=== PATIENT | male | born 1965 | race African-American/Black ===

== ENCOUNTER 2017-02-25 14:44 | Inpatient (IN) ==
[2017-02-25] MEDS ORDERED: SODIUM CHLORIDE 0.9% 500 ML IV STA (15:30)
[2017-02-25] MEDS ORDERED: VANCOMYCIN INJ 1,750 MG in SODIUM CHLORIDE 0.9% 250 ML IV STA (15:30)
[2017-02-25] MEDS ORDERED: PIPERACILLIN/TAZOBACTAM 3,375 MG in SODIUM CHLORIDE 0.9% 100 ML IV STA (15:30)
--- NOTE | 2017-02-25 15:34 | Emergency Department Note ---
Arrival - Arrival ED Nursing Triage Note: C/o redness, warmth, and edema to left BKA-onset yesterday. Reports fever and chills that started today. Temp up to 102. Mode of Arrival: Wheelchair Limitations: No Limitations Source: Patient, RN Notes Reviewed - History of Present Illness Onset (ago): hour(s) (10) Consistency: constant Severity: moderate Quality: aching <Daniel Connell - Last Filed: 02/25/17 15:31> <Ellis Jesus - Last Filed: 02/25/17 17:24> - Arrival Chief Complaint: Fever Stated Complaint: sent from Time Seen by Provider: 02/25/17 15:21 - History of Present Illness HPI Narrative: Patient is a 51-year-old black male followed by Dr. Martinez with a history of diabetes mellitus who presents to the emergency department today having awakened this morning with pain in his left BKA stump. This area is warm to touch and tender to touch. Patient's had a temp as high as 102 today. He denies cough but has had some dysuria. He denies any shortness of breath. There is no history of nausea or vomiting. (Daniel Connell) Allergies/Adverse Reactions: Allergies Allergy/AdvReac Type Severity Reaction Status Date / Time No Known Allergies Allergy Verified 09/10/15 10:59 Home Medications: Home Medications Medication Instructions Recorded Confirmed Type Potassium Chloride Cap/Tab [K Dur] 40 meq PO TID 04/03/15 02/25/17 History Cilostazol [Pletal] 100 mg PO BID tablet 07/02/15 02/25/17 Rx Clopidogrel Bisulfate [Clopidogrel] 75 mg PO QAM 09/10/15 02/25/17 History Metoprolol Tartrate Tab [Lopressor 200 mg PO BID 09/10/15 02/25/17 History Tab] Zolpidem Tartrate [Ambien] 10 mg PO BEDTIME 09/10/15 02/25/17 History amLODIPine [Norvasc] 10 mg PO QPM 09/10/15 02/25/17 History buPROPion XL [Wellbutrin Xl] 150 mg PO BID 09/10/15 02/25/17 History busPIRone [Buspar] 10 mg PO TID 09/10/15 02/25/17 History predniSONE TAB [PredniSONE] 5 mg PO BID 09/10/15 02/25/17 History tiZANidine [Zanaflex] 4 mg PO TID 09/10/15 02/25/17 History Atorvastatin [Lipitor] 40 mg PO BEDTIME tablet 10/22/15 02/25/17 Rx Gabapentin Cap/Tab [Neurontin 300 mg PO TID 11/22/15 02/25/17 History Cap/Tab] Insulin Detemir [Levemir] 50 unit SUBCUT BEDTIME 11/22/15 02/25/17 History Duloxetine HCl [Cymbalta] 60 mg PO BID 01/01/16 02/25/17 History Furosemide Tab [Lasix Tab] 40 mg PO BID DIURETIC #60 tablet 01/01/16 02/25/17 Rx Allopurinol 200 mg PO BID 06/24/16 02/25/17 History Cyanocobalamin/Folic AC/Vit B6 1 each PO BID 06/24/16 02/25/17 History [Folbic Tablet] Desvenlafaxine Succinate [Pristiq] 100 mg PO QAM 06/24/16 02/25/17 History Liraglutide [Victoza 2-Guillermo] 1.8 mg SUBCUT QAM 06/24/16 02/25/17 History Oxycodone HCl/Acetaminophen 1 each PO QID 06/24/16 02/25/17 History [Percocet 10-325 mg Tablet] fentaNYL [Fentanyl 75 mcg/hr Patch] 1 patch TRANSDERM Q3DAY 06/24/16 02/25/17 History Loperamide HCl [Loperamide] 2 mg PO Q6HR PRN 08/24/16 02/25/17 History metOLazone [Metolazone] 5 mg PO QAM 08/24/16 02/25/17 History Aspirin EC Tab 81 mg PO QAM 02/25/17 02/25/17 History Diclofenac 1% Gel [Voltaren 1% Gel] 1 applic TOP TID PRN 02/25/17 02/25/17 History Folic Acid Tab 1 mg PO QAM 02/25/17 02/25/17 History Review of System - Review of System 12 point system: reviewed and no additional remarkable complaints except as stated - Review of System Constitutional: Present: chills, fever Respiratory: Absent: cough, respiratory distress, wheezing Cardiovascular: Absent: chest pain Gastrointestinal: Present: nausea. Absent: abdominal pain, vomiting <Daniel Connell - Last Filed: 02/25/17 15:31> Medical,Surgical,& Family Hx - Medical History Cardio: History of: CHF, CAD, Hypertension Psychological: History of: Anxiety Disorders, Depression Neurology: History of: Migraine, Peripheral Neuropathy, Vertigo No history of: Seizures HEENT: History of: Eye Problem, Dental Problems Endocrine: History of: Diabetes Mellitus (NIDDM), Dyslipidemia Rheumatology: History of;: Gout Respiratory: History of: Obstructive Sleep Apnea (BIPAP) Renal: History of: Renal Failure Gastrointestinal: History of: GERD Musculoskeletal: History of: Amputation (fifth toe and metatarsal bone), Back/ Neck Problems, Degenerative Disk Disease, Osteoporosis, Musculoskeletal Problems (left below-knee amputation) Hematology: History of: Anemia, Blood Transfusion Reaction Other: History of: MRSA, Vancomycin-Resistant Enterococci - Surgical History Cardiac Surgeries: Patient Denies: Cardiac Catheterization HEENT Surgeries: Surgical HX of: Tonsilectomy & Adenoidectomy Abdominal Surgeries: Surgical HX of: Abdominal Surgery, Appendectomy, Cholecystectomy, Gastric Bypass Surgery, Hernia Repair Orthopedic Surgeries: Surgical HX of;: Orthopedic Surgery (partial amputation of the right foot for diabetic foot ulcers) - Family History Family History: Reports;: Family Cancer, Family Diabetes, Family Heart Disease, Family Hypertension, Family Stroke (DAD) - Social History Smoking Status: Never smoker Frequency of Alcohol Use: None Type of Drug Use: None <Daniel Connell - Last Filed: 02/25/17 15:31> Exam <Daniel Connell D - Last Filed: 02/25/17 15:31> <Ellis Jesus R - Last Filed: 02/25/17 17:24> Vital Signs: Vital Signs Temperature 100.7 F H 02/25/17 16:18 Pulse Rate 114 H 02/25/17 16:18 Respiratory Rate 18 02/25/17 16:18 Blood Pressure 97/64 02/25/17 16:18 O2 Sat by Pulse Oximetry 95 02/25/17 15:05 GENERAL: This is a well-nourished well-developed black male in no apparent distress. VITAL SIGNS: Reviewed HEENT: Head is atraumatic and normocephalic. Pupils are equal round react to light. Extraocular movements are intact. Oropharynx is benign with moist mucous membranes. NECK: Neck is soft and supple without tenderness. There are no masses. There is no lymphadenopathy. LUNGS: Lungs are clear to auscultation. Chest rises symmetrically. There is no chest wall tenderness. CV: Heart is regular rate and rhythm without murmurs rubs or gallops. ABDOMEN: Abdomen is soft, nontender to palpation. There are no abdominal abnormal masses palpated. There is no organomegaly. Bowel sounds are present and active. SKIN: Skin overlying the left BKA incision site is warm, erythematous, and tender to touch. There is no fluctuance. EXTREMITIES: Patient has full range of motion without tenderness. There is no pedal edema. NEUROLOGIC: Awake alert and oriented 4. Cranial nerves II through XII are grossly intact. Motor is 5 over 5 in all extremities bilaterally. (Daniel Connell) Course <Daniel Connell - Last Filed: 02/25/17 15:31> - Consultations Time: 17:22 Time: 17:22 <Ellis Jesus - Last Filed: 02/25/17 17:24> - Consultations Consultation #1: Dr. Lai will admit patient for Dr. Martinez (Ellis Jesus) Consultation #2: Dr. Rick Wellington consult he will see patient emergency room for stump infection ( Ellis Jesus) Results - Labs CBC & BMP: 02/25/17 16:10 02/25/17 16:10 Lab Results: I have reviewed the patients labs - Diagnostic Findings Procedure: X-ray: report reviewed by me, image reviewed by me (Left stump soft tissue cellulitis) <Ellis Jesus - Last Filed: 02/25/17 17:24> Critical Care Time Critical Care Time: Yes Total Critical Care Time: 60 <Ellis Jesus - Last Filed: 02/25/17 17:24> Disposition Case discussed with: patient <Daniel Connell - Last Filed: 02/25/17 15:31> Case discussed with: patient Time of Disposition: 17:23 Contact your physician if you experience:: fever over 101, Difficulty voiding, Redness or swelling, Nausea/Vomiting, Shortness of breath, Bleeding, pain uncontrolled by pain medications, Other Return to the Emergency Department if:: fever over 101, Difficulty voiding, Redness or swelling, Nausea/Vomiting, Shortness of breath, Bleeding, pain uncontrolled by pain medications, Other <Ellis Jesus - Last Filed: 02/25/17 17:24> Clinical Impression: Left BKA stump cellulitis, Diabetes mellitus, Sepsis, Cellulitis, Leukocytosis , History of left below knee amputation Disposition: Still a Patient Condition: Critical
--- NOTE | 2017-02-25 15:54 | XRay Report ---
Referring Physician: Daniel Connell Exam: XR chest 1V portable Date: February 25, 2017 at 3:37 PM Reason: Shortness of breath, fever Comparison: Chest one view portable August 24, 2016 Findings: There is borderline cardiomegaly. No focal consolidation, pneumothorax or pleural effusion is identified. No acute osseous process is seen. Impression: 1. Borderline cardiomegaly. 2. No acute pulmonary process is identified. PROCEDURE INTERPRETED AT [facility] DEPARTMENT OF RADIOLOGY Final Report Signed by: Dr. Aleah Hendricks
[2017-02-25 16:25] LABS: Basophils % 0.1 % (0.0-0.8); Eosinophils # 0.1 10*3/uL (0.0-0.87); Eosinophils % 0.3 % (0.00-10.9); Hematocrit 35.1 VOL% (42.0-52.0); Hemoglobin 11.3 GM/DL (14.0-18.0); Immature Granulocytes % 0.5 %; Lymphocytes # 2.3 10*3/uL (1.4-4.0); Lymphocytes % 11.9 % (21.2-54.2); Mean Corpuscular HGB Conc 32.2 GM/DL (32-36); Mean Corpuscular Hemoglobin 28 PG (27-34); Mean Corpuscular Volume 85.8 FL (87-102); Mean Platelet Volume 11.8 FL (9.6-12.0); Monocytes % 10.5 % (1.7-12.7); Neutrophils # 14.5 10*3/uL (1.4-7.4); Neutrophils % 76.7 % (38.7-73.9); Platelet Count 212 T/CUMM (130-400); Red Blood Count 4.09 MC/CUMM (3.8-5.5); White Blood Count 18.9 T/CUMM (4-12)
[2017-02-25] MEDS ORDERED: PIPERACILLIN/TAZOBACTAM 3,375 MG VIAL IV ONE (16:35)
[2017-02-25 16:36] LABS: PT Patient Result 10.5 SECS
[2017-02-25 17:04] LABS: Albumin 3.3 G/DL (3.4-5.0); Bilirubin,Total 0.4 MG/DL (0.2-1.0); Calcium 8.3 MG/DL (8.5-10.1); Osmolality,Calculated 286.4 MOS/KG (273-304); Total Protein 6.9 G/DL (6.4-8.3)
[2017-02-25] MEDS ORDERED: POTASSIUM CHLORIDE 20 MEQ TABLET PO STA (17:13)
--- NOTE | 2017-02-25 17:17 | XRay Report ---
Referring Physician: Ellis Jesus Exam: XR knee 2V LT Date: February 25, 2017 at 4:55 PM Reason: Left BKA stump cellulitis Comparison: Bilateral knee x-rays October 01, 2015 Findings: The patient is status post [id number] amputation. There is heterotopic calcification at the residual proximal tibia and fibula. Soft tissue swelling is seen at the site of amputation, and could reflect cellulitis. There is no clear radiographic evidence of osteomyelitis. Small soft tissue densities are also seen at the amputation site. They likely representing calcifications, but soft tissue foreign bodies would be difficult to exclude. Mild degenerative change is noted at the left knee. Impression: The patient is status post left [id number] amputation. There is soft tissue swelling at the amputation site which could represent cellulitis. However, there is no evidence of osteomyelitis. PROCEDURE INTERPRETED AT [facility] DEPARTMENT OF RADIOLOGY Final Report Signed by: Dr. Aleah Hendricks
--- NOTE | 2017-02-25 18:12 | General Surgery Consult Note ---
Assessment and Plan - Time spent with patient Time spent with patient: Greater than 30 minutes (1) Cellulitis Status: Acute Assessment and plan: I favor this being cellulitis and not been asked to assess. I administered local anesthesia and with sterile technique open his old scar and entered the amputation stump for about a 1.5 cm incision. I did not encounter an abscess. There was no purulence and all the tissue appeared viable. I saw no evidence of a necrotizing infection. This was packed open with moist saline gauze. I would treat this with IV antibiotics as you are doing for now. Current Visit: Yes Qualifiers: Site of cellulitis: extremity Site of cellulitis of extremity: lower extremity Laterality: left Qualified Code(s): L03.116 - Cellulitis of left lower limb History of Present Illness Chief complaint: Pain and BKA stump History of present illness: Mr. Caballero is a 51 year old male Who for several days has had increased pain in his left below-knee amputation stump. He states that he had an open wound in this location for several months closed about a week ago. In the last few days he had pain. This increased and was constant and worse with pressure was applied. He describes the pain is moderate. He is a chronic pain patient and actually saw Dr. De Los Santos today for another procedure but this was canceled because he had fever. Home Medications Medication Instructions Recorded Confirmed Type Potassium Chloride Cap/Tab [K Dur] 40 meq PO TID 04/03/15 02/25/17 History Cilostazol [Pletal] 100 mg PO BID tablet 07/02/15 02/25/17 Rx Clopidogrel Bisulfate [Clopidogrel] 75 mg PO QAM 09/10/15 02/25/17 History Metoprolol Tartrate Tab [Lopressor 200 mg PO BID 09/10/15 02/25/17 History Tab] Zolpidem Tartrate [Ambien] 10 mg PO BEDTIME 09/10/15 02/25/17 History amLODIPine [Norvasc] 10 mg PO QPM 09/10/15 02/25/17 History buPROPion XL [Wellbutrin Xl] 150 mg PO BID 09/10/15 02/25/17 History busPIRone [Buspar] 10 mg PO TID 09/10/15 02/25/17 History predniSONE TAB [PredniSONE] 5 mg PO BID 09/10/15 02/25/17 History tiZANidine [Zanaflex] 4 mg PO TID 09/10/15 02/25/17 History Atorvastatin [Lipitor] 40 mg PO BEDTIME tablet 10/22/15 02/25/17 Rx Gabapentin Cap/Tab [Neurontin 300 mg PO TID 11/22/15 02/25/17 History Cap/Tab] Insulin Detemir [Levemir] 50 unit SUBCUT BEDTIME 11/22/15 02/25/17 History Duloxetine HCl [Cymbalta] 60 mg PO BID 01/01/16 02/25/17 History Furosemide Tab [Lasix Tab] 40 mg PO BID DIURETIC #60 tablet 01/01/16 02/25/17 Rx Allopurinol 200 mg PO BID 06/24/16 02/25/17 History Cyanocobalamin/Folic AC/Vit B6 1 each PO BID 06/24/16 02/25/17 History [Folbic Tablet] Desvenlafaxine Succinate [Pristiq] 100 mg PO QAM 06/24/16 02/25/17 History Liraglutide [Victoza 2-Guillermo] 1.8 mg SUBCUT QAM 06/24/16 02/25/17 History Oxycodone HCl/Acetaminophen 1 each PO QID 06/24/16 02/25/17 History [Percocet 10-325 mg Tablet] fentaNYL [Fentanyl 75 mcg/hr Patch] 1 patch TRANSDERM Q3DAY 06/24/16 02/25/17 History Loperamide HCl [Loperamide] 2 mg PO Q6HR PRN 08/24/16 02/25/17 History metOLazone [Metolazone] 5 mg PO QAM 08/24/16 02/25/17 History Aspirin EC Tab 81 mg PO QAM 02/25/17 02/25/17 History Diclofenac 1% Gel [Voltaren 1% Gel] 1 applic TOP TID PRN 02/25/17 02/25/17 History Folic Acid Tab 1 mg PO QAM 02/25/17 02/25/17 History Allergies Allergy/AdvReac Type Severity Reaction Status Date / Time No Known Allergies Allergy Verified 09/10/15 10:59 Medical,Surgical,& Family Hx - Medical History Cardio: History of: CHF, CAD, Hypertension Psychological: History of: Anxiety Disorders, Depression Neurology: History of: Migraine, Peripheral Neuropathy, Vertigo No history of: Seizures HEENT: History of: Eye Problem, Dental Problems Endocrine: History of: Diabetes Mellitus (NIDDM), Dyslipidemia Rheumatology: History of;: Gout Respiratory: History of: Obstructive Sleep Apnea (BIPAP) Renal: History of: Renal Failure Gastrointestinal: History of: GERD Musculoskeletal: History of: Amputation (fifth toe and metatarsal bone), Back/ Neck Problems, Degenerative Disk Disease, Osteoporosis, Musculoskeletal Problems (left below-knee amputation) Hematology: History of: Anemia, Blood Transfusion Reaction Other: History of: MRSA, Vancomycin-Resistant Enterococci - Surgical History Cardiac Surgeries: Patient Denies: Cardiac Catheterization HEENT Surgeries: Surgical HX of: Tonsilectomy & Adenoidectomy Abdominal Surgeries: Surgical HX of: Abdominal Surgery, Appendectomy, Cholecystectomy, Gastric Bypass Surgery, Hernia Repair Orthopedic Surgeries: Surgical HX of;: Orthopedic Surgery (partial amputation of the right foot for diabetic foot ulcers) - Family History Family History: Reports;: Family Cancer, Family Diabetes, Family Heart Disease, Family Hypertension, Family Stroke (DAD) - Social History Smoking Status: Never smoker Frequency of Alcohol Use: None Type of Drug Use: None - Constitutional Constitutional: Present: chills, fever(s) - Cardiovascular Cardiovascular: Absent: chest pain at rest, chest pain with activity, dyspnea, dyspnea on exertion - Respiratory Respiratory: Absent: dyspnea, dyspnea on exertion - Gastrointestinal Gastrointestinal: Absent: abdominal pain - Neurological Neurological: Absent: focal weakness, syncope - Endocrine Endocrine: Absent: polyuria Hematologic/Lymphatic: Absent: easy bruising Exam - Constitutional General appearance: no acute distress - Head Head exam: Present: normocephalic - Eye Eye exam: Absent: scleral icterus - ENT Mouth exam: Present: normal voice - Neck Neck exam: Present: trachea midline - Respiratory Respiratory exam: Present: clear to auscultation bilaterally. Absent: accessory muscle use - Cardiovascular Cardiovascular exam: Present: RRR - GI/Abdominal GI/Abdominal exam: Present: soft. Absent: distended, tenderness - Extremities Exam Extremities exam: Present: edema, other (There is some tenderness just above his old scar but no fluctuance that I can appreciate. This is may be a bit edematous but there is no erythema. This is indurated but this appears that this could be chronic.) - Neurological Exam Neurological exam: Present: alert, oriented X3 Speech: Present: normal - Skin Skin exam: Present: normal color Results - Labs CBC & BMP: 02/25/17 16:10 02/25/17 16:10 Lab Results: I have reviewed the past 24 hour labs - Diagnostic Findings Procedure: X-ray: report reviewed by me
[2017-02-25] MEDS ORDERED: VANCOMYCIN INJ 1,000 MG in SODIUM CHLORIDE 0.9% 250 ML IV SCH (18:41)
[2017-02-25] MEDS ORDERED: ONDANSETRON 4 MG/2 ML VIAL IV PRN (18:41)
[2017-02-25] MEDS ORDERED: DEXTROSE 50% 25 GM/50 ML VIAL IV PRN (18:41)
[2017-02-25] MEDS ORDERED: ACETAMINOPHEN 325 MG TABLET PO PRN (18:41)
[2017-02-25] MEDS ORDERED: DICLOFENAC 1% GEL 100 GM TUBE TOP PRN (18:41)
[2017-02-25] MEDS ORDERED: SODIUM CHLORIDE 0.9% 1,000 ML IV SCH (18:41)
[2017-02-25] MEDS ORDERED: GLUCAGON 1 MG VIAL IM PRN (18:41)
[2017-02-25] MEDS ORDERED: POTASSIUM CHLORIDE 20 MEQ TABLET PO ONE (19:37)
[2017-02-25] MEDS: oxyCODONE/ACETAMINOPHEN 5-325 MG TABLET PO SCH (20:30)
[2017-02-25] MEDS: MULTIVITAMIN (BEROCCA) TABLET PO SCH (20:30)
[2017-02-25] MEDS: ALLOPURINOL 100 MG TABLET PO SCH (20:31)
[2017-02-25] MEDS: POTASSIUM CHLORIDE 20 MEQ TABLET PO SCH (20:31)
[2017-02-25] MEDS: ATORVASTATIN 40 MG TABLET PO SCH (20:31)
[2017-02-25] MEDS: tiZANidine 4 MG TABLET PO SCH (20:31)
[2017-02-25] MEDS: GABAPENTIN 600 MG TABLET PO SCH (20:31)
[2017-02-25] MEDS: CILOSTAZOL 100 MG TABLET PO SCH (20:31)
[2017-02-25] MEDS: MEROPENEM 1,000 MG in SODIUM CHLORIDE 0.9% 100 ML IV SCH (20:32)
[2017-02-25] MEDS: predniSONE 5 MG TABLET PO SCH (20:32)
[2017-02-25] MEDS: busPIRone 10 MG TABLET PO SCH (20:32)
[2017-02-25] MEDS: ZOLPIDEM 5 MG TABLET PO SCH (20:32)
[2017-02-25] MEDS: buPROPion XL 150 MG TABLET PO SCH (20:32)
[2017-02-25] MEDS: DOCUSATE SODIUM 100 MG CAPSULE PO SCH (20:32)
[2017-02-25] MEDS: VANCOMYCIN INJ 1,750 MG in SODIUM CHLORIDE 0.9% 500 ML IV SCH (20:33)
[2017-02-25] MEDS: SODIUM CHLOR 0.9% KCL 20 MEQ 20 MEQ/1,000 ML BAG IV SCH (20:33)
[2017-02-25] MEDS: INSULIN REGULAR 100 UNIT/ML SUBCUT SCH (20:38)
[2017-02-25] MEDS: INSULIN GLARGINE 100 UNIT/ML SUBCUT SCH (20:39)
[2017-02-25] MEDS: METOPROLOL TARTRATE 100 MG TABLET PO SCH (20:40)
[2017-02-25] MEDS ORDERED: amLODIPine 10 MG TABLET PO SCH (21:00)
--- NOTE | 2017-02-25 22:14 | Family Practice History&Phys ---
Assessment and Plan (1) Cellulitis Status: Acute Assessment and plan: Patient has cellulitis with possible small abscess formation of the distal stump of the left leg. She had a previous below the knee amputation on the left side. Said chronic skin breakdown from his prosthesis. He was admitted with chills fever hypotension and mental status change. In view of history cultures have been obtained and started on appropriate antibiotics. He is being followed by Dr. Cabrera. Current Visit: Yes Qualifiers: Site of cellulitis: extremity Site of cellulitis of extremity: lower extremity Laterality: left Qualified Code(s): L03.116 - Cellulitis of left lower limb (2) Sepsis Status: Acute Assessment and plan: Sepsis probably from areas of skin breakdown on the left stump. Have obtained blood and urine cultures and started on appropriate antibiotics Current Visit: Yes (3) Altered mental status Status: Acute Assessment and plan: Initially had altered mental status earlier today when he had fever. This has resolved at the time of my evaluation Current Visit: No (4) History of left below knee amputation Status: Chronic Assessment and plan: Patient has a [id number]-ahl-[id number] amputation on left side. He apparently has had problems with skin breakdown secondary to the prosthetic device. He has recently been treated by Dr. Augustine in wound care clinic. Stump is the most likely etiology of his infection Current Visit: Yes (5) Diabetes mellitus Status: Chronic Assessment and plan: We will start on sliding scale and monitor closely Current Visit: Yes (6) Chronic renal insufficiency, stage III (moderate) Status: Chronic Assessment and plan: Stable at present Current Visit: No (7) Hypertension Status: Chronic Assessment and plan: Stable on present medications Current Visit: No History of Present Illness Chief complaint: Fever, chills, and swelling left stump History of present illness: Mr. Caballero is a 51 year old male Patient is a 51-year-old black male followed by Dr. Martinez with a history of diabetes mellitus who presents to the emergency department today having awakened this morning with pain in his left BKA stump. This area is warm to touch and tender to touch. Patient's had a temp as high as 102 today. He denies cough but has had some dysuria. He denies any shortness of breath. Patient states that he was recently treated by Dr. Augustine for an area of breakdown on the distal stump. He has had a small persistent area of skin breakdown since that time. When patient was seen in the emergency room physician felt that he was somewhat confused . Patient admits that he is felt that he was not at his normal self all day. He had significant amount of localized pain at the distal stump. He was seen in emergency room by Dr. Cabrera. Incision was made but no obvious abscess was found. The area was left open and packed. In view of the history with patient with hypotension patient is being admitted to intensive care close observation therapy. Will obtain blood and urine cultures and start appropriate antibiotics Home Medications Medication Instructions Recorded Confirmed Type Potassium Chloride Cap/Tab [K Dur] 40 meq PO TID 04/03/15 02/25/17 History Cilostazol [Pletal] 100 mg PO BID tablet 07/02/15 02/25/17 Rx Clopidogrel Bisulfate [Clopidogrel] 75 mg PO QAM 09/10/15 02/25/17 History Metoprolol Tartrate Tab [Lopressor 200 mg PO BID 09/10/15 02/25/17 History Tab] Zolpidem Tartrate [Ambien] 10 mg PO BEDTIME 09/10/15 02/25/17 History amLODIPine [Norvasc] 10 mg PO QPM 09/10/15 02/25/17 History buPROPion XL [Wellbutrin Xl] 150 mg PO BID 09/10/15 02/25/17 History busPIRone [Buspar] 10 mg PO TID 09/10/15 02/25/17 History predniSONE TAB [PredniSONE] 5 mg PO BID 09/10/15 02/25/17 History tiZANidine [Zanaflex] 4 mg PO TID 09/10/15 02/25/17 History Atorvastatin [Lipitor] 40 mg PO BEDTIME tablet 10/22/15 02/25/17 Rx Gabapentin Cap/Tab [Neurontin 300 mg PO TID 11/22/15 02/25/17 History Cap/Tab] Insulin Detemir [Levemir] 50 unit SUBCUT BEDTIME 11/22/15 02/25/17 History Duloxetine HCl [Cymbalta] 60 mg PO BID 01/01/16 02/25/17 History Furosemide Tab [Lasix Tab] 40 mg PO BID DIURETIC #60 tablet 01/01/16 02/25/17 Rx Allopurinol 200 mg PO BID 06/24/16 02/25/17 History Cyanocobalamin/Folic AC/Vit B6 1 each PO BID 06/24/16 02/25/17 History [Folbic Tablet] Desvenlafaxine Succinate [Pristiq] 100 mg PO QAM 06/24/16 02/25/17 History Liraglutide [Victoza 2-Guillermo] 1.8 mg SUBCUT QAM 06/24/16 02/25/17 History Oxycodone HCl/Acetaminophen 1 each PO QID 06/24/16 02/25/17 History [Percocet 10-325 mg Tablet] fentaNYL [Fentanyl 75 mcg/hr Patch] 1 patch TRANSDERM Q3DAY 06/24/16 02/25/17 History Loperamide HCl [Loperamide] 2 mg PO Q6HR PRN 08/24/16 02/25/17 History metOLazone [Metolazone] 5 mg PO QAM 08/24/16 02/25/17 History Aspirin EC Tab 81 mg PO QAM 02/25/17 02/25/17 History Diclofenac 1% Gel [Voltaren 1% Gel] 1 applic TOP TID PRN 02/25/17 02/25/17 History Escitalopram [Lexapro] 20 mg PO DAILY 02/25/17 02/25/17 History Folic Acid Tab 1 mg PO QAM 02/25/17 02/25/17 History Allergies Allergy/AdvReac Type Severity Reaction Status Date / Time No Known Allergies Allergy Verified 09/10/15 10:59 Medical,Surgical,& Family Hx - Medical History Cardio: History of: CHF, CAD, Hypertension Psychological: History of: Anxiety Disorders, Depression Neurology: History of: Migraine, Peripheral Neuropathy, Vertigo No history of: Seizures HEENT: History of: Eye Problem, Dental Problems Endocrine: History of: Diabetes Mellitus (NIDDM), Dyslipidemia Rheumatology: History of;: Gout Respiratory: History of: Obstructive Sleep Apnea (BIPAP) Renal: History of: Renal Failure Gastrointestinal: History of: GERD Musculoskeletal: History of: Amputation (fifth toe and metatarsal bone), Back/ Neck Problems, Degenerative Disk Disease, Osteoporosis, Musculoskeletal Problems (left below-knee amputation) Hematology: History of: Anemia, Blood Transfusion Reaction Other: History of: MRSA, Vancomycin-Resistant Enterococci - Surgical History Cardiac Surgeries: Patient Denies: Cardiac Catheterization HEENT Surgeries: Surgical HX of: Tonsilectomy & Adenoidectomy Abdominal Surgeries: Surgical HX of: Abdominal Surgery, Appendectomy, Cholecystectomy, Gastric Bypass Surgery, Hernia Repair Orthopedic Surgeries: Surgical HX of;: Orthopedic Surgery (partial amputation of the right foot for diabetic foot ulcers) - Family History Family History: Reports;: Family Cancer, Family Diabetes, Family Heart Disease, Family Hypertension, Family Stroke (DAD) - Social History Smoking Status: Never smoker Frequency of Alcohol Use: None Type of Drug Use: None Lives With:: Alone Exam - Constitutional General appearance: mild distress - Head Head exam: Present: normal inspection - ENT ENT exam: Present: normal exam - Neck Neck exam: Present: normal inspection - Respiratory Respiratory exam: Present: clear to auscultation bilaterally - Cardiovascular Cardiovascular exam: Present: regular rate and rhythm, tachycardia - GI/Abdominal GI/Abdominal exam: Present: normal bowel sounds, soft - Extremities Exam Extremities exam: Present: edema, other (Patient has significant edema of the right lower leg and foot. He has swelling with slight redness over the distal stump on the left side. There is packing present with some blood.) - Back Exam Back exam: Present: normal inspection - Neurological Exam Neurological exam: Present: alert, other (Patient has decreased sensory of the right ankle and foot.) - Psychiatric Psychiatric exam: Present: normal affect - Skin Skin exam: Present: warm Results - Labs CBC & BMP: 02/25/17 16:10 02/25/17 16:10
[2017-02-26] MEDS: MEROPENEM 1,000 MG in SODIUM CHLORIDE 0.9% 100 ML IV SCH ×3 (04:25→21:08)
[2017-02-26 04:56] LABS: Basophils % 0.1 % (0.0-0.8); Eosinophils # 0.1 10*3/uL (0.0-0.87); Eosinophils % 0.3 % (0.00-10.9); Hematocrit 32.5 VOL% (42.0-52.0); Hemoglobin 10.3 GM/DL (14.0-18.0); Immature Granulocytes % 0.8 %; Immature Granulocytes Absolute 0.16 #; Lymphocytes # 2.1 10*3/uL (1.4-4.0); Lymphocytes % 10.1 % (21.2-54.2); Mean Corpuscular HGB Conc 31.7 GM/DL (32-36); Mean Corpuscular Hemoglobin 28 PG (27-34); Mean Corpuscular Volume 86.7 FL (87-102); Mean Platelet Volume 12.1 FL (9.6-12.0); Monocytes % 9.7 % (1.7-12.7); Platelet Count 186 T/CUMM (130-400); Red Blood Count 3.75 MC/CUMM (3.8-5.5); Red Cell Distribution Width 17.3 % (9.3-17.3); White Blood Count 20.3 T/CUMM (4-12)
[2017-02-26 05:31] LABS: Band Neutrophils 4 % (0-10); Burr Cells Slight; Hypochromasia 1+; Lymphocytes 9 % (20-55); Ovalocytes Slight; Platelet Estimate Normal; Segmented Neutrophils 81 % (50-85); Total Cells Counted 100
[2017-02-26 05:46] LABS: Albumin 2.7 G/DL (3.4-5.0); Bilirubin,Total 0.8 MG/DL (0.2-1.0); Calcium 7.4 MG/DL (8.5-10.1); Magnesium 2.2 MG/DL (1.8-2.4); Total Protein 5.4 G/DL (6.4-8.3)
[2017-02-26] MEDS: SODIUM CHLOR 0.9% KCL 20 MEQ 20 MEQ/1,000 ML BAG IV SCH ×4 (05:49→20:35)
[2017-02-26] MEDS: MORPHINE 2 MG/1 ML SYRINGE IV PRN ×2 (05:52→19:35)
--- NOTE | 2017-02-26 07:32 | XRay Report ---
XR chest 1V portable Indication: SOB Comparison: Chest x-ray dated February 25, 2017 at 7:03 PM Technique: Single frontal view of the chest Findings: Cardiomediastinal silhouette is stable in configuration. Minimal linear opacities demonstrated within the lower lungs, predominantly on the left, suggestive of atelectasis. Osseous and surrounding soft tissue structures appear grossly unchanged. IMPRESSION: No adverse interval change. PROCEDURE INTERPRETED AT [facility] DEPARTMENT OF RADIOLOGY Final Report Signed by: Dr William Bernstein
--- NOTE | 2017-02-26 08:46 | Internal Med Progress Note ---
Assessment and Plan (1) Cellulitis Status: Acute Assessment and plan: 51-year-old male admitted to acute care * Cellulitis. Patient has cellulitis on the left BKA stump. He had I&D done yesterday. He is on appropriate antibiotics. Cultures are pending. * Diabetes. Continue his diabetic diet and sliding scale * Chronic renal insufficiency. * Hypertension. Continue current treatment * Peripheral vascular disease. Patient will be continued on current management * Hyperlipidemia. Continue Lipitor Current Visit: Yes Qualifiers: Site of cellulitis: extremity Site of cellulitis of extremity: lower extremity Laterality: left Qualified Code(s): L03.116 - Cellulitis of left lower limb (2) Diabetes mellitus Status: Chronic Current Visit: Yes (3) History of left below knee amputation Status: Chronic Current Visit: Yes (4) Cervical spondylosis Status: Acute Current Visit: No (5) Chronic pain syndrome Status: Acute Current Visit: No (6) Depression Status: Acute Current Visit: No (7) Diabetes mellitus Status: Acute Current Visit: No (8) Gastroesophageal reflux disease Status: Acute Current Visit: No Internal Medicine - PN: Subj Interval history: He is feeling better this morning. No chest pain or shortness of breath. No nausea or vomiting. He is shivering quite a lot. Exam (Progress Note) - Constitutional Vitals: Period Temp Pulse Resp BP Sys/Gallegos Pulse Ox Last 24 Hr 98.2 F-101.0 F 85-112 10-20 90-164/68-111 90-100 Exam: Examination: GENERAL: Obese black male who is in no acute distress HEENT: PERRLA. EOMI. Mucous membranes are moist. NECK: Neck is supple. No JVD. No carotid bruit. No thyromegaly. CVS: Regular rate and rhythm. S1 and S2 are normal. RESPIRATORY: Lungs are clear. No rales or rhonchi. ABDOMEN: Soft and nontender. Bowel sounds are present. No hepatosplenomegaly. EXT: 1+ edema in the right lower extremity. Patient has a dressing on his stump which was opened up yesterday by Dr. Cabrera . Peripheral pulses are present. BRIM FLEXER: Patient is awake, alert and oriented to time place and person. Cranial nerves II through XII are grossly intact. Motor strength is 4/5 SKIN: Warm and dry. MSK: No obvious deformity. Results - Labs CBC & BMP: 02/26/17 03:53 02/26/17 03:53 Lab Results: I have reviewed the past 24 hour labs
[2017-02-26] MEDS: INSULIN REGULAR 100 UNIT/ML SUBCUT SCH ×4 (09:40→22:26)
[2017-02-26] MEDS: CILOSTAZOL 100 MG TABLET PO SCH ×2 (09:42→22:02)
[2017-02-26] MEDS: CLOPIDOGREL 75 MG TABLET PO SCH (09:42)
[2017-02-26] MEDS: MULTIVITAMIN (BEROCCA) TABLET PO SCH ×2 (09:42→21:59)
[2017-02-26] MEDS: buPROPion XL 150 MG TABLET PO SCH ×2 (09:42→22:02)
[2017-02-26] MEDS: PANTOPRAZOLE 40 MG VIAL IV SCH (09:42)
[2017-02-26] MEDS: predniSONE 5 MG TABLET PO SCH ×2 (09:43→22:01)
[2017-02-26] MEDS: METOPROLOL TARTRATE 100 MG TABLET PO SCH ×2 (09:43→22:00)
[2017-02-26] MEDS: ALLOPURINOL 100 MG TABLET PO SCH ×2 (09:43→22:01)
[2017-02-26] MEDS: tiZANidine 4 MG TABLET PO SCH ×3 (09:43→22:02)
[2017-02-26] MEDS: ASPIRIN EC 81 MG TABLET PO SCH (09:44)
[2017-02-26] MEDS: FUROSEMIDE 40 MG TABLET PO SCH ×2 (09:44→16:08)
[2017-02-26] MEDS: GABAPENTIN 600 MG TABLET PO SCH ×3 (09:44→22:02)
[2017-02-26] MEDS: DOCUSATE SODIUM 100 MG CAPSULE PO SCH ×2 (09:44→22:09)
[2017-02-26] MEDS: metOLazone 5 MG TABLET PO SCH (09:44)
[2017-02-26] MEDS: busPIRone 10 MG TABLET PO SCH ×3 (09:45→22:00)
[2017-02-26] MEDS: FOLIC ACID 1 MG TABLET PO SCH (09:45)
[2017-02-26] MEDS: POTASSIUM CHLORIDE 20 MEQ TABLET PO SCH ×3 (09:45→21:59)
[2017-02-26] MEDS: oxyCODONE/ACETAMINOPHEN 5-325 MG TABLET PO SCH ×4 (09:45→22:03)
--- NOTE | 2017-02-26 11:03 | CT Report ---
CT lower leg LT w con Indication: Stump pain Comparison: None Technique: Multiple axial tomographic images of the left lower extremity were obtained after the administration of 50 cc Omnipaque 350 intravenous contrast. Images obtained from superior acetabular level to the level of the distal BKA stump. Findings: Patient is status post BKA. There is significant soft tissue swelling within the distal stomach suspicious for cellulitis. There is a peripherally enhancing fluid collection about the distal tibia which measures up to 5.8 x 4.0 x 2.8 cm in width, AP, and craniocaudad dimensions respectively. This is suspicious for abscess. No definitive osseous erosion to suggest acute osteomyelitis. IMPRESSION: As above. The CT exam was performed using one or more of the following dose reduction techniques: Automated exposure control, adjustment of the mA and/or kV according to patient size, or use of iterative reconstruction technique. PROCEDURE INTERPRETED AT [facility] DEPARTMENT OF RADIOLOGY Final Report Signed by: Dr William Bernstein
--- NOTE | 2017-02-26 12:07 | General Surgery Progress Note ---
Assessment and Plan (1) Sepsis Status: Acute Assessment and plan: Impression: Sepsis with left stump pain Plan: I suspect there was something deeper in the left stump and a CT scan confirms my suspicion. There is a fluid collection along the d distal stump site. We will plan for incision and drainage under minimal sedation in the operating room today. He understands he will have an open wound that will need to be packed. The risks of the procedure including bleeding, infection, damage to surrounding structures, need further surgery all discussed in detail. He would like to proceed. Current Visit: Yes Subjective Narrative: Patient reports continuing pain in the left BKA stump. He is shivering in the bed. Exam - Constitutional Vitals: Period Temp Pulse Resp BP Sys/Gallegos Pulse Ox Last 24 Hr 98.2 F-101.0 F 85-112 10-24 90-164/68-111 90-100 General appearance: no acute distress - Respiratory Respiratory exam: Present: clear to auscultation bilaterally - Cardiovascular Cardiovascular exam: Present: tachycardia (Mildly tachycardic in sinus rhythm) - Extremities Exam Extremities exam: Present: other (Left BKA stump site is boggy. I do not see any cellulitis. He is very tender to palpation in this area. Previous incision examined and I do not see any packing in this area. It is small and the patient has been taking off his dressing several times overnight.) - Neurological Exam Neurological exam: Present: alert, oriented X3 Speech: Present: normal - Skin Skin exam: Present: normal color Results - Labs CBC & BMP: 02/26/17 03:53 02/26/17 03:53 Lab Results: I have reviewed the past 24 hour labs
[2017-02-26] MEDS: VANCOMYCIN INJ 1,750 MG in SODIUM CHLORIDE 0.9% 500 ML IV SCH (15:02)
[2017-02-26] MEDS ORDERED: PROPOFOL 200 MG/20 ML VIAL IV ONE (16:16)
[2017-02-26] MEDS ORDERED: METOCLOPRAMIDE 10 MG/2 ML VIAL ONE (16:16)
[2017-02-26] MEDS ORDERED: BUPIVACAINE MPF 0.25% /EPI 30 ML VIAL ONE (16:27)
--- NOTE | 2017-02-26 16:58 | Anesthesia Post-Op ---
Anesthesia Post OP - Post Ansesthetic Evaluation Patient seen in post op: Yes Resp: within normal limits CV: within normal limits Mental: within normal limits Temp: within normal limits [id number]-[id number]: within normal limits Nausea and Vomiting: within normal limits Pain: within normal limits
[2017-02-26] MEDS ORDERED: MIDAZOLAM 2 MG/2 ML VIAL ONE ×2 (17:00)
--- NOTE | 2017-02-26 17:09 | Operative Note ---
Date of procedure: 02/26/17 Pre-op diagnosis: Left BKA stump abscess Post-op diagnosis: same Procedure: Procedure performed: Incision and drainage of left BKA stump abscess Procedure in detail: After informed consent was obtained, patient was taken operating suite and laid supine on the table. After monitored anesthesia initiated a left lower extremity prepped and draped in usual sterile fashion. After procedural pause local anesthetic infiltrated in skin and subcutaneous tissue. The previous incision was extended medially and laterally. I dissected through the tissue and encountered purulence fairly deep. The purulence was cultured. The pocket appeared to extend posterior to the transected tibia. Fair amount of purulence was expressed and the wound irrigated and suctioned. The tissue appeared viable. I did not see any necrosis. Wound was thoroughly irrigated and suctioned. It was packed with Kerlix gauze and sterile dressings applied. There is good hemostasis. Patient was taken to recovery room in stable condition. All lap and needle counts correct at the end of the case. Anesthesia: MAC, local Surgeon / Physician: Altaf Lopez Estimated blood loss: other (Less than 10 cc) Specimens: other (Culture sent) Condition: stable Disposition: PACU Results - Labs CBC & BMP: 02/26/17 03:53 02/26/17 03:53 Discharge Plan - Discharge Medications No Action Potassium Chloride Cap/Tab [K Dur] 40 meq PO TID Cilostazol [Pletal] 100 mg PO BID tablet amLODIPine [Norvasc] 10 mg PO QPM busPIRone [Buspar] 10 mg PO TID buPROPion XL [Wellbutrin Xl] 150 mg PO BID tiZANidine [Zanaflex] 4 mg PO TID predniSONE TAB [PredniSONE] 5 mg PO BID Clopidogrel Bisulfate [Clopidogrel] 75 mg PO QAM Zolpidem Tartrate [Ambien] 10 mg PO BEDTIME Metoprolol Tartrate Tab [Lopressor Tab] 200 mg PO BID Atorvastatin [Lipitor] 40 mg PO BEDTIME tablet Allopurinol 200 mg PO DAILY Cyanocobalamin/Folic AC/Vit B6 [Folbic Tablet] 1 each PO BID Desvenlafaxine Succinate [Pristiq] 100 mg PO QAM fentaNYL [Fentanyl 75 mcg/hr Patch] 1 patch TRANSDERM Q3DAY Liraglutide [Victoza 2-Guillermo] 1.8 mg SUBCUT QAM Oxycodone HCl/Acetaminophen [Percocet 10-325 mg Tablet] 1 each PO QID metOLazone [Metolazone] 5 mg PO QAM Loperamide HCl [Loperamide] 2 mg PO Q6HR PRN PRN Reason: Diarrhea Diclofenac 1% Gel [Voltaren 1% Gel] 1 applic TOP TID PRN PRN Reason: Pain Folic Acid Tab 1 mg PO QAM Aspirin EC Tab 81 mg PO QAM Naproxen Sodium 220 mg PO Q12HR Esomeprazole Magnesium [Nexium] 40 mg PO BID Glimepiride [Glimepiride] 2 mg PO BID Escitalopram [Lexapro] 20 mg PO DAILY Colchicine [Colcrys] 0.6 mg PO DAILY Gabapentin Cap/Tab [Neurontin Cap/Tab] 300 mg PO TID Insulin Detemir [Levemir] 50 unit SUBCUT BEDTIME Furosemide Tab [Lasix Tab] 40 mg PO BID DIURETIC #60 tablet Duloxetine HCl [Cymbalta] 60 mg PO BID - Follow Up or Referral - Forms/Instructions
[2017-02-26] MEDS: fentaNYL 75 MCG/HR PATCH TRANSDERM SCH (17:36)
[2017-02-26] MEDS: ATORVASTATIN 40 MG TABLET PO SCH (22:02)
[2017-02-26] MEDS: ZOLPIDEM 5 MG TABLET PO SCH (22:20)
[2017-02-26] MEDS: INSULIN GLARGINE 100 UNIT/ML SUBCUT SCH (22:30)
[2017-02-27] MEDS: SODIUM CHLOR 0.9% KCL 20 MEQ 20 MEQ/1,000 ML BAG IV SCH ×3 (04:57→20:46)
[2017-02-27] MEDS: MEROPENEM 1,000 MG in SODIUM CHLORIDE 0.9% 100 ML IV SCH ×3 (05:00→20:42)
[2017-02-27] MEDS: MORPHINE 2 MG/1 ML SYRINGE IV PRN ×2 (07:12→12:47)
[2017-02-27] MEDS: GABAPENTIN 600 MG TABLET PO SCH ×3 (08:24→20:43)
[2017-02-27] MEDS: CLOPIDOGREL 75 MG TABLET PO SCH (08:25)
[2017-02-27] MEDS: tiZANidine 4 MG TABLET PO SCH ×3 (08:25→20:44)
[2017-02-27] MEDS: CILOSTAZOL 100 MG TABLET PO SCH ×2 (08:25→20:43)
[2017-02-27] MEDS: metOLazone 5 MG TABLET PO SCH (08:25)
[2017-02-27] MEDS: predniSONE 5 MG TABLET PO SCH ×2 (08:25→20:44)
[2017-02-27] MEDS: METOPROLOL TARTRATE 100 MG TABLET PO SCH ×2 (08:26→20:43)
[2017-02-27] MEDS: FUROSEMIDE 40 MG TABLET PO SCH ×2 (08:26→16:28)
[2017-02-27] MEDS: busPIRone 10 MG TABLET PO SCH ×3 (08:26→20:43)
[2017-02-27] MEDS: FOLIC ACID 1 MG TABLET PO SCH (08:27)
[2017-02-27] MEDS: ASPIRIN EC 81 MG TABLET PO SCH (08:27)
[2017-02-27] MEDS: POTASSIUM CHLORIDE 20 MEQ TABLET PO SCH ×3 (08:27→20:44)
[2017-02-27] MEDS: buPROPion XL 150 MG TABLET PO SCH ×2 (08:27→20:43)
[2017-02-27] MEDS: PANTOPRAZOLE 40 MG VIAL IV SCH (08:30)
[2017-02-27] MEDS: ALLOPURINOL 100 MG TABLET PO SCH ×2 (08:30→20:44)
[2017-02-27] MEDS: oxyCODONE/ACETAMINOPHEN 5-325 MG TABLET PO SCH ×4 (08:30→20:55)
[2017-02-27] MEDS: MULTIVITAMIN (BEROCCA) TABLET PO SCH ×2 (08:30→20:44)
[2017-02-27] MEDS: INSULIN REGULAR 100 UNIT/ML SUBCUT SCH ×4 (08:38→20:47)
[2017-02-27] MEDS: DOCUSATE SODIUM 100 MG CAPSULE PO SCH ×2 (08:39→20:43)
[2017-02-27] MEDS: VANCOMYCIN INJ 1,750 MG in SODIUM CHLORIDE 0.9% 500 ML IV SCH (08:42)
--- NOTE | 2017-02-27 12:58 | Internal Med Progress Note ---
Assessment and Plan (1) Cellulitis Status: Acute Current Visit: Yes Qualifiers: Site of cellulitis: extremity Site of cellulitis of extremity: lower extremity Laterality: left Qualified Code(s): L03.116 - Cellulitis of left lower limb (2) Leukocytosis Status: Acute Current Visit: Yes (3) Diabetes mellitus Status: Chronic Current Visit: Yes Qualifiers: Diabetes mellitus type: type 2 Diabetes mellitus complication status: with circulatory complication Diabetes mellitus complication detail: with peripheral angiopathy with gangrene Diabetes mellitus alf insulin use: with dedicated intermodal truck driver use Qualified Code(s): E11.52 - Type 2 diabetes mellitus with diabetic peripheral angiopathy with gangrene; Z79.4 - group home (current) use of insulin (4) History of left below knee amputation Status: Chronic Current Visit: Yes (5) Anemia Status: Chronic Current Visit: Yes Qualifiers: Other causes of anemia: chronic disease, other Internal Medicine - PN: Subj Interval history: This is a 51 year old male patient of Dr. Martinez with history of DM, HTN, dyslipidemia, peripheral neuropathy, multiple recurrences of lower extremity skin ulcerations, recent below knee amputation left lower extremity, who presented to ER with abscess in left leg stump. He has had surgical I&D per Dr. Rick III. He is feeling better and will be moved out of the ICU. Exam (Progress Note) - Constitutional Vitals: Period Temp Pulse Resp BP Sys/Gallegos Pulse Ox Last 24 Hr 97.0 F-99.8 F 84-108 10-24 103-158/74-104 95-100 General appearance: no acute distress - Head Head exam: Present: normocephalic - Eye Eye exam: Present: EOMI - Respiratory Respiratory exam: Present: clear to auscultation bilaterally - Cardiovascular Cardiovascular exam: Present: regular rate and rhythm - GI/Abdominal GI/Abdominal exam: Present: normal bowel sounds, soft. Absent: tenderness - Extremities Exam Extremities exam: Present: other (left lower extremity below knee amputation). Absent: edema - Neurological Exam Neurological exam: Present: alert, oriented X3 - Psychiatric Psychiatric exam: Present: normal affect - Skin Skin exam: Present: warm, dry Results - Labs CBC & BMP: 02/26/17 03:53 02/26/17 03:53 - EKG EKG shows: sinus rhythm - Diagnostic Findings Procedure: Chest x-ray: report reviewed by me
--- NOTE | 2017-02-27 13:46 | Event Note ---
Status post I&D of left stump. Afebrile vital signs stable and he is feeling much better. May be transferred to the floor today. His wound is clean. His pain is improved. I do not see any further purulence. Tissue appears viable. Repacked. Continue local wound care and antibiotics.
[2017-02-27] MEDS: INSULIN GLARGINE 100 UNIT/ML SUBCUT SCH (20:42)
[2017-02-27] MEDS: ATORVASTATIN 40 MG TABLET PO SCH (20:44)
[2017-02-27] MEDS: ZOLPIDEM 5 MG TABLET PO SCH (21:38)
[2017-02-28] MEDS: MORPHINE 2 MG/1 ML SYRINGE IV PRN ×2 (02:46→10:41)
[2017-02-28] MEDS: VANCOMYCIN INJ 1,750 MG in SODIUM CHLORIDE 0.9% 500 ML IV SCH ×2 (03:44→23:21)
[2017-02-28] MEDS: SODIUM CHLOR 0.9% KCL 20 MEQ 20 MEQ/1,000 ML BAG IV SCH ×3 (03:50→23:20)
[2017-02-28 04:24] LABS: Basophils % 0.1 % (0.0-0.8); Eosinophils # 0.1 10*3/uL (0.0-0.87); Eosinophils % 1.1 % (0.00-10.9); Hematocrit 32.6 VOL% (42.0-52.0); Hemoglobin 10.2 GM/DL (14.0-18.0); Immature Granulocytes % 0.6 %; Immature Granulocytes Absolute 0.07 #; Lymphocytes # 1.8 10*3/uL (1.4-4.0); Mean Corpuscular HGB Conc 31.3 GM/DL (32-36); Mean Corpuscular Hemoglobin 27 PG (27-34); Mean Corpuscular Volume 86.7 FL (87-102); Mean Platelet Volume 12.6 FL (9.6-12.0); Monocytes # 0.5 10*3/uL (0.11-0.8); Neutrophils # 10.1 10*3/uL (1.4-7.4); Neutrophils % 80.2 % (38.7-73.9); Platelet Count 214 T/CUMM (130-400); Red Blood Count 3.76 MC/CUMM (3.8-5.5); Red Cell Distribution Width 17.3 % (9.3-17.3); White Blood Count 12.6 T/CUMM (4-12)
[2017-02-28 04:54] LABS: Albumin 2.4 G/DL (3.4-5.0); Bilirubin,Total 0.5 MG/DL (0.2-1.0); Calcium 8.1 MG/DL (8.5-10.1); Magnesium 1.7 MG/DL (1.8-2.4); Osmolality,Calculated 287.4 MOS/KG (273-304); Potassium 3.8 MMOL/L (3.5-5.1); Total Protein 5.5 G/DL (6.4-8.3)
[2017-02-28] MEDS: INSULIN REGULAR 100 UNIT/ML SUBCUT SCH ×4 (08:49→21:50)
[2017-02-28] MEDS: PANTOPRAZOLE 40 MG VIAL IV SCH (08:51)
[2017-02-28] MEDS: POTASSIUM CHLORIDE 20 MEQ TABLET PO SCH ×3 (08:52→21:51)
[2017-02-28] MEDS: CILOSTAZOL 100 MG TABLET PO SCH ×2 (08:52→21:51)
[2017-02-28] MEDS: ASPIRIN EC 81 MG TABLET PO SCH (08:52)
[2017-02-28] MEDS: GABAPENTIN 600 MG TABLET PO SCH ×3 (08:52→21:51)
[2017-02-28] MEDS: busPIRone 10 MG TABLET PO SCH ×3 (08:52→21:52)
[2017-02-28] MEDS: buPROPion XL 150 MG TABLET PO SCH ×2 (08:52→21:51)
[2017-02-28] MEDS: FUROSEMIDE 40 MG TABLET PO SCH ×2 (08:52→16:36)
[2017-02-28] MEDS: CLOPIDOGREL 75 MG TABLET PO SCH (08:52)
[2017-02-28] MEDS: METOPROLOL TARTRATE 100 MG TABLET PO SCH ×2 (08:53→21:50)
[2017-02-28] MEDS: MEROPENEM 1,000 MG in SODIUM CHLORIDE 0.9% 100 ML IV SCH ×2 (08:53→16:35)
[2017-02-28] MEDS: MULTIVITAMIN (BEROCCA) TABLET PO SCH ×2 (08:53→21:52)
[2017-02-28] MEDS: oxyCODONE/ACETAMINOPHEN 5-325 MG TABLET PO SCH ×4 (08:53→21:51)
[2017-02-28] MEDS: FOLIC ACID 1 MG TABLET PO SCH (08:53)
[2017-02-28] MEDS: metOLazone 5 MG TABLET PO SCH (08:53)
[2017-02-28] MEDS: tiZANidine 4 MG TABLET PO SCH ×3 (08:53→21:52)
[2017-02-28] MEDS: predniSONE 5 MG TABLET PO SCH ×2 (08:53→21:52)
[2017-02-28] MEDS: DOCUSATE SODIUM 100 MG CAPSULE PO SCH ×2 (08:54→21:52)
[2017-02-28] MEDS ORDERED: fentaNYL 75 MCG/HR PATCH TRANSDERM SCH (09:00)
[2017-02-28] MEDS: ALLOPURINOL 100 MG TABLET PO SCH ×2 (09:00→21:52)
--- NOTE | 2017-02-28 12:11 | Event Note ---
Status post I&D of stump abscess. Patient is doing well and feels better. White blood cell count down to 12,000. His wound is clean with no further purulence. Tissue appears viable. It was repacked with damp Kerlix. Continue antibiotics.
--- NOTE | 2017-02-28 15:36 | Internal Med Progress Note ---
Assessment and Plan (1) Cellulitis Status: Acute Current Visit: Yes Qualifiers: Site of cellulitis: extremity Site of cellulitis of extremity: lower extremity Laterality: left Qualified Code(s): L03.116 - Cellulitis of left lower limb (2) Leukocytosis Status: Acute Current Visit: Yes (3) Diabetes mellitus Status: Chronic Current Visit: Yes Qualifiers: Diabetes mellitus type: type 2 Diabetes mellitus complication status: with circulatory complication Diabetes mellitus complication detail: with peripheral angiopathy with gangrene Diabetes mellitus shelter insulin use: with shelter use Qualified Code(s): E11.52 - Type 2 diabetes mellitus with diabetic peripheral angiopathy with gangrene; Z79.4 - [facility] (current) use of insulin (4) History of left below knee amputation Status: Chronic Current Visit: Yes (5) Anemia Status: Chronic Current Visit: Yes Qualifiers: Other causes of anemia: chronic disease, other Internal Medicine - PN: Subj Interval history: This is a 51 year old male patient of Dr. Martinez with history of DM, HTN, dyslipidemia, peripheral neuropathy, multiple recurrences of lower extremity skin ulcerations, recent below knee amputation left lower extremity, who presented to ER with abscess in left leg stump. He has had surgical I&D per Dr. Rick III. He is feeling better and will be moved out of the ICU. Wednesday, feeling better overall. Seen on Med Surg and stable patient. Left leg stump wound site re-packed today by surgeon medical sales consultant. Exam (Progress Note) - Constitutional Vitals: Period Temp Pulse Resp BP Sys/Gallegos Pulse Ox Last 24 Hr 97.0 F-98.3 F 85-106 11-20 110-153/67-98 98-98 General appearance: no acute distress - Respiratory Respiratory exam: Present: clear to auscultation bilaterally - Cardiovascular Cardiovascular exam: Present: regular rate and rhythm - Extremities Exam Extremities exam: Absent: edema - Neurological Exam Neurological exam: Present: alert, oriented X3 - Psychiatric Psychiatric exam: Present: normal affect, normal mood - Skin Skin exam: Present: warm, dry Results - Labs CBC & BMP: 02/28/17 03:22 02/28/17 03:22
[2017-02-28] MEDS: INSULIN GLARGINE 100 UNIT/ML SUBCUT SCH (21:50)
[2017-02-28] MEDS: ATORVASTATIN 40 MG TABLET PO SCH (21:50)
[2017-02-28] MEDS: CLOTRIMAZOLE/BETAMETHASONE CREAM 15 GM TUBE TOP SCH (21:52)
[2017-02-28] MEDS: MUPIROCIN 2% OINT 22 GM TUBE TOP SCH (21:52)
[2017-02-28] MEDS: ZOLPIDEM 5 MG TABLET PO SCH (23:01)
[2017-03-01] MEDS: MORPHINE 2 MG/1 ML SYRINGE IV PRN ×3 (01:04→23:27)
[2017-03-01] MEDS: LOPERAMIDE 2 MG CAPSULE PO PRN ×2 (01:05→14:44)
[2017-03-01] MEDS: SODIUM CHLOR 0.9% KCL 20 MEQ 20 MEQ/1,000 ML BAG IV SCH ×4 (06:11→22:06)
[2017-03-01 07:02] LABS: Basophils % 0.4 % (0.0-0.8); Eosinophils # 0.2 10*3/uL (0.0-0.87); Eosinophils % 2.3 % (0.00-10.9); Hematocrit 32.8 VOL% (42.0-52.0); Hemoglobin 10.4 GM/DL (14.0-18.0); Immature Granulocytes % 0.4 %; Immature Granulocytes Absolute 0.03 #; Lymphocytes # 2.7 10*3/uL (1.4-4.0); Lymphocytes % 33.1 % (21.2-54.2); Mean Corpuscular HGB Conc 31.7 GM/DL (32-36); Mean Corpuscular Hemoglobin 27 PG (27-34); Mean Corpuscular Volume 84.3 FL (87-102); Mean Platelet Volume 11.2 FL (9.6-12.0); Monocytes # 0.8 10*3/uL (0.11-0.8); Monocytes % 10.2 % (1.7-12.7); Neutrophils # 4.4 10*3/uL (1.4-7.4); Neutrophils % 53.6 % (38.7-73.9); Platelet Count 247 T/CUMM (130-400); Red Blood Count 3.89 MC/CUMM (3.8-5.5); Red Cell Distribution Width 16.9 % (9.3-17.3); White Blood Count 8.3 T/CUMM (4-12)
[2017-03-01 07:34] LABS: Albumin 2.5 G/DL (3.4-5.0); Bilirubin,Total 0.6 MG/DL (0.2-1.0); Calcium 8.2 MG/DL (8.5-10.1); Osmolality,Calculated 282.1 MOS/KG (273-304); Potassium 3.7 MMOL/L (3.5-5.1); Total Protein 5.8 G/DL (6.4-8.3)
[2017-03-01] MEDS: CLOTRIMAZOLE/BETAMETHASONE CREAM 15 GM TUBE TOP SCH ×2 (08:28→21:10)
[2017-03-01] MEDS: PANTOPRAZOLE 40 MG VIAL IV SCH (08:28)
[2017-03-01] MEDS: CILOSTAZOL 100 MG TABLET PO SCH ×2 (08:28→21:07)
[2017-03-01] MEDS: MULTIVITAMIN (BEROCCA) TABLET PO SCH ×2 (08:29→21:07)
[2017-03-01] MEDS: ASPIRIN EC 81 MG TABLET PO SCH (08:29)
[2017-03-01] MEDS: buPROPion XL 150 MG TABLET PO SCH ×2 (08:29→21:08)
[2017-03-01] MEDS: predniSONE 5 MG TABLET PO SCH ×2 (08:29→21:08)
[2017-03-01] MEDS: GABAPENTIN 600 MG TABLET PO SCH ×3 (08:29→21:14)
[2017-03-01] MEDS: busPIRone 10 MG TABLET PO SCH ×3 (08:30→21:06)
[2017-03-01] MEDS: CLOPIDOGREL 75 MG TABLET PO SCH (08:30)
[2017-03-01] MEDS: metOLazone 5 MG TABLET PO SCH (08:30)
[2017-03-01] MEDS: POTASSIUM CHLORIDE 20 MEQ TABLET PO SCH ×3 (08:30→21:07)
[2017-03-01] MEDS: METOPROLOL TARTRATE 100 MG TABLET PO SCH ×2 (08:31→21:07)
[2017-03-01] MEDS: FUROSEMIDE 40 MG TABLET PO SCH ×2 (08:31→16:56)
[2017-03-01] MEDS: ALLOPURINOL 100 MG TABLET PO SCH ×2 (08:32→21:06)
[2017-03-01] MEDS: FOLIC ACID 1 MG TABLET PO SCH (08:32)
[2017-03-01] MEDS: oxyCODONE/ACETAMINOPHEN 5-325 MG TABLET PO SCH ×4 (08:32→21:08)
[2017-03-01] MEDS: tiZANidine 4 MG TABLET PO SCH ×3 (08:32→21:07)
[2017-03-01] MEDS: DOCUSATE SODIUM 100 MG CAPSULE PO SCH ×2 (08:33→21:14)
[2017-03-01] MEDS: VANCOMYCIN INJ 1,750 MG in SODIUM CHLORIDE 0.9% 500 ML IV SCH ×2 (08:34→21:09)
[2017-03-01] MEDS: fentaNYL 75 MCG/HR PATCH TRANSDERM SCH (08:34)
[2017-03-01] MEDS: INSULIN REGULAR 100 UNIT/ML SUBCUT SCH ×4 (08:45→21:06)
--- NOTE | 2017-03-01 08:47 | Internal Med Progress Note ---
Assessment and Plan (1) Cellulitis Status: Acute Assessment and plan: 51-year-old male admitted to acute care * Cellulitis. His cultures came back with MRSA. Will add Bactrim * Diabetes. Continue his diabetic diet and sliding scale * Chronic renal insufficiency. * Hypertension. Continue current treatment * Peripheral vascular disease. Patient will be continued on current management * Hyperlipidemia. Continue Lipitor * Start PT and OT. Up in chair. Current Visit: Yes Qualifiers: Site of cellulitis: extremity Site of cellulitis of extremity: lower extremity Laterality: left Qualified Code(s): L03.116 - Cellulitis of left lower limb (2) Diabetes mellitus Status: Chronic Current Visit: Yes Qualifiers: Diabetes mellitus type: type 2 Diabetes mellitus complication status: with circulatory complication Diabetes mellitus complication detail: with peripheral angiopathy with gangrene Diabetes mellitus circuit manager insulin use: with circuit manager use Qualified Code(s): E11.52 - Type 2 diabetes mellitus with diabetic peripheral angiopathy with gangrene; Z79.4 - [facility] (current) use of insulin (3) History of left below knee amputation Status: Chronic Current Visit: Yes (4) Cervical spondylosis Status: Acute Current Visit: No (5) Chronic pain syndrome Status: Acute Current Visit: No (6) Depression Status: Acute Current Visit: No (7) Diabetes mellitus Status: Acute Current Visit: No (8) Gastroesophageal reflux disease Status: Acute Current Visit: No Internal Medicine - PN: Subj Interval history: He is feeling better this morning. No specific complaints. No chest pain or shortness of breath Exam (Progress Note) - Constitutional Vitals: Period Temp Pulse Resp BP Sys/Gallegos Pulse Ox Last 24 Hr 96.0 F-98.5 F 82-91 12-20 122-157/74-96 96-98 Exam: Examination: GENERAL: No acute distress HEENT: PERRLA. EOMI. NECK: Neck is supple. CVS: Regular rate and rhythm. S1 and S2 are normal. RESPIRATORY: Lungs are clear. ABDOMEN: Soft and nontender. EXT: 1+ edema in the right lower extremity. Dressing present on the BKA THREAD WINDER AUTOMATIC: Nonfocal SKIN: Warm and dry. Results - Labs CBC & BMP: 03/01/17 06:05 03/01/17 06:05 Lab Results: I have reviewed the past 24 hour labs
--- NOTE | 2017-03-01 09:05 | General Surgery Progress Note ---
Assessment and Plan (1) Cellulitis Status: Acute Assessment and plan: I favor this being cellulitis and not been asked to assess. I administered local anesthesia and with sterile technique open his old scar and entered the amputation stump for about a 1.5 cm incision. I did not encounter an abscess. There was no purulence and all the tissue appeared viable. I saw no evidence of a necrotizing infection. This was packed open with moist saline gauze. I would treat this with IV antibiotics as you are doing for now. 03/01: Cellulitis is resolved and his wound looks clean. His cultures grew MRSA. I think that he should be fine for discharge to outpatient treatment in the next day or so on Bactrim. They can can continue with wound packing at [place]. I will be glad to follow him up in the office. Current Visit: Yes Qualifiers: Site of cellulitis: extremity Site of cellulitis of extremity: lower extremity Laterality: left Qualified Code(s): L03.116 - Cellulitis of left lower limb Subjective Patient reports: Present: feels better, pain is less. Absent: nausea, vomiting , fever Exam - Constitutional Vitals: Period Temp Pulse Resp BP Sys/Gallegos Pulse Ox Last 24 Hr 96.0 F-98.5 F 82-91 12-20 122-157/74-96 96-98 General appearance: no acute distress, morbidly obese - Respiratory Respiratory exam: Absent: accessory muscle use - Extremities Exam Extremities exam: Present: other (The wound itself is clean without evidence of active infection. There is granulation tissue. I see no cellulitis at this point.). Absent: edema Results - Labs CBC & BMP: 03/01/17 06:05 03/01/17 06:05 Lab Results: I have reviewed the past 24 hour labs
[2017-03-01] MEDS: SULFAMETHOX/TRIMETHOPRIM 800-160 MG TABLET PO SCH ×2 (09:57→21:06)
[2017-03-01] MEDS: MUPIROCIN 2% OINT 22 GM TUBE TOP SCH ×2 (09:57→21:08)
[2017-03-01] MEDS: DESVENLAFAXINE 50 MG TABLET PO SCH (12:13)
[2017-03-01] MEDS: INSULIN GLARGINE 100 UNIT/ML SUBCUT SCH (21:05)
[2017-03-01] MEDS: ATORVASTATIN 40 MG TABLET PO SCH (21:07)
[2017-03-01] MEDS: ZOLPIDEM 5 MG TABLET PO SCH (23:27)
[2017-03-02] MEDS: LOPERAMIDE 2 MG CAPSULE PO PRN (03:55)
[2017-03-02] MEDS: MORPHINE 2 MG/1 ML SYRINGE IV PRN ×2 (03:56→09:35)
[2017-03-02] MEDS: INSULIN REGULAR 100 UNIT/ML SUBCUT SCH ×2 (08:08→12:16)
--- NOTE | 2017-03-02 08:29 | Discharge Summary ---
Hospital Course - Hospital Course Hospital Course: 51-year-old male with history of diabetes, hypertension, severe peripheral vascular disease, depression, morbid obesity, left below-knee amputation, chronic renal insufficiency who was admitted to acute care with high-grade fever and change in mental status. It was felt that patient was septic. He had a swelling on his stump on the left lower extremity. It was opened up by Dr. Cabrera the third. It grew out MRSA. It was sensitive to vancomycin which patient has been continued on. It is also sensitive to Bactrim DS. It was felt that patient had cellulitis and not abscess. He has improved and will be discharged. Patient requests discharge to swing bed. He [facility] in the [facility] at [facility]. Will give him an appointment in the office 2 weeks after discharge from swing bed. Diagnosis - Discharge Diagnosis (1) Cellulitis Status: Acute (2) Diabetes mellitus Status: Chronic (3) History of left below knee amputation Status: Chronic (4) Cervical spondylosis Status: Acute (5) Chronic pain syndrome Status: Acute (6) Depression Status: Acute (7) Diabetes mellitus Status: Acute (8) Gastroesophageal reflux disease Status: Acute Specialty Discharge - Follow Up or Referrals Follow up with: Ryan Cabrera III., MD [Physician] - 1 Week Seven Martinez MD [Primary Care Provider] - 2 Weeks Discharge Plan - Discharge Data Disposition: Disch/Xfer to Snf Condition at Discharge: Stable Discharge Diet: advance to your usual diet, diabetic diet Activity: as per physical therapy - Discharge Medications New Mupirocin 2% Oint [Bactroban 2% Oint] 1 applic TOP BID #30 applic Sulfameth/Trimeth 800-160 Tab [Bactrim DS Tab] 1 tablet PO BID #20 tablet Continue Potassium Chloride Cap/Tab [K Dur] 40 meq PO TID Cilostazol [Pletal] 100 mg PO BID tablet amLODIPine [Norvasc] 10 mg PO QPM busPIRone [Buspar] 10 mg PO TID buPROPion XL [Wellbutrin Xl] 150 mg PO BID tiZANidine [Zanaflex] 4 mg PO TID predniSONE TAB [PredniSONE] 5 mg PO BID Clopidogrel Bisulfate [Clopidogrel] 75 mg PO QAM Zolpidem Tartrate [Ambien] 10 mg PO BEDTIME Metoprolol Tartrate Tab [Lopressor Tab] 200 mg PO BID Atorvastatin [Lipitor] 40 mg PO BEDTIME tablet Allopurinol 200 mg PO DAILY Cyanocobalamin/Folic AC/Vit B6 [Folbic Tablet] 1 each PO BID Desvenlafaxine Succinate [Pristiq] 100 mg PO QAM fentaNYL [Fentanyl 75 mcg/hr Patch] 1 patch TRANSDERM Q3DAY Liraglutide [Victoza 2-Guillermo] 1.8 mg SUBCUT QAM Oxycodone HCl/Acetaminophen [Percocet 10-325 mg Tablet] 1 each PO QID metOLazone [Metolazone] 5 mg PO QAM Loperamide HCl [Loperamide] 2 mg PO Q6HR PRN PRN Reason: Diarrhea Diclofenac 1% Gel [Voltaren 1% Gel] 1 applic TOP TID PRN PRN Reason: Pain Folic Acid Tab 1 mg PO QAM Aspirin EC Tab 81 mg PO QAM Naproxen Sodium 220 mg PO Q12HR Esomeprazole Magnesium [Nexium] 40 mg PO BID Glimepiride 2 mg PO BID Escitalopram [Lexapro] 20 mg PO DAILY Colchicine [Colcrys] 0.6 mg PO DAILY Gabapentin Cap/Tab [Neurontin Cap/Tab] 300 mg PO TID Insulin Detemir [Levemir] 50 unit SUBCUT BEDTIME Furosemide Tab [Lasix Tab] 40 mg PO BID DIURETIC #60 tablet Duloxetine HCl [Cymbalta] 60 mg PO BID - Follow Up or Referral Follow Up: Ryan Cabrera III., MD [Physician] - 1 Week Seven Martinez MD [Primary Care Provider] - 2 Weeks - Forms/Instructions Additional Discharge Instructions: Make an appointment 2 weeks after discharge from swing bed. Please call in the new medications on the discharge Exam - Constitutional Vitals: Period Temp Pulse Resp BP Sys/Gallegos Pulse Ox Last 24 Hr 97.1 F-98.6 F 83-104 16-18 132-152/72-92 93-98 Exam: Examination: GENERAL: No acute distress HEENT: PERRLA. EOMI. NECK: Neck is supple. CVS: Regular rate and rhythm. S1 and S2 are normal. RESPIRATORY: Lungs are clear. ABDOMEN: Soft and nontender. EXT: 1+ edema in the right lower extremity. Dressing present on the BKA EXTENSION FORESTER: Nonfocal SKIN: Warm and dry. Discharge Results Procedures and tests throughout hospitalization: Pending Orders 03/02/17 08:02 cdiff [C. Diff Toxins A & B] Routine 03/03/17 08:30 Vancomycin,Trough Timed Labs on day of discharge: Labs from last 24 hours 03/01/17 03/01/17 03/01/17 20:43 16:07 11:28 POC Glucose 199 H 227 H 149 H 03/01/17 07:07 POC Glucose 96 DS: Provider Date of admission: 02/25/17 17:25 Primary care physician: Seven Martinez MD Attending physician on admission: Seven Martinez MD Consults: 02/25/17 18:08 Consult to Physician [CONS] Routine Comment: Consulting Provider: Consult to Specialist Group: Surgery When should Consulting Provider be notified: In am 02/25/17 18:41 Consult to Case Mgmt/Social Srvs [CONS] Routine Reason for Case Mgmt/Social Srvs: Discharge Planning Consult to Physician [CONS] Routine Comment: Stump infection Consulting Provider: Ryan Cabrera III. Consulting Provider Notified: Yes When should Consulting Provider be notified: Now Consult to Specialist Group: Surgery Person Notified: EVELIA Date Notified: 02/26/17 Time Notified: 08:30 Consult to Wound Care - [place] [CONS] Routine Reason for Wound Care: Wound Care Management 02/25/17 23:20 Consult to Diabetes Center, Educator [CONS] Routine Reason for Sack Filler: Diabetes Education Consult to Dietitian [CONS] Routine Reason for Dietitian: Dietary Consult 02/28/17 16:36 Consult to Pharmacy [CONS] Routine Reason for Pharmacy Consult: Dose/Manage Vancomycin 03/01/17 08:47 Consult to Occupational Therapy [CONS] Routine Reason for Occupational Therapy: Evaluate and Treat Consult to Physical Therapy [CONS] Routine Reason for Physical Therapy: Evaluate and Treat 03/02/17 08:02 Consult to Case Mgmt/Social Srvs [CONS] Routine Reason for Case Mgmt/Social Srvs: Home Health Consult Comment: will need HH for dressing changes Discharging clinician: Seven Martinez MD
[2017-03-02] MEDS ORDERED: VICTOZA SUBCUT SCH (09:00)
[2017-03-02] MEDS: VANCOMYCIN INJ 1,750 MG in SODIUM CHLORIDE 0.9% 500 ML IV SCH (09:27)
[2017-03-02] MEDS: PANTOPRAZOLE 40 MG VIAL IV SCH (09:27)
[2017-03-02] MEDS: DOCUSATE SODIUM 100 MG CAPSULE PO SCH (09:28)
[2017-03-02] MEDS: GABAPENTIN 600 MG TABLET PO SCH ×2 (09:29→16:01)
[2017-03-02] MEDS: MULTIVITAMIN (BEROCCA) TABLET PO SCH (09:29)
[2017-03-02] MEDS: DESVENLAFAXINE 50 MG TABLET PO SCH (09:29)
[2017-03-02] MEDS: CLOPIDOGREL 75 MG TABLET PO SCH (09:29)
[2017-03-02] MEDS: FUROSEMIDE 40 MG TABLET PO SCH ×2 (09:29→16:02)
[2017-03-02] MEDS: ASPIRIN EC 81 MG TABLET PO SCH (09:30)
[2017-03-02] MEDS: MUPIROCIN 2% OINT 22 GM TUBE TOP SCH (09:30)
[2017-03-02] MEDS: CILOSTAZOL 100 MG TABLET PO SCH (09:30)
[2017-03-02] MEDS: ALLOPURINOL 100 MG TABLET PO SCH (09:31)
[2017-03-02] MEDS: METOPROLOL TARTRATE 100 MG TABLET PO SCH (09:31)
[2017-03-02] MEDS: metOLazone 5 MG TABLET PO SCH (09:32)
[2017-03-02] MEDS: tiZANidine 4 MG TABLET PO SCH ×2 (09:32→16:01)
[2017-03-02] MEDS: SULFAMETHOX/TRIMETHOPRIM 800-160 MG TABLET PO SCH (09:32)
[2017-03-02] MEDS: busPIRone 10 MG TABLET PO SCH ×2 (09:32→16:02)
[2017-03-02] MEDS: FOLIC ACID 1 MG TABLET PO SCH (09:32)
[2017-03-02] MEDS: buPROPion XL 150 MG TABLET PO SCH (09:32)
[2017-03-02] MEDS: predniSONE 5 MG TABLET PO SCH (09:32)
[2017-03-02] MEDS: POTASSIUM CHLORIDE 20 MEQ TABLET PO SCH ×2 (09:32→16:01)
[2017-03-02] MEDS: oxyCODONE/ACETAMINOPHEN 5-325 MG TABLET PO SCH ×2 (09:32→12:22)
[2017-03-02] MEDS: CLOTRIMAZOLE/BETAMETHASONE CREAM 15 GM TUBE TOP SCH (09:36)
[2017-03-02] MEDS ORDERED: TUBERCULIN SKIN TEST 0.1 ML SYRINGE INTRADERM ONE (10:11)
[2017-03-02 12:32] VITALS: BP 138/83
--- NOTE | 2017-03-02 13:10 | Case Mgmt Physician Query Form ---
TB Signs and Symptoms Screening ([place]) INSTRUCTIONS: To be completed annually on residents/staff with a significant Tuberculin Skin Test (TST) upon admission/hire or a prior significant TST. To be completed on all staff at hire. Please respond to each listed symptom with an (X) in either the "YES" or "NO" box. Do you currently have any of the following symptoms: YES NO ( ) ( x) A cough If yes, is it: ( ) Productive ( ) Non- productive ( ) ( x) Hemoptysis (spitting up blood) ( ) ( x) Chest pains ( ) (x ) Weight Loss ( ) (x ) Fever ( ) (x ) Night Sweats ( ) (x ) Weakness ( ) ( x) Loss of Appetite ( ) ( x) Difficulty Breathing If you answered YES" to any of the above questions, how long have symptoms been present? Comments: If you have any questions, please contact me . Thank you, Jeaneth BLEDSOE Email: [email or web address]
[2017-03-02] MEDS: SODIUM CHLOR 0.9% KCL 20 MEQ 20 MEQ/1,000 ML BAG IV SCH (16:02)
== END 2017-03-02 18:25 | disposition home health service (06) | DRG 500 ==
LOC: N.ED 14:44 → N.EDINP 17:25 → N.ICU 18:08 → N.5E 02-27 17:13
PROVIDERS: ADMIT Internal Medicine; ATTEND Internal Medicine

== ENCOUNTER 2017-05-20 20:46 | Inpatient (IN) ==
--- NOTE | 2017-05-20 22:00 | Emergency Department Note ---
Arrival - Arrival Chief Complaint: Non-Specific Stated Complaint: stitiches coming apart form surgery site ED Nursing Triage Note: TO ER VIA WC. STATES HAD SURGERY ON WEDNESDAY ON LEFT LOWER EXT STUMP. PATIENT STATES TODAY AROUND 1700 HIS SURGICAL INCISION OPENED UP. PATIENT STATES SUTURES CAME OUT FROM STUMP AND ONLY AN INCH OF AREA REMAINS CLOSED. NO ACTIVE BLEEDING NOTED IN TRIAGE. DR MCQUEEN DID PATIENTS SURGERY. Mode of Arrival: Wheelchair Limitations: No Limitations Source: Patient Time Seen by Provider: 05/20/17 21:58 - History of Present Illness HPI Narrative: This patient presents 4 days post left BKA per Dr. Mcqueen which around 5 hours ago suddenly dehisced almost in its entirety. There was no purulent discharge or traumatic incident associated with the dehiscence. Currently the patient has no medical distress Onset (ago): hour(s) (Patient presents 5 hours after incident) Allergies/Adverse Reactions: Allergies Allergy/AdvReac Type Severity Reaction Status Date / Time No Known Allergies Allergy Verified 05/20/17 21:02 Home Medications: Home Medications Medication Instructions Recorded Confirmed Type Potassium Chloride Cap/Tab [K Dur] 40 meq PO TID 04/03/15 02/25/17 History Cilostazol [Pletal] 100 mg PO BID tablet 07/02/15 02/25/17 Rx Clopidogrel Bisulfate [Clopidogrel] 75 mg PO QAM 09/10/15 02/26/17 History Metoprolol Tartrate Tab [Lopressor 200 mg PO BID 09/10/15 02/26/17 History Tab] Zolpidem Tartrate [Ambien] 10 mg PO BEDTIME 09/10/15 02/25/17 History amLODIPine [Norvasc] 10 mg PO QPM 09/10/15 02/26/17 History buPROPion XL [Wellbutrin Xl] 150 mg PO BID 09/10/15 02/26/17 History busPIRone [Buspar] 10 mg PO TID 09/10/15 02/26/17 History predniSONE TAB [PredniSONE] 5 mg PO BID 09/10/15 02/26/17 History tiZANidine [Zanaflex] 4 mg PO TID 09/10/15 02/26/17 History Atorvastatin [Lipitor] 40 mg PO BEDTIME tablet 10/22/15 02/26/17 Rx Gabapentin Cap/Tab [Neurontin 300 mg PO TID 11/22/15 02/26/17 History Cap/Tab] Insulin Detemir [Levemir] 50 unit SUBCUT BEDTIME 11/22/15 02/25/17 History Duloxetine HCl [Cymbalta] 60 mg PO BID 01/01/16 02/26/17 History Furosemide Tab [Lasix Tab] 40 mg PO BID DIURETIC #60 tablet 01/01/16 02/26/17 Rx Allopurinol 200 mg PO DAILY 06/24/16 02/26/17 History Cyanocobalamin/Folic AC/Vit B6 1 each PO BID 06/24/16 02/26/17 History [Folbic Tablet] Desvenlafaxine Succinate [Pristiq] 100 mg PO QAM 06/24/16 02/26/17 History Liraglutide [Victoza 2-Guillermo] 1.8 mg SUBCUT QAM 06/24/16 02/25/17 History Oxycodone HCl/Acetaminophen 1 each PO QID 06/24/16 02/26/17 History [Percocet 10-325 mg Tablet] fentaNYL [Fentanyl 75 mcg/hr Patch] 1 patch TRANSDERM Q3DAY 06/24/16 02/25/17 History Loperamide HCl [Loperamide] 2 mg PO Q6HR PRN 08/24/16 02/25/17 History metOLazone [Metolazone] 5 mg PO QAM 08/24/16 02/26/17 History Aspirin EC Tab 81 mg PO QAM 02/25/17 02/26/17 History Diclofenac 1% Gel [Voltaren 1% Gel] 1 applic TOP TID PRN 02/25/17 02/25/17 History Escitalopram [Lexapro] 20 mg PO DAILY 02/25/17 02/26/17 History Folic Acid Tab 1 mg PO QAM 02/25/17 02/26/17 History Colchicine [Colcrys] 0.6 mg PO DAILY 02/26/17 02/26/17 History Esomeprazole Magnesium [Nexium] 40 mg PO BID 02/26/17 02/26/17 History Glimepiride 2 mg PO BID 02/26/17 02/26/17 History Naproxen Sodium 220 mg PO Q12HR 02/26/17 02/26/17 History Mupirocin 2% Oint [Bactroban 2% 1 applic TOP BID #30 applic 03/02/17 Rx Oint] Clindamycin Cap [Cleocin Cap] 300 mg PO Q8HR #21 capsule 04/30/17 Rx traMADol TAB [Ultram] 50 mg PO Q6H #10 tablet 04/30/17 Rx Review of System - Review of System 12 point system: reviewed and no additional remarkable complaints except as stated - Review of System Constitutional: Present: as per HPI Skin: Present: as per HPI Medical,Surgical,& Family Hx - Medical History Cardio: History of: CHF, CAD, Hypertension Psychological: History of: Anxiety Disorders, Depression Neurology: History of: Migraine, Peripheral Neuropathy, Vertigo No history of: Seizures HEENT: History of: Eye Problem, Dental Problems Endocrine: History of: Diabetes Mellitus (NIDDM), Dyslipidemia Rheumatology: History of;: Gout Respiratory: History of: Obstructive Sleep Apnea (BIPAP) Renal: History of: Renal Failure Gastrointestinal: History of: GERD Musculoskeletal: History of: Amputation (fifth toe and metatarsal bone), Back/ Neck Problems, Degenerative Disk Disease, Osteoporosis, Musculoskeletal Problems (left below-knee amputation) Hematology: History of: Anemia, Blood Transfusion Reaction Other: History of: MRSA, Vancomycin-Resistant Enterococci - Surgical History Cardiac Surgeries: Patient Denies: Cardiac Catheterization HEENT Surgeries: Surgical HX of: Tonsilectomy & Adenoidectomy Abdominal Surgeries: Surgical HX of: Abdominal Surgery, Appendectomy, Cholecystectomy, Gastric Bypass Surgery, Hernia Repair Orthopedic Surgeries: Surgical HX of;: Orthopedic Surgery (partial amputation of the right foot for diabetic foot ulcers/ LEFT AMPUTAT) - Family History Family History: Reports;: Family Cancer, Family Diabetes, Family Heart Disease, Family Hypertension, Family Stroke (DAD) - Social History Smoking Status: Never smoker Frequency of Alcohol Use: None Type of Drug Use: None Exam Physical Examination: GENERAL: Well developed, well nourished black male in no acute distress. HEENT: Normocephalic. No trauma. Moist mucous membranes. EOMI. PERRLA. ENT NML NECK: Supple. No adenopathy. CARDIAC: Regular. No murmurs. Heart rate 87 CHEST: Clear to auscultation. No respiratory distress. O2 sat 96% ABDOMEN: Soft. Nontender. Active bowel sounds. EXTREMITIES: No trauma. Normal ROM. No pedal edema. Left lower extremity reveals almost complete and total dehiscence leaving a gaping wound at the left BKA stump SKIN: No diaphoresis. No rash. As above NEURO: Alert. Neuro intact. No focal deficits. Vital Signs: Vital Signs Temperature 98.5 F 05/20/17 20:54 Pulse Rate 87 05/20/17 20:54 Respiratory Rate 18 05/20/17 20:54 Blood Pressure 103/67 05/20/17 20:54 O2 Sat by Pulse Oximetry 96 05/20/17 20:54 Course - Consultations Consultation #1: Discussed with Dr. Adan who will admit for further evaluation and treatment for Dr. Mcqueen. Disposition Clinical Impression: Wound dehiscence Case discussed with: patient Disposition: Still a Patient Condition: Guarded Time of Disposition: 22:10
[2017-05-20] MEDS ORDERED: GLUCAGON 1 MG VIAL IM PRN (22:11)
[2017-05-20] MEDS ORDERED: ONDANSETRON 4 MG/2 ML VIAL IV PRN (22:11)
[2017-05-20] MEDS ORDERED: amLODIPine 5 MG TABLET PO STA (22:11)
[2017-05-20] MEDS ORDERED: DEXTROSE 50% 25 GM/50 ML VIAL IV PRN (22:11)
[2017-05-20] MEDS ORDERED: amLODIPine 5 MG TABLET ONE (22:20)
[2017-05-20] MEDS ORDERED: DEXTROSE 50% 25 GM/50 ML SYRINGE IV PRN (23:00)
[2017-05-21] MEDS: SODIUM CHLORIDE 0.9% 1,000 ML IV SCH ×2 (02:08→14:25)
[2017-05-21 05:55] LABS: Basophils % 0.4 % (0.0-0.8); Eosinophils # 0.3 10*3/uL (0.0-0.87); Eosinophils % 4.3 % (0.00-10.9); Hematocrit 33.7 VOL% (42.0-52.0); Hemoglobin 10.9 GM/DL (14.0-18.0); Immature Granulocytes % 0.3 %; Immature Granulocytes Absolute 0.02 #; Lymphocytes # 3.6 10*3/uL (1.4-4.0); Lymphocytes % 50.3 % (21.2-54.2); Mean Corpuscular HGB Conc 32.3 GM/DL (32-36); Mean Corpuscular Hemoglobin 28 PG (27-34); Mean Corpuscular Volume 86.6 FL (87-102); Mean Platelet Volume 11.1 FL (9.6-12.0); Monocytes # 0.8 10*3/uL (0.11-0.8); Monocytes % 10.6 % (1.7-12.7); Neutrophils # 2.5 10*3/uL (1.4-7.4); Neutrophils % 34.1 % (38.7-73.9); Platelet Count 296 T/CUMM (130-400); Red Blood Count 3.89 MC/CUMM (3.8-5.5); Red Cell Distribution Width 15.9 % (9.3-17.3); White Blood Count 7.2 T/CUMM (4-12)
[2017-05-21 06:00] LABS: Alanine Aminotransferase 37 U/L (16-61); Albumin 2.6 G/DL (3.4-5.0); Alkaline Phosphatase 104 U/L (45-117); Aspartate Amino Transferase 55 U/L (0-37); Bilirubin,Total < 0.39 MG/DL (0.2-1.0); Blood Urea Nitrogen 21 MG/DL (7-18); Calcium 8.1 MG/DL (8.5-10.1); Glucose 128 MG/DL (74-106); Osmolality,Calculated 285.3 MOS/KG (273-304); Potassium 3.2 MMOL/L (3.5-5.1); Sodium 141 MMOL/L (136-145); Total Protein 6.3 G/DL (6.4-8.3)
[2017-05-21 06:19] LABS: Elliptocytes Few; Eosinophils 6 % (0-10); Hypochromasia 1+; Lymphocytes 48 % (20-55); Platelet Estimate Adequate; Segmented Neutrophils 39 % (50-85); Total Cells Counted 100
[2017-05-21] MEDS ORDERED: DICLOFENAC 1% GEL 100 GM TUBE TOP PRN (08:13)
[2017-05-21] MEDS ORDERED: LOPERAMIDE 2 MG CAPSULE PO PRN (08:13)
[2017-05-21] MEDS ORDERED: buPROPion XL 150 MG TABLET PO SCH (09:00)
[2017-05-21] MEDS ORDERED: MUPIROCIN 2% OINT 22 GM TUBE TOP SCH (09:00)
[2017-05-21] MEDS ORDERED: metOLazone 5 MG TABLET PO SCH (09:00)
[2017-05-21] MEDS ORDERED: ALLOPURINOL 100 MG TABLET PO SCH (09:00)
[2017-05-21] MEDS ORDERED: predniSONE 5 MG TABLET PO SCH (09:00)
[2017-05-21] MEDS ORDERED: PANTOPRAZOLE 40 MG TABLET PO SCH (09:00)
[2017-05-21] MEDS ORDERED: METOPROLOL TARTRATE 100 MG TABLET PO SCH (09:00)
[2017-05-21] MEDS ORDERED: DULoxetine 30 MG CAPSULE PO SCH (09:00)
[2017-05-21] MEDS ORDERED: MULTIVITAMIN (BEROCCA) TABLET PO SCH (09:00)
[2017-05-21] MEDS ORDERED: COLCHICINE 0.6 MG TABLET PO SCH (09:00)
[2017-05-21] MEDS ORDERED: NON-FORMULARY MEDICATION (Liraglutide [Victoza 2-Pak] 1.8 MG) SUBCUT SCH (09:00)
[2017-05-21] MEDS ORDERED: fentaNYL 75 MCG/HR PATCH TRANSDERM SCH (09:00)
[2017-05-21] MEDS ORDERED: DESVENLAFAXINE 50 MG TABLET PO SCH (09:00)
[2017-05-21] MEDS ORDERED: FOLIC ACID 1 MG TABLET PO SCH (09:00)
[2017-05-21] MEDS ORDERED: CILOSTAZOL 100 MG TABLET PO SCH (09:00)
[2017-05-21] MEDS ORDERED: ASPIRIN EC 81 MG TABLET PO SCH (09:00)
[2017-05-21] MEDS ORDERED: ESCITALOPRAM 10 MG TABLET PO SCH (09:00)
[2017-05-21] MEDS: POTASSIUM CHLORIDE 20 MEQ TABLET PO SCH ×2 (10:04→14:36)
[2017-05-21] MEDS: GABAPENTIN 300 MG CAPSULE PO SCH ×2 (10:05→14:36)
[2017-05-21] MEDS: tiZANidine 4 MG TABLET PO SCH ×2 (10:07→14:37)
[2017-05-21] MEDS: busPIRone 10 MG TABLET PO SCH ×2 (10:08→14:32)
[2017-05-21] MEDS: INSULIN REGULAR 100 UNIT/ML SUBCUT SCH ×3 (10:10→17:10)
[2017-05-21] MEDS: oxyCODONE/ACETAMINOPHEN 5-325 MG TABLET PO SCH ×3 (13:52→17:10)
[2017-05-21] MEDS ORDERED: CLINDAMYCIN 300 MG CAPSULE PO SCH (14:00)
--- NOTE | 2017-05-21 15:24 | General Surg History&Physical ---
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 Lopez with a reopening of his left BKA stump. The sutures that were not intact were removed. Patient's wound was cleaned thoroughly with Hibiclens and irrigated with Dakin's. Patient should be okay to go home this afternoon. Dr. Lopez has seen and examined patient. Current Visit: Yes History of Present Illness Chief complaint: Left stump wound open History of present illness: Mr. Caballero is a 51 year old -[place] male with history of diabetes, hypertension, depression and anxiety, chronic pain, and diabetic neuropathy admitted through the emergency room last night by Dr. Lopez with reopening of his left BKA stump wound. Dr. Lopez had taken the patient to surgery on Wednesday to close his left lower extremity stump using sutures. Last night the sutures came out and the stump started draining. He is having increased pain and drainage from the wound so he came into the emergency room. Patient is afebrile and his vital signs are stable, his wound is open in the central portion with some mild purulence expressed from the lateral pocket. There is no necrotic tissue noted. Home Medications Medication Instructions Recorded Confirmed Type Potassium Chloride Cap/Tab [K Dur] 40 meq PO TID 04/03/15 05/21/17 History Cilostazol [Pletal] 100 mg PO BID tablet 07/02/15 05/21/17 Rx Clopidogrel Bisulfate [Clopidogrel] 75 mg PO QAM 09/10/15 05/21/17 History Metoprolol Tartrate Tab [Lopressor 200 mg PO BID 09/10/15 05/21/17 History Tab] Zolpidem Tartrate [Ambien] 10 mg PO BEDTIME 09/10/15 05/21/17 History amLODIPine [Norvasc] 10 mg PO QPM 09/10/15 05/21/17 History buPROPion XL [Wellbutrin Xl] 150 mg PO BID 09/10/15 05/21/17 History busPIRone [Buspar] 10 mg PO TID 09/10/15 05/21/17 History predniSONE TAB [PredniSONE] 5 mg PO BID 09/10/15 05/21/17 History tiZANidine [Zanaflex] 4 mg PO TID 09/10/15 05/21/17 History Atorvastatin [Lipitor] 40 mg PO BEDTIME tablet 10/22/15 05/21/17 Rx Gabapentin Cap/Tab [Neurontin 300 mg PO TID 11/22/15 05/21/17 History Cap/Tab] Insulin Detemir [Levemir] 50 unit SUBCUT BEDTIME 11/22/15 05/21/17 History Duloxetine HCl [Cymbalta] 60 mg PO BID 01/01/16 05/21/17 History Furosemide Tab [Lasix Tab] 40 mg PO BID DIURETIC #60 tablet 01/01/16 05/21/17 Rx Allopurinol 200 mg PO DAILY 06/24/16 05/21/17 History Cyanocobalamin/Folic AC/Vit B6 1 each PO BID 06/24/16 05/21/17 History [Folbic Tablet] Desvenlafaxine Succinate [Pristiq] 100 mg PO QAM 06/24/16 05/21/17 History Liraglutide [Victoza 2-Guillermo] 1.8 mg SUBCUT QAM 06/24/16 05/21/17 History Oxycodone HCl/Acetaminophen 1 each PO QID 06/24/16 05/21/17 History [Percocet 10-325 mg Tablet] fentaNYL [Fentanyl 75 mcg/hr Patch] 1 patch TRANSDERM Q3DAY 06/24/16 05/21/17 History Loperamide HCl [Loperamide] 2 mg PO Q6HR PRN 08/24/16 05/21/17 History metOLazone [Metolazone] 5 mg PO QAM 08/24/16 05/21/17 History Aspirin EC Tab 81 mg PO QAM 02/25/17 05/21/17 History Diclofenac 1% Gel [Voltaren 1% Gel] 1 applic TOP TID PRN 02/25/17 05/21/17 History Escitalopram [Lexapro] 40 mg PO DAILY 02/25/17 05/21/17 History Folic Acid Tab 1 mg PO QAM 02/25/17 05/21/17 History Colchicine [Colcrys] 0.6 mg PO DAILY 02/26/17 05/21/17 History Esomeprazole Magnesium [Nexium] 40 mg PO BID 02/26/17 05/21/17 History Mupirocin 2% Oint [Bactroban 2% 1 applic TOP BID #30 applic 03/02/17 05/21/17 Rx Oint] Clindamycin Cap [Cleocin Cap] 300 mg PO Q8HR #21 capsule 04/30/17 05/21/17 Rx Allergies Allergy/AdvReac Type Severity Reaction Status Date / Time No Known Allergies Allergy Verified 05/20/17 21:02 Medical,Surgical,& Family Hx - Medical History Cardio: History of: CHF, CAD, Hypertension Comment Only: Cardiovascular Problems (stents to BLE 2013) Psychological: History of: Anxiety Disorders, Depression Neurology: History of: Migraine, Peripheral Neuropathy, Vertigo No history of: Seizures HEENT: History of: Eye Problem, Dental Problems Endocrine: History of: Diabetes Mellitus (NIDDM), Dyslipidemia Rheumatology: History of;: Gout Respiratory: History of: Obstructive Sleep Apnea (not been using bipap in last 3 yrs) Renal: History of: Renal Failure Gastrointestinal: History of: GERD Musculoskeletal: History of: Amputation (left BKA 2014), Back/Neck Problems, Degenerative Disk Disease, Osteoporosis, Musculoskeletal Problems (left BKA 2014) Hematology: History of: Anemia No history of: Blood Transfusion Reaction Other: History of: MRSA, Vancomycin-Resistant Enterococci No history of: Anesthesia Reactions, Cancer - Surgical History Cardiac Surgeries: Patient Denies: Cardiac Catheterization HEENT Surgeries: Surgical HX of: Tonsilectomy & Adenoidectomy Abdominal Surgeries: Surgical HX of: Abdominal Surgery, Appendectomy, Cholecystectomy, Gastric Bypass Surgery, Hernia Repair Orthopedic Surgeries: Surgical HX of;: Implanted Devices (stents BLE to help with circulation (done @ [facility] )), Orthopedic Surgery (partial amputation of the right foot for diabetic foot ulcers/ LEFT AMPUTAT) - Family History Family History: Reports;: Family Cancer (father,mother, brother), Family Diabetes (father,mother, 2 brothers), Family Heart Disease (mother,), Family Hypertension (father, mother, 2 brothers), Family Psychiatric Problems (father- depression/anxiety), Family Stroke (father), Additional Family History (father- renal issues) Denies;: Family Hematology - Social History Smoking Status: Never smoker Frequency of Alcohol Use: None Type of Drug Use: None Exam - Constitutional Vitals: Period Temp Pulse Resp BP Sys/Gallegos Pulse Ox Last 24 Hr 96.9 F-98.5 F 83-87 18-20 103-131/66-86 96-99 Exam: 51-year-old -[place] male, no acute distress, alert and oriented Chest clear CV regular rate and rhythm Abdomen obese, nontender Extremities left stump wound opened midline with some odiferous purulence - Constitutional Constitutional: Present: as per HPI Quality Measures - VTE Contraindication to Pharmacological VTE Prophylaxis: High Risk of Bleeding Contraindication to Mechanical VTE Prophylaxis: Trauma to Legs Results - Labs CBC & BMP: 05/21/17 04:55 05/21/17 04:55 Lab Results: I have reviewed the past 24 hour labs
[2017-05-21] MEDS ORDERED: CHLORHEXIDINE 4% SOLN 118 ML BOTTLE TOP SCH (15:30)
[2017-05-21] MEDS ORDERED: SODIUM HYPOCHLORITE 0.25% IRRIG 473 ML BOTTLE TOP SCH (15:30)
--- NOTE | 2017-05-21 15:30 | Discharge Summary ---
Hospital Course - Hospital Course Hospital Course: 51-year-old -[place] male with multiple medical problems admitted by Dr. Lopez through the emergency room with a reopening of his left BKA stump. Patient had some loose sutures that were removed at the bedside and his wound was thoroughly cleaned with Hibiclens and irrigated with Dakin's. Wound was repacked with no signs of infection. Patient is okay to be discharged home with a 2 week follow-up with Dr. Lopez. No antibiotics are needed at this time. We will go ahead and get patient home health to assist him in his wound care. 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 Pack wound with Dakin's moistened gauze, cover with dry gauze, Kerlix or cast padding and Lizandro wrap - Discharge Medications Continue Potassium Chloride Cap/Tab [K Dur] 40 meq PO TID Cilostazol [Pletal] 100 mg PO BID tablet amLODIPine [Norvasc] 10 mg PO QPM busPIRone [Buspar] 10 mg PO TID buPROPion XL [Wellbutrin Xl] 150 mg PO BID tiZANidine [Zanaflex] 4 mg PO TID predniSONE TAB [PredniSONE] 5 mg PO BID Clopidogrel Bisulfate [Clopidogrel] 75 mg PO QAM Zolpidem Tartrate [Ambien] 10 mg PO BEDTIME Metoprolol Tartrate Tab [Lopressor Tab] 200 mg PO BID Atorvastatin [Lipitor] 40 mg PO BEDTIME tablet Allopurinol 200 mg PO DAILY Cyanocobalamin/Folic AC/Vit B6 [Folbic Tablet] 1 each PO BID Desvenlafaxine Succinate [Pristiq] 100 mg PO QAM fentaNYL [Fentanyl 75 mcg/hr Patch] 1 patch TRANSDERM Q3DAY Liraglutide [Victoza 2-Guillermo] 1.8 mg SUBCUT QAM Oxycodone HCl/Acetaminophen [Percocet 10-325 mg Tablet] 1 each PO QID metOLazone [Metolazone] 5 mg PO QAM Loperamide HCl [Loperamide] 2 mg PO Q6HR PRN PRN Reason: Diarrhea Diclofenac 1% Gel [Voltaren 1% Gel] 1 applic TOP TID PRN PRN Reason: Pain Folic Acid Tab 1 mg PO QAM Aspirin EC Tab 81 mg PO QAM Esomeprazole Magnesium [Nexium] 40 mg PO BID Escitalopram [Lexapro] 40 mg PO DAILY Colchicine [Colcrys] 0.6 mg PO DAILY Mupirocin 2% Oint [Bactroban 2% Oint] 1 applic TOP BID #30 applic Clindamycin Cap [Cleocin Cap] 300 mg PO Q8HR #21 capsule Gabapentin Cap/Tab [Neurontin Cap/Tab] 300 mg PO TID Insulin Detemir [Levemir] 50 unit SUBCUT BEDTIME Furosemide Tab [Lasix Tab] 40 mg PO BID DIURETIC #60 tablet Duloxetine HCl [Cymbalta] 60 mg PO BID - Follow Up or Referral Follow Up: Altaf Lopez MD [Physician] - 2 Weeks - Forms/Instructions Exam - Constitutional Vitals: Period Temp Pulse Resp BP Sys/Gallegos Pulse Ox Last 24 Hr 96.9 F-98.5 F 83-87 18-20 103-131/66-86 96-99 Discharge Results Labs on day of discharge: Labs from last 24 hours 05/21/17 05/21/17 05/21/17 10:46 06:39 04:55 WBC RBC Hgb Hct MCV MCH MCHC RDW Plt Count MPV Neut % (Auto) Lymph % (Auto) [place] % (Auto) Eos % (Auto) Baso % (Auto) Neut # (Auto) Lymph # (Auto) [place] # (Auto) Eos # (Auto) Baso # (Auto) Total Counted Immature Gran % Nucleated RBC % Immature Gran # Segmented Neutrophils Lymphocytes Monocytes Eosinophils Basophils Nucleated RBCs # Platelet Estimate Immature Plt Fraction Hypochromasia Elliptocytes Morphology Comment Sodium 141 Potassium 3.2 L Chloride 101 Carbon Dioxide 33 H Anion Gap 10.2 BUN 21 H Creatinine 1.10 GFR Calculation 124 BUN/Creatinine Ratio 19.00 Glucose 128 H POC Glucose 140 H 157 H Calculated Osmolality 285.3 Calcium 8.1 L Total Bilirubin < 0.39 AST 55 H ALT 37 Alkaline Phosphatase 104 Total Protein 6.3 L Albumin 2.6 L Globulin 3.7 H Albumin/Globulin Ratio 0.7 L 05/21/17 05/21/17 05/20/17 04:55 01:07 23:53 WBC 7.2 RBC 3.89 Hgb 10.9 L Hct 33.7 L MCV 86.6 L MCH 28 MCHC 32.3 RDW 15.9 Plt Count 296 MPV 11.1 Neut % (Auto) 34.1 L Lymph % (Auto) 50.3 [place] % (Auto) 10.6 Eos % (Auto) 4.3 Baso % (Auto) 0.4 Neut # (Auto) 2.5 Lymph # (Auto) 3.6 [place] # (Auto) 0.8 Eos # (Auto) 0.3 Baso # (Auto) 0.0 Total Counted 100 Immature Gran % 0.3 Nucleated RBC % 0.0 Immature Gran # 0.02 Segmented Neutrophils 39 L Lymphocytes 48 Monocytes 6 Eosinophils 6 Basophils 1.0 H Nucleated RBCs # 0.00 Platelet Estimate Adequate Immature Plt Fraction 0.0 Hypochromasia 1+ Elliptocytes Few Morphology Comment Sodium Potassium Chloride Carbon Dioxide Anion Gap BUN Creatinine GFR Calculation BUN/Creatinine Ratio Glucose POC Glucose 224 H 78 Calculated Osmolality Calcium Total Bilirubin AST ALT Alkaline Phosphatase Total Protein Albumin Globulin Albumin/Globulin Ratio DS: Provider Date of admission: 05/20/17 22:10 Primary care physician: Seven Martinez MD Attending physician on admission: Altaf Lopez MD Consults: 05/21/17 05:36 Consult to Pastoral Services [CONS] Routine Comment: Pastoral Screen: Request [employer] Visit Pastoral Screen Source of Request: Patient Discharging clinician: JOSE DAVID Nick Expected date of discharge: 05/21/17
[2017-05-21] MEDS ORDERED: FUROSEMIDE 40 MG TABLET PO SCH (16:00)
[2017-05-21 17:20] VITALS: BP 104/68
[2017-05-21] MEDS ORDERED: amLODIPine 10 MG TABLET PO SCH (19:00)
[2017-05-21] MEDS ORDERED: ZALEPLON 5 MG CAPSULE PO SCH (21:00)
[2017-05-21] MEDS ORDERED: ATORVASTATIN 40 MG TABLET PO SCH (21:00)
[2017-05-21] MEDS ORDERED: INSULIN GLARGINE 100 UNIT/ML SUBCUT SCH (21:00)
== END 2017-05-21 19:27 | disposition home health service (06) | DRG 566 ==
LOC: N.ED 20:46 → N.EDINP 22:10 → N.3E 22:43
PROVIDERS: ADMIT Surgery; ATTEND Surgery

== ENCOUNTER 2017-09-02 07:18 | Inpatient (IN) ==
[2017-09-02 09:00] LABS: Basophils # 0.1 10*3/uL (0.0-0.2); Basophils % 0.5 % (0.0-0.8); Eosinophils # 0.3 10*3/uL (0.0-0.87); Eosinophils % 2.5 % (0.00-10.9); Hematocrit 33.9 VOL% (42.0-52.0); Hemoglobin 10.8 GM/DL (14.0-18.0); Immature Granulocytes % 0.1 %; Immature Granulocytes Absolute 0.01 #; Lymphocytes # 5.3 10*3/uL (1.4-4.0); Lymphocytes % 52.8 % (21.2-54.2); Mean Corpuscular HGB Conc 31.9 GM/DL (32-36); Mean Corpuscular Hemoglobin 27 PG (27-34); Mean Platelet Volume 10.2 FL (9.6-12.0); Monocytes # 0.7 10*3/uL (0.11-0.8); Monocytes % 7.1 % (1.7-12.7); Neutrophils # 3.8 10*3/uL (1.4-7.4); Platelet Count 413 T/CUMM (130-400); Red Blood Count 3.99 MC/CUMM (3.8-5.5); Red Cell Distribution Width 15.2 % (9.3-17.3); White Blood Count 10.1 T/CUMM (4-12)
[2017-09-02 09:11] LABS: Alanine Aminotransferase 58 U/L (16-61); Alkaline Phosphatase 109 U/L (45-117); Aspartate Amino Transferase 75 U/L (0-37); Bilirubin,Total < 0.39 MG/DL (0.2-1.0); Blood Urea Nitrogen 22 MG/DL (7-18); Calcium 8.9 MG/DL (8.5-10.1); Glucose 125 MG/DL (74-106); Osmolality,Calculated 278.7 MOS/KG (273-304); Potassium 2.9 MMOL/L (3.5-5.1); Sodium 138 MMOL/L (136-145); Total Protein 8.9 G/DL (6.4-8.3)
[2017-09-02] MEDS ORDERED: CLINDAMYCIN INJ 900 MG in PREMIX 1 EACH IV ONE (09:51)
[2017-09-02] MEDS ORDERED: CLINDAMYCIN INJ 50 ML IV ONE (09:55)
[2017-09-02 10:00] LABS: Lymphocytes 58 % (20-55); Segmented Neutrophils 34 % (50-85); Total Cells Counted 100
[2017-09-02 10:01] LABS: Hypochromasia 2+; Microcytosis 1+
[2017-09-02 10:02] LABS: Ovalocytes Slight; Platelet Estimate Increased
[2017-09-02] MEDS: LACTATED RINGERS 1,000 ML IV SCH ×2 (10:45→13:49)
[2017-09-02] MEDS ORDERED: PHENYLEPHRINE 1 MG/10 ML SYRINGE IV ONE (11:29)
[2017-09-02] MEDS ORDERED: PROPOFOL 200 MG/20 ML VIAL IV ONE ×2 (11:29→12:29)
[2017-09-02] MEDS ORDERED: ONDANSETRON 4 MG/2 ML VIAL ONE ×2 (11:29→12:30)
[2017-09-02] MEDS ORDERED: LIDOCAINE 2% 5 ML VIAL ONE (11:29)
[2017-09-02] MEDS ORDERED: GLYCOPYRROLATE 0.4 MG/2 ML VIAL ONE ×2 (11:29→12:31)
[2017-09-02] MEDS ORDERED: KETOROLAC 30 MG/1 ML VIAL ONE ×2 (11:29→12:30)
[2017-09-02] MEDS ORDERED: DEXAMETHASONE 4 MG/1 ML VIAL ONE (11:29)
[2017-09-02] MEDS ORDERED: SEVOFLURANE 1 UNIT/15 MINUTE INH ONE (12:30)
[2017-09-02] MEDS ORDERED: MIDAZOLAM 2 MG/2 ML VIAL ONE (12:30)
[2017-09-02] MEDS ORDERED: DEXAMETHASONE 10 MG/1 ML VIAL ONE (12:30)
[2017-09-02] MEDS ORDERED: fentaNYL 100 MCG/2 ML VIAL ONE (12:30)
[2017-09-02] MEDS ORDERED: ONDANSETRON 4 MG/2 ML VIAL IV PRN ×2 (12:55→13:38)
[2017-09-02] MEDS ORDERED: HYDROmorphone 2 MG/1 ML VIAL IV PRN (12:55)
[2017-09-02] MEDS ORDERED: GLUCAGON 1 MG VIAL IM PRN (13:38)
[2017-09-02] MEDS ORDERED: ACETAMINOPHEN 325 MG TABLET PO PRN (13:38)
[2017-09-02] MEDS ORDERED: DEXTROSE 50% 25 GM/50 ML VIAL IV PRN (13:38)
[2017-09-02] MEDS: PANTOPRAZOLE 40 MG TABLET PO SCH (13:56)
[2017-09-02] MEDS: INSULIN REGULAR 100 UNIT/ML SUBCUT SCH ×2 (13:56→17:47)
[2017-09-02] MEDS: MORPHINE 2 MG/1 ML SYRINGE IV PRN ×2 (16:34→20:11)
[2017-09-02] MEDS: CLINDAMYCIN INJ 600 MG in PREMIX 1 EACH IV SCH (17:05)
[2017-09-02] MEDS: POTASSIUM CHLORIDE RIDER 10 MEQ in PREMIX 1 EACH IV PRN ×4 (20:16→23:55)
[2017-09-02] MEDS: ZOLPIDEM 5 MG TABLET PO SCH (21:49)
[2017-09-03] MEDS: POTASSIUM CHLORIDE RIDER 10 MEQ in PREMIX 1 EACH IV PRN ×4 (01:06→11:15)
[2017-09-03] MEDS: INSULIN REGULAR 100 UNIT/ML SUBCUT SCH ×4 (01:07→18:09)
[2017-09-03] MEDS: CLINDAMYCIN INJ 600 MG in PREMIX 1 EACH IV SCH ×3 (02:45→18:09)
[2017-09-03] MEDS: MORPHINE 2 MG/1 ML SYRINGE IV PRN ×2 (03:09→08:11)
[2017-09-03 03:55] LABS: Basophils % 0.1 % (0.0-0.8); Hematocrit 28.7 VOL% (42.0-52.0); Hemoglobin 9.1 GM/DL (14.0-18.0); Immature Granulocytes % 0.2 %; Immature Granulocytes Absolute 0.02 #; Lymphocytes # 2.8 10*3/uL (1.4-4.0); Lymphocytes % 32.7 % (21.2-54.2); Mean Corpuscular HGB Conc 31.7 GM/DL (32-36); Mean Corpuscular Hemoglobin 27 PG (27-34); Mean Corpuscular Volume 84.7 FL (87-102); Mean Platelet Volume 10.5 FL (9.6-12.0); Monocytes # 0.9 10*3/uL (0.11-0.8); Neutrophils # 4.9 10*3/uL (1.4-7.4); Platelet Count 380 T/CUMM (130-400); Red Blood Count 3.39 MC/CUMM (3.8-5.5); Red Cell Distribution Width 14.9 % (9.3-17.3); White Blood Count 8.7 T/CUMM (4-12)
[2017-09-03 04:04] LABS: Alanine Aminotransferase 45 U/L (16-61); Albumin 2.6 G/DL (3.4-5.0); Alkaline Phosphatase 98 U/L (45-117); Aspartate Amino Transferase 51 U/L (0-37); Bilirubin,Total < 0.39 MG/DL (0.2-1.0); Blood Urea Nitrogen 22 MG/DL (7-18); Calcium 8.4 MG/DL (8.5-10.1); Glucose 70 MG/DL (74-106); Osmolality,Calculated 277.5 MOS/KG (273-304); Potassium 3.5 MMOL/L (3.5-5.1); Sodium 139 MMOL/L (136-145); Total Protein 7.5 G/DL (6.4-8.3)
[2017-09-03] MEDS: LACTATED RINGERS 1,000 ML IV SCH ×5 (06:01→21:53)
[2017-09-03] MEDS: PANTOPRAZOLE 40 MG TABLET PO SCH (08:11)
[2017-09-03] MEDS ORDERED: COLCHICINE 0.6 MG TABLET PO PRN (11:35)
[2017-09-03] MEDS ORDERED: MUPIROCIN 2% OINT 22 GM TUBE TOP PRN (11:35)
[2017-09-03] MEDS ORDERED: predniSONE 5 MG TABLET PO PRN (11:35)
[2017-09-03] MEDS ORDERED: DICLOFENAC 1% GEL 100 GM TUBE TOP PRN (11:35)
[2017-09-03] MEDS: SODIUM HYPOCHLORITE 0.25% IRRIG 473 ML BOTTLE TOP SCH (11:53)
[2017-09-03] MEDS: MULTIVITAMIN (BEROCCA) TABLET PO SCH ×2 (14:04→21:44)
[2017-09-03] MEDS: ALLOPURINOL 100 MG TABLET PO SCH (14:04)
[2017-09-03] MEDS: ESCITALOPRAM 10 MG TABLET PO SCH (14:04)
[2017-09-03] MEDS: DULoxetine 30 MG CAPSULE PO SCH ×2 (14:04→21:44)
[2017-09-03] MEDS: POTASSIUM CHLORIDE 20 MEQ TABLET PO SCH ×2 (14:04→21:44)
[2017-09-03] MEDS: oxyCODONE/ACETAMINOPHEN 5-325 MG TABLET PO SCH ×3 (14:05→21:50)
[2017-09-03] MEDS: tiZANidine 4 MG TABLET PO SCH (14:05)
[2017-09-03] MEDS: ASPIRIN EC 81 MG TABLET PO SCH (14:05)
[2017-09-03] MEDS: CLOPIDOGREL 75 MG TABLET PO SCH (14:05)
[2017-09-03] MEDS: busPIRone 10 MG TABLET PO SCH ×2 (14:06→21:44)
[2017-09-03] MEDS: GABAPENTIN 300 MG CAPSULE PO SCH ×2 (14:06→21:44)
[2017-09-03] MEDS: FUROSEMIDE 40 MG TABLET PO SCH (17:06)
[2017-09-03] MEDS ORDERED: amLODIPine 10 MG TABLET PO SCH (19:00)
[2017-09-03] MEDS ORDERED: INSULIN GLARGINE 100 UNIT/ML SUBCUT SCH (21:00)
[2017-09-03] MEDS ORDERED: NON-FORMULARY MEDICATION (Esomeprazole Magnesium [Nexium] 40 MG) PO SCH (21:00)
[2017-09-03] MEDS ORDERED: NON-FORMULARY MEDICATION (Zolpidem Tartrate [Ambien] 10 MG) PO SCH (21:00)
[2017-09-03] MEDS ORDERED: ATORVASTATIN 40 MG TABLET PO SCH (21:00)
[2017-09-03] MEDS: METOPROLOL TARTRATE 100 MG TABLET PO SCH (21:44)
[2017-09-03] MEDS: buPROPion XL 150 MG TABLET PO SCH (21:50)
[2017-09-03] MEDS: CILOSTAZOL 100 MG TABLET PO SCH (21:50)
[2017-09-03] MEDS: ZOLPIDEM 5 MG TABLET PO SCH (21:54)
[2017-09-04] MEDS: ZOLPIDEM 5 MG TABLET PO SCH (01:37)
[2017-09-04] MEDS: tiZANidine 4 MG TABLET PO SCH ×2 (01:37→09:13)
[2017-09-04] MEDS: INSULIN REGULAR 100 UNIT/ML SUBCUT SCH ×3 (01:38→13:17)
[2017-09-04] MEDS: CLINDAMYCIN INJ 600 MG in PREMIX 1 EACH IV SCH ×2 (02:04→09:13)
[2017-09-04] MEDS: LACTATED RINGERS 1,000 ML IV SCH ×2 (07:08→11:01)
[2017-09-04] MEDS ORDERED: FOLIC ACID 1 MG TABLET PO SCH (09:00)
[2017-09-04] MEDS ORDERED: VICTOZA (Liraglutide) 1.8 MG SUBCUT SCH (09:00)
[2017-09-04] MEDS ORDERED: PRISTIQ 100 MG PO SCH (09:00)
[2017-09-04] MEDS ORDERED: metOLazone 5 MG TABLET PO SCH (09:00)
[2017-09-04] MEDS: ALLOPURINOL 100 MG TABLET PO SCH (09:12)
[2017-09-04] MEDS: CILOSTAZOL 100 MG TABLET PO SCH (09:12)
[2017-09-04] MEDS: oxyCODONE/ACETAMINOPHEN 5-325 MG TABLET PO SCH (09:12)
[2017-09-04] MEDS: DULoxetine 30 MG CAPSULE PO SCH (09:12)
[2017-09-04] MEDS: ESCITALOPRAM 10 MG TABLET PO SCH (09:12)
[2017-09-04] MEDS: METOPROLOL TARTRATE 100 MG TABLET PO SCH (09:12)
[2017-09-04] MEDS: busPIRone 10 MG TABLET PO SCH (09:13)
[2017-09-04] MEDS: GABAPENTIN 300 MG CAPSULE PO SCH (09:13)
[2017-09-04] MEDS: buPROPion XL 150 MG TABLET PO SCH (09:13)
[2017-09-04] MEDS: FUROSEMIDE 40 MG TABLET PO SCH (09:13)
[2017-09-04] MEDS: PANTOPRAZOLE 40 MG TABLET PO SCH (09:13)
[2017-09-04] MEDS: ASPIRIN EC 81 MG TABLET PO SCH (09:13)
[2017-09-04] MEDS: CLOPIDOGREL 75 MG TABLET PO SCH (09:13)
[2017-09-04] MEDS: MULTIVITAMIN (BEROCCA) TABLET PO SCH (09:13)
[2017-09-04] MEDS: POTASSIUM CHLORIDE 20 MEQ TABLET PO SCH (09:13)
[2017-09-04 12:23] VITALS: BP 122/87
[2017-09-04] MEDS: SODIUM HYPOCHLORITE 0.25% IRRIG 473 ML BOTTLE TOP SCH (13:17)
[2017-09-06] MEDS ORDERED: fentaNYL 50 MCG/HR PATCH TRANSDERM SCH (09:00)
== END 2017-09-04 13:33 | disposition home health service (06) | DRG 464 ==
LOC: N.ED 07:18 → N.EDINP 08:48 → N.3E 10:25
PROVIDERS: ADMIT Surgery; ATTEND Surgery

== ENCOUNTER 2018-03-09 09:58 | Inpatient (IN) ==
[2018-03-09] MEDS ORDERED: DEXTROSE 50% 25 GM/50 ML VIAL IV ONE ×2 (10:09→14:46)
[2018-03-09] MEDS ORDERED: DEXTROSE 50% 25 GM/50 ML VIAL IV STA ×2 (11:03→14:41)
[2018-03-09 11:25] LABS: Basophils % 0.3 % (0.0-0.8); Eosinophils # 0.1 10*3/uL (0.0-0.87); Eosinophils % 0.9 % (0.00-10.9); Hematocrit 32.9 VOL% (42.0-52.0); Hemoglobin 9.7 GM/DL (14.0-18.0); Immature Granulocytes % 0.3 %; Immature Granulocytes Absolute 0.03 #; Lymphocytes # 1.6 10*3/uL (1.4-4.0); Lymphocytes % 15.3 % (21.2-54.2); Mean Corpuscular HGB Conc 29.5 GM/DL (32-36); Mean Corpuscular Hemoglobin 23 PG (27-34); Mean Corpuscular Volume 76.5 FL (87-102); Mean Platelet Volume 10.7 FL (9.6-12.0); Monocytes # 0.8 10*3/uL (0.11-0.8); Monocytes % 7.5 % (1.7-12.7); Neutrophils # 7.9 10*3/uL (1.4-7.4); Neutrophils % 75.7 % (38.7-73.9); Platelet Count 387 T/CUMM (130-400); Red Cell Distribution Width 17.9 % (9.3-17.3); White Blood Count 10.4 T/CUMM (4-12)
[2018-03-09 11:30] LABS: PT Patient Result 10.3 SECS
[2018-03-09 11:38] LABS: Albumin 3.4 G/DL (3.4-5.0); Bilirubin,Total 0.5 MG/DL (0.2-1.0); Calcium 8.4 MG/DL (8.5-10.1); Osmolality,Calculated 281.4 MOS/KG (273-304); Potassium 3.2 MMOL/L (3.5-5.1); Total Protein 7.3 G/DL (6.4-8.3)
[2018-03-09 11:39] LABS: ABG Base Excess 4.8 MMOL/L (-2.5-2.5); ABG HCO3 28.7 MMOL/L (20-26); ABG Oxygen Saturation 94.3 % (95-100); ABG PCO2 41.1 MM HG (35-48); ABG PH 7.458 (7.35-7.45); ABG PO2 83.9 MM HG (80-95); ABG TCO2 26.5 MMOL/L (23-27)
[2018-03-09 11:49] LABS: CKMB % 1.2 %
[2018-03-09 12:30] LABS: Apearance,Urine Slightly Hazy (Clear); Bacteria,Urine Many /HPF (Few); Bilirubin,Urine Negative (Negative); Blood, Urine Negative (Negative); Glucose,Urine (UA) 50 mg/dL (Negative); Hyaline Casts,Urine 3 /LPF (0-3); Ketones,Urine 5 mg/dL (Negative); Mucus,Urine Occasional /LPF (Occasional); Nitrite,Urine Negative (Negative); Protein,Urine 30 MG/DL; RBC,Urine 2 /HPF (0-4); Sperm,Urine Occasional /HPF (Negative); Squamous Epithelial Cell,Urine Occasional /HPF (0-10); Urine Color Amber (Yellow); Urine Specific Gravity 1.018 (1.001-1.035); Urine Urobilinogen < 2.0 EU/DL (0.2-1.0); WBC,Urine 4 /HPF (0-6)
[2018-03-09] MEDS ORDERED: KETOROLAC 30 MG/1 ML VIAL IV STA (14:08)
[2018-03-09] MEDS ORDERED: KETOROLAC 30 MG/1 ML VIAL ONE (14:19)
[2018-03-09] MEDS ORDERED: GLUCAGON 1 MG VIAL IM PRN ×2 (14:45→15:39)
[2018-03-09] MEDS ORDERED: DEXTROSE 50% 25 GM/50 ML VIAL IV PRN ×2 (14:45→15:39)
[2018-03-09] MEDS ORDERED: COLCHICINE 0.6 MG TABLET PO PRN (15:36)
[2018-03-09] MEDS ORDERED: DICLOFENAC 1% GEL 100 GM TUBE TOP PRN (15:36)
[2018-03-09] MEDS ORDERED: MUPIROCIN 2% OINT 22 GM TUBE TOP PRN (15:36)
[2018-03-09] MEDS ORDERED: traMADol 50 MG TABLET PO PRN (15:36)
[2018-03-09] MEDS: DEXTROSE 5% NACL 0.45% 1,000 ML IV SCH (17:45)
[2018-03-09] MEDS: FUROSEMIDE 40 MG TABLET PO SCH (17:49)
[2018-03-09] MEDS: oxyCODONE/ACETAMINOPHEN 5-325 MG TABLET PO SCH ×2 (17:50→23:34)
[2018-03-09] MEDS: amLODIPine 10 MG TABLET PO SCH (18:59)
[2018-03-09] MEDS: fentaNYL 12 MCG/HR PATCH TRANSDERM SCH (18:59)
[2018-03-09] MEDS: POTASSIUM CHLORIDE 20 MEQ TABLET PO SCH (23:31)
[2018-03-09] MEDS: CILOSTAZOL 100 MG TABLET PO SCH (23:31)
[2018-03-09] MEDS: MULTIVITAMIN (BEROCCA) TABLET PO SCH (23:31)
[2018-03-09] MEDS: buPROPion XL 150 MG TABLET PO SCH (23:32)
[2018-03-09] MEDS: METOPROLOL TARTRATE 100 MG TABLET PO SCH (23:32)
[2018-03-09] MEDS: PANTOPRAZOLE 40 MG TABLET PO SCH (23:32)
[2018-03-09] MEDS: metOLazone 5 MG TABLET PO SCH ×2 (23:33→23:48)
[2018-03-09] MEDS: busPIRone 10 MG TABLET PO SCH (23:33)
[2018-03-09] MEDS: ALLOPURINOL 100 MG TABLET PO SCH (23:33)
[2018-03-09] MEDS: ATORVASTATIN 40 MG TABLET PO SCH (23:33)
[2018-03-09] MEDS: tiZANidine 4 MG TABLET PO SCH (23:33)
[2018-03-09] MEDS: DULoxetine 30 MG CAPSULE PO SCH (23:34)
[2018-03-09] MEDS: GABAPENTIN 600 MG TABLET PO SCH (23:34)
[2018-03-09] MEDS: ZALEPLON 5 MG CAPSULE PO SCH (23:38)
[2018-03-10 05:57] LABS: Basophils % 0.4 % (0.0-0.8); Eosinophils # 0.2 10*3/uL (0.0-0.87); Eosinophils % 2.4 % (0.00-10.9); Hematocrit 29.8 VOL% (42.0-52.0); Immature Granulocytes % 0.3 %; Immature Granulocytes Absolute 0.03 #; Lymphocytes # 4.5 10*3/uL (1.4-4.0); Lymphocytes % 49.3 % (21.2-54.2); Mean Corpuscular HGB Conc 30.2 GM/DL (32-36); Mean Corpuscular Hemoglobin 23 PG (27-34); Mean Corpuscular Volume 75.8 FL (87-102); Mean Platelet Volume 11.1 FL (9.6-12.0); Monocytes % 10.4 % (1.7-12.7); Neutrophils # 3.4 10*3/uL (1.4-7.4); Neutrophils % 37.2 % (38.7-73.9); Platelet Count 410 T/CUMM (130-400); Red Blood Count 3.93 MC/CUMM (3.8-5.5); White Blood Count 9.2 T/CUMM (4-12)
[2018-03-10 06:49] LABS: Calcium 8.2 MG/DL (8.5-10.1); Osmolality,Calculated 281.4 MOS/KG (273-304); Potassium 2.8 MMOL/L (3.5-5.1)
[2018-03-10 06:58] LABS: Eosinophils 3 % (0-10); Hypochromasia 2+; Lymphocytes 42 % (20-55); Microcytosis 1+; Myelocytes 1 %; Segmented Neutrophils 45 % (50-85); Total Cells Counted 100
[2018-03-10 06:59] LABS: Ovalocytes Few; Platelet Estimate Increased; Polychromasia Slight
[2018-03-10 09:08] LABS: Albumin 2.9 G/DL (3.4-5.0); Bilirubin,Direct 0.11 MG/DL (0.0-0.20); Bilirubin,Indirect 0.9 MG/DL (0.0-1.0); Total Protein 6.9 G/DL (6.4-8.3)
[2018-03-10] MEDS: FUROSEMIDE 40 MG TABLET PO SCH ×2 (10:44→16:32)
[2018-03-10] MEDS: DULoxetine 30 MG CAPSULE PO SCH ×2 (10:44→22:19)
[2018-03-10] MEDS: metOLazone 5 MG TABLET PO SCH ×2 (10:44→22:20)
[2018-03-10] MEDS: DESVENLAFAXINE 50 MG TABLET PO SCH (10:44)
[2018-03-10] MEDS: oxyCODONE/ACETAMINOPHEN 5-325 MG TABLET PO SCH ×4 (10:44→22:17)
[2018-03-10] MEDS: PANTOPRAZOLE 40 MG TABLET PO SCH ×2 (10:44→22:20)
[2018-03-10] MEDS: ASPIRIN EC 81 MG TABLET PO SCH (10:44)
[2018-03-10] MEDS: MULTIVITAMIN (BEROCCA) TABLET PO SCH ×2 (10:45→22:19)
[2018-03-10] MEDS: ESCITALOPRAM 10 MG TABLET PO SCH (10:45)
[2018-03-10] MEDS: CLOPIDOGREL 75 MG TABLET PO SCH (10:45)
[2018-03-10] MEDS: tiZANidine 4 MG TABLET PO SCH ×3 (10:45→22:20)
[2018-03-10] MEDS: GABAPENTIN 600 MG TABLET PO SCH ×3 (10:45→22:20)
[2018-03-10] MEDS: METOPROLOL TARTRATE 100 MG TABLET PO SCH ×2 (10:45→22:21)
[2018-03-10] MEDS: FOLIC ACID 1 MG TABLET PO SCH (10:45)
[2018-03-10] MEDS: CILOSTAZOL 100 MG TABLET PO SCH ×2 (10:45→22:21)
[2018-03-10] MEDS: ALLOPURINOL 100 MG TABLET PO SCH ×2 (10:45→22:20)
[2018-03-10] MEDS: buPROPion XL 150 MG TABLET PO SCH ×2 (10:45→22:18)
[2018-03-10] MEDS: busPIRone 10 MG TABLET PO SCH ×3 (10:45→22:16)
[2018-03-10] MEDS: POTASSIUM CHLORIDE 20 MEQ TABLET PO SCH ×3 (10:50→22:18)
[2018-03-10] MEDS: DEXTROSE 5% NACL 0.45% 1,000 ML IV SCH ×3 (10:52→22:15)
[2018-03-10] MEDS: CIPROFLOXACIN 500 MG TABLET PO SCH (16:32)
[2018-03-10] MEDS: amLODIPine 10 MG TABLET PO SCH (18:10)
[2018-03-10] MEDS: ZALEPLON 5 MG CAPSULE PO SCH ×2 (22:16→23:27)
[2018-03-10] MEDS: ATORVASTATIN 40 MG TABLET PO SCH (22:22)
[2018-03-10] MEDS: ZOLPIDEM 5 MG TABLET PO SCH (23:53)
[2018-03-11] MEDS: CIPROFLOXACIN 500 MG TABLET PO SCH ×2 (04:30→16:17)
[2018-03-11] MEDS: DEXTROSE 5% NACL 0.45% 1,000 ML IV SCH (05:27)
[2018-03-11 08:50] LABS: Basophils # 0.1 10*3/uL (0.0-0.2); Basophils % 0.7 % (0.0-0.8); Eosinophils # 0.3 10*3/uL (0.0-0.87); Eosinophils % 3.5 % (0.00-10.9); Hematocrit 29.2 VOL% (42.0-52.0); Hemoglobin 8.5 GM/DL (14.0-18.0); Immature Granulocytes % 0.3 %; Immature Granulocytes Absolute 0.02 #; Mean Corpuscular HGB Conc 29.1 GM/DL (32-36); Mean Corpuscular Hemoglobin 23 PG (27-34); Mean Corpuscular Volume 78.1 FL (87-102); Monocytes # 0.7 10*3/uL (0.11-0.8); Monocytes % 9.7 % (1.7-12.7); Neutrophils # 2.4 10*3/uL (1.4-7.4); Neutrophils % 31.8 % (38.7-73.9); Platelet Count 345 T/CUMM (130-400); Red Blood Count 3.74 MC/CUMM (3.8-5.5); Red Cell Distribution Width 18.2 % (9.3-17.3); White Blood Count 7.5 T/CUMM (4-12)
[2018-03-11 09:26] LABS: Albumin 2.8 G/DL (3.4-5.0); Bilirubin,Total 0.4 MG/DL (0.2-1.0); Calcium 7.9 MG/DL (8.5-10.1); Osmolality,Calculated 283.3 MOS/KG (273-304); Potassium 2.9 MMOL/L (3.5-5.1); Total Protein 6.6 G/DL (6.4-8.3)
[2018-03-11] MEDS: MULTIVITAMIN (BEROCCA) TABLET PO SCH ×2 (09:50→22:17)
[2018-03-11] MEDS: DESVENLAFAXINE 50 MG TABLET PO SCH (09:50)
[2018-03-11] MEDS: CILOSTAZOL 100 MG TABLET PO SCH ×2 (09:50→22:10)
[2018-03-11] MEDS: GABAPENTIN 600 MG TABLET PO SCH ×3 (09:51→22:10)
[2018-03-11] MEDS: busPIRone 10 MG TABLET PO SCH ×3 (09:51→22:11)
[2018-03-11] MEDS: CLOPIDOGREL 75 MG TABLET PO SCH (09:51)
[2018-03-11] MEDS: buPROPion XL 150 MG TABLET PO SCH ×2 (09:51→22:17)
[2018-03-11] MEDS: FUROSEMIDE 40 MG TABLET PO SCH ×2 (09:51→16:17)
[2018-03-11] MEDS: ESCITALOPRAM 10 MG TABLET PO SCH (09:51)
[2018-03-11] MEDS: oxyCODONE/ACETAMINOPHEN 5-325 MG TABLET PO SCH ×4 (09:52→22:10)
[2018-03-11] MEDS: METOPROLOL TARTRATE 100 MG TABLET PO SCH ×2 (09:52→22:12)
[2018-03-11] MEDS: ASPIRIN EC 81 MG TABLET PO SCH (09:53)
[2018-03-11] MEDS: tiZANidine 4 MG TABLET PO SCH ×3 (09:53→22:12)
[2018-03-11] MEDS: FOLIC ACID 1 MG TABLET PO SCH (09:53)
[2018-03-11] MEDS: DULoxetine 30 MG CAPSULE PO SCH ×2 (09:53→22:17)
[2018-03-11] MEDS: PANTOPRAZOLE 40 MG TABLET PO SCH ×2 (09:53→22:13)
[2018-03-11] MEDS: metOLazone 5 MG TABLET PO SCH ×2 (09:54→22:13)
[2018-03-11] MEDS: ALLOPURINOL 100 MG TABLET PO SCH ×2 (09:54→22:11)
[2018-03-11 12:05] LABS: Burr Cells 1+; Macrocytosis 2+; Polychromasia Slight; Target Cells 1+
[2018-03-11 12:06] LABS: Elliptocytes 1+; Platelet Estimate Adequate
[2018-03-11] MEDS: INSULIN LISPRO 100 UNIT/ML SUBCUT SCH ×4 (12:27→22:25)
[2018-03-11] MEDS: POTASSIUM CHLORIDE 20 MEQ TABLET PO SCH ×3 (12:41→22:17)
[2018-03-11] MEDS: SODIUM CHLORIDE 0.45% 1,000 ML IV SCH (12:46)
[2018-03-11] MEDS: INSULIN GLARGINE 100 UNIT/ML SUBCUT SCH (22:09)
[2018-03-11] MEDS: ZOLPIDEM 5 MG TABLET PO SCH (22:10)
[2018-03-11] MEDS: amLODIPine 10 MG TABLET PO SCH (22:17)
[2018-03-12] MEDS: amLODIPine 10 MG TABLET PO SCH ×2 (00:49→21:58)
[2018-03-12] MEDS: INSULIN LISPRO 100 UNIT/ML SUBCUT SCH ×6 (02:43→23:21)
[2018-03-12] MEDS: CIPROFLOXACIN 500 MG TABLET PO SCH ×2 (03:45→16:33)
[2018-03-12 06:31] LABS: Basophils % 0.5 % (0.0-0.8); Eosinophils # 0.3 10*3/uL (0.0-0.87); Eosinophils % 3.9 % (0.00-10.9); Hematocrit 28.5 VOL% (42.0-52.0); Hemoglobin 8.4 GM/DL (14.0-18.0); Immature Granulocytes % 0.1 %; Immature Granulocytes Absolute 0.01 #; Lymphocytes # 3.8 10*3/uL (1.4-4.0); Lymphocytes % 45.5 % (21.2-54.2); Mean Corpuscular HGB Conc 29.5 GM/DL (32-36); Mean Corpuscular Hemoglobin 23 PG (27-34); Mean Platelet Volume 10.8 FL (9.6-12.0); Monocytes # 0.9 10*3/uL (0.11-0.8); Monocytes % 10.5 % (1.7-12.7); Neutrophils # 3.3 10*3/uL (1.4-7.4); Neutrophils % 39.5 % (38.7-73.9); Platelet Count 337 T/CUMM (130-400); White Blood Count 8.3 T/CUMM (4-12)
[2018-03-12 06:57] LABS: Alanine Aminotransferase 96 U/L (16-61); Albumin 2.8 G/DL (3.4-5.0); Alkaline Phosphatase 101 U/L (45-117); Aspartate Amino Transferase 68 U/L (0-37); Bilirubin,Total < 0.39 MG/DL (0.2-1.0); Blood Urea Nitrogen 23 MG/DL (7-18); Calcium 8.3 MG/DL (8.5-10.1); Glucose 73 MG/DL (74-106); Osmolality,Calculated 279.5 MOS/KG (273-304); Potassium 2.6 MMOL/L (3.5-5.1); Sodium 139 MMOL/L (136-145); Total Protein 6.2 G/DL (6.4-8.3)
[2018-03-12] MEDS ORDERED: POTASSIUM CHLORIDE 20 MEQ TABLET PO ONE (08:58)
[2018-03-12] MEDS: AMPICILLIN INJ 2,000 MG in SODIUM CHLORIDE 0.9% 100 ML IV SCH ×3 (09:18→21:57)
[2018-03-12] MEDS: DESVENLAFAXINE 50 MG TABLET PO SCH (09:21)
[2018-03-12] MEDS: oxyCODONE/ACETAMINOPHEN 5-325 MG TABLET PO SCH ×4 (09:22→21:59)
[2018-03-12] MEDS: busPIRone 10 MG TABLET PO SCH ×3 (09:23→21:57)
[2018-03-12] MEDS: CLOPIDOGREL 75 MG TABLET PO SCH (09:23)
[2018-03-12] MEDS: CILOSTAZOL 100 MG TABLET PO SCH ×2 (09:23→21:57)
[2018-03-12] MEDS: metOLazone 5 MG TABLET PO SCH ×2 (09:24→21:59)
[2018-03-12] MEDS: GABAPENTIN 600 MG TABLET PO SCH ×3 (09:24→21:57)
[2018-03-12] MEDS: DULoxetine 30 MG CAPSULE PO SCH ×2 (09:25→21:57)
[2018-03-12] MEDS: METOPROLOL TARTRATE 100 MG TABLET PO SCH ×2 (09:25→21:58)
[2018-03-12] MEDS: ALLOPURINOL 100 MG TABLET PO SCH ×2 (09:26→21:58)
[2018-03-12] MEDS: POTASSIUM CHLORIDE 20 MEQ TABLET PO SCH ×3 (09:26→21:59)
[2018-03-12] MEDS: FUROSEMIDE 40 MG TABLET PO SCH ×2 (09:27→16:33)
[2018-03-12] MEDS: tiZANidine 4 MG TABLET PO SCH ×3 (09:27→21:58)
[2018-03-12] MEDS: FOLIC ACID 1 MG TABLET PO SCH (09:27)
[2018-03-12] MEDS: ESCITALOPRAM 10 MG TABLET PO SCH (09:28)
[2018-03-12] MEDS: ASPIRIN EC 81 MG TABLET PO SCH (09:28)
[2018-03-12] MEDS: PANTOPRAZOLE 40 MG TABLET PO SCH ×2 (09:29→21:58)
[2018-03-12] MEDS ORDERED: POTASSIUM CHLORIDE RIDER 100 ML IV ONE (10:00)
[2018-03-12] MEDS: MULTIVITAMIN (BEROCCA) TABLET PO SCH ×2 (10:34→21:58)
[2018-03-12] MEDS: buPROPion XL 150 MG TABLET PO SCH ×2 (10:34→21:57)
[2018-03-12] MEDS: fentaNYL 12 MCG/HR PATCH TRANSDERM SCH (10:42)
[2018-03-12] MEDS: SODIUM CHLORIDE 0.45% 1,000 ML IV SCH (18:00)
[2018-03-12] MEDS: INSULIN GLARGINE 100 UNIT/ML SUBCUT SCH (23:22)
[2018-03-12] MEDS: ZOLPIDEM 5 MG TABLET PO SCH (23:22)
[2018-03-13] MEDS: AMPICILLIN INJ 2,000 MG in SODIUM CHLORIDE 0.9% 100 ML IV SCH ×4 (02:45→21:09)
[2018-03-13] MEDS: INSULIN LISPRO 100 UNIT/ML SUBCUT SCH ×6 (03:31→21:23)
[2018-03-13 05:07] LABS: Basophils % 0.3 % (0.0-0.8); Eosinophils # 0.3 10*3/uL (0.0-0.87); Eosinophils % 4.6 % (0.00-10.9); Hematocrit 30.3 VOL% (42.0-52.0); Hemoglobin 9.1 GM/DL (14.0-18.0); Immature Granulocytes % 0.3 %; Immature Granulocytes Absolute 0.02 #; Lymphocytes % 45.1 % (21.2-54.2); Mean Corpuscular Hemoglobin 23 PG (27-34); Mean Corpuscular Volume 75.9 FL (87-102); Mean Platelet Volume 10.5 FL (9.6-12.0); Monocytes # 0.8 10*3/uL (0.11-0.8); Monocytes % 12.3 % (1.7-12.7); NRBC # 0.02 10*3/uL; Neutrophils # 2.5 10*3/uL (1.4-7.4); Neutrophils % 37.4 % (38.7-73.9); Platelet Count 354 T/CUMM (130-400); Red Blood Count 3.99 MC/CUMM (3.8-5.5); Red Cell Distribution Width 18.1 % (9.3-17.3); White Blood Count 6.7 T/CUMM (4-12)
[2018-03-13 05:42] LABS: Calcium 8.7 MG/DL (8.5-10.1); Osmolality,Calculated 279.5 MOS/KG (273-304); Potassium 3.1 MMOL/L (3.5-5.1)
[2018-03-13 06:12] LABS: Atypical Lymphocytes 1+; Microcytosis 1+; Platelet Estimate Normal
[2018-03-13] MEDS: POTASSIUM CHLORIDE 20 MEQ TABLET PO SCH ×3 (09:24→21:10)
[2018-03-13] MEDS: METOPROLOL TARTRATE 100 MG TABLET PO SCH ×2 (09:25→21:10)
[2018-03-13] MEDS: buPROPion XL 150 MG TABLET PO SCH ×2 (09:25→21:09)
[2018-03-13] MEDS: busPIRone 10 MG TABLET PO SCH ×3 (09:25→21:10)
[2018-03-13] MEDS: DESVENLAFAXINE 50 MG TABLET PO SCH (09:25)
[2018-03-13] MEDS: ASPIRIN EC 81 MG TABLET PO SCH (09:26)
[2018-03-13] MEDS: CILOSTAZOL 100 MG TABLET PO SCH ×2 (09:26→21:10)
[2018-03-13] MEDS: CLOPIDOGREL 75 MG TABLET PO SCH (09:26)
[2018-03-13] MEDS: tiZANidine 4 MG TABLET PO SCH ×3 (09:27→21:11)
[2018-03-13] MEDS: GABAPENTIN 600 MG TABLET PO SCH ×3 (09:27→21:10)
[2018-03-13] MEDS: oxyCODONE/ACETAMINOPHEN 5-325 MG TABLET PO SCH ×4 (09:28→21:11)
[2018-03-13] MEDS: ESCITALOPRAM 10 MG TABLET PO SCH (09:28)
[2018-03-13] MEDS: PANTOPRAZOLE 40 MG TABLET PO SCH ×2 (09:29→21:10)
[2018-03-13] MEDS: FOLIC ACID 1 MG TABLET PO SCH (09:29)
[2018-03-13] MEDS: CIPROFLOXACIN 500 MG TABLET PO SCH ×2 (09:29→21:11)
[2018-03-13] MEDS: DULoxetine 30 MG CAPSULE PO SCH ×2 (09:30→21:10)
[2018-03-13] MEDS: FUROSEMIDE 40 MG TABLET PO SCH ×2 (09:30→17:58)
[2018-03-13] MEDS: ALLOPURINOL 100 MG TABLET PO SCH ×2 (09:30→21:10)
[2018-03-13] MEDS: metOLazone 5 MG TABLET PO SCH ×2 (09:31→21:10)
[2018-03-13] MEDS: MULTIVITAMIN (BEROCCA) TABLET PO SCH ×2 (09:32→21:10)
[2018-03-13] MEDS: POTASSIUM CHLORIDE RIDER 10 MEQ in PREMIX 1 EACH IV PRN (11:58)
[2018-03-13] MEDS: SODIUM CHLORIDE 0.45% 1,000 ML IV SCH (17:09)
[2018-03-13] MEDS: ZOLPIDEM 5 MG TABLET PO SCH (21:09)
[2018-03-13] MEDS: amLODIPine 10 MG TABLET PO SCH (21:10)
[2018-03-13] MEDS: INSULIN GLARGINE 100 UNIT/ML SUBCUT SCH (21:23)
[2018-03-14] MEDS: INSULIN LISPRO 100 UNIT/ML SUBCUT SCH ×6 (02:15→20:16)
[2018-03-14] MEDS: AMPICILLIN INJ 2,000 MG in SODIUM CHLORIDE 0.9% 100 ML IV SCH ×4 (02:41→20:57)
[2018-03-14 08:18] LABS: Basophils % 0.6 % (0.0-0.8); Eosinophils # 0.3 10*3/uL (0.0-0.87); Eosinophils % 4.6 % (0.00-10.9); Hematocrit 28.9 VOL% (42.0-52.0); Hemoglobin 8.8 GM/DL (14.0-18.0); Immature Granulocytes % 0.5 %; Immature Granulocytes Absolute 0.03 #; Lymphocytes # 3.1 10*3/uL (1.4-4.0); Lymphocytes % 47.3 % (21.2-54.2); Mean Corpuscular HGB Conc 30.4 GM/DL (32-36); Mean Corpuscular Hemoglobin 23 PG (27-34); Mean Corpuscular Volume 75.7 FL (87-102); Mean Platelet Volume 10.4 FL (9.6-12.0); Monocytes # 0.8 10*3/uL (0.11-0.8); Monocytes % 11.6 % (1.7-12.7); Neutrophils # 2.3 10*3/uL (1.4-7.4); Neutrophils % 35.4 % (38.7-73.9); Platelet Count 364 T/CUMM (130-400); Red Blood Count 3.82 MC/CUMM (3.8-5.5); Red Cell Distribution Width 17.9 % (9.3-17.3); White Blood Count 6.5 T/CUMM (4-12)
[2018-03-14 08:39] LABS: Calcium 8.5 MG/DL (8.5-10.1); Osmolality,Calculated 285.4 MOS/KG (273-304); Potassium 2.8 MMOL/L (3.5-5.1)
[2018-03-14 09:03] LABS: Band Neutrophils 1 % (0-10); Eosinophils 5 % (0-10); Hypochromasia 2+; Lymphocytes 49 % (20-55); Segmented Neutrophils 37 % (50-85); Total Cells Counted 100
[2018-03-14 09:04] LABS: Elliptocytes 1+; Target Cells Slight
[2018-03-14 09:05] LABS: Microcytosis 1+; Platelet Estimate Normal
[2018-03-14] MEDS: busPIRone 10 MG TABLET PO SCH ×3 (09:40→21:01)
[2018-03-14] MEDS: metOLazone 5 MG TABLET PO SCH ×2 (09:40→21:03)
[2018-03-14] MEDS: PANTOPRAZOLE 40 MG TABLET PO SCH ×2 (09:40→21:04)
[2018-03-14] MEDS: DULoxetine 30 MG CAPSULE PO SCH ×2 (09:40→21:05)
[2018-03-14] MEDS: FUROSEMIDE 40 MG TABLET PO SCH ×2 (09:40→15:57)
[2018-03-14] MEDS: METOPROLOL TARTRATE 100 MG TABLET PO SCH ×2 (09:40→21:08)
[2018-03-14] MEDS: POTASSIUM CHLORIDE 20 MEQ TABLET PO SCH ×3 (09:40→21:01)
[2018-03-14] MEDS: FOLIC ACID 1 MG TABLET PO SCH (09:40)
[2018-03-14] MEDS: ESCITALOPRAM 10 MG TABLET PO SCH (09:41)
[2018-03-14] MEDS: GABAPENTIN 600 MG TABLET PO SCH ×3 (09:41→21:01)
[2018-03-14] MEDS: DESVENLAFAXINE 50 MG TABLET PO SCH (09:41)
[2018-03-14] MEDS: CIPROFLOXACIN 500 MG TABLET PO SCH ×2 (09:41→21:04)
[2018-03-14] MEDS: MULTIVITAMIN (BEROCCA) TABLET PO SCH ×2 (09:41→21:04)
[2018-03-14] MEDS: CLOPIDOGREL 75 MG TABLET PO SCH (09:41)
[2018-03-14] MEDS: buPROPion XL 150 MG TABLET PO SCH ×2 (09:41→21:04)
[2018-03-14] MEDS: ALLOPURINOL 100 MG TABLET PO SCH ×2 (09:42→21:05)
[2018-03-14] MEDS: tiZANidine 4 MG TABLET PO SCH ×3 (09:42→21:05)
[2018-03-14] MEDS: ASPIRIN EC 81 MG TABLET PO SCH (09:42)
[2018-03-14] MEDS: CILOSTAZOL 100 MG TABLET PO SCH ×2 (09:42→21:00)
[2018-03-14] MEDS: oxyCODONE/ACETAMINOPHEN 5-325 MG TABLET PO SCH ×4 (09:42→23:41)
[2018-03-14] MEDS ORDERED: POTASSIUM CHLORIDE 20 MEQ TABLET PO ONE (10:36)
[2018-03-14] MEDS: POTASSIUM CHLORIDE RIDER 10 MEQ in PREMIX 1 EACH IV PRN ×4 (11:05→16:45)
[2018-03-14] MEDS: SODIUM CHLORIDE 0.45% 1,000 ML IV SCH (13:33)
[2018-03-14] MEDS: amLODIPine 10 MG TABLET PO SCH (21:04)
[2018-03-14] MEDS: INSULIN GLARGINE 100 UNIT/ML SUBCUT SCH (21:06)
[2018-03-14] MEDS: ZOLPIDEM 5 MG TABLET PO SCH (21:12)
[2018-03-15] MEDS: AMPICILLIN INJ 2,000 MG in SODIUM CHLORIDE 0.9% 100 ML IV SCH ×4 (01:48→21:30)
[2018-03-15] MEDS: INSULIN LISPRO 100 UNIT/ML SUBCUT SCH ×6 (02:13→18:34)
[2018-03-15] MEDS: POTASSIUM CHLORIDE 20 MEQ TABLET PO SCH ×3 (10:21→21:58)
[2018-03-15] MEDS: CILOSTAZOL 100 MG TABLET PO SCH ×2 (10:21→21:59)
[2018-03-15] MEDS: FOLIC ACID 1 MG TABLET PO SCH (10:21)
[2018-03-15] MEDS: busPIRone 10 MG TABLET PO SCH ×3 (10:21→21:53)
[2018-03-15] MEDS: CLOPIDOGREL 75 MG TABLET PO SCH (10:21)
[2018-03-15] MEDS: oxyCODONE/ACETAMINOPHEN 5-325 MG TABLET PO SCH ×4 (10:21→21:51)
[2018-03-15] MEDS: ASPIRIN EC 81 MG TABLET PO SCH (10:21)
[2018-03-15] MEDS: CIPROFLOXACIN 500 MG TABLET PO SCH ×2 (10:21→21:58)
[2018-03-15] MEDS: GABAPENTIN 600 MG TABLET PO SCH ×3 (10:21→21:53)
[2018-03-15] MEDS: metOLazone 5 MG TABLET PO SCH (10:21)
[2018-03-15] MEDS: DESVENLAFAXINE 50 MG TABLET PO SCH (10:21)
[2018-03-15] MEDS: buPROPion XL 150 MG TABLET PO SCH ×2 (10:21→21:53)
[2018-03-15] MEDS: PANTOPRAZOLE 40 MG TABLET PO SCH ×2 (10:21→21:59)
[2018-03-15] MEDS: ESCITALOPRAM 10 MG TABLET PO SCH (10:22)
[2018-03-15] MEDS: ALLOPURINOL 100 MG TABLET PO SCH ×2 (10:22→21:59)
[2018-03-15] MEDS: MULTIVITAMIN (BEROCCA) TABLET PO SCH ×2 (10:22→21:58)
[2018-03-15] MEDS: FUROSEMIDE 40 MG TABLET PO SCH ×2 (10:22→15:00)
[2018-03-15] MEDS: tiZANidine 4 MG TABLET PO SCH ×3 (10:22→21:58)
[2018-03-15] MEDS: METOPROLOL TARTRATE 100 MG TABLET PO SCH ×2 (10:22→21:59)
[2018-03-15] MEDS: DULoxetine 30 MG CAPSULE PO SCH ×2 (10:22→21:58)
[2018-03-15 10:27] LABS: Calcium 8.3 MG/DL (8.5-10.1); Osmolality,Calculated 284.3 MOS/KG (273-304); Potassium 3.2 MMOL/L (3.5-5.1)
[2018-03-15] MEDS: fentaNYL 12 MCG/HR PATCH TRANSDERM SCH (10:31)
[2018-03-15] MEDS ORDERED: TUBERCULIN SKIN TEST 0.1 ML SYRINGE INTRADERM ONE (15:00)
[2018-03-15] MEDS: SODIUM CHLORIDE 0.45% 1,000 ML IV SCH (21:50)
[2018-03-15] MEDS: ZOLPIDEM 5 MG TABLET PO SCH (21:57)
[2018-03-15] MEDS: amLODIPine 5 MG TABLET PO SCH (21:59)
[2018-03-15] MEDS: INSULIN GLARGINE 100 UNIT/ML SUBCUT SCH (22:15)
[2018-03-16] MEDS: AMPICILLIN INJ 2,000 MG in SODIUM CHLORIDE 0.9% 100 ML IV SCH ×4 (03:34→21:35)
[2018-03-16] MEDS: INSULIN LISPRO 100 UNIT/ML SUBCUT SCH ×6 (03:44→23:12)
[2018-03-16 05:47] LABS: Calcium 8.3 MG/DL (8.5-10.1); Osmolality,Calculated 283.4 MOS/KG (273-304)
[2018-03-16] MEDS ORDERED: ZOLPIDEM 5 MG TABLET PO PRN (08:30)
[2018-03-16] MEDS ORDERED: ESCITALOPRAM 10 MG TABLET PO PRN ×2 (08:31→09:00)
[2018-03-16] MEDS ORDERED: tiZANidine 4 MG TABLET PO PRN (08:33)
[2018-03-16] MEDS ORDERED: POTASSIUM CHLORIDE 20 MEQ TABLET PO PRN (08:38)
[2018-03-16] MEDS: DESVENLAFAXINE 50 MG TABLET PO SCH (09:14)
[2018-03-16] MEDS: FUROSEMIDE 40 MG TABLET PO SCH ×2 (09:14→17:40)
[2018-03-16] MEDS: MULTIVITAMIN (BEROCCA) TABLET PO SCH ×2 (09:15→21:36)
[2018-03-16] MEDS: CLOPIDOGREL 75 MG TABLET PO SCH (09:15)
[2018-03-16] MEDS: POTASSIUM CHLORIDE 20 MEQ TABLET PO SCH ×3 (09:16→21:37)
[2018-03-16] MEDS: busPIRone 10 MG TABLET PO SCH ×3 (09:17→21:36)
[2018-03-16] MEDS: DULoxetine 30 MG CAPSULE PO SCH ×2 (09:17→21:37)
[2018-03-16] MEDS: GABAPENTIN 600 MG TABLET PO SCH ×3 (09:17→21:37)
[2018-03-16] MEDS: METOPROLOL TARTRATE 100 MG TABLET PO SCH ×2 (09:17→21:37)
[2018-03-16] MEDS: oxyCODONE/ACETAMINOPHEN 5-325 MG TABLET PO PRN ×3 (09:18→21:47)
[2018-03-16] MEDS: FOLIC ACID 1 MG TABLET PO SCH (09:18)
[2018-03-16] MEDS: CIPROFLOXACIN 500 MG TABLET PO SCH ×2 (09:19→21:36)
[2018-03-16] MEDS: ASPIRIN EC 81 MG TABLET PO SCH (09:19)
[2018-03-16] MEDS: PANTOPRAZOLE 40 MG TABLET PO SCH ×2 (09:20→21:38)
[2018-03-16] MEDS: buPROPion XL 150 MG TABLET PO SCH ×2 (09:20→21:38)
[2018-03-16] MEDS: ALLOPURINOL 100 MG TABLET PO SCH ×2 (09:20→21:38)
[2018-03-16] MEDS: CILOSTAZOL 100 MG TABLET PO SCH ×2 (09:54→21:38)
[2018-03-16] MEDS: POTASSIUM CHLORIDE RIDER 10 MEQ in PREMIX 1 EACH IV PRN (14:34)
[2018-03-16] MEDS: SODIUM CHLORIDE 0.45% 1,000 ML IV SCH (19:29)
[2018-03-16] MEDS: amLODIPine 5 MG TABLET PO SCH (21:37)
[2018-03-16] MEDS: INSULIN GLARGINE 100 UNIT/ML SUBCUT SCH (21:47)
[2018-03-17] MEDS: SODIUM CHLORIDE 0.45% 1,000 ML IV SCH (00:32)
[2018-03-17] MEDS: INSULIN LISPRO 100 UNIT/ML SUBCUT SCH ×3 (02:16→13:53)
[2018-03-17] MEDS: AMPICILLIN INJ 2,000 MG in SODIUM CHLORIDE 0.9% 100 ML IV SCH ×2 (03:41→09:22)
[2018-03-17 09:00] LABS: Basophils # 0.1 10*3/uL (0.0-0.2); Basophils % 0.8 % (0.0-0.8); Eosinophils # 0.4 10*3/uL (0.0-0.87); Eosinophils % 5.7 % (0.00-10.9); Hematocrit 29.5 VOL% (42.0-52.0); Hemoglobin 8.7 GM/DL (14.0-18.0); Immature Granulocytes % 0.3 %; Immature Granulocytes Absolute 0.02 #; Lymphocytes # 2.9 10*3/uL (1.4-4.0); Lymphocytes % 47.6 % (21.2-54.2); Mean Corpuscular HGB Conc 29.5 GM/DL (32-36); Mean Corpuscular Hemoglobin 23 PG (27-34); Mean Corpuscular Volume 76.2 FL (87-102); Mean Platelet Volume 9.6 FL (9.6-12.0); Monocytes # 0.9 10*3/uL (0.11-0.8); Monocytes % 13.8 % (1.7-12.7); Neutrophils % 31.8 % (38.7-73.9); Platelet Count 320 T/CUMM (130-400); Red Blood Count 3.87 MC/CUMM (3.8-5.5); Red Cell Distribution Width 18.1 % (9.3-17.3); White Blood Count 6.2 T/CUMM (4-12)
[2018-03-17] MEDS ORDERED: MAGNESIUM CHLORIDE 64 MG TABLET PO SCH (09:00)
[2018-03-17 09:19] LABS: Hypochromasia 2+; Target Cells Few
[2018-03-17 09:20] LABS: Microcytosis 1+; Ovalocytes Few; Platelet Estimate Normal
[2018-03-17] MEDS: oxyCODONE/ACETAMINOPHEN 5-325 MG TABLET PO PRN ×2 (09:23→15:59)
[2018-03-17] MEDS: POTASSIUM CHLORIDE 20 MEQ TABLET PO SCH (09:24)
[2018-03-17] MEDS: busPIRone 10 MG TABLET PO SCH (09:25)
[2018-03-17] MEDS: buPROPion XL 150 MG TABLET PO SCH (09:25)
[2018-03-17] MEDS: DESVENLAFAXINE 50 MG TABLET PO SCH (09:25)
[2018-03-17] MEDS: CLOPIDOGREL 75 MG TABLET PO SCH (09:25)
[2018-03-17] MEDS: CIPROFLOXACIN 500 MG TABLET PO SCH (09:25)
[2018-03-17] MEDS: GABAPENTIN 600 MG TABLET PO SCH (09:25)
[2018-03-17] MEDS: CILOSTAZOL 100 MG TABLET PO SCH (09:25)
[2018-03-17] MEDS: MULTIVITAMIN (BEROCCA) TABLET PO SCH (09:26)
[2018-03-17] MEDS: ALLOPURINOL 100 MG TABLET PO SCH (09:26)
[2018-03-17] MEDS: METOPROLOL TARTRATE 100 MG TABLET PO SCH (09:26)
[2018-03-17] MEDS: DULoxetine 30 MG CAPSULE PO SCH (09:26)
[2018-03-17] MEDS: FOLIC ACID 1 MG TABLET PO SCH (09:26)
[2018-03-17] MEDS: PANTOPRAZOLE 40 MG TABLET PO SCH (09:26)
[2018-03-17] MEDS: FUROSEMIDE 40 MG TABLET PO SCH (09:27)
[2018-03-17] MEDS: ASPIRIN EC 81 MG TABLET PO SCH (09:27)
[2018-03-17 09:29] LABS: Eosinophils 8 % (0-10); Lymphocytes 53 % (20-55); Segmented Neutrophils 29 % (50-85); Total Cells Counted 100
[2018-03-17 09:37] LABS: Calcium 8.7 MG/DL (8.5-10.1); Osmolality,Calculated 280.5 MOS/KG (273-304); Potassium 3.1 MMOL/L (3.5-5.1)
[2018-03-17 15:43] VITALS: BP 116/80
[2018-03-18 22:06] LABS: TB2 Ag Minus Result 0 IU/mL
== END 2018-03-17 16:10 | disposition swing bed (61) | DRG 638 ==
LOC: EDBD → EDUNIT# → N.ED 09:58 → N.EDINP 14:43 → N.2E 15:43
PROVIDERS: ADMIT Internal Medicine; ATTEND Internal Medicine

== ENCOUNTER 2018-11-28 15:55 | Inpatient (IN) ==
[2018-11-28] MEDS ORDERED: SODIUM CHLORIDE 0.9% 1,000 ML IV STA ×2 (16:53→22:26)
[2018-11-28 17:03] LABS: Basophils % 0.4 % (0.0-0.8); Eosinophils # 0.4 10*3/uL (0.0-0.87); Eosinophils % 5.5 % (0.00-10.9); Hematocrit 22.9 VOL% (42.0-52.0); Immature Granulocytes % 0.3 %; Immature Granulocytes Absolute 0.02 #; Lymphocytes # 2.5 10*3/uL (1.4-4.0); Lymphocytes % 32.5 % (21.2-54.2); Mean Corpuscular HGB Conc 27.5 GM/DL (32-36); Mean Corpuscular Hemoglobin 20 PG (27-34); Mean Corpuscular Volume 74.1 FL (87-102); Mean Platelet Volume 11.1 FL (9.6-12.0); Monocytes # 0.9 10*3/uL (0.11-0.8); Monocytes % 12.1 % (1.7-12.7); Neutrophils # 3.8 10*3/uL (1.4-7.4); Neutrophils % 49.2 % (38.7-73.9); Platelet Count 382 T/CUMM (130-400); Red Blood Count 3.09 MC/CUMM (3.8-5.5); Red Cell Distribution Width 19.9 % (9.3-17.3); White Blood Count 7.7 T/CUMM (4-12)
[2018-11-28 17:12] LABS: Hemoglobin 6.3 GM/DL (14.0-18.0); INR 0.9; PT Patient Result 10.3 SECS; Partial Thromboplastin Time 27.5 SECS (0-40)
[2018-11-28 17:21] LABS: Alanine Aminotransferase 38 U/L (16-61); Albumin 3.6 G/DL (3.4-5.0); Alkaline Phosphatase 111 U/L (45-117); Aspartate Amino Transferase 43 U/L (0-37); Bilirubin,Total < 0.39 MG/DL (0.2-1.0); Blood Urea Nitrogen 48 MG/DL (7-18); Calcium 8.3 MG/DL (8.5-10.1); Glucose 76 MG/DL (74-106); Osmolality,Calculated 288.5 MOS/KG (273-304); Potassium 2.9 MMOL/L (3.5-5.1); Sodium 139 MMOL/L (136-145); Total Protein 7.3 G/DL (6.4-8.3)
[2018-11-28 17:39] LABS: % Iron Saturation 3.2 % (18-50); Ferritin 6.1 ng/ml (26-388)
[2018-11-28] MEDS ORDERED: PIPERACILLIN/TAZOBACTAM 3,375 MG in SODIUM CHLORIDE 0.9% 100 ML IV STA ×2 (17:45→22:26)
[2018-11-28 18:02] LABS: Folate > 24.0 NG/ML (5.4-24.0); Vitamin B12 > 2000 PG/ML (211-911)
[2018-11-28 18:22] LABS: Apearance,Urine Slightly Hazy (Clear); Bacteria,Urine Occasional /HPF (Few); Bilirubin,Urine Negative (Negative); Blood, Urine Negative (Negative); Glucose,Urine (UA) Negative (Negative); Hyaline Casts,Urine 3 /LPF (0-3); Ketones,Urine Negative (Negative); Nitrite,Urine Negative (Negative); Protein,Urine Negative; RBC,Urine 1 /HPF (0-4); Sperm,Urine Occasional /HPF (Negative); Urine Color Yellow (Yellow); Urine Specific Gravity 1.012 (1.001-1.035); Urine Urobilinogen < 2.0 EU/DL (0.2-1.0); WBC,Urine 1 /HPF (0-6)
[2018-11-28] MEDS: oxyCODONE/ACETAMINOPHEN 5-325 MG TABLET PO SCH (21:36)
[2018-11-28 21:52] LABS: Anisocytosis 1+; Hypochromasia 3+
[2018-11-28 21:53] LABS: Elliptocytes 1+; Ovalocytes 1+; Polychromasia 1+
[2018-11-28 21:54] LABS: Platelet Estimate Normal
[2018-11-28] MEDS ORDERED: GLUCAGON 1 MG VIAL IM PRN (22:26)
[2018-11-28] MEDS ORDERED: SODIUM CHLORIDE 0.9% 1,000 ML IV PRN (22:26)
[2018-11-28] MEDS ORDERED: ACETAMINOPHEN 325 MG TABLET PO PRN (22:26)
[2018-11-28] MEDS ORDERED: INFLUENZA VIRUS VACCINE 0.5 ML SYRINGE IM ONE (22:42)
[2018-11-28] MEDS: DOCUSATE SODIUM 100 MG CAPSULE PO SCH (23:03)
[2018-11-29] MEDS: INSULIN LISPRO 100 UNIT/ML SUBCUT SCH ×5 (00:21→22:18)
[2018-11-29] MEDS: SODIUM CHLORIDE 0.9% 1,000 ML IV SCH ×4 (00:22→20:00)
[2018-11-29 06:52] LABS: Basophils % 0.5 % (0.0-0.8); Eosinophils # 0.5 10*3/uL (0.0-0.87); Eosinophils % 6.3 % (0.00-10.9); Hematocrit 27.1 VOL% (42.0-52.0); Hemoglobin 7.9 GM/DL (14.0-18.0); Immature Granulocytes % 0.3 %; Immature Granulocytes Absolute 0.02 #; Lymphocytes # 2.5 10*3/uL (1.4-4.0); Lymphocytes % 33.9 % (21.2-54.2); Mean Corpuscular HGB Conc 29.2 GM/DL (32-36); Mean Corpuscular Hemoglobin 22 PG (27-34); Mean Corpuscular Volume 75.5 FL (87-102); Mean Platelet Volume 10.3 FL (9.6-12.0); Monocytes % 13.2 % (1.7-12.7); Neutrophils # 3.4 10*3/uL (1.4-7.4); Neutrophils % 45.8 % (38.7-73.9); Platelet Count 330 T/CUMM (130-400); Red Blood Count 3.59 MC/CUMM (3.8-5.5); Red Cell Distribution Width 20.4 % (9.3-17.3); White Blood Count 7.5 T/CUMM (4-12)
[2018-11-29] MEDS: POTASSIUM CHLORIDE 20 MEQ/15 ML UDCUP PER TUBE PRN ×2 (07:04→13:00)
[2018-11-29 07:20] LABS: Calcium 8.1 MG/DL (8.5-10.1); Osmolality,Calculated 287.3 MOS/KG (273-304); Potassium 2.8 MMOL/L (3.5-5.1)
[2018-11-29] MEDS ORDERED: FUROSEMIDE 40 MG TABLET PO PRN (08:32)
[2018-11-29] MEDS ORDERED: DICLOFENAC 1% GEL 100 GM TUBE TOP PRN (08:32)
[2018-11-29] MEDS ORDERED: PANTOPRAZOLE 40 MG TABLET PO SCH (09:00)
[2018-11-29] MEDS ORDERED: FOLIC AC PO SCH (09:00)
[2018-11-29] MEDS ORDERED: NON-FORMULARY MEDICATION (Liraglutide [Victoza 2-Pak] 1.8 MG) SUBCUT SCH (09:00)
[2018-11-29] MEDS ORDERED: CYANOCOBALAMIN PO SCH (09:00)
[2018-11-29] MEDS ORDERED: NON-FORMULARY MEDICATION (Esomeprazole Magnesium [Nexium] 40 MG) PO SCH (09:00)
[2018-11-29] MEDS ORDERED: VIT B6 PO SCH (09:00)
[2018-11-29] MEDS: GABAPENTIN 600 MG TABLET PO SCH ×3 (09:23→21:45)
[2018-11-29] MEDS: DULoxetine 30 MG CAPSULE PO SCH ×2 (09:23→21:45)
[2018-11-29] MEDS: COLCHICINE 0.6 MG CAPSULE PO PRN (09:24)
[2018-11-29] MEDS: POTASSIUM CHLORIDE 20 MEQ TABLET PO SCH ×3 (09:24→21:45)
[2018-11-29] MEDS: ESCITALOPRAM 10 MG TABLET PO SCH (09:24)
[2018-11-29] MEDS: fentaNYL 12 MCG/HR PATCH TRANSDERM SCH (09:25)
[2018-11-29] MEDS: DOCUSATE SODIUM 100 MG CAPSULE PO SCH ×2 (09:25→22:17)
[2018-11-29] MEDS: METOPROLOL TARTRATE 100 MG TABLET PO SCH ×2 (09:25→21:45)
[2018-11-29] MEDS: ALLOPURINOL 100 MG TABLET PO SCH ×2 (09:25→21:45)
[2018-11-29] MEDS: oxyCODONE/ACETAMINOPHEN 5-325 MG TABLET PO SCH ×7 (09:25→21:45)
[2018-11-29] MEDS: amLODIPine 5 MG TABLET PO SCH (09:26)
[2018-11-29] MEDS: PANTOPRAZOLE 40 MG TABLET PO SCH ×2 (09:26→21:45)
[2018-11-29] MEDS: DESVENLAFAXINE 50 MG TABLET PO SCH (09:26)
[2018-11-29] MEDS: busPIRone 10 MG TABLET PO SCH ×3 (09:26→21:35)
[2018-11-29] MEDS: FOLIC ACID 1 MG TABLET PO SCH (09:27)
[2018-11-29] MEDS: tiZANidine 4 MG TABLET PO SCH ×3 (09:29→21:45)
[2018-11-29] MEDS: buPROPion XL 150 MG TABLET PO SCH ×2 (09:29→21:45)
[2018-11-29 11:08] LABS: Hematocrit 25.2 VOL% (42.0-52.0); Hemoglobin 7.2 GM/DL (14.0-18.0)
[2018-11-29] MEDS: OSELTAMIVIR 30 MG CAPSULE PO SCH ×2 (12:23→21:45)
[2018-11-29 14:07] LABS: Troponin I < 0.015 NG/ML (0.00-0.045)
[2018-11-29 14:12] LABS: Calcium 8.1 MG/DL (8.5-10.1); Osmolality,Calculated 289.3 MOS/KG (273-304); Potassium 3.5 MMOL/L (3.5-5.1)
[2018-11-29] MEDS: COLLAGENASE OINT 30 GM TUBE TOP SCH (16:03)
[2018-11-29 18:13] LABS: Hematocrit 26.8 VOL% (42.0-52.0); Hemoglobin 7.6 GM/DL (14.0-18.0)
[2018-11-29 18:32] LABS: Troponin I < 0.015 NG/ML (0.00-0.045)
[2018-11-29 19:17] LABS: Troponin I < 0.015 NG/ML (0.00-0.045)
[2018-11-29] MEDS: INSULIN GLARGINE 100 UNIT/ML SUBCUT SCH (21:45)
[2018-11-29 22:04] LABS: Hemoglobin 8.1 GM/DL (14.0-18.0)
[2018-11-29 22:09] LABS: Hematocrit 28.5 VOL% (42.0-52.0)
[2018-11-29] MEDS: ZALEPLON 5 MG CAPSULE PO SCH (22:23)
[2018-11-30] MEDS: ZALEPLON 5 MG CAPSULE PO SCH (00:17)
[2018-11-30] MEDS: SODIUM CHLORIDE 0.9% 1,000 ML IV SCH ×4 (02:04→21:56)
[2018-11-30 08:13] LABS: Calcium 8.2 MG/DL (8.5-10.1); Potassium 3.6 MMOL/L (3.5-5.1)
[2018-11-30 08:19] LABS: Basophils % 0.4 % (0.0-0.8); Eosinophils # 0.5 10*3/uL (0.0-0.87); Eosinophils % 7.2 % (0.00-10.9); Hematocrit 28.8 VOL% (42.0-52.0); Immature Granulocytes % 0.3 %; Immature Granulocytes Absolute 0.02 #; Lymphocytes # 3.1 10*3/uL (1.4-4.0); Lymphocytes % 43.6 % (21.2-54.2); Mean Corpuscular HGB Conc 28.1 GM/DL (32-36); Mean Corpuscular Hemoglobin 22 PG (27-34); Mean Platelet Volume 10.7 FL (9.6-12.0); Monocytes % 13.6 % (1.7-12.7); Neutrophils # 2.5 10*3/uL (1.4-7.4); Neutrophils % 34.9 % (38.7-73.9); Platelet Count 350 T/CUMM (130-400); Red Blood Count 3.74 MC/CUMM (3.8-5.5); Red Cell Distribution Width 20.6 % (9.3-17.3); White Blood Count 7.1 T/CUMM (4-12)
[2018-11-30] MEDS: INSULIN LISPRO 100 UNIT/ML SUBCUT SCH ×4 (08:21→21:53)
[2018-11-30 08:25] LABS: Hemoglobin 8.1 GM/DL (14.0-18.0)
[2018-11-30 08:59] LABS: Anisocytosis 2+; Band Neutrophils 1 % (0-10); Eosinophils 5 % (0-10); Hypochromasia 1+; Lymphocytes 41 % (20-55); Macrocytosis Slight; Platelet Estimate Normal; Poikilocytosis 1+; Segmented Neutrophils 46 % (50-85); Target Cells Few; Total Cells Counted 100
[2018-11-30] MEDS: ESCITALOPRAM 10 MG TABLET PO SCH (09:39)
[2018-11-30] MEDS: buPROPion XL 150 MG TABLET PO SCH ×2 (09:39→21:51)
[2018-11-30] MEDS: DOCUSATE SODIUM 100 MG CAPSULE PO SCH ×2 (09:39→22:04)
[2018-11-30] MEDS: DESVENLAFAXINE 50 MG TABLET PO SCH (09:40)
[2018-11-30] MEDS: DULoxetine 30 MG CAPSULE PO SCH ×2 (09:40→21:51)
[2018-11-30] MEDS: GABAPENTIN 600 MG TABLET PO SCH ×3 (09:40→21:51)
[2018-11-30] MEDS: tiZANidine 4 MG TABLET PO SCH ×3 (09:41→21:50)
[2018-11-30] MEDS: ALLOPURINOL 100 MG TABLET PO SCH ×2 (09:41→21:53)
[2018-11-30] MEDS: busPIRone 10 MG TABLET PO SCH ×3 (09:41→22:07)
[2018-11-30] MEDS: amLODIPine 5 MG TABLET PO SCH (09:41)
[2018-11-30] MEDS: FOLIC ACID 1 MG TABLET PO SCH (09:41)
[2018-11-30] MEDS: METOPROLOL TARTRATE 100 MG TABLET PO SCH ×2 (09:41→21:52)
[2018-11-30] MEDS: PANTOPRAZOLE 40 MG TABLET PO SCH ×2 (09:42→21:51)
[2018-11-30] MEDS: OSELTAMIVIR 30 MG CAPSULE PO SCH ×2 (09:42→21:50)
[2018-11-30] MEDS: oxyCODONE/ACETAMINOPHEN 5-325 MG TABLET PO SCH ×4 (09:42→21:50)
[2018-11-30] MEDS: POTASSIUM CHLORIDE 20 MEQ TABLET PO SCH ×3 (09:42→21:50)
[2018-11-30] MEDS: COLLAGENASE OINT 30 GM TUBE TOP SCH (09:51)
[2018-11-30 14:18] LABS: Hematocrit 26.4 VOL% (42.0-52.0); Hemoglobin 7.5 GM/DL (14.0-18.0)
[2018-11-30] MEDS: INSULIN GLARGINE 100 UNIT/ML SUBCUT SCH (21:53)
[2018-12-01] MEDS: ZALEPLON 5 MG CAPSULE PO PRN ×2 (00:30→21:28)
[2018-12-01 04:38] LABS: Albumin 3.1 G/DL (3.4-5.0); Bilirubin,Total 0.5 MG/DL (0.2-1.0); Calcium 8.4 MG/DL (8.5-10.1); Osmolality,Calculated 286.1 MOS/KG (273-304); Potassium 4.5 MMOL/L (3.5-5.1); Total Protein 6.6 G/DL (6.4-8.3)
[2018-12-01 05:04] LABS: Basophils # 0.1 10*3/uL (0.0-0.2); Basophils % 0.7 % (0.0-0.8); Eosinophils # 0.6 10*3/uL (0.0-0.87); Eosinophils % 7.1 % (0.00-10.9); Hematocrit 27.9 VOL% (42.0-52.0); Immature Granulocytes % 0.2 %; Immature Granulocytes Absolute 0.02 #; Lymphocytes % 46.9 % (21.2-54.2); Mean Corpuscular Hemoglobin 22 PG (27-34); Mean Corpuscular Volume 77.3 FL (87-102); Mean Platelet Volume 10.7 FL (9.6-12.0); Monocytes # 0.9 10*3/uL (0.11-0.8); Monocytes % 10.8 % (1.7-12.7); Neutrophils % 34.3 % (38.7-73.9); Platelet Count 335 T/CUMM (130-400); Red Blood Count 3.61 MC/CUMM (3.8-5.5); Red Cell Distribution Width 20.9 % (9.3-17.3); White Blood Count 8.6 T/CUMM (4-12)
[2018-12-01 05:05] LABS: Hemoglobin 7.8 GM/DL (14.0-18.0)
[2018-12-01 05:14] LABS: Anisocytosis 1+; Elliptocytes 1+; Eosinophils 7 % (0-10); Hypochromasia 2+; Lymphocytes 50 % (20-55); Platelet Estimate Normal; Segmented Neutrophils 32 % (50-85); Total Cells Counted 100
[2018-12-01 05:15] LABS: Polychromasia 2+
[2018-12-01] MEDS: SODIUM CHLORIDE 0.9% 1,000 ML IV SCH ×4 (05:55→13:45)
[2018-12-01] MEDS: INSULIN LISPRO 100 UNIT/ML SUBCUT SCH ×3 (07:49→16:47)
[2018-12-01] MEDS: DEXTROSE 50% 25 GM/50 ML SYRINGE IV PRN (08:00)
[2018-12-01] MEDS: POTASSIUM CHLORIDE 20 MEQ TABLET PO SCH ×3 (09:02→21:29)
[2018-12-01] MEDS: DOCUSATE SODIUM 100 MG CAPSULE PO SCH ×2 (09:02→21:29)
[2018-12-01] MEDS: FOLIC ACID 1 MG TABLET PO SCH (09:02)
[2018-12-01] MEDS: busPIRone 10 MG TABLET PO SCH ×3 (09:02→21:29)
[2018-12-01] MEDS: ESCITALOPRAM 10 MG TABLET PO SCH (09:02)
[2018-12-01] MEDS: DULoxetine 30 MG CAPSULE PO SCH ×2 (09:02→21:27)
[2018-12-01] MEDS: METOPROLOL TARTRATE 100 MG TABLET PO SCH ×2 (09:02→21:29)
[2018-12-01] MEDS: GABAPENTIN 600 MG TABLET PO SCH ×3 (09:03→21:28)
[2018-12-01] MEDS: DESVENLAFAXINE 50 MG TABLET PO SCH (09:03)
[2018-12-01] MEDS: COLLAGENASE OINT 30 GM TUBE TOP SCH (09:03)
[2018-12-01] MEDS: PANTOPRAZOLE 40 MG TABLET PO SCH ×2 (09:03→21:28)
[2018-12-01] MEDS: oxyCODONE/ACETAMINOPHEN 5-325 MG TABLET PO SCH ×4 (09:03→21:29)
[2018-12-01] MEDS: amLODIPine 5 MG TABLET PO SCH (09:03)
[2018-12-01] MEDS: ALLOPURINOL 100 MG TABLET PO SCH ×2 (09:04→21:29)
[2018-12-01] MEDS: OSELTAMIVIR 30 MG CAPSULE PO SCH ×2 (09:04→21:28)
[2018-12-01] MEDS: buPROPion XL 150 MG TABLET PO SCH ×2 (09:04→21:28)
[2018-12-01] MEDS: tiZANidine 4 MG TABLET PO SCH ×3 (09:04→21:30)
[2018-12-01] MEDS ORDERED: LIDOCAINE 100 MG/5 ML SYRINGE ONE (10:00)
[2018-12-01] MEDS ORDERED: PROPOFOL 200 MG/20 ML VIAL IV ONE (10:00)
[2018-12-01] MEDS: NITROFURANTOIN MACRO/MONO 100 MG CAPSULE PO SCH (13:36)
[2018-12-01 14:00] LABS: Hematocrit 26.5 VOL% (42.0-52.0); Hemoglobin 7.5 GM/DL (14.0-18.0)
[2018-12-01] MEDS: INSULIN GLARGINE 100 UNIT/ML SUBCUT SCH (21:30)
[2018-12-02] MEDS: NITROFURANTOIN MACRO/MONO 100 MG CAPSULE PO SCH ×3 (00:01→23:20)
[2018-12-02] MEDS: SODIUM CHLORIDE 0.9% 1,000 ML IV SCH ×4 (02:42→23:21)
[2018-12-02 04:12] LABS: Basophils % 0.5 % (0.0-0.8); Eosinophils # 0.5 10*3/uL (0.0-0.87); Eosinophils % 8.1 % (0.00-10.9); Hematocrit 26.5 VOL% (42.0-52.0); Hemoglobin 7.5 GM/DL (14.0-18.0); Immature Granulocytes % 0.2 %; Immature Granulocytes Absolute 0.01 #; Lymphocytes # 3.1 10*3/uL (1.4-4.0); Lymphocytes % 52.6 % (21.2-54.2); Mean Corpuscular HGB Conc 28.3 GM/DL (32-36); Mean Corpuscular Hemoglobin 22 PG (27-34); Mean Corpuscular Volume 77.3 FL (87-102); Mean Platelet Volume 10.9 FL (9.6-12.0); Monocytes # 0.6 10*3/uL (0.11-0.8); Neutrophils # 1.7 10*3/uL (1.4-7.4); Neutrophils % 28.6 % (38.7-73.9); Platelet Count 307 T/CUMM (130-400); Red Blood Count 3.43 MC/CUMM (3.8-5.5); Red Cell Distribution Width 21.2 % (9.3-17.3); White Blood Count 5.8 T/CUMM (4-12)
[2018-12-02 04:53] LABS: Albumin 2.5 G/DL (3.4-5.0); Bilirubin,Total 0.5 MG/DL (0.2-1.0); Calcium 8.2 MG/DL (8.5-10.1); Osmolality,Calculated 280.3 MOS/KG (273-304); Potassium 3.8 MMOL/L (3.5-5.1); Total Protein 5.8 G/DL (6.4-8.3)
[2018-12-02 05:09] LABS: Atypical Lymphocytes Few; Eosinophils 8 % (0-10); Hypochromasia 1+; Lymphocytes 53 % (20-55); Segmented Neutrophils 33 % (50-85); Total Cells Counted 100
[2018-12-02 05:10] LABS: Anisocytosis 1+; Microcytosis 1+; Ovalocytes Slight; Platelet Estimate Normal
[2018-12-02] MEDS: POTASSIUM CHLORIDE 20 MEQ/15 ML UDCUP PER TUBE PRN (07:06)
[2018-12-02] MEDS: INSULIN LISPRO 100 UNIT/ML SUBCUT SCH ×5 (08:27→21:26)
[2018-12-02] MEDS: DULoxetine 30 MG CAPSULE PO SCH ×2 (09:21→21:24)
[2018-12-02] MEDS: amLODIPine 5 MG TABLET PO SCH (09:21)
[2018-12-02] MEDS: GABAPENTIN 600 MG TABLET PO SCH ×3 (09:21→21:25)
[2018-12-02] MEDS: POTASSIUM CHLORIDE 20 MEQ TABLET PO SCH ×3 (09:21→21:24)
[2018-12-02] MEDS: DESVENLAFAXINE 50 MG TABLET PO SCH (09:21)
[2018-12-02] MEDS: busPIRone 10 MG TABLET PO SCH ×3 (09:21→21:24)
[2018-12-02] MEDS: buPROPion XL 150 MG TABLET PO SCH ×2 (09:21→21:24)
[2018-12-02] MEDS: METOPROLOL TARTRATE 100 MG TABLET PO SCH ×2 (09:21→21:24)
[2018-12-02] MEDS: ALLOPURINOL 100 MG TABLET PO SCH ×2 (09:22→21:25)
[2018-12-02] MEDS: fentaNYL 12 MCG/HR PATCH TRANSDERM SCH (09:22)
[2018-12-02] MEDS: FOLIC ACID 1 MG TABLET PO SCH (09:22)
[2018-12-02] MEDS: OSELTAMIVIR 30 MG CAPSULE PO SCH ×2 (09:22→21:24)
[2018-12-02] MEDS: PANTOPRAZOLE 40 MG TABLET PO SCH ×2 (09:22→21:24)
[2018-12-02] MEDS: ESCITALOPRAM 10 MG TABLET PO SCH (09:22)
[2018-12-02] MEDS: DOCUSATE SODIUM 100 MG CAPSULE PO SCH ×2 (09:22→21:25)
[2018-12-02] MEDS: tiZANidine 4 MG TABLET PO SCH ×3 (09:22→21:24)
[2018-12-02] MEDS: oxyCODONE/ACETAMINOPHEN 5-325 MG TABLET PO SCH ×4 (09:22→21:25)
[2018-12-02] MEDS: COLLAGENASE OINT 30 GM TUBE TOP SCH (13:41)
[2018-12-02 13:46] LABS: Hematocrit 26.9 VOL% (42.0-52.0)
[2018-12-02 13:56] LABS: Hemoglobin 7.5 GM/DL (14.0-18.0)
[2018-12-02] MEDS: INSULIN GLARGINE 100 UNIT/ML SUBCUT SCH (21:24)
[2018-12-02] MEDS: ZALEPLON 5 MG CAPSULE PO PRN (21:25)
[2018-12-03 05:36] LABS: Albumin 2.7 G/DL (3.4-5.0); Bilirubin,Total 0.4 MG/DL (0.2-1.0); Calcium 8.1 MG/DL (8.5-10.1); Osmolality,Calculated 278.4 MOS/KG (273-304); Potassium 3.9 MMOL/L (3.5-5.1); Total Protein 6.1 G/DL (6.4-8.3)
[2018-12-03 05:39] LABS: Basophils % 0.5 % (0.0-0.8); Eosinophils # 0.5 10*3/uL (0.0-0.87); Eosinophils % 8.2 % (0.00-10.9); Hematocrit 27.3 VOL% (42.0-52.0); Hemoglobin 7.6 GM/DL (14.0-18.0); Immature Granulocytes % 0.2 %; Immature Granulocytes Absolute 0.01 #; Lymphocytes % 49.1 % (21.2-54.2); Mean Corpuscular HGB Conc 27.8 GM/DL (32-36); Mean Corpuscular Hemoglobin 21 PG (27-34); Mean Corpuscular Volume 76.9 FL (87-102); Mean Platelet Volume 11.2 FL (9.6-12.0); Monocytes # 0.8 10*3/uL (0.11-0.8); Monocytes % 12.6 % (1.7-12.7); Neutrophils # 1.8 10*3/uL (1.4-7.4); Neutrophils % 29.4 % (38.7-73.9); Platelet Count 304 T/CUMM (130-400); Red Blood Count 3.55 MC/CUMM (3.8-5.5); Red Cell Distribution Width 21.1 % (9.3-17.3); White Blood Count 6.2 T/CUMM (4-12)
[2018-12-03 06:01] LABS: Band Neutrophils 2 % (0-10); Eosinophils 9 % (0-10); Lymphocytes 49 % (20-55); Segmented Neutrophils 27 % (50-85); Total Cells Counted 100
[2018-12-03 06:02] LABS: Hypochromasia 2+; Ovalocytes 1+; Platelet Estimate Normal
[2018-12-03] MEDS: INSULIN LISPRO 100 UNIT/ML SUBCUT SCH ×4 (07:43→21:22)
[2018-12-03] MEDS: DULoxetine 30 MG CAPSULE PO SCH ×2 (09:38→21:18)
[2018-12-03] MEDS: GABAPENTIN 600 MG TABLET PO SCH ×3 (09:38→21:19)
[2018-12-03] MEDS: oxyCODONE/ACETAMINOPHEN 5-325 MG TABLET PO SCH ×4 (09:38→21:20)
[2018-12-03] MEDS: buPROPion XL 150 MG TABLET PO SCH ×2 (09:38→21:19)
[2018-12-03] MEDS: FOLIC ACID 1 MG TABLET PO SCH (09:39)
[2018-12-03] MEDS: amLODIPine 5 MG TABLET PO SCH (09:39)
[2018-12-03] MEDS: POTASSIUM CHLORIDE 20 MEQ TABLET PO SCH ×3 (09:39→21:19)
[2018-12-03] MEDS: OSELTAMIVIR 30 MG CAPSULE PO SCH ×2 (09:39→21:21)
[2018-12-03] MEDS: ALLOPURINOL 100 MG TABLET PO SCH ×2 (09:39→21:20)
[2018-12-03] MEDS: ESCITALOPRAM 10 MG TABLET PO SCH (09:39)
[2018-12-03] MEDS: busPIRone 10 MG TABLET PO SCH ×3 (09:40→21:18)
[2018-12-03] MEDS: DOCUSATE SODIUM 100 MG CAPSULE PO SCH (09:40)
[2018-12-03] MEDS: tiZANidine 4 MG TABLET PO SCH ×3 (09:40→21:20)
[2018-12-03] MEDS: PANTOPRAZOLE 40 MG TABLET PO SCH ×2 (09:40→21:20)
[2018-12-03] MEDS: METOPROLOL TARTRATE 100 MG TABLET PO SCH ×2 (09:40→21:19)
[2018-12-03] MEDS: DESVENLAFAXINE 50 MG TABLET PO SCH (09:44)
[2018-12-03] MEDS: COLLAGENASE OINT 30 GM TUBE TOP SCH (09:51)
[2018-12-03] MEDS: SODIUM CHLORIDE 0.9% 1,000 ML IV SCH (09:52)
[2018-12-03] MEDS: NITROFURANTOIN MACRO/MONO 100 MG CAPSULE PO SCH (12:28)
[2018-12-03] MEDS: INSULIN GLARGINE 100 UNIT/ML SUBCUT SCH ×2 (21:22→21:25)
[2018-12-04] MEDS: ZOLPIDEM 5 MG TABLET PO PRN (00:25)
[2018-12-04] MEDS: NITROFURANTOIN MACRO/MONO 100 MG CAPSULE PO SCH ×3 (00:27→23:00)
[2018-12-04 06:01] LABS: Albumin 2.6 G/DL (3.4-5.0); Bilirubin,Total 0.4 MG/DL (0.2-1.0); Calcium 8.2 MG/DL (8.5-10.1); Osmolality,Calculated 283.8 MOS/KG (273-304); Potassium 3.8 MMOL/L (3.5-5.1)
[2018-12-04 06:11] LABS: Basophils % 0.6 % (0.0-0.8); Eosinophils # 0.5 10*3/uL (0.0-0.87); Hematocrit 26.7 VOL% (42.0-52.0); Hemoglobin 7.6 GM/DL (14.0-18.0); Immature Granulocytes % 0.3 %; Immature Granulocytes Absolute 0.02 #; Lymphocytes % 45.4 % (21.2-54.2); Mean Corpuscular HGB Conc 28.5 GM/DL (32-36); Mean Corpuscular Hemoglobin 22 PG (27-34); Mean Corpuscular Volume 76.5 FL (87-102); Mean Platelet Volume 10.5 FL (9.6-12.0); Monocytes # 0.7 10*3/uL (0.11-0.8); Monocytes % 10.5 % (1.7-12.7); Neutrophils # 2.3 10*3/uL (1.4-7.4); Neutrophils % 35.2 % (38.7-73.9); Platelet Count 256 T/CUMM (130-400); Red Blood Count 3.49 MC/CUMM (3.8-5.5); Red Cell Distribution Width 21.4 % (9.3-17.3); White Blood Count 6.6 T/CUMM (4-12)
[2018-12-04 06:50] LABS: Eosinophils 7 % (0-10); Lymphocytes 52 % (20-55); Segmented Neutrophils 32 % (50-85); Total Cells Counted 100
[2018-12-04 06:51] LABS: Platelet Estimate Normal; Poikilocytosis 1+
[2018-12-04 06:52] LABS: Anisocytosis 2+
[2018-12-04] MEDS: INSULIN LISPRO 100 UNIT/ML SUBCUT SCH ×4 (09:24→21:04)
[2018-12-04] MEDS: DESVENLAFAXINE 50 MG TABLET PO SCH (09:26)
[2018-12-04] MEDS: busPIRone 10 MG TABLET PO SCH ×3 (09:27→21:04)
[2018-12-04] MEDS: GABAPENTIN 600 MG TABLET PO SCH ×3 (09:27→20:58)
[2018-12-04] MEDS: oxyCODONE/ACETAMINOPHEN 5-325 MG TABLET PO SCH ×4 (09:27→20:57)
[2018-12-04] MEDS: DULoxetine 30 MG CAPSULE PO SCH ×2 (09:27→20:57)
[2018-12-04] MEDS: METOPROLOL TARTRATE 100 MG TABLET PO SCH ×2 (09:28→20:57)
[2018-12-04] MEDS: tiZANidine 4 MG TABLET PO SCH ×3 (09:28→20:58)
[2018-12-04] MEDS: buPROPion XL 150 MG TABLET PO SCH ×2 (09:28→20:57)
[2018-12-04] MEDS: ESCITALOPRAM 10 MG TABLET PO SCH (09:28)
[2018-12-04] MEDS: ALLOPURINOL 100 MG TABLET PO SCH ×2 (09:28→20:58)
[2018-12-04] MEDS: COLCHICINE 0.6 MG CAPSULE PO PRN (09:28)
[2018-12-04] MEDS: PANTOPRAZOLE 40 MG TABLET PO SCH ×2 (09:28→20:57)
[2018-12-04] MEDS: OSELTAMIVIR 30 MG CAPSULE PO SCH ×2 (09:28→20:57)
[2018-12-04] MEDS: FOLIC ACID 1 MG TABLET PO SCH (09:29)
[2018-12-04] MEDS: POTASSIUM CHLORIDE 20 MEQ TABLET PO SCH ×3 (09:29→20:57)
[2018-12-04] MEDS: amLODIPine 5 MG TABLET PO SCH (09:30)
[2018-12-04] MEDS: COLLAGENASE OINT 30 GM TUBE TOP SCH (11:55)
[2018-12-04] MEDS ORDERED: BISACODYL 5 MG TABLET PO ONE (14:00)
[2018-12-04] MEDS ORDERED: POLYETHYLENE GLYCOL POWDER 255 GM BOTTLE PO ONE (18:00)
[2018-12-04] MEDS: predniSONE 5 MG TABLET PO PRN (20:57)
[2018-12-04] MEDS: INSULIN GLARGINE 100 UNIT/ML SUBCUT SCH (21:04)
[2018-12-05] MEDS: ZOLPIDEM 5 MG TABLET PO PRN (00:05)
[2018-12-05] MEDS ORDERED: MAGNESIUM CITRATE 300 ML BOTTLE PO ONE (04:30)
[2018-12-05 07:35] LABS: Basophils # 0.1 10*3/uL (0.0-0.2); Basophils % 0.7 % (0.0-0.8); Eosinophils # 0.4 10*3/uL (0.0-0.87); Eosinophils % 5.1 % (0.00-10.9); Hematocrit 29.3 VOL% (42.0-52.0); Hemoglobin 8.3 GM/DL (14.0-18.0); Immature Granulocytes % 0.3 %; Immature Granulocytes Absolute 0.02 #; Lymphocytes # 2.2 10*3/uL (1.4-4.0); Lymphocytes % 30.6 % (21.2-54.2); Mean Corpuscular HGB Conc 28.3 GM/DL (32-36); Mean Corpuscular Hemoglobin 22 PG (27-34); Mean Corpuscular Volume 77.5 FL (87-102); Mean Platelet Volume 11.1 FL (9.6-12.0); Monocytes # 0.7 10*3/uL (0.11-0.8); Monocytes % 9.2 % (1.7-12.7); Neutrophils # 3.8 10*3/uL (1.4-7.4); Neutrophils % 54.1 % (38.7-73.9); Platelet Count 290 T/CUMM (130-400); Red Blood Count 3.78 MC/CUMM (3.8-5.5); Red Cell Distribution Width 21.6 % (9.3-17.3)
[2018-12-05 07:43] LABS: Elliptocytes Few; Hypochromasia 1+; Ovalocytes Slight; Platelet Estimate Adequate
[2018-12-05] MEDS: INSULIN LISPRO 100 UNIT/ML SUBCUT SCH ×4 (09:22→21:55)
[2018-12-05] MEDS: COLCHICINE 0.6 MG CAPSULE PO PRN (10:42)
[2018-12-05] MEDS: PANTOPRAZOLE 40 MG TABLET PO SCH ×2 (10:42→21:56)
[2018-12-05] MEDS: ALLOPURINOL 100 MG TABLET PO SCH ×2 (10:43→21:56)
[2018-12-05] MEDS: amLODIPine 5 MG TABLET PO SCH (10:43)
[2018-12-05] MEDS: ESCITALOPRAM 10 MG TABLET PO SCH (10:43)
[2018-12-05] MEDS: FOLIC ACID 1 MG TABLET PO SCH (10:43)
[2018-12-05] MEDS: buPROPion XL 150 MG TABLET PO SCH ×2 (10:44→21:56)
[2018-12-05] MEDS: DULoxetine 30 MG CAPSULE PO SCH ×2 (10:44→21:55)
[2018-12-05] MEDS: tiZANidine 4 MG TABLET PO SCH ×3 (10:44→23:52)
[2018-12-05] MEDS: DESVENLAFAXINE 50 MG TABLET PO SCH (10:44)
[2018-12-05] MEDS: busPIRone 10 MG TABLET PO SCH ×3 (10:44→21:55)
[2018-12-05] MEDS: POTASSIUM CHLORIDE 20 MEQ TABLET PO SCH ×3 (10:44→21:55)
[2018-12-05] MEDS: oxyCODONE/ACETAMINOPHEN 5-325 MG TABLET PO SCH ×5 (10:45→21:54)
[2018-12-05] MEDS: METOPROLOL TARTRATE 100 MG TABLET PO SCH ×2 (10:45→21:55)
[2018-12-05] MEDS: GABAPENTIN 600 MG TABLET PO SCH ×3 (10:45→21:55)
[2018-12-05] MEDS: COLLAGENASE OINT 30 GM TUBE TOP SCH (10:46)
[2018-12-05] MEDS: fentaNYL 12 MCG/HR PATCH TRANSDERM SCH (10:52)
[2018-12-05] MEDS ORDERED: POLYETHYLENE GLYCOL POWDER 255 GM BOTTLE PO ONE (12:00)
[2018-12-05] MEDS: NITROFURANTOIN MACRO/MONO 100 MG CAPSULE PO SCH ×2 (12:14→23:52)
[2018-12-05] MEDS: INSULIN GLARGINE 100 UNIT/ML SUBCUT SCH (21:55)
[2018-12-06 05:57] LABS: Calcium 8.6 MG/DL (8.5-10.1); Osmolality,Calculated 279.3 MOS/KG (273-304); Potassium 4.8 MMOL/L (3.5-5.1)
[2018-12-06 06:23] LABS: Basophils # 0.1 10*3/uL (0.0-0.2); Basophils % 0.7 % (0.0-0.8); Eosinophils # 0.5 10*3/uL (0.0-0.87); Eosinophils % 6.7 % (0.00-10.9); Hematocrit 26.9 VOL% (42.0-52.0); Immature Granulocytes % 0.1 %; Immature Granulocytes Absolute 0.01 #; Lymphocytes # 3.9 10*3/uL (1.4-4.0); Lymphocytes % 52.2 % (21.2-54.2); Mean Corpuscular HGB Conc 28.3 GM/DL (32-36); Mean Corpuscular Hemoglobin 22 PG (27-34); Mean Corpuscular Volume 77.3 FL (87-102); Monocytes # 0.8 10*3/uL (0.11-0.8); Monocytes % 10.5 % (1.7-12.7); Neutrophils # 2.2 10*3/uL (1.4-7.4); Neutrophils % 29.8 % (38.7-73.9); Platelet Count 261 T/CUMM (130-400); Red Blood Count 3.48 MC/CUMM (3.8-5.5); Red Cell Distribution Width 22.2 % (9.3-17.3); White Blood Count 7.4 T/CUMM (4-12)
[2018-12-06 06:31] LABS: Hemoglobin 7.6 GM/DL (14.0-18.0)
[2018-12-06 06:35] LABS: Eosinophils 13 % (0-10); Lymphocytes 44 % (20-55); Segmented Neutrophils 33 % (50-85); Total Cells Counted 100
[2018-12-06 06:36] LABS: Atypical Lymphocytes Few; Elliptocytes Few; Hypochromasia 1+; Platelet Estimate Adequate; Target Cells Few
[2018-12-06] MEDS: tiZANidine 4 MG TABLET PO SCH ×3 (09:00→21:52)
[2018-12-06] MEDS: POTASSIUM CHLORIDE 20 MEQ TABLET PO SCH ×3 (09:00→21:55)
[2018-12-06] MEDS: GABAPENTIN 600 MG TABLET PO SCH ×3 (09:00→21:51)
[2018-12-06] MEDS: busPIRone 10 MG TABLET PO SCH ×3 (09:00→21:51)
[2018-12-06] MEDS: oxyCODONE/ACETAMINOPHEN 5-325 MG TABLET PO SCH ×2 (09:04→18:10)
[2018-12-06] MEDS: INSULIN LISPRO 100 UNIT/ML SUBCUT SCH ×4 (09:05→21:52)
[2018-12-06] MEDS: DEXTROSE 5% 1,000 ML IV SCH (12:58)
[2018-12-06] MEDS ORDERED: ETOMIDATE 20 MG/10 ML VIAL IV ONE (14:24)
[2018-12-06] MEDS ORDERED: LIDOCAINE 2% 5 ML VIAL ONE (14:24)
[2018-12-06] MEDS ORDERED: PROPOFOL 200 MG/20 ML VIAL IV ONE (14:24)
[2018-12-06] MEDS: DULoxetine 30 MG CAPSULE PO SCH ×2 (16:12→21:51)
[2018-12-06] MEDS: ALLOPURINOL 100 MG TABLET PO SCH ×2 (16:12→21:51)
[2018-12-06] MEDS: buPROPion XL 150 MG TABLET PO SCH ×2 (16:13→21:51)
[2018-12-06] MEDS: amLODIPine 5 MG TABLET PO SCH (16:13)
[2018-12-06] MEDS: METOPROLOL TARTRATE 100 MG TABLET PO SCH ×2 (16:13→21:51)
[2018-12-06] MEDS: FOLIC ACID 1 MG TABLET PO SCH (16:14)
[2018-12-06] MEDS: ESCITALOPRAM 10 MG TABLET PO SCH (16:14)
[2018-12-06] MEDS: PANTOPRAZOLE 40 MG TABLET PO SCH ×2 (16:14→21:51)
[2018-12-06] MEDS: DESVENLAFAXINE 50 MG TABLET PO SCH (16:14)
[2018-12-06] MEDS: COLLAGENASE OINT 30 GM TUBE TOP SCH (16:15)
[2018-12-06] MEDS ORDERED: SODIUM CHLORIDE 0.9% 1,000 ML IV PRN (16:46)
[2018-12-06 17:02] LABS: Hematocrit 28.9 VOL% (42.0-52.0)
[2018-12-06] MEDS: NITROFURANTOIN MACRO/MONO 100 MG CAPSULE PO SCH (18:09)
[2018-12-06] MEDS: INSULIN GLARGINE 100 UNIT/ML SUBCUT SCH (21:50)
[2018-12-06] MEDS: ZOLPIDEM 5 MG TABLET PO PRN (21:51)
[2018-12-07] MEDS: NITROFURANTOIN MACRO/MONO 100 MG CAPSULE PO SCH ×3 (00:28→22:30)
[2018-12-07] MEDS: oxyCODONE/ACETAMINOPHEN 5-325 MG TABLET PO SCH ×5 (00:28→21:27)
[2018-12-07 05:41] LABS: Calcium 8.3 MG/DL (8.5-10.1); Osmolality,Calculated 279.3 MOS/KG (273-304); Potassium 4.2 MMOL/L (3.5-5.1)
[2018-12-07 06:08] LABS: Basophils % 0.6 % (0.0-0.8); Eosinophils # 0.5 10*3/uL (0.0-0.87); Eosinophils % 6.9 % (0.00-10.9); Hematocrit 29.7 VOL% (42.0-52.0); Immature Granulocytes % 0.1 %; Immature Granulocytes Absolute 0.01 #; Lymphocytes # 3.4 10*3/uL (1.4-4.0); Lymphocytes % 46.2 % (21.2-54.2); Mean Corpuscular Hemoglobin 23 PG (27-34); Mean Corpuscular Volume 77.7 FL (87-102); Mean Platelet Volume 11.2 FL (9.6-12.0); Monocytes # 0.7 10*3/uL (0.11-0.8); Monocytes % 9.1 % (1.7-12.7); Neutrophils # 2.7 10*3/uL (1.4-7.4); Neutrophils % 37.1 % (38.7-73.9); Platelet Count 259 T/CUMM (130-400); Red Blood Count 3.82 MC/CUMM (3.8-5.5); Red Cell Distribution Width 21.5 % (9.3-17.3); White Blood Count 7.3 T/CUMM (4-12)
[2018-12-07 06:09] LABS: Hemoglobin 8.6 GM/DL (14.0-18.0)
[2018-12-07 06:16] LABS: Eosinophils 9 % (0-10); Hypochromasia 1+; Lymphocytes 48 % (20-55); Ovalocytes Slight; Platelet Estimate Adequate; Segmented Neutrophils 41 % (50-85); Total Cells Counted 100
[2018-12-07 06:17] LABS: Atypical Lymphocytes Few
[2018-12-07] MEDS: INSULIN LISPRO 100 UNIT/ML SUBCUT SCH ×4 (08:56→21:22)
[2018-12-07] MEDS: busPIRone 10 MG TABLET PO SCH ×3 (09:18→21:21)
[2018-12-07] MEDS: PANTOPRAZOLE 40 MG TABLET PO SCH ×2 (09:18→21:20)
[2018-12-07] MEDS: FOLIC ACID 1 MG TABLET PO SCH (09:18)
[2018-12-07] MEDS: ALLOPURINOL 100 MG TABLET PO SCH ×2 (09:18→21:20)
[2018-12-07] MEDS: ESCITALOPRAM 10 MG TABLET PO SCH (09:18)
[2018-12-07] MEDS: DESVENLAFAXINE 50 MG TABLET PO SCH (09:18)
[2018-12-07] MEDS: GABAPENTIN 600 MG TABLET PO SCH ×3 (09:18→21:20)
[2018-12-07] MEDS: buPROPion XL 150 MG TABLET PO SCH ×2 (09:19→21:20)
[2018-12-07] MEDS: POTASSIUM CHLORIDE 20 MEQ TABLET PO SCH ×3 (09:19→21:20)
[2018-12-07] MEDS: amLODIPine 5 MG TABLET PO SCH (09:19)
[2018-12-07] MEDS: METOPROLOL TARTRATE 100 MG TABLET PO SCH ×2 (09:19→21:21)
[2018-12-07] MEDS: tiZANidine 4 MG TABLET PO SCH ×3 (09:19→21:21)
[2018-12-07] MEDS: DULoxetine 30 MG CAPSULE PO SCH ×2 (09:19→21:21)
[2018-12-07] MEDS ORDERED: TUBERCULIN SKIN TEST 0.1 ML SYRINGE INTRADERM ONE (13:08)
[2018-12-07] MEDS: DEXTROSE 5% 1,000 ML IV SCH (13:12)
[2018-12-07] MEDS: COLLAGENASE OINT 30 GM TUBE TOP SCH (17:40)
[2018-12-07] MEDS: INSULIN GLARGINE 100 UNIT/ML SUBCUT SCH (21:20)
[2018-12-08] MEDS: ZOLPIDEM 5 MG TABLET PO PRN (00:02)
[2018-12-08 05:18] LABS: Basophils # 0.1 10*3/uL (0.0-0.2); Basophils % 0.7 % (0.0-0.8); Eosinophils # 0.5 10*3/uL (0.0-0.87); Eosinophils % 6.7 % (0.00-10.9); Hematocrit 28.1 VOL% (42.0-52.0); Hemoglobin 8.2 GM/DL (14.0-18.0); Immature Granulocytes % 0.3 %; Immature Granulocytes Absolute 0.02 #; Lymphocytes # 3.2 10*3/uL (1.4-4.0); Lymphocytes % 42.2 % (21.2-54.2); Mean Corpuscular HGB Conc 29.2 GM/DL (32-36); Mean Corpuscular Hemoglobin 23 PG (27-34); Monocytes # 0.7 10*3/uL (0.11-0.8); Monocytes % 9.7 % (1.7-12.7); Neutrophils # 3.1 10*3/uL (1.4-7.4); Neutrophils % 40.4 % (38.7-73.9); Platelet Count 243 T/CUMM (130-400); Red Blood Count 3.65 MC/CUMM (3.8-5.5); Red Cell Distribution Width 21.7 % (9.3-17.3); White Blood Count 7.6 T/CUMM (4-12)
[2018-12-08 05:39] LABS: Calcium 8.5 MG/DL (8.5-10.1); Osmolality,Calculated 276.7 MOS/KG (273-304); Potassium 4.8 MMOL/L (3.5-5.1)
[2018-12-08] MEDS: DEXTROSE 50% 25 GM/50 ML SYRINGE IV PRN (06:18)
[2018-12-08] MEDS: INSULIN LISPRO 100 UNIT/ML SUBCUT SCH ×3 (07:46→21:46)
[2018-12-08] MEDS: PANTOPRAZOLE 40 MG TABLET PO SCH ×2 (10:19→21:46)
[2018-12-08] MEDS: busPIRone 10 MG TABLET PO SCH ×3 (10:19→21:46)
[2018-12-08] MEDS: FOLIC ACID 1 MG TABLET PO SCH (10:19)
[2018-12-08] MEDS: NITROFURANTOIN MACRO/MONO 100 MG CAPSULE PO SCH ×2 (10:19→11:39)
[2018-12-08] MEDS: GABAPENTIN 600 MG TABLET PO SCH ×3 (10:19→21:46)
[2018-12-08] MEDS: oxyCODONE/ACETAMINOPHEN 5-325 MG TABLET PO SCH ×4 (10:19→21:45)
[2018-12-08] MEDS: ESCITALOPRAM 10 MG TABLET PO SCH (10:20)
[2018-12-08] MEDS: DULoxetine 30 MG CAPSULE PO SCH ×2 (10:20→21:45)
[2018-12-08] MEDS: DESVENLAFAXINE 50 MG TABLET PO SCH (10:20)
[2018-12-08] MEDS: amLODIPine 5 MG TABLET PO SCH (10:20)
[2018-12-08] MEDS: buPROPion XL 150 MG TABLET PO SCH ×2 (10:20→21:46)
[2018-12-08] MEDS: POTASSIUM CHLORIDE 20 MEQ TABLET PO SCH ×3 (10:20→21:45)
[2018-12-08] MEDS: ALLOPURINOL 100 MG TABLET PO SCH ×2 (10:20→21:46)
[2018-12-08] MEDS: METOPROLOL TARTRATE 100 MG TABLET PO SCH ×2 (10:20→21:45)
[2018-12-08] MEDS: tiZANidine 4 MG TABLET PO SCH ×3 (10:21→21:46)
[2018-12-08] MEDS: DEXTROSE 5% 1,000 ML IV SCH (12:09)
[2018-12-08] MEDS: COLLAGENASE OINT 30 GM TUBE TOP SCH (15:46)
[2018-12-08] MEDS: INSULIN GLARGINE 100 UNIT/ML SUBCUT SCH (21:47)
[2018-12-08] MEDS: ONDANSETRON 4 MG/2 ML VIAL IV PRN (21:53)
[2018-12-09] MEDS: ONDANSETRON 4 MG/2 ML VIAL IV PRN ×2 (04:19→12:22)
[2018-12-09 05:01] LABS: Basophils % 0.4 % (0.0-0.8); Eosinophils # 0.5 10*3/uL (0.0-0.87); Hematocrit 29.8 VOL% (42.0-52.0); Hemoglobin 8.6 GM/DL (14.0-18.0); Immature Granulocytes % 0.3 %; Immature Granulocytes Absolute 0.02 #; Lymphocytes # 2.8 10*3/uL (1.4-4.0); Lymphocytes % 38.4 % (21.2-54.2); Mean Corpuscular HGB Conc 28.9 GM/DL (32-36); Mean Corpuscular Hemoglobin 22 PG (27-34); Mean Platelet Volume 10.4 FL (9.6-12.0); Monocytes # 0.7 10*3/uL (0.11-0.8); Monocytes % 9.2 % (1.7-12.7); Neutrophils # 3.2 10*3/uL (1.4-7.4); Neutrophils % 44.7 % (38.7-73.9); Platelet Count 252 T/CUMM (130-400); Red Blood Count 3.87 MC/CUMM (3.8-5.5); Red Cell Distribution Width 21.5 % (9.3-17.3); White Blood Count 7.2 T/CUMM (4-12)
[2018-12-09 05:22] LABS: Calcium 8.2 MG/DL (8.5-10.1); Osmolality,Calculated 276.7 MOS/KG (273-304); Potassium 4.5 MMOL/L (3.5-5.1)
[2018-12-09 05:23] LABS: Acanthocytes 1+; Anisocytosis 2+; Elliptocytes 1+; Hypochromasia 2+; Microcytosis 2+; Ovalocytes Few; Platelet Estimate Normal
[2018-12-09] MEDS: INSULIN LISPRO 100 UNIT/ML SUBCUT SCH ×2 (08:35→12:27)
[2018-12-09] MEDS: buPROPion XL 150 MG TABLET PO SCH (09:14)
[2018-12-09] MEDS: FOLIC ACID 1 MG TABLET PO SCH (09:14)
[2018-12-09] MEDS: PANTOPRAZOLE 40 MG TABLET PO SCH (09:14)
[2018-12-09] MEDS: DESVENLAFAXINE 50 MG TABLET PO SCH (09:14)
[2018-12-09] MEDS: busPIRone 10 MG TABLET PO SCH (09:14)
[2018-12-09] MEDS: DULoxetine 30 MG CAPSULE PO SCH (09:14)
[2018-12-09] MEDS: ESCITALOPRAM 10 MG TABLET PO SCH (09:14)
[2018-12-09] MEDS: GABAPENTIN 600 MG TABLET PO SCH (09:15)
[2018-12-09] MEDS: amLODIPine 5 MG TABLET PO SCH (09:15)
[2018-12-09] MEDS: predniSONE 5 MG TABLET PO PRN (09:15)
[2018-12-09] MEDS: oxyCODONE/ACETAMINOPHEN 5-325 MG TABLET PO SCH ×2 (09:15→13:55)
[2018-12-09] MEDS: ALLOPURINOL 100 MG TABLET PO SCH (09:15)
[2018-12-09] MEDS: COLCHICINE 0.6 MG CAPSULE PO PRN (09:15)
[2018-12-09] MEDS: METOPROLOL TARTRATE 100 MG TABLET PO SCH (09:15)
[2018-12-09] MEDS: POTASSIUM CHLORIDE 20 MEQ TABLET PO SCH (09:15)
[2018-12-09] MEDS: tiZANidine 4 MG TABLET PO SCH (09:15)
[2018-12-09] MEDS ORDERED: INFLUENZA VIRUS VACCINE 0.5 ML SYRINGE IM ONE (11:36)
[2018-12-09 12:51] VITALS: BP 111/69
[2018-12-09] MEDS: DEXTROSE 5% 1,000 ML IV SCH (13:46)
[2018-12-09] MEDS: COLLAGENASE OINT 30 GM TUBE TOP SCH (13:56)
== END 2018-12-09 16:12 | disposition hospice, home (50) | DRG 378 ==
LOC: N.ED 15:55 → N.EDINP 17:39 → N.CC 22:10 → N.TELES 12-02 14:47
PROVIDERS: ADMIT Internal Medicine; ATTEND Internal Medicine

== ENCOUNTER 2019-03-01 07:11 | Inpatient (IN) ==
[2019-02-23 16:13] LABS: INR 0.9; PT Patient Result 9.5 SECS; Partial Thromboplastin Time 27.5 SECS (0-40)
[2019-02-23 16:26] LABS: Basophils % 0.5 % (0.0-0.8); Eosinophils # 0.3 10*3/uL (0.0-0.87); Eosinophils % 3.4 % (0.00-10.9); Hematocrit 36.1 VOL% (42.0-52.0); Immature Granulocytes % 0.6 %; Immature Granulocytes Absolute 0.05 #; Mean Corpuscular HGB Conc 29.4 GM/DL (32-36); Mean Corpuscular Volume 87.6 FL (87-102); Mean Platelet Volume 11.1 FL (9.6-12.0); Monocytes % 10.7 % (1.7-12.7); Neutrophils % 49.8 % (38.7-73.9); Platelet Count 280 T/CUMM (130-400); Red Blood Count 4.12 MC/CUMM (3.8-5.5); Red Cell Distribution Width 25.9 % (9.3-17.3); White Blood Count 8.5 T/CUMM (4-12)
[2019-02-23 16:28] LABS: Hemoglobin 10.6 GM/DL (14.0-18.0)
[2019-02-23 16:52] LABS: Eosinophils 5 % (0-10); Hypochromasia 2+; Lymphocytes 28 % (20-55); Platelet Estimate Normal; Segmented Neutrophils 61 % (50-85); Total Cells Counted 100
[2019-02-23 17:38] LABS: Alanine Aminotransferase 31 U/L (16-61); Albumin 3.4 G/DL (3.4-5.0); Alkaline Phosphatase 99 U/L (45-117); Aspartate Amino Transferase 27 U/L (0-37); Bilirubin,Total < 0.39 MG/DL (0.2-1.0); Blood Urea Nitrogen 11 MG/DL (7-18); Calcium 8.5 MG/DL (8.5-10.1); Glucose 90 MG/DL (74-106); Osmolality,Calculated 281.1 MOS/KG (273-304); Total Protein 7.3 G/DL (6.4-8.3)
[~2019-03-01 07:11] MED LIST: ceFAZolin 1,000 MG VIAL ONE; ceFAZolin 1,000 MG in SYRINGE 1 EACH IV ONE
[2019-03-01] MEDS ORDERED: oxyCODONE/ACETAMINOPHEN 5-325 MG TABLET PO STA (07:49)
[2019-03-01] MEDS ORDERED: GABAPENTIN 400 MG CAPSULE PO ONE (07:49)
[2019-03-01] MEDS ORDERED: LORazepam 1 MG TABLET PO ONE (07:50)
[2019-03-01] MEDS ORDERED: METOPROLOL TARTRATE 100 MG TABLET PO STA (07:51)
[2019-03-01] MEDS ORDERED: amLODIPine 10 MG TABLET PO STA (07:52)
[2019-03-01] MEDS ORDERED: DEXAMETHASONE 4 MG/1 ML VIAL ONE (08:20)
[2019-03-01] MEDS ORDERED: ROPIVACAINE 0.5% 30 ML VIAL ONE (08:20)
[2019-03-01] MEDS ORDERED: LORazepam 1 MG TABLET ONE (08:22)
[2019-03-01] MEDS ORDERED: METOPROLOL TARTRATE 25 MG TABLET ONE (08:23)
[2019-03-01] MEDS ORDERED: GABAPENTIN 400 MG CAPSULE ONE (08:23)
[2019-03-01] MEDS ORDERED: PANTOPRAZOLE 40 MG TABLET PO ONE (08:23)
[2019-03-01] MEDS ORDERED: amLODIPine 5 MG TABLET ONE (08:23)
[2019-03-01] MEDS ORDERED: oxyCODONE/ACETAMINOPHEN 5-325 MG TABLET ONE ×2 (08:23→08:31)
[2019-03-01] MEDS ORDERED: LACTATED RINGERS 1,000 ML IV SCH (08:30)
[2019-03-01] MEDS ORDERED: amLODIPine 5 MG TABLET PO ONE (09:00)
[2019-03-01] MEDS ORDERED: PANTOPRAZOLE 40 MG TABLET PO SCH (09:00)
[2019-03-01] MEDS ORDERED: MEPERIDINE 25 MG/1 ML VIAL IV PRN (10:20)
[2019-03-01] MEDS ORDERED: DEXTROSE 50% 25 GM/50 ML VIAL IV PRN (10:20)
[2019-03-01] MEDS ORDERED: PROMETHAZINE INJ 25 MG in SODIUM CHLORIDE 0.9% 50 ML IV PRN (10:20)
[2019-03-01] MEDS ORDERED: ONDANSETRON 4 MG/2 ML VIAL IV PRN (10:20)
[2019-03-01] MEDS ORDERED: HYDROmorphone 2 MG/1 ML VIAL IV PRN (10:20)
[2019-03-01] MEDS ORDERED: GLUCAGON 1 MG VIAL IM PRN (10:20)
[2019-03-01] MEDS ORDERED: PROPOFOL 200 MG/20 ML VIAL IV ONE (10:30)
[2019-03-01] MEDS ORDERED: SEVOFLURANE 1 UNIT/15 MINUTE INH ONE (10:30)
[2019-03-01] MEDS ORDERED: MIDAZOLAM 2 MG/2 ML VIAL ONE (10:30)
[2019-03-01] MEDS ORDERED: fentaNYL 100 MCG/2 ML VIAL ONE (10:31)
[2019-03-01] MEDS ORDERED: PHENYLEPHRINE 1 MG/10 ML SYRINGE IV ONE (10:31)
[2019-03-01] MEDS ORDERED: MEPERIDINE 25 MG/1 ML VIAL ONE (10:40)
[2019-03-01] MEDS ORDERED: ONDANSETRON 4 MG/2 ML VIAL ONE (10:40)
[2019-03-01] MEDS ORDERED: FUROSEMIDE 40 MG TABLET PO PRN (13:49)
[2019-03-01] MEDS ORDERED: ZALEPLON 5 MG CAPSULE PO PRN (13:49)
[2019-03-01] MEDS ORDERED: tiZANidine 4 MG TABLET PO PRN (13:49)
[2019-03-01] MEDS ORDERED: fentaNYL 12 MCG/HR PATCH TRANSDERM SCH (14:00)
[2019-03-01] MEDS: busPIRone 10 MG TABLET PO SCH ×2 (15:00→21:42)
[2019-03-01] MEDS: GABAPENTIN 600 MG TABLET PO SCH ×2 (15:00→21:42)
[2019-03-01] MEDS: MORPHINE 4 MG/1 ML VIAL IV PRN ×2 (15:03→21:36)
[2019-03-01] MEDS: POTASSIUM CHLORIDE 10 MEQ TABLET PO SCH ×2 (17:23→21:43)
[2019-03-01] MEDS: oxyCODONE/ACETAMINOPHEN 5-325 MG TABLET PO PRN ×2 (18:17→23:50)
[2019-03-01] MEDS ORDERED: INSULIN GLARGINE 15 UNIT SUBCUT SCH (21:00)
[2019-03-01] MEDS: buPROPion SR 150 MG TABLET PO SCH (21:41)
[2019-03-01] MEDS: DULoxetine 30 MG CAPSULE PO SCH (21:42)
[2019-03-01] MEDS: ALLOPURINOL 100 MG TABLET PO SCH (21:42)
[2019-03-01] MEDS: METOPROLOL TARTRATE 100 MG TABLET PO SCH (21:42)
[2019-03-01] MEDS: ASCORBIC ACID 500 MG TABLET PO SCH (21:42)
[2019-03-01] MEDS: MELATONIN 3 MG TABLET PO SCH (21:43)
[2019-03-01] MEDS: ZOLPIDEM 5 MG TABLET PO PRN (21:43)
[2019-03-02] MEDS: MORPHINE 4 MG/1 ML VIAL IV PRN ×4 (02:15→19:17)
[2019-03-02] MEDS: oxyCODONE/ACETAMINOPHEN 5-325 MG TABLET PO PRN ×4 (05:01→21:18)
[2019-03-02] MEDS ORDERED: GLUCAGON 1 MG VIAL IM PRN (07:36)
[2019-03-02] MEDS ORDERED: DEXTROSE 50% 25 GM/50 ML SYRINGE IV PRN (07:36)
[2019-03-02] MEDS: buPROPion SR 150 MG TABLET PO SCH ×2 (08:37→21:09)
[2019-03-02] MEDS: POTASSIUM CHLORIDE 10 MEQ TABLET PO SCH ×5 (08:37→21:08)
[2019-03-02] MEDS: ARIPiprazole 5 MG TABLET PO SCH (08:37)
[2019-03-02] MEDS: DULoxetine 30 MG CAPSULE PO SCH ×2 (08:37→21:08)
[2019-03-02] MEDS: GABAPENTIN 600 MG TABLET PO SCH ×3 (08:37→21:08)
[2019-03-02] MEDS: busPIRone 10 MG TABLET PO SCH ×3 (08:37→21:07)
[2019-03-02] MEDS: FERROUS SULFATE 325 MG TABLET PO SCH (08:38)
[2019-03-02] MEDS: amLODIPine 5 MG TABLET PO SCH (08:38)
[2019-03-02] MEDS: ZOLPIDEM 5 MG TABLET PO PRN ×2 (08:38→21:08)
[2019-03-02] MEDS: METOPROLOL TARTRATE 100 MG TABLET PO SCH ×2 (08:39→21:09)
[2019-03-02] MEDS: ATORVASTATIN 40 MG TABLET PO SCH (08:39)
[2019-03-02] MEDS: PANTOPRAZOLE 40 MG TABLET PO SCH ×2 (08:39→21:08)
[2019-03-02] MEDS: ASCORBIC ACID 500 MG TABLET PO SCH ×2 (08:39→21:08)
[2019-03-02] MEDS: ALLOPURINOL 100 MG TABLET PO SCH ×2 (08:40→21:08)
[2019-03-02] MEDS ORDERED: NF- (Liraglutide [Victoza 2-Pak] 1.8 MG) SUBCUT SCH (09:00)
[2019-03-02 09:14] LABS: Basophils % 0.2 % (0.0-0.8); Eosinophils # 0.1 10*3/uL (0.0-0.87); Eosinophils % 0.9 % (0.00-10.9); Hematocrit 32.3 VOL% (42.0-52.0); Hemoglobin 9.6 GM/DL (14.0-18.0); Immature Granulocytes % 0.5 %; Immature Granulocytes Absolute 0.05 #; Lymphocytes # 3.7 10*3/uL (1.4-4.0); Lymphocytes % 35.7 % (21.2-54.2); Mean Corpuscular HGB Conc 29.7 GM/DL (32-36); Mean Corpuscular Volume 87.5 FL (87-102); Mean Platelet Volume 10.8 FL (9.6-12.0); Monocytes % 11.2 % (1.7-12.7); Neutrophils % 51.5 % (38.7-73.9); Platelet Count 233 T/CUMM (130-400); Red Blood Count 3.69 MC/CUMM (3.8-5.5); Red Cell Distribution Width 26.1 % (9.3-17.3); White Blood Count 10.2 T/CUMM (4-12)
[2019-03-02] MEDS: DESVENLAFAXINE 50 MG TABLET PO SCH ×2 (09:25→09:47)
[2019-03-02] MEDS: ESCITALOPRAM 10 MG TABLET PO SCH ×2 (09:25→09:47)
[2019-03-02 09:29] LABS: Calcium 7.9 MG/DL (8.5-10.1); Osmolality,Calculated 281.4 MOS/KG (273-304)
[2019-03-02 09:46] LABS: Hypochromasia 1+
[2019-03-02 09:47] LABS: Microcytosis 1+; Ovalocytes Slight; Platelet Estimate Normal
[2019-03-02] MEDS: INSULIN REGULAR 100 UNIT/ML SUBCUT SCH ×2 (13:00→17:46)
[2019-03-02] MEDS: MELATONIN 3 MG TABLET PO SCH (21:10)
[2019-03-03] MEDS: INSULIN REGULAR 100 UNIT/ML SUBCUT SCH ×2 (00:08→05:43)
[2019-03-03] MEDS: MORPHINE 4 MG/1 ML VIAL IV PRN ×3 (00:52→10:26)
[2019-03-03] MEDS: oxyCODONE/ACETAMINOPHEN 5-325 MG TABLET PO PRN ×2 (03:54→08:54)
[2019-03-03] MEDS: ARIPiprazole 5 MG TABLET PO SCH (08:41)
[2019-03-03] MEDS: DULoxetine 30 MG CAPSULE PO SCH (08:42)
[2019-03-03] MEDS: busPIRone 10 MG TABLET PO SCH (08:42)
[2019-03-03] MEDS: FERROUS SULFATE 325 MG TABLET PO SCH (08:43)
[2019-03-03] MEDS: POTASSIUM CHLORIDE 10 MEQ TABLET PO SCH (08:43)
[2019-03-03] MEDS: ESCITALOPRAM 10 MG TABLET PO SCH ×2 (08:44→09:18)
[2019-03-03] MEDS: METOPROLOL TARTRATE 100 MG TABLET PO SCH (08:44)
[2019-03-03] MEDS: GABAPENTIN 600 MG TABLET PO SCH (08:45)
[2019-03-03] MEDS: amLODIPine 5 MG TABLET PO SCH (08:45)
[2019-03-03] MEDS: ATORVASTATIN 40 MG TABLET PO SCH (08:47)
[2019-03-03] MEDS: DESVENLAFAXINE 50 MG TABLET PO SCH ×2 (08:52→09:18)
[2019-03-03] MEDS: PANTOPRAZOLE 40 MG TABLET PO SCH (08:53)
[2019-03-03] MEDS: ASCORBIC ACID 500 MG TABLET PO SCH (08:53)
[2019-03-03] MEDS: ALLOPURINOL 100 MG TABLET PO SCH (08:54)
[2019-03-03] MEDS ORDERED: buPROPion 75 MG TABLET PO SCH (09:00)
[2019-03-03 11:30] VITALS: BP 152/98
== END 2019-03-03 12:02 | DRG 580 ==
LOC: N.OR 07:11 → N.SDSINP 07:11 → N.3E 11:23
PROVIDERS: ADMIT Surgery; ATTEND Surgery

== ENCOUNTER 2019-05-29 22:32 | Inpatient (IN) ==
[2019-05-29] MEDS ORDERED: PIPERACILLIN/TAZOBACTAM 3,375 MG in SODIUM CHLORIDE 0.9% 100 ML IV STA (23:17)
[2019-05-29] MEDS ORDERED: ONDANSETRON 4 MG/2 ML VIAL IV STA (23:17)
[2019-05-29] MEDS ORDERED: MORPHINE 4 MG/1 ML VIAL IV STA (23:17)
[2019-05-29] MEDS ORDERED: NITROGLYCERIN 2% OINT 1 INCH/GM PACK TOP STA (23:17)
[2019-05-29] MEDS ORDERED: ALBUTEROL/IPRATROPIUM 3 ML NEB RESP TX STA (23:17)
[2019-05-29] MEDS ORDERED: methylPREDNISolone SOD SUC 125 MG/2 ML VIAL IV STA (23:17)
[2019-05-29] MEDS ORDERED: FUROSEMIDE 100 MG/10 ML VIAL IV STA (23:17)
[2019-05-29] MEDS ORDERED: CEFTAROLINE 600 MG in SODIUM CHLORIDE 0.9% 100 ML IV STA (23:19)
[2019-05-29 23:26] LABS: Basophils # 0.1 10*3/uL (0.0-0.2); Basophils % 0.4 % (0.0-0.8); Eosinophils # 0.3 10*3/uL (0.0-0.87); Eosinophils % 2.3 % (0.00-10.9); Hematocrit 42.3 VOL% (42.0-52.0); Hemoglobin 13.2 GM/DL (14.0-18.0); Immature Granulocytes Absolute 0.14 #; Lymphocytes # 3.3 10*3/uL (1.4-4.0); Lymphocytes % 23.4 % (21.2-54.2); Mean Corpuscular HGB Conc 31.2 GM/DL (32-36); Mean Platelet Volume 10.8 FL (9.6-12.0); Monocytes % 10.5 % (1.7-12.7); Neutrophils % 62.4 % (38.7-73.9); Platelet Count 236 T/CUMM (130-400); Red Blood Count 4.55 MC/CUMM (3.8-5.5); Red Cell Distribution Width 14.7 % (9.3-17.3); White Blood Count 14.1 T/CUMM (4-12)
[2019-05-29 23:31] LABS: INR 0.9; PT Patient Result 9.4 SECS
[2019-05-29 23:38] LABS: Alanine Aminotransferase 28 U/L (16-61); Albumin 2.9 G/DL (3.4-5.0); Alkaline Phosphatase 129 U/L (45-117); Aspartate Amino Transferase 27 U/L (0-37); Bilirubin,Total < 0.39 MG/DL (0.2-1.0); Blood Urea Nitrogen 17 MG/DL (7-18); Calcium 8.8 MG/DL (8.5-10.1); Glucose 228 MG/DL (74-106); Osmolality,Calculated 285.5 MOS/KG (273-304); Total Protein 7.8 G/DL (6.4-8.3); Troponin I < 0.015 NG/ML (0.00-0.045)
[2019-05-30 00:07] LABS: Apearance,Urine CLEAR (Clear); Bacteria,Urine Few /HPF (Few); Bilirubin,Urine Negative (Negative); Blood, Urine Negative (Negative); Glucose,Urine (UA) >=500 mg/dL (Negative); Ketones,Urine Negative (Negative); Mucus,Urine Occasional /LPF (Occasional); Nitrite,Urine Negative (Negative); Protein,Urine 100 MG/DL; RBC,Urine 3 /HPF (0-4); Squamous Epithelial Cell,Urine Occasional /HPF (0-10); Urine Color Yellow (Yellow); Urine Specific Gravity 1.011 (1.001-1.035); Urine Urobilinogen < 2.0 EU/DL (0.2-1.0); WBC,Urine 1 /HPF (0-6)
[2019-05-30] MEDS ORDERED: DILTIAZEM 50 MG/10 ML VIAL IV STA (00:26)
[2019-05-30] MEDS ORDERED: METOPROLOL TARTRATE 5 MG/5 ML VIAL IV STA (00:44)
[2019-05-30] MEDS ORDERED: METOPROLOL TARTRATE 5 MG/5 ML VIAL IV ONE ×2 (00:44→13:06)
[2019-05-30] MEDS: dilTIAZem Drip 125 MG/125 ML PREMIX IV SCH (00:58)
[2019-05-30] MEDS ORDERED: tiZANidine 4 MG TABLET PO PRN (08:43)
[2019-05-30] MEDS ORDERED: ZALEPLON 5 MG CAPSULE PO PRN (08:43)
[2019-05-30] MEDS ORDERED: FUROSEMIDE 40 MG TABLET PO PRN (08:43)
[2019-05-30] MEDS ORDERED: ARIPiprazole 15 MG TABLET PO SCH (09:00)
[2019-05-30] MEDS ORDERED: metOLazone 5 MG TABLET PO SCH (09:00)
[2019-05-30] MEDS ORDERED: PANTOPRAZOLE 20 MG TABLET PO SCH (09:00)
[2019-05-30] MEDS ORDERED: CILOSTAZOL 100 MG TABLET PO SCH (09:00)
[2019-05-30] MEDS ORDERED: LACTATED RINGERS 1,000 ML IV SCH (10:30)
[2019-05-30] MEDS: COLCHICINE 0.6 MG CAPSULE PO SCH ×2 (11:18→21:01)
[2019-05-30] MEDS: ATORVASTATIN 40 MG TABLET PO SCH (11:18)
[2019-05-30] MEDS: MULTIVITAMIN (BEROCCA) TABLET PO SCH ×2 (11:18→21:01)
[2019-05-30] MEDS: ESCITALOPRAM 10 MG TABLET PO SCH (11:18)
[2019-05-30] MEDS: CLOTRIMAZOLE/BETAMETHASONE CREAM 15 GM TUBE TOP SCH ×2 (11:18→21:03)
[2019-05-30] MEDS: POTASSIUM CHLORIDE 20 MEQ TABLET PO SCH ×3 (11:18→21:01)
[2019-05-30] MEDS: DULoxetine 30 MG CAPSULE PO SCH ×2 (11:18→21:02)
[2019-05-30] MEDS: Liraglutide [Victoza 2-Pak] 1.8 MG SUBCUT SCH (11:18)
[2019-05-30] MEDS: FERROUS SULFATE 325 MG TABLET PO SCH (11:18)
[2019-05-30] MEDS: METOPROLOL TARTRATE 100 MG TABLET PO SCH ×2 (11:18→13:48)
[2019-05-30] MEDS: fentaNYL 12 MCG/HR PATCH TRANSDERM SCH (11:18)
[2019-05-30] MEDS: CILOSTAZOL 100 MG TABLET PO SCH ×2 (11:19→21:01)
[2019-05-30] MEDS: ASCORBIC ACID 500 MG TABLET PO SCH ×2 (11:19→21:01)
[2019-05-30] MEDS: ARIPiprazole 10 MG TABLET PO SCH (11:19)
[2019-05-30] MEDS: GABAPENTIN 600 MG TABLET PO SCH ×3 (11:19→21:01)
[2019-05-30] MEDS: DESVENLAFAXINE 50 MG TABLET PO SCH (11:19)
[2019-05-30] MEDS: PIPERACILLIN/TAZOBACTAM 3,375 MG in SODIUM CHLORIDE 0.9% 100 ML IV SCH ×2 (11:19→16:37)
[2019-05-30] MEDS: buPROPion SR 150 MG TABLET PO SCH ×2 (11:19→21:01)
[2019-05-30] MEDS: CLOPIDOGREL 75 MG TABLET PO SCH (11:19)
[2019-05-30] MEDS: ALLOPURINOL 100 MG TABLET PO SCH ×2 (11:19→21:02)
[2019-05-30] MEDS: PANTOPRAZOLE 40 MG TABLET PO SCH (11:19)
[2019-05-30] MEDS ORDERED: HYDROmorphone 2 MG/1 ML VIAL ONE (11:21)
[2019-05-30] MEDS ORDERED: ONDANSETRON 4 MG/2 ML VIAL ONE ×2 (11:21→12:01)
[2019-05-30] MEDS: HYDROmorphone 2 MG/1 ML VIAL IV PRN ×2 (11:25→11:35)
[2019-05-30] MEDS ORDERED: ONDANSETRON 4 MG/2 ML VIAL IV PRN (11:33)
[2019-05-30] MEDS ORDERED: SEVOFLURANE 1 UNIT/15 MINUTE INH ONE (12:01)
[2019-05-30] MEDS ORDERED: fentaNYL 100 MCG/2 ML VIAL ONE (12:01)
[2019-05-30] MEDS ORDERED: PROPOFOL 200 MG/20 ML VIAL IV ONE (12:01)
[2019-05-30] MEDS: oxyCODONE/ACETAMINOPHEN 5-325 MG TABLET PO PRN ×2 (12:43→21:00)
[2019-05-30] MEDS ORDERED: cloNIDine 0.1 MG TABLET PO SCH (13:00)
[2019-05-30 13:01] LABS: Osmolality,Calculated 292.3 MOS/KG (273-304)
[2019-05-30] MEDS: SODIUM CHLORIDE 0.45% 1,000 ML IV SCH (13:53)
[2019-05-30] MEDS: MUPIROCIN 2% OINT 22 GM TUBE TOP SCH ×2 (16:36→21:02)
[2019-05-30] MEDS: BISOPROLOL 5 MG TABLET PO SCH ×2 (16:36→21:01)
[2019-05-30] MEDS: MELATONIN 3 MG TABLET PO SCH (21:01)
[2019-05-30] MEDS: INSULIN GLARGINE 100 UNIT/ML SUBCUT SCH (21:02)
[2019-05-30] MEDS: tiZANidine 4 MG TABLET PO PRN (21:40)
[2019-05-31] MEDS: dilTIAZem Drip 125 MG/125 ML PREMIX IV SCH (00:35)
[2019-05-31] MEDS: PIPERACILLIN/TAZOBACTAM 3,375 MG in SODIUM CHLORIDE 0.9% 100 ML IV SCH ×3 (01:59→16:41)
[2019-05-31] MEDS: SODIUM CHLORIDE 0.45% 1,000 ML IV SCH ×2 (03:54→18:03)
[2019-05-31 06:28] LABS: Basophils % 0.2 % (0.0-0.8); Eosinophils # 0.1 10*3/uL (0.0-0.87); Eosinophils % 0.6 % (0.00-10.9); Hematocrit 39.5 VOL% (42.0-52.0); Hemoglobin 12.8 GM/DL (14.0-18.0); Immature Granulocytes % 0.7 %; Immature Granulocytes Absolute 0.11 #; Lymphocytes # 3.8 10*3/uL (1.4-4.0); Lymphocytes % 24.7 % (21.2-54.2); Mean Corpuscular HGB Conc 32.4 GM/DL (32-36); Mean Corpuscular Volume 91.9 FL (87-102); Mean Platelet Volume 11.1 FL (9.6-12.0); Neutrophils % 63.8 % (38.7-73.9); Platelet Count 242 T/CUMM (130-400); Red Cell Distribution Width 14.9 % (9.3-17.3); White Blood Count 15.5 T/CUMM (4-12)
[2019-05-31 06:49] LABS: Calcium 8.1 MG/DL (8.5-10.1); Osmolality,Calculated 293.1 MOS/KG (273-304)
[2019-05-31] MEDS ORDERED: GLUCAGON 1 MG VIAL IM PRN (08:41)
[2019-05-31] MEDS ORDERED: DEXTROSE 10% 25 GM/250 ML BAG IV PRN (08:41)
[2019-05-31] MEDS: MUPIROCIN 2% OINT 22 GM TUBE TOP SCH ×4 (09:15→22:25)
[2019-05-31] MEDS: ESCITALOPRAM 10 MG TABLET PO SCH (09:16)
[2019-05-31] MEDS: ALLOPURINOL 100 MG TABLET PO SCH ×2 (09:16→21:20)
[2019-05-31] MEDS: DESVENLAFAXINE 50 MG TABLET PO SCH (09:16)
[2019-05-31] MEDS: ARIPiprazole 10 MG TABLET PO SCH (09:17)
[2019-05-31] MEDS: ASCORBIC ACID 500 MG TABLET PO SCH ×2 (09:17→21:21)
[2019-05-31] MEDS: cloNIDine 0.1 MG TABLET PO PRN (09:18)
[2019-05-31] MEDS: MULTIVITAMIN (BEROCCA) TABLET PO SCH ×2 (09:19→21:21)
[2019-05-31] MEDS: buPROPion SR 150 MG TABLET PO SCH ×2 (09:19→21:20)
[2019-05-31] MEDS: GABAPENTIN 600 MG TABLET PO SCH ×3 (09:19→21:21)
[2019-05-31] MEDS: CILOSTAZOL 100 MG TABLET PO SCH ×2 (09:19→21:21)
[2019-05-31] MEDS: FERROUS SULFATE 325 MG TABLET PO SCH (09:19)
[2019-05-31] MEDS: COLCHICINE 0.6 MG CAPSULE PO SCH ×2 (09:19→21:20)
[2019-05-31] MEDS: DULoxetine 30 MG CAPSULE PO SCH ×2 (09:19→21:21)
[2019-05-31] MEDS: BISOPROLOL 5 MG TABLET PO SCH (09:19)
[2019-05-31] MEDS: ATORVASTATIN 40 MG TABLET PO SCH (09:20)
[2019-05-31] MEDS: oxyCODONE/ACETAMINOPHEN 5-325 MG TABLET PO PRN ×4 (09:20→19:20)
[2019-05-31] MEDS: PANTOPRAZOLE 40 MG TABLET PO SCH (09:20)
[2019-05-31] MEDS: CLOPIDOGREL 75 MG TABLET PO SCH (09:20)
[2019-05-31] MEDS: POTASSIUM CHLORIDE 20 MEQ TABLET PO SCH ×3 (09:22→21:21)
[2019-05-31] MEDS: CLOTRIMAZOLE/BETAMETHASONE CREAM 15 GM TUBE TOP SCH ×2 (09:23→22:25)
[2019-05-31] MEDS: Liraglutide [Victoza 2-Pak] 1.8 MG SUBCUT SCH (09:44)
[2019-05-31] MEDS: fentaNYL 12 MCG/HR PATCH TRANSDERM SCH (10:56)
[2019-05-31] MEDS: INSULIN REGULAR 100 UNIT/ML SUBCUT SCH ×3 (12:25→22:25)
[2019-05-31] MEDS ORDERED: BISOPROLOL 5 MG TABLET PO ONE (13:25)
[2019-05-31] MEDS: MELATONIN 3 MG TABLET PO SCH (21:21)
[2019-05-31] MEDS: tiZANidine 4 MG TABLET PO PRN (22:24)
[2019-05-31] MEDS: INSULIN GLARGINE 100 UNIT/ML SUBCUT SCH (22:24)
[2019-05-31] MEDS: ZOLPIDEM 5 MG TABLET PO SCH (22:24)
[2019-06-01] MEDS: PIPERACILLIN/TAZOBACTAM 3,375 MG in SODIUM CHLORIDE 0.9% 100 ML IV SCH ×3 (02:45→17:01)
[2019-06-01] MEDS: oxyCODONE/ACETAMINOPHEN 5-325 MG TABLET PO PRN ×4 (02:48→22:49)
[2019-06-01 05:04] LABS: Basophils % 0.4 % (0.0-0.8); Eosinophils # 0.3 10*3/uL (0.0-0.87); Eosinophils % 2.6 % (0.00-10.9); Hematocrit 38.6 VOL% (42.0-52.0); Hemoglobin 12.4 GM/DL (14.0-18.0); Immature Granulocytes % 1.1 %; Immature Granulocytes Absolute 0.12 #; Lymphocytes # 3.6 10*3/uL (1.4-4.0); Lymphocytes % 33.4 % (21.2-54.2); Mean Corpuscular HGB Conc 32.1 GM/DL (32-36); Mean Corpuscular Volume 93.2 FL (87-102); Mean Platelet Volume 10.8 FL (9.6-12.0); Monocytes % 9.6 % (1.7-12.7); Neutrophils % 52.9 % (38.7-73.9); Platelet Count 227 T/CUMM (130-400); Red Blood Count 4.14 MC/CUMM (3.8-5.5); White Blood Count 10.8 T/CUMM (4-12)
[2019-06-01 05:32] LABS: Calcium 8.3 MG/DL (8.5-10.1); Osmolality,Calculated 286.3 MOS/KG (273-304)
[2019-06-01] MEDS: dilTIAZem Drip 125 MG/125 ML PREMIX IV SCH (07:01)
[2019-06-01] MEDS ORDERED: BISOPROLOL 5 MG TABLET PO SCH ×2 (09:00→21:00)
[2019-06-01] MEDS: INSULIN REGULAR 100 UNIT/ML SUBCUT SCH ×4 (09:30→22:52)
[2019-06-01] MEDS: DESVENLAFAXINE 50 MG TABLET PO SCH (09:30)
[2019-06-01] MEDS: DULoxetine 30 MG CAPSULE PO SCH ×2 (09:31→22:49)
[2019-06-01] MEDS: COLCHICINE 0.6 MG CAPSULE PO SCH ×2 (09:31→22:49)
[2019-06-01] MEDS: CLOPIDOGREL 75 MG TABLET PO SCH (09:32)
[2019-06-01] MEDS: CLOTRIMAZOLE/BETAMETHASONE CREAM 15 GM TUBE TOP SCH ×2 (09:32→22:54)
[2019-06-01] MEDS: PANTOPRAZOLE 40 MG TABLET PO SCH (09:32)
[2019-06-01] MEDS: Liraglutide [Victoza 2-Pak] 1.8 MG SUBCUT SCH (09:32)
[2019-06-01] MEDS: MUPIROCIN 2% OINT 22 GM TUBE TOP SCH ×3 (09:32→22:52)
[2019-06-01] MEDS: ARIPiprazole 10 MG TABLET PO SCH (09:33)
[2019-06-01] MEDS: ASCORBIC ACID 500 MG TABLET PO SCH ×2 (09:34→22:50)
[2019-06-01] MEDS: FERROUS SULFATE 325 MG TABLET PO SCH (09:34)
[2019-06-01] MEDS: GABAPENTIN 600 MG TABLET PO SCH ×3 (09:34→22:24)
[2019-06-01] MEDS: MULTIVITAMIN (BEROCCA) TABLET PO SCH ×2 (09:34→22:53)
[2019-06-01] MEDS: ESCITALOPRAM 10 MG TABLET PO SCH (09:34)
[2019-06-01] MEDS: tiZANidine 4 MG TABLET PO PRN ×2 (09:34→22:50)
[2019-06-01] MEDS: cloNIDine 0.1 MG TABLET PO PRN (09:34)
[2019-06-01] MEDS: CILOSTAZOL 100 MG TABLET PO SCH ×2 (09:34→22:50)
[2019-06-01] MEDS: POTASSIUM CHLORIDE 20 MEQ TABLET PO SCH ×3 (09:35→22:49)
[2019-06-01] MEDS: ALLOPURINOL 100 MG TABLET PO SCH ×2 (09:35→22:50)
[2019-06-01] MEDS: buPROPion SR 150 MG TABLET PO SCH ×2 (09:37→22:50)
[2019-06-01] MEDS: ATORVASTATIN 40 MG TABLET PO SCH (09:58)
[2019-06-01] MEDS ORDERED: BISOPROLOL 5 MG TABLET PO ONE (11:40)
[2019-06-01] MEDS: SODIUM CHLORIDE 0.45% 1,000 ML IV SCH (12:02)
[2019-06-01] MEDS: DILTIAZEM 30 MG TABLET PO SCH ×2 (15:19→22:48)
[2019-06-01] MEDS: INSULIN GLARGINE 100 UNIT/ML SUBCUT SCH (22:23)
[2019-06-01] MEDS: MELATONIN 3 MG TABLET PO SCH (22:24)
[2019-06-01] MEDS: BISOPROLOL 5 MG TABLET PO SCH (22:25)
[2019-06-01] MEDS: ZOLPIDEM 5 MG TABLET PO SCH (23:00)
[2019-06-02] MEDS: PIPERACILLIN/TAZOBACTAM 3,375 MG in SODIUM CHLORIDE 0.9% 100 ML IV SCH ×3 (01:08→17:45)
[2019-06-02] MEDS: oxyCODONE/ACETAMINOPHEN 5-325 MG TABLET PO PRN ×4 (04:33→21:54)
[2019-06-02] MEDS: cloNIDine 0.1 MG TABLET PO PRN (04:33)
[2019-06-02 05:27] LABS: Basophils % 0.3 % (0.0-0.8); Eosinophils # 0.3 10*3/uL (0.0-0.87); Hematocrit 38.2 VOL% (42.0-52.0); Hemoglobin 12.2 GM/DL (14.0-18.0); Immature Granulocytes % 1.2 %; Immature Granulocytes Absolute 0.12 #; Lymphocytes # 3.2 10*3/uL (1.4-4.0); Lymphocytes % 31.9 % (21.2-54.2); Mean Corpuscular HGB Conc 31.9 GM/DL (32-36); Mean Corpuscular Volume 92.7 FL (87-102); Monocytes % 8.8 % (1.7-12.7); Neutrophils % 54.8 % (38.7-73.9); Platelet Count 225 T/CUMM (130-400); Red Blood Count 4.12 MC/CUMM (3.8-5.5); Red Cell Distribution Width 14.8 % (9.3-17.3); White Blood Count 10.2 T/CUMM (4-12)
[2019-06-02 05:59] LABS: Calcium 8.4 MG/DL (8.5-10.1); Calcium 8.5 MG/DL (8.5-10.1); Osmolality,Calculated 282.5 MOS/KG (273-304); Osmolality,Calculated 289.1 MOS/KG (273-304)
[2019-06-02] MEDS: MUPIROCIN 2% OINT 22 GM TUBE TOP SCH ×3 (07:50→22:00)
[2019-06-02] MEDS ORDERED: BISOPROLOL 5 MG TABLET PO SCH (09:00)
[2019-06-02] MEDS ORDERED: LOSARTAN 25 MG TABLET PO SCH (09:00)
[2019-06-02 09:07] LABS: Calcium 8.5 MG/DL (8.5-10.1); Osmolality,Calculated 288.1 MOS/KG (273-304)
[2019-06-02] MEDS: INSULIN REGULAR 100 UNIT/ML SUBCUT SCH ×4 (09:13→21:56)
[2019-06-02] MEDS: tiZANidine 4 MG TABLET PO PRN ×2 (09:13→21:52)
[2019-06-02 09:16] LABS: Basophils % 0.5 % (0.0-0.8); Eosinophils # 0.3 10*3/uL (0.0-0.87); Eosinophils % 3.5 % (0.00-10.9); Hematocrit 41.1 VOL% (42.0-52.0); Immature Granulocytes % 1.8 %; Immature Granulocytes Absolute 0.15 #; Lymphocytes # 2.8 10*3/uL (1.4-4.0); Lymphocytes % 33.2 % (21.2-54.2); Mean Corpuscular HGB Conc 30.4 GM/DL (32-36); Mean Corpuscular Volume 96.3 FL (87-102); Mean Platelet Volume 10.9 FL (9.6-12.0); Monocytes % 8.5 % (1.7-12.7); Neutrophils % 52.5 % (38.7-73.9); Platelet Count 191 T/CUMM (130-400); Red Blood Count 4.27 MC/CUMM (3.8-5.5); Red Cell Distribution Width 14.9 % (9.3-17.3); White Blood Count 8.6 T/CUMM (4-12)
[2019-06-02] MEDS: GABAPENTIN 600 MG TABLET PO SCH ×3 (09:16→21:52)
[2019-06-02] MEDS: FERROUS SULFATE 325 MG TABLET PO SCH (09:17)
[2019-06-02] MEDS: POTASSIUM CHLORIDE 20 MEQ TABLET PO SCH ×3 (09:17→21:55)
[2019-06-02] MEDS: ENOXAPARIN 40 MG/0.4 ML SYRINGE SUBCUT SCH (09:17)
[2019-06-02] MEDS: PANTOPRAZOLE 40 MG TABLET PO SCH (09:17)
[2019-06-02] MEDS: ARIPiprazole 10 MG TABLET PO SCH (09:17)
[2019-06-02] MEDS: buPROPion SR 150 MG TABLET PO SCH ×2 (09:17→22:09)
[2019-06-02 09:18] LABS: Hemoglobin 12.5 GM/DL (14.0-18.0)
[2019-06-02] MEDS: DILTIAZEM 30 MG TABLET PO SCH ×3 (09:18→21:48)
[2019-06-02] MEDS: DULoxetine 30 MG CAPSULE PO SCH ×2 (09:18→21:48)
[2019-06-02] MEDS: DESVENLAFAXINE 50 MG TABLET PO SCH (09:18)
[2019-06-02] MEDS: BISOPROLOL 5 MG TABLET PO SCH ×2 (09:18→21:53)
[2019-06-02] MEDS: CILOSTAZOL 100 MG TABLET PO SCH ×2 (09:18→21:53)
[2019-06-02] MEDS: COLCHICINE 0.6 MG CAPSULE PO SCH ×2 (09:19→22:08)
[2019-06-02] MEDS: ALLOPURINOL 100 MG TABLET PO SCH ×2 (09:19→22:08)
[2019-06-02] MEDS: ESCITALOPRAM 10 MG TABLET PO SCH (09:19)
[2019-06-02] MEDS: LOSARTAN 50 MG TABLET PO SCH (09:19)
[2019-06-02] MEDS: ASCORBIC ACID 500 MG TABLET PO SCH ×2 (09:19→21:53)
[2019-06-02] MEDS: MULTIVITAMIN (BEROCCA) TABLET PO SCH ×2 (09:19→21:51)
[2019-06-02] MEDS: CLOPIDOGREL 75 MG TABLET PO SCH (09:19)
[2019-06-02] MEDS: fentaNYL 12 MCG/HR PATCH TRANSDERM SCH (09:20)
[2019-06-02] MEDS: CLOTRIMAZOLE/BETAMETHASONE CREAM 15 GM TUBE TOP SCH ×2 (09:28→22:00)
[2019-06-02] MEDS: Liraglutide [Victoza 2-Pak] 1.8 MG SUBCUT SCH (09:28)
[2019-06-02] MEDS: MELATONIN 3 MG TABLET PO SCH (21:50)
[2019-06-02] MEDS: ZOLPIDEM 5 MG TABLET PO SCH (21:51)
[2019-06-02] MEDS: INSULIN GLARGINE 100 UNIT/ML SUBCUT SCH (21:58)
[2019-06-03] MEDS: PIPERACILLIN/TAZOBACTAM 3,375 MG in SODIUM CHLORIDE 0.9% 100 ML IV SCH ×3 (01:45→16:17)
[2019-06-03] MEDS: oxyCODONE/ACETAMINOPHEN 5-325 MG TABLET PO PRN ×3 (04:50→16:28)
[2019-06-03] MEDS: cloNIDine 0.1 MG TABLET PO PRN (05:32)
[2019-06-03] MEDS ORDERED: hydrALAZINE 20 MG/1 ML VIAL IV PRN (09:00)
[2019-06-03] MEDS: INSULIN REGULAR 100 UNIT/ML SUBCUT SCH ×4 (09:29→22:00)
[2019-06-03] MEDS: ENOXAPARIN 40 MG/0.4 ML SYRINGE SUBCUT SCH (09:30)
[2019-06-03] MEDS: DESVENLAFAXINE 50 MG TABLET PO SCH (09:34)
[2019-06-03] MEDS: ARIPiprazole 10 MG TABLET PO SCH (09:34)
[2019-06-03] MEDS: LOSARTAN 50 MG TABLET PO SCH (09:35)
[2019-06-03] MEDS: DULoxetine 30 MG CAPSULE PO SCH ×2 (09:35→20:39)
[2019-06-03] MEDS: CILOSTAZOL 100 MG TABLET PO SCH ×2 (09:35→20:41)
[2019-06-03] MEDS: POTASSIUM CHLORIDE 20 MEQ TABLET PO SCH ×3 (09:35→20:46)
[2019-06-03] MEDS: CLOPIDOGREL 75 MG TABLET PO SCH (09:35)
[2019-06-03] MEDS: buPROPion SR 150 MG TABLET PO SCH ×2 (09:35→20:43)
[2019-06-03] MEDS: FERROUS SULFATE 325 MG TABLET PO SCH (09:36)
[2019-06-03] MEDS: BISOPROLOL 5 MG TABLET PO SCH ×2 (09:36→20:39)
[2019-06-03] MEDS: DILTIAZEM CD 120 MG CAPSULE PO SCH (09:36)
[2019-06-03] MEDS: ESCITALOPRAM 10 MG TABLET PO SCH (09:36)
[2019-06-03] MEDS: ASCORBIC ACID 500 MG TABLET PO SCH ×2 (09:36→20:43)
[2019-06-03] MEDS: ALLOPURINOL 100 MG TABLET PO SCH ×2 (09:36→20:40)
[2019-06-03] MEDS: MULTIVITAMIN (BEROCCA) TABLET PO SCH ×2 (09:37→20:45)
[2019-06-03] MEDS: PANTOPRAZOLE 40 MG TABLET PO SCH (09:37)
[2019-06-03] MEDS: Liraglutide [Victoza 2-Pak] 1.8 MG SUBCUT SCH (09:37)
[2019-06-03] MEDS: cloNIDine 0.1 MG TABLET PO SCH ×4 (09:37→20:40)
[2019-06-03] MEDS: COLCHICINE 0.6 MG CAPSULE PO SCH ×2 (09:37→20:41)
[2019-06-03] MEDS: GABAPENTIN 600 MG TABLET PO SCH ×3 (09:38→20:45)
[2019-06-03] MEDS: MUPIROCIN 2% OINT 22 GM TUBE TOP SCH ×3 (09:49→22:02)
[2019-06-03] MEDS: CLOTRIMAZOLE/BETAMETHASONE CREAM 15 GM TUBE TOP SCH ×2 (09:50→22:02)
[2019-06-03] MEDS: tiZANidine 4 MG TABLET PO PRN ×2 (09:57→20:42)
[2019-06-03] MEDS: ZOLPIDEM 5 MG TABLET PO SCH (20:42)
[2019-06-03] MEDS: MELATONIN 3 MG TABLET PO SCH (20:44)
[2019-06-03] MEDS: INSULIN GLARGINE 100 UNIT/ML SUBCUT SCH (22:01)
[2019-06-04] MEDS: oxyCODONE/ACETAMINOPHEN 5-325 MG TABLET PO PRN ×4 (01:13→23:13)
[2019-06-04] MEDS: PIPERACILLIN/TAZOBACTAM 3,375 MG in SODIUM CHLORIDE 0.9% 100 ML IV SCH ×3 (01:45→16:43)
[2019-06-04] MEDS: INSULIN REGULAR 100 UNIT/ML SUBCUT SCH ×4 (08:32→23:41)
[2019-06-04] MEDS: MULTIVITAMIN (BEROCCA) TABLET PO SCH ×2 (09:22→21:42)
[2019-06-04] MEDS: buPROPion SR 150 MG TABLET PO SCH ×2 (09:22→21:37)
[2019-06-04] MEDS: GABAPENTIN 600 MG TABLET PO SCH ×3 (09:22→21:43)
[2019-06-04] MEDS: COLCHICINE 0.6 MG CAPSULE PO SCH ×2 (09:22→21:41)
[2019-06-04] MEDS: ARIPiprazole 10 MG TABLET PO SCH (09:22)
[2019-06-04] MEDS: ESCITALOPRAM 10 MG TABLET PO SCH (09:23)
[2019-06-04] MEDS: FERROUS SULFATE 325 MG TABLET PO SCH (09:23)
[2019-06-04] MEDS: DULoxetine 30 MG CAPSULE PO SCH ×2 (09:23→21:39)
[2019-06-04] MEDS: BISOPROLOL 5 MG TABLET PO SCH ×2 (09:23→21:54)
[2019-06-04] MEDS: DESVENLAFAXINE 50 MG TABLET PO SCH (09:24)
[2019-06-04] MEDS: CILOSTAZOL 100 MG TABLET PO SCH ×2 (09:24→21:40)
[2019-06-04] MEDS: LOSARTAN 50 MG TABLET PO SCH (09:24)
[2019-06-04] MEDS: POTASSIUM CHLORIDE 20 MEQ TABLET PO SCH ×3 (09:25→23:41)
[2019-06-04] MEDS: PANTOPRAZOLE 40 MG TABLET PO SCH (09:25)
[2019-06-04] MEDS: cloNIDine 0.1 MG TABLET PO SCH ×4 (09:25→21:38)
[2019-06-04] MEDS: CLOPIDOGREL 75 MG TABLET PO SCH (09:25)
[2019-06-04] MEDS: DILTIAZEM CD 120 MG CAPSULE PO SCH (09:25)
[2019-06-04] MEDS: Liraglutide [Victoza 2-Pak] 1.8 MG SUBCUT SCH (09:26)
[2019-06-04] MEDS: tiZANidine 4 MG TABLET PO PRN ×2 (09:37→21:39)
[2019-06-04] MEDS: ALLOPURINOL 100 MG TABLET PO SCH ×2 (09:37→21:38)
[2019-06-04] MEDS: CLOTRIMAZOLE/BETAMETHASONE CREAM 15 GM TUBE TOP SCH ×2 (09:40→23:16)
[2019-06-04] MEDS: MUPIROCIN 2% OINT 22 GM TUBE TOP SCH ×3 (09:40→23:16)
[2019-06-04] MEDS: ENOXAPARIN 40 MG/0.4 ML SYRINGE SUBCUT SCH (10:12)
[2019-06-04] MEDS: ASCORBIC ACID 500 MG TABLET PO SCH ×3 (10:13→21:42)
[2019-06-04] MEDS ORDERED: POTASSIUM CHLORIDE 20 MEQ TABLET PO ONE (19:40)
[2019-06-04] MEDS ORDERED: FUROSEMIDE 40 MG TABLET PO ONE (19:40)
[2019-06-04] MEDS: ZOLPIDEM 5 MG TABLET PO SCH (21:37)
[2019-06-04] MEDS: MELATONIN 3 MG TABLET PO SCH (21:41)
[2019-06-04] MEDS: INSULIN GLARGINE 100 UNIT/ML SUBCUT SCH (21:56)
[2019-06-05] MEDS: PIPERACILLIN/TAZOBACTAM 3,375 MG in SODIUM CHLORIDE 0.9% 100 ML IV SCH (03:37)
[2019-06-05 04:58] LABS: Basophils % 0.3 % (0.0-0.8); Eosinophils # 0.4 10*3/uL (0.0-0.87); Eosinophils % 3.7 % (0.00-10.9); Hematocrit 38.2 VOL% (42.0-52.0); Hemoglobin 11.9 GM/DL (14.0-18.0); Immature Granulocytes % 1.2 %; Immature Granulocytes Absolute 0.12 #; Lymphocytes # 3.1 10*3/uL (1.4-4.0); Lymphocytes % 31.6 % (21.2-54.2); Mean Corpuscular HGB Conc 31.2 GM/DL (32-36); Mean Corpuscular Volume 93.6 FL (87-102); Mean Platelet Volume 10.3 FL (9.6-12.0); Monocytes % 9.9 % (1.7-12.7); Neutrophils % 53.3 % (38.7-73.9); Platelet Count 266 T/CUMM (130-400); Red Blood Count 4.08 MC/CUMM (3.8-5.5); White Blood Count 9.9 T/CUMM (4-12)
[2019-06-05] MEDS: oxyCODONE/ACETAMINOPHEN 5-325 MG TABLET PO PRN ×4 (05:05→23:54)
[2019-06-05 05:26] LABS: Calcium 8.8 MG/DL (8.5-10.1); Osmolality,Calculated 283.3 MOS/KG (273-304)
[2019-06-05 08:44] LABS: Calcium 8.9 MG/DL (8.5-10.1); Osmolality,Calculated 284.1 MOS/KG (273-304)
[2019-06-05] MEDS: MUPIROCIN 2% OINT 22 GM TUBE TOP SCH ×3 (09:22→22:00)
[2019-06-05] MEDS: CLOTRIMAZOLE/BETAMETHASONE CREAM 15 GM TUBE TOP SCH ×2 (09:22→22:00)
[2019-06-05] MEDS: FUROSEMIDE 20 MG TABLET PO SCH ×2 (09:23→15:21)
[2019-06-05] MEDS: ARIPiprazole 10 MG TABLET PO SCH (09:24)
[2019-06-05] MEDS: POTASSIUM CHLORIDE 20 MEQ TABLET PO SCH ×3 (09:25→21:56)
[2019-06-05] MEDS: FERROUS SULFATE 325 MG TABLET PO SCH (09:25)
[2019-06-05] MEDS: ALLOPURINOL 100 MG TABLET PO SCH ×2 (09:25→21:57)
[2019-06-05] MEDS: CLOPIDOGREL 75 MG TABLET PO SCH (09:26)
[2019-06-05] MEDS: ASCORBIC ACID 500 MG TABLET PO SCH ×2 (09:26→21:57)
[2019-06-05] MEDS: ESCITALOPRAM 10 MG TABLET PO SCH (09:27)
[2019-06-05] MEDS: DILTIAZEM CD 120 MG CAPSULE PO SCH (09:28)
[2019-06-05] MEDS: LOSARTAN 50 MG TABLET PO SCH (09:28)
[2019-06-05] MEDS: tiZANidine 4 MG TABLET PO PRN ×2 (09:29→21:56)
[2019-06-05] MEDS: MULTIVITAMIN (BEROCCA) TABLET PO SCH ×2 (09:30→21:57)
[2019-06-05] MEDS: COLCHICINE 0.6 MG CAPSULE PO SCH ×2 (09:30→21:56)
[2019-06-05] MEDS: DESVENLAFAXINE 50 MG TABLET PO SCH (09:30)
[2019-06-05] MEDS: BISOPROLOL 5 MG TABLET PO SCH ×2 (09:30→21:56)
[2019-06-05] MEDS: cloNIDine 0.1 MG TABLET PO SCH ×4 (09:30→21:58)
[2019-06-05] MEDS: buPROPion SR 150 MG TABLET PO SCH ×2 (09:30→21:56)
[2019-06-05] MEDS: GABAPENTIN 600 MG TABLET PO SCH ×3 (09:30→21:56)
[2019-06-05] MEDS: CILOSTAZOL 100 MG TABLET PO SCH ×2 (09:30→21:56)
[2019-06-05] MEDS: ENOXAPARIN 40 MG/0.4 ML SYRINGE SUBCUT SCH (09:31)
[2019-06-05] MEDS: INSULIN REGULAR 100 UNIT/ML SUBCUT SCH ×4 (09:31→21:57)
[2019-06-05] MEDS: fentaNYL 12 MCG/HR PATCH TRANSDERM SCH (09:35)
[2019-06-05] MEDS: Liraglutide [Victoza 2-Pak] 1.8 MG SUBCUT SCH (09:39)
[2019-06-05] MEDS: PANTOPRAZOLE 40 MG TABLET PO SCH (09:40)
[2019-06-05] MEDS ORDERED: DULoxetine 20 MG CAPSULE PO ONE (10:30)
[2019-06-05] MEDS: DULoxetine 30 MG CAPSULE PO SCH ×2 (11:55→21:56)
[2019-06-05] MEDS: ZOLPIDEM 5 MG TABLET PO SCH (21:56)
[2019-06-05] MEDS: INSULIN GLARGINE 100 UNIT/ML SUBCUT SCH (21:57)
[2019-06-05] MEDS: MELATONIN 3 MG TABLET PO SCH (21:57)
[2019-06-06 08:31] VITALS: BP 139/94
[2019-06-06] MEDS: INSULIN REGULAR 100 UNIT/ML SUBCUT SCH (09:02)
[2019-06-06] MEDS: COLCHICINE 0.6 MG CAPSULE PO SCH (09:07)
[2019-06-06] MEDS: DESVENLAFAXINE 50 MG TABLET PO SCH (09:10)
[2019-06-06] MEDS: MULTIVITAMIN (BEROCCA) TABLET PO SCH (09:10)
[2019-06-06] MEDS: GABAPENTIN 600 MG TABLET PO SCH (09:10)
[2019-06-06] MEDS: ARIPiprazole 10 MG TABLET PO SCH (09:10)
[2019-06-06] MEDS: FUROSEMIDE 20 MG TABLET PO SCH (09:11)
[2019-06-06] MEDS: DULoxetine 30 MG CAPSULE PO SCH (09:11)
[2019-06-06] MEDS: buPROPion SR 150 MG TABLET PO SCH (09:13)
[2019-06-06] MEDS: BISOPROLOL 5 MG TABLET PO SCH (09:13)
[2019-06-06] MEDS: tiZANidine 4 MG TABLET PO PRN (09:14)
[2019-06-06] MEDS: CILOSTAZOL 100 MG TABLET PO SCH (09:14)
[2019-06-06] MEDS: LOSARTAN 50 MG TABLET PO SCH (09:15)
[2019-06-06] MEDS: FERROUS SULFATE 325 MG TABLET PO SCH (09:15)
[2019-06-06] MEDS: ESCITALOPRAM 10 MG TABLET PO SCH (09:15)
[2019-06-06] MEDS: cloNIDine 0.1 MG TABLET PO SCH (09:15)
[2019-06-06] MEDS: PANTOPRAZOLE 40 MG TABLET PO SCH (09:15)
[2019-06-06] MEDS: POTASSIUM CHLORIDE 20 MEQ TABLET PO SCH (09:15)
[2019-06-06] MEDS: ALLOPURINOL 100 MG TABLET PO SCH (09:16)
[2019-06-06] MEDS: DILTIAZEM CD 120 MG CAPSULE PO SCH (09:16)
[2019-06-06] MEDS: CLOPIDOGREL 75 MG TABLET PO SCH (09:16)
[2019-06-06] MEDS: oxyCODONE/ACETAMINOPHEN 5-325 MG TABLET PO PRN (09:16)
[2019-06-06] MEDS: ENOXAPARIN 40 MG/0.4 ML SYRINGE SUBCUT SCH (09:17)
[2019-06-06] MEDS: MUPIROCIN 2% OINT 22 GM TUBE TOP SCH (09:21)
[2019-06-06] MEDS: CLOTRIMAZOLE/BETAMETHASONE CREAM 15 GM TUBE TOP SCH (09:21)
[2019-06-06] MEDS: Liraglutide [Victoza 2-Pak] 1.8 MG SUBCUT SCH (09:21)
[2019-06-06] MEDS: ASCORBIC ACID 500 MG TABLET PO SCH (09:22)
[2019-06-06] MEDS ORDERED: CLINDAMYCIN 300 MG CAPSULE PO SCH (14:00)
== END 2019-06-06 11:44 | disposition home or self-care (01) | DRG 982 ==
LOC: EDUNIT# → EDBD → N.ED 22:32 → SUATTDRO 05-30 01:15 → N.EDINP 05-30 01:15 → N.TELES 05-30 01:50 → N.TELEN 06-01 14:37
PROVIDERS: ADMIT Family Medicine; ATTEND Internal Medicine

== ENCOUNTER 2019-07-05 19:04 | Inpatient (IN) ==
[2019-07-05] MEDS ORDERED: ADENOSINE 6 MG/2 ML VIAL ONE (19:23)
[2019-07-05] MEDS ORDERED: ACETAMINOPHEN 500 MG TABLET ONE (19:23)
[2019-07-05] MEDS ORDERED: ADENOSINE 6 MG/2 ML VIAL IV STA ×2 (19:31→19:34)
[2019-07-05] MEDS ORDERED: DILTIAZEM 25 MG/5 ML VIAL IV ONE (19:37)
[2019-07-05] MEDS ORDERED: DILTIAZEM 50 MG/10 ML VIAL IV STA (19:38)
[2019-07-05] MEDS ORDERED: dilTIAZem Drip 125 MG/125 ML PREMIX IV ONE (19:42)
[2019-07-05] MEDS ORDERED: METOPROLOL TARTRATE 5 MG/5 ML VIAL IV ONE (19:45)
[2019-07-05] MEDS ORDERED: METOPROLOL TARTRATE 5 MG/5 ML VIAL IV STA (19:46)
[2019-07-05] MEDS ORDERED: ONDANSETRON 4 MG/2 ML VIAL IV STA ×2 (19:47→20:25)
[2019-07-05] MEDS: dilTIAZem Drip 125 MG/125 ML PREMIX IV SCH (19:51)
[2019-07-05] MEDS ORDERED: cefTRIAXone 1,000 MG in SODIUM CHLORIDE 0.9% 100 ML IV STA (19:52)
[2019-07-05] MEDS ORDERED: ACETAMINOPHEN 500 MG TABLET PO STA (19:52)
[2019-07-05] MEDS ORDERED: HYDROmorphone 2 MG/1 ML VIAL ONE (20:14)
[2019-07-05 20:21] LABS: Basophils % 0.4 % (0.0-0.8); Eosinophils % 0.3 % (0.00-10.9); Hematocrit 40.7 VOL% (42.0-52.0); Hemoglobin 13.4 GM/DL (14.0-18.0); Immature Granulocytes % 1.4 %; Immature Granulocytes Absolute 0.16 #; Lymphocytes # 0.8 10*3/uL (1.4-4.0); Lymphocytes % 7.4 % (21.2-54.2); Mean Corpuscular HGB Conc 32.9 GM/DL (32-36); Mean Corpuscular Volume 92.9 FL (87-102); Mean Platelet Volume 11.8 FL (9.6-12.0); Monocytes % 3.4 % (1.7-12.7); Neutrophils % 87.1 % (38.7-73.9); Platelet Count 161 T/CUMM (130-400); Red Blood Count 4.38 MC/CUMM (3.8-5.5); Red Cell Distribution Width 14.4 % (9.3-17.3); White Blood Count 11.3 T/CUMM (4-12)
[2019-07-05] MEDS ORDERED: HYDROmorphone 2 MG/1 ML VIAL IV STA (20:25)
[2019-07-05 20:50] LABS: Alanine Aminotransferase 30 U/L (16-61); Albumin 2.9 G/DL (3.4-5.0); Alkaline Phosphatase 128 U/L (45-117); Amylase 44 U/L (25-115); Aspartate Amino Transferase 30 U/L (0-37); Blood Urea Nitrogen 23 MG/DL (7-18); Calcium 8.5 MG/DL (8.5-10.1); Estimated Glom Filtration Rate 77 ML/MIN; Glucose 169 MG/DL (74-106); Osmolality,Calculated 284.5 MOS/KG (273-304); Total Protein 7.4 G/DL (6.4-8.3); Troponin I < 0.015 NG/ML (0.00-0.045)
[2019-07-05 20:57] LABS: INR 0.9
[2019-07-05 20:58] LABS: Apearance,Urine CLOUDY (Clear); Bilirubin,Urine Negative (Negative); Blood, Urine Moderate mg/dL (Negative); Glucose,Urine (UA) 50 mg/dL (Negative); Ketones,Urine Negative (Negative); Mucus,Urine Occasional /LPF (Occasional); Nitrite,Urine Negative (Negative); Protein,Urine 100 MG/DL; RBC,Urine 11 /HPF (0-4); Urine Color Amber (Yellow); Urine Specific Gravity 1.013 (1.001-1.035); Urine Urobilinogen < 2.0 EU/DL (0.2-1.0); WBC,Urine 121 /HPF (0-6)
[2019-07-05] MEDS ORDERED: LEVOFLOXACIN INJ 500 MG in PREMIX 1 EACH IV STA (21:00)
[2019-07-05] MEDS: PHENYLEPHRINE DRIP 40 MG/250 ML PREMIX IV PRN (21:53)
[2019-07-05 22:10] LABS: Band Neutrophils 1 % (0-10); Lymphocytes 6 % (20-55); Platelet Estimate Adequate; Segmented Neutrophils 90 % (50-85); Total Cells Counted 100
[2019-07-05 22:27] LABS: ABG Base Excess 1.4 MMOL/L (-2.5-2.5); ABG HCO3 25.6 MMOL/L (20-26); ABG Oxygen Saturation 94.3 % (95-100); ABG PCO2 39.2 MM HG (35-48); ABG PH 7.425 (7.35-7.45); ABG PO2 72.4 MM HG (80-95); ABG TCO2 22.8 MMOL/L (23-27); Allen Test Positive
[2019-07-05 23:08] LABS: Sedimentation Rate-Westergren 56 MM/HR (0-20)
[2019-07-05] MEDS ORDERED: ONDANSETRON 4 MG/2 ML VIAL IV PRN (23:09)
[2019-07-05] MEDS ORDERED: DEXTROSE 50% 25 GM/50 ML VIAL IV PRN (23:09)
[2019-07-05] MEDS ORDERED: ACETAMINOPHEN 325 MG TABLET PO PRN (23:09)
[2019-07-05] MEDS ORDERED: GLUCAGON 1 MG VIAL IM PRN (23:09)
[2019-07-05] MEDS: LEVOFLOXACIN INJ 500 MG in PREMIX 1 EACH IV SCH (23:31)
[2019-07-05] MEDS: SODIUM CHLORIDE 0.9% 1,000 ML IV SCH (23:35)
[2019-07-05] MEDS: INSULIN REGULAR 100 UNIT/ML SUBCUT SCH (23:39)
[2019-07-06] MEDS: HYDROmorphone 2 MG/1 ML VIAL IV PRN ×2 (00:58→04:44)
[2019-07-06] MEDS: dilTIAZem Drip 125 MG/125 ML PREMIX IV SCH ×2 (02:24→20:52)
[2019-07-06] MEDS: METOPROLOL TARTRATE 5 MG/5 ML VIAL IV PRN (02:50)
[2019-07-06] MEDS: fentaNYL 12 MCG/HR PATCH TRANSDERM SCH (03:29)
[2019-07-06] MEDS ORDERED: AMIODARONE INJ 450 MG in DEXTROSE 5% 241 ML IV SCH (04:30)
[2019-07-06 04:45] LABS: Basophils % 0.2 % (0.0-0.8); Hematocrit 36.3 VOL% (42.0-52.0); Hemoglobin 11.6 GM/DL (14.0-18.0); Immature Granulocytes % 1.2 %; Immature Granulocytes Absolute 0.15 #; Lymphocytes # 0.6 10*3/uL (1.4-4.0); Lymphocytes % 5.2 % (21.2-54.2); Mean Corpuscular Volume 94.8 FL (87-102); Mean Platelet Volume 11.3 FL (9.6-12.0); Neutrophils % 90.4 % (38.7-73.9); Platelet Count 134 T/CUMM (130-400); Red Blood Count 3.83 MC/CUMM (3.8-5.5); Red Cell Distribution Width 14.6 % (9.3-17.3); White Blood Count 12.2 T/CUMM (4-12)
[2019-07-06 05:06] LABS: Alanine Aminotransferase 31 U/L (16-61); Albumin 2.6 G/DL (3.4-5.0); Alkaline Phosphatase 111 U/L (45-117); Aspartate Amino Transferase 54 U/L (0-37); Bilirubin,Total < 0.39 MG/DL (0.2-1.0); Blood Urea Nitrogen 28 MG/DL (7-18); Calcium 7.9 MG/DL (8.5-10.1); Estimated Glom Filtration Rate 66 ML/MIN; Glucose 217 MG/DL (74-106); Osmolality,Calculated 291.4 MOS/KG (273-304); Total Protein 6.4 G/DL (6.4-8.3)
[2019-07-06 05:15] LABS: Band Neutrophils 12 % (0-10); Lymphocytes 7 % (20-55); Metamyelocytes 1 %; Segmented Neutrophils 76 % (50-85); Total Cells Counted 100
[2019-07-06 05:16] LABS: Hypochromasia Slight; Platelet Estimate Adequate
[2019-07-06] MEDS ORDERED: METOPROLOL TARTRATE 5 MG/5 ML VIAL IV SCH (06:00)
[2019-07-06] MEDS: INSULIN REGULAR 100 UNIT/ML SUBCUT SCH ×3 (06:17→18:06)
[2019-07-06] MEDS ORDERED: MAGNESIUM SULF RIDER 4 GM in PREMIX 1 EACH IV PRN (07:14)
[2019-07-06] MEDS ORDERED: MAGNESIUM SULF RIDER 2 GM in PREMIX 1 EACH IV PRN (07:14)
[2019-07-06] MEDS: SODIUM CHLORIDE 0.9% 1,000 ML IV SCH ×2 (07:38→16:04)
[2019-07-06] MEDS ORDERED: LOSARTAN 50 MG TABLET PO SCH (09:00)
[2019-07-06] MEDS ORDERED: Liraglutide [Victoza 2-Pak] 1.8 MG SUBCUT SCH (09:00)
[2019-07-06] MEDS ORDERED: NON-FORMULARY MEDICATION (Esomeprazole Magnesium [Nexium] 40 MG) PO SCH (09:00)
[2019-07-06] MEDS: DILTIAZEM CD 120 MG CAPSULE PO SCH (09:03)
[2019-07-06] MEDS: DESVENLAFAXINE 50 MG TABLET PO SCH (09:03)
[2019-07-06] MEDS: GABAPENTIN 600 MG TABLET PO SCH ×3 (09:03→21:27)
[2019-07-06] MEDS: DOCUSATE SODIUM 100 MG CAPSULE PO SCH ×2 (09:04→21:27)
[2019-07-06] MEDS: ATORVASTATIN 40 MG TABLET PO SCH (09:04)
[2019-07-06] MEDS: allopurinoL 100 MG TABLET PO SCH ×2 (09:04→21:27)
[2019-07-06] MEDS: cilostazoL 100 MG TABLET PO SCH ×2 (09:04→21:27)
[2019-07-06] MEDS: BISOPROLOL 5 MG TABLET PO SCH ×2 (09:04→21:27)
[2019-07-06] MEDS: CLOPIDOGREL 75 MG TABLET PO SCH (09:04)
[2019-07-06] MEDS: FUROSEMIDE 40 MG TABLET PO SCH ×2 (09:04→21:27)
[2019-07-06] MEDS: COLCHICINE 0.6 MG CAPSULE PO SCH ×2 (09:04→21:27)
[2019-07-06] MEDS: ASCORBIC ACID 500 MG TABLET PO SCH ×2 (09:04→21:27)
[2019-07-06] MEDS: oxyCODONE/ACETAMINOPHEN 5-325 MG TABLET PO PRN ×2 (09:05→18:06)
[2019-07-06] MEDS: cefTRIAXone 1,000 MG in SYRINGE 1 EACH IV SCH (09:05)
[2019-07-06] MEDS: PANTOPRAZOLE 40 MG TABLET PO SCH (09:05)
[2019-07-06] MEDS: AMIODARONE INJ 450 MG in DEXTROSE 5% 241 ML IV SCH (14:32)
[2019-07-06] MEDS: PHENYLEPHRINE DRIP 40 MG/250 ML PREMIX IV PRN (15:25)
[2019-07-06] MEDS: INSULIN GLARGINE 100 UNIT/ML SUBCUT SCH (21:28)
[2019-07-06] MEDS: ZOLPIDEM 5 MG TABLET PO PRN (22:55)
[2019-07-07] MEDS: LEVOFLOXACIN INJ 500 MG in PREMIX 1 EACH IV SCH ×2 (00:09→22:43)
[2019-07-07] MEDS: INSULIN REGULAR 100 UNIT/ML SUBCUT SCH ×4 (00:10→18:12)
[2019-07-07] MEDS: oxyCODONE/ACETAMINOPHEN 5-325 MG TABLET PO PRN ×4 (00:10→18:07)
[2019-07-07] MEDS: SODIUM CHLORIDE 0.9% 1,000 ML IV SCH ×3 (00:14→17:33)
[2019-07-07 05:42] LABS: Basophils # 0.1 10*3/uL (0.0-0.2); Basophils % 0.3 % (0.0-0.8); Eosinophils # 0.2 10*3/uL (0.0-0.87); Eosinophils % 0.7 % (0.00-10.9); Hematocrit 35.7 VOL% (42.0-52.0); Hemoglobin 11.3 GM/DL (14.0-18.0); Immature Granulocytes % 2.4 %; Immature Granulocytes Absolute 0.58 #; Lymphocytes # 2.2 10*3/uL (1.4-4.0); Lymphocytes % 9.1 % (21.2-54.2); Mean Corpuscular HGB Conc 31.7 GM/DL (32-36); Mean Corpuscular Volume 95.5 FL (87-102); Mean Platelet Volume 11.9 FL (9.6-12.0); Monocytes % 8.2 % (1.7-12.7); Neutrophils % 79.3 % (38.7-73.9); Platelet Count 140 T/CUMM (130-400); Red Blood Count 3.74 MC/CUMM (3.8-5.5); Red Cell Distribution Width 15.4 % (9.3-17.3); White Blood Count 24.1 T/CUMM (4-12)
[2019-07-07 05:55] LABS: Osmolality,Calculated 288.7 MOS/KG (273-304)
[2019-07-07 06:03] LABS: Band Neutrophils 10 % (0-10); Lymphocytes 18 % (20-55); Segmented Neutrophils 66 % (50-85); Total Cells Counted 100
[2019-07-07 06:04] LABS: Burr Cells Slight; Hypochromasia 1+; Ovalocytes Slight; Platelet Estimate Normal
[2019-07-07] MEDS: AMIODARONE INJ 450 MG in DEXTROSE 5% 241 ML IV SCH ×2 (06:18→17:33)
[2019-07-07] MEDS: ATORVASTATIN 40 MG TABLET PO SCH (09:16)
[2019-07-07] MEDS: allopurinoL 100 MG TABLET PO SCH ×2 (09:16→21:59)
[2019-07-07] MEDS: FUROSEMIDE 40 MG TABLET PO SCH ×2 (09:16→22:00)
[2019-07-07] MEDS: CLOPIDOGREL 75 MG TABLET PO SCH (09:17)
[2019-07-07] MEDS: BISOPROLOL 5 MG TABLET PO SCH ×2 (09:17→22:00)
[2019-07-07] MEDS: AMIODARONE 200 MG TABLET PO SCH ×2 (09:17→22:00)
[2019-07-07] MEDS: ASCORBIC ACID 500 MG TABLET PO SCH ×2 (09:18→22:01)
[2019-07-07] MEDS: PANTOPRAZOLE 40 MG TABLET PO SCH (09:18)
[2019-07-07] MEDS: COLCHICINE 0.6 MG CAPSULE PO SCH ×2 (09:18→22:00)
[2019-07-07] MEDS: GABAPENTIN 600 MG TABLET PO SCH ×3 (09:19→22:01)
[2019-07-07] MEDS: DESVENLAFAXINE 50 MG TABLET PO SCH (09:19)
[2019-07-07] MEDS: cilostazoL 100 MG TABLET PO SCH ×2 (09:20→22:10)
[2019-07-07] MEDS: cefTRIAXone 1,000 MG in SYRINGE 1 EACH IV SCH (09:20)
[2019-07-07] MEDS: DOCUSATE SODIUM 100 MG CAPSULE PO SCH ×2 (09:30→22:00)
[2019-07-07] MEDS: CARIPRAZINE 3 MG PO SCH (11:24)
[2019-07-07] MEDS: INSULIN GLARGINE 100 UNIT/ML SUBCUT SCH (21:59)
[2019-07-07] MEDS: tiZANidine 4 MG TABLET PO PRN (22:00)
[2019-07-08] MEDS: oxyCODONE/ACETAMINOPHEN 5-325 MG TABLET PO PRN ×3 (00:20→17:20)
[2019-07-08] MEDS: CARIPRAZINE 3 MG PO SCH (00:21)
[2019-07-08] MEDS: ZOLPIDEM 5 MG TABLET PO PRN (00:21)
[2019-07-08] MEDS: SODIUM CHLORIDE 0.9% 1,000 ML IV SCH ×3 (00:47→15:40)
[2019-07-08] MEDS: INSULIN REGULAR 100 UNIT/ML SUBCUT SCH ×4 (00:49→18:14)
[2019-07-08 05:01] LABS: Basophils # 0.1 10*3/uL (0.0-0.2); Basophils % 0.3 % (0.0-0.8); Eosinophils # 0.3 10*3/uL (0.0-0.87); Eosinophils % 1.5 % (0.00-10.9); Hematocrit 33.8 VOL% (42.0-52.0); Hemoglobin 10.7 GM/DL (14.0-18.0); Immature Granulocytes % 0.9 %; Immature Granulocytes Absolute 0.15 #; Lymphocytes # 2.2 10*3/uL (1.4-4.0); Lymphocytes % 12.7 % (21.2-54.2); Mean Corpuscular HGB Conc 31.7 GM/DL (32-36); Mean Corpuscular Volume 95.5 FL (87-102); Mean Platelet Volume 11.5 FL (9.6-12.0); Monocytes % 8.3 % (1.7-12.7); Neutrophils % 76.3 % (38.7-73.9); Platelet Count 153 T/CUMM (130-400); Red Blood Count 3.54 MC/CUMM (3.8-5.5); Red Cell Distribution Width 14.8 % (9.3-17.3); White Blood Count 17.2 T/CUMM (4-12)
[2019-07-08 05:20] LABS: Calcium 8.2 MG/DL (8.5-10.1); Osmolality,Calculated 291.4 MOS/KG (273-304)
[2019-07-08 05:39] LABS: Hypochromasia 1+; Platelet Estimate Decreased
[2019-07-08] MEDS: allopurinoL 100 MG TABLET PO SCH ×2 (09:51→21:23)
[2019-07-08] MEDS: BISOPROLOL 5 MG TABLET PO SCH ×2 (09:51→21:16)
[2019-07-08] MEDS: CLOPIDOGREL 75 MG TABLET PO SCH (09:51)
[2019-07-08] MEDS: GABAPENTIN 600 MG TABLET PO SCH ×3 (09:51→21:16)
[2019-07-08] MEDS: DESVENLAFAXINE 50 MG TABLET PO SCH (09:51)
[2019-07-08] MEDS: PANTOPRAZOLE 40 MG TABLET PO SCH (09:51)
[2019-07-08] MEDS: ATORVASTATIN 40 MG TABLET PO SCH (09:51)
[2019-07-08] MEDS: cefTRIAXone 1,000 MG in SYRINGE 1 EACH IV SCH (09:52)
[2019-07-08] MEDS: cilostazoL 100 MG TABLET PO SCH ×2 (09:52→21:23)
[2019-07-08] MEDS: AMIODARONE 200 MG TABLET PO SCH ×2 (09:52→21:15)
[2019-07-08] MEDS: DILTIAZEM CD 120 MG CAPSULE PO SCH (09:52)
[2019-07-08] MEDS: ASCORBIC ACID 500 MG TABLET PO SCH ×2 (09:52→21:16)
[2019-07-08] MEDS: DOCUSATE SODIUM 100 MG CAPSULE PO SCH ×2 (09:52→21:14)
[2019-07-08] MEDS: FUROSEMIDE 40 MG TABLET PO SCH ×2 (09:52→21:15)
[2019-07-08] MEDS: COLCHICINE 0.6 MG CAPSULE PO SCH ×2 (10:49→21:23)
[2019-07-08] MEDS ORDERED: MAGNESIUM HYDROXIDE SUSP 30 ML UDCUP PO PRN (10:58)
[2019-07-08] MEDS: INSULIN GLARGINE 100 UNIT/ML SUBCUT SCH (21:15)
[2019-07-09] MEDS: oxyCODONE/ACETAMINOPHEN 5-325 MG TABLET PO PRN ×4 (00:12→21:31)
[2019-07-09] MEDS: ZOLPIDEM 5 MG TABLET PO PRN ×2 (00:13→21:30)
[2019-07-09] MEDS: LEVOFLOXACIN INJ 500 MG in PREMIX 1 EACH IV SCH (00:13)
[2019-07-09] MEDS: SODIUM CHLORIDE 0.9% 1,000 ML IV SCH ×3 (05:11→09:45)
[2019-07-09 05:13] LABS: Basophils % 0.2 % (0.0-0.8); Eosinophils # 0.2 10*3/uL (0.0-0.87); Eosinophils % 1.8 % (0.00-10.9); Hematocrit 35.6 VOL% (42.0-52.0); Hemoglobin 11.3 GM/DL (14.0-18.0); Immature Granulocytes % 0.8 %; Lymphocytes # 2.2 10*3/uL (1.4-4.0); Lymphocytes % 17.5 % (21.2-54.2); Mean Corpuscular HGB Conc 31.7 GM/DL (32-36); Mean Corpuscular Volume 93.7 FL (87-102); Mean Platelet Volume 11.2 FL (9.6-12.0); Monocytes % 8.2 % (1.7-12.7); Neutrophils % 71.5 % (38.7-73.9); Platelet Count 180 T/CUMM (130-400); Red Cell Distribution Width 14.6 % (9.3-17.3); White Blood Count 12.6 T/CUMM (4-12)
[2019-07-09] MEDS: INSULIN REGULAR 100 UNIT/ML SUBCUT SCH ×4 (05:13→17:09)
[2019-07-09 05:31] LABS: Calcium 8.8 MG/DL (8.5-10.1); Osmolality,Calculated 292.8 MOS/KG (273-304)
[2019-07-09] MEDS: fentaNYL 12 MCG/HR PATCH TRANSDERM SCH (06:29)
[2019-07-09] MEDS: BISOPROLOL 5 MG TABLET PO SCH ×2 (09:25→21:30)
[2019-07-09] MEDS: DOCUSATE SODIUM 100 MG CAPSULE PO SCH ×2 (09:25→21:31)
[2019-07-09] MEDS: DESVENLAFAXINE 50 MG TABLET PO SCH (09:25)
[2019-07-09] MEDS: DILTIAZEM CD 120 MG CAPSULE PO SCH (09:26)
[2019-07-09] MEDS: ATORVASTATIN 40 MG TABLET PO SCH (09:26)
[2019-07-09] MEDS: COLCHICINE 0.6 MG CAPSULE PO SCH ×2 (09:26→21:41)
[2019-07-09] MEDS: ASCORBIC ACID 500 MG TABLET PO SCH ×2 (09:26→21:31)
[2019-07-09] MEDS: GABAPENTIN 600 MG TABLET PO SCH ×3 (09:26→21:30)
[2019-07-09] MEDS: allopurinoL 100 MG TABLET PO SCH ×2 (09:26→21:31)
[2019-07-09] MEDS: PANTOPRAZOLE 40 MG TABLET PO SCH (09:26)
[2019-07-09] MEDS: cilostazoL 100 MG TABLET PO SCH ×2 (09:26→21:30)
[2019-07-09] MEDS: AMIODARONE 200 MG TABLET PO SCH ×2 (09:27→21:31)
[2019-07-09] MEDS: FUROSEMIDE 40 MG TABLET PO SCH (09:27)
[2019-07-09] MEDS: CLOPIDOGREL 75 MG TABLET PO SCH (09:27)
[2019-07-09] MEDS: cefTRIAXone 1,000 MG in SYRINGE 1 EACH IV SCH (09:28)
[2019-07-09] MEDS: hydrALAZINE 25 MG TABLET PO SCH ×2 (15:21→21:30)
[2019-07-09] MEDS: INSULIN GLARGINE 100 UNIT/ML SUBCUT SCH (21:31)
[2019-07-09] MEDS: tiZANidine 4 MG TABLET PO PRN (21:41)
[2019-07-10] MEDS: LEVOFLOXACIN INJ 500 MG in PREMIX 1 EACH IV SCH (00:35)
[2019-07-10] MEDS: INSULIN REGULAR 100 UNIT/ML SUBCUT SCH ×4 (00:36→18:23)
[2019-07-10] MEDS: INSULIN GLARGINE 100 UNIT/ML SUBCUT SCH ×2 (01:00→20:39)
[2019-07-10] MEDS: oxyCODONE/ACETAMINOPHEN 5-325 MG TABLET PO PRN ×4 (04:14→23:31)
[2019-07-10] MEDS: SODIUM CHLORIDE 0.9% 1,000 ML IV SCH (05:14)
[2019-07-10] MEDS ORDERED: ENOXAPARIN 30 MG/0.3 ML SYRINGE ONE (09:51)
[2019-07-10] MEDS: BISOPROLOL 5 MG TABLET PO SCH ×2 (10:07→20:41)
[2019-07-10] MEDS: cefTRIAXone 1,000 MG in SYRINGE 1 EACH IV SCH (10:07)
[2019-07-10] MEDS: COLCHICINE 0.6 MG CAPSULE PO SCH ×2 (10:07→20:40)
[2019-07-10] MEDS: hydrALAZINE 25 MG TABLET PO SCH (10:07)
[2019-07-10] MEDS: LEVOFLOXACIN 500 MG TABLET PO SCH (10:08)
[2019-07-10] MEDS: ASCORBIC ACID 500 MG TABLET PO SCH ×2 (10:08→20:44)
[2019-07-10] MEDS: GABAPENTIN 600 MG TABLET PO SCH ×3 (10:08→20:41)
[2019-07-10] MEDS: DESVENLAFAXINE 50 MG TABLET PO SCH (10:08)
[2019-07-10] MEDS: DILTIAZEM CD 120 MG CAPSULE PO SCH (10:08)
[2019-07-10] MEDS: PANTOPRAZOLE 40 MG TABLET PO SCH (10:09)
[2019-07-10] MEDS: DOCUSATE SODIUM 100 MG CAPSULE PO SCH ×2 (10:09→20:41)
[2019-07-10] MEDS: AMIODARONE 200 MG TABLET PO SCH ×2 (10:09→20:44)
[2019-07-10] MEDS: allopurinoL 100 MG TABLET PO SCH ×2 (10:09→20:41)
[2019-07-10] MEDS: CLOPIDOGREL 75 MG TABLET PO SCH (10:09)
[2019-07-10] MEDS: ATORVASTATIN 40 MG TABLET PO SCH (10:09)
[2019-07-10] MEDS: cilostazoL 100 MG TABLET PO SCH ×2 (10:10→20:41)
[2019-07-10] MEDS: tiZANidine 4 MG TABLET PO PRN ×2 (10:23→23:31)
[2019-07-10] MEDS: ENOXAPARIN 40 MG/0.4 ML SYRINGE SUBCUT SCH (10:26)
[2019-07-10] MEDS: ZOLPIDEM 5 MG TABLET PO PRN (23:31)
[2019-07-11] MEDS: INSULIN REGULAR 100 UNIT/ML SUBCUT SCH ×4 (00:07→18:37)
[2019-07-11] MEDS: SODIUM CHLORIDE 0.9% 1,000 ML IV SCH (01:06)
[2019-07-11 05:08] LABS: Basophils % 0.4 % (0.0-0.8); Eosinophils # 0.3 10*3/uL (0.0-0.87); Hemoglobin 11.6 GM/DL (14.0-18.0); Immature Granulocytes % 1.8 %; Immature Granulocytes Absolute 0.19 #; Lymphocytes # 2.8 10*3/uL (1.4-4.0); Lymphocytes % 27.5 % (21.2-54.2); Mean Corpuscular HGB Conc 32.2 GM/DL (32-36); Mean Corpuscular Volume 92.8 FL (87-102); Mean Platelet Volume 10.6 FL (9.6-12.0); Monocytes % 12.5 % (1.7-12.7); Neutrophils % 54.8 % (38.7-73.9); Platelet Count 240 T/CUMM (130-400); Red Blood Count 3.88 MC/CUMM (3.8-5.5); Red Cell Distribution Width 14.2 % (9.3-17.3); White Blood Count 10.3 T/CUMM (4-12)
[2019-07-11 05:41] LABS: Calcium 8.6 MG/DL (8.5-10.1); Osmolality,Calculated 286.1 MOS/KG (273-304)
[2019-07-11] MEDS: oxyCODONE/ACETAMINOPHEN 5-325 MG TABLET PO PRN ×3 (08:37→21:18)
[2019-07-11] MEDS: cefTRIAXone 1,000 MG in SYRINGE 1 EACH IV SCH (08:38)
[2019-07-11] MEDS: BISOPROLOL 5 MG TABLET PO SCH ×2 (08:38→21:17)
[2019-07-11] MEDS: tiZANidine 4 MG TABLET PO PRN ×2 (08:38→21:17)
[2019-07-11] MEDS: CLOPIDOGREL 75 MG TABLET PO SCH (08:38)
[2019-07-11] MEDS: AMIODARONE 200 MG TABLET PO SCH ×2 (08:38→21:18)
[2019-07-11] MEDS: GABAPENTIN 600 MG TABLET PO SCH ×3 (08:38→21:17)
[2019-07-11] MEDS: ATORVASTATIN 40 MG TABLET PO SCH (08:38)
[2019-07-11] MEDS: DOCUSATE SODIUM 100 MG CAPSULE PO SCH ×2 (08:39→21:19)
[2019-07-11] MEDS: ASCORBIC ACID 500 MG TABLET PO SCH ×2 (08:39→21:19)
[2019-07-11] MEDS: DILTIAZEM CD 120 MG CAPSULE PO SCH (08:39)
[2019-07-11] MEDS: DESVENLAFAXINE 50 MG TABLET PO SCH (08:39)
[2019-07-11] MEDS: allopurinoL 100 MG TABLET PO SCH ×2 (08:39→21:19)
[2019-07-11] MEDS: LEVOFLOXACIN 500 MG TABLET PO SCH (08:39)
[2019-07-11] MEDS: PANTOPRAZOLE 40 MG TABLET PO SCH (08:39)
[2019-07-11] MEDS: COLCHICINE 0.6 MG CAPSULE PO SCH ×2 (08:39→21:19)
[2019-07-11] MEDS: ENOXAPARIN 40 MG/0.4 ML SYRINGE SUBCUT SCH (08:53)
[2019-07-11] MEDS: cilostazoL 100 MG TABLET PO SCH ×2 (08:54→21:17)
[2019-07-11] MEDS: METOPROLOL TARTRATE 5 MG/5 ML VIAL IV PRN (18:37)
[2019-07-11] MEDS: ZOLPIDEM 5 MG TABLET PO PRN (21:17)
[2019-07-11] MEDS: INSULIN GLARGINE 100 UNIT/ML SUBCUT SCH (21:17)
[2019-07-12] MEDS: SODIUM CHLORIDE 0.9% 1,000 ML IV SCH ×2 (00:05→17:52)
[2019-07-12] MEDS: INSULIN REGULAR 100 UNIT/ML SUBCUT SCH ×5 (00:54→23:35)
[2019-07-12] MEDS: oxyCODONE/ACETAMINOPHEN 5-325 MG TABLET PO PRN ×4 (03:22→22:06)
[2019-07-12] MEDS: fentaNYL 12 MCG/HR PATCH TRANSDERM SCH (03:23)
[2019-07-12 05:33] LABS: Basophils % 0.3 % (0.0-0.8); Eosinophils # 0.3 10*3/uL (0.0-0.87); Eosinophils % 3.2 % (0.00-10.9); Hematocrit 36.6 VOL% (42.0-52.0); Hemoglobin 11.7 GM/DL (14.0-18.0); Immature Granulocytes % 1.9 %; Immature Granulocytes Absolute 0.18 #; Lymphocytes # 2.8 10*3/uL (1.4-4.0); Lymphocytes % 30.4 % (21.2-54.2); Mean Corpuscular Volume 93.1 FL (87-102); Mean Platelet Volume 10.3 FL (9.6-12.0); Monocytes % 12.5 % (1.7-12.7); Neutrophils % 51.7 % (38.7-73.9); Platelet Count 281 T/CUMM (130-400); Red Blood Count 3.93 MC/CUMM (3.8-5.5); Red Cell Distribution Width 14.3 % (9.3-17.3); White Blood Count 9.3 T/CUMM (4-12)
[2019-07-12 05:55] LABS: Calcium 8.5 MG/DL (8.5-10.1); Osmolality,Calculated 287.1 MOS/KG (273-304)
[2019-07-12] MEDS: cefTRIAXone 1,000 MG in SYRINGE 1 EACH IV SCH (08:41)
[2019-07-12] MEDS: BISOPROLOL 5 MG TABLET PO SCH ×2 (08:42→22:08)
[2019-07-12] MEDS: DOCUSATE SODIUM 100 MG CAPSULE PO SCH ×3 (08:43→22:08)
[2019-07-12] MEDS: COLCHICINE 0.6 MG CAPSULE PO SCH ×2 (08:43→22:08)
[2019-07-12] MEDS: allopurinoL 100 MG TABLET PO SCH ×2 (08:43→22:05)
[2019-07-12] MEDS: GABAPENTIN 600 MG TABLET PO SCH ×3 (08:43→22:05)
[2019-07-12] MEDS: tiZANidine 4 MG TABLET PO PRN ×2 (08:43→22:08)
[2019-07-12] MEDS: cilostazoL 100 MG TABLET PO SCH ×2 (08:43→22:07)
[2019-07-12] MEDS: DESVENLAFAXINE 50 MG TABLET PO SCH (08:43)
[2019-07-12] MEDS: ASCORBIC ACID 500 MG TABLET PO SCH ×2 (08:44→22:05)
[2019-07-12] MEDS: PANTOPRAZOLE 40 MG TABLET PO SCH (08:44)
[2019-07-12] MEDS: CLOPIDOGREL 75 MG TABLET PO SCH (08:45)
[2019-07-12] MEDS: AMIODARONE 200 MG TABLET PO SCH (08:45)
[2019-07-12] MEDS: ATORVASTATIN 40 MG TABLET PO SCH (08:45)
[2019-07-12] MEDS: LEVOFLOXACIN 500 MG TABLET PO SCH (08:46)
[2019-07-12] MEDS: DILTIAZEM CD 120 MG CAPSULE PO SCH (08:46)
[2019-07-12] MEDS: ENOXAPARIN 40 MG/0.4 ML SYRINGE SUBCUT SCH (08:46)
[2019-07-12] MEDS: LOSARTAN 50 MG TABLET PO SCH (09:56)
[2019-07-12] MEDS: ZOLPIDEM 5 MG TABLET PO PRN (22:07)
[2019-07-12] MEDS: INSULIN GLARGINE 100 UNIT/ML SUBCUT SCH (22:45)
[2019-07-13 04:29] LABS: Calcium 8.6 MG/DL (8.5-10.1); Osmolality,Calculated 290.1 MOS/KG (273-304)
[2019-07-13 04:29] LABS: Basophils % 0.5 % (0.0-0.8); Eosinophils # 0.3 10*3/uL (0.0-0.87); Eosinophils % 2.9 % (0.00-10.9); Hematocrit 37.6 VOL% (42.0-52.0); Hemoglobin 11.9 GM/DL (14.0-18.0); Immature Granulocytes Absolute 0.18 #; Lymphocytes # 2.7 10*3/uL (1.4-4.0); Lymphocytes % 30.7 % (21.2-54.2); Mean Corpuscular HGB Conc 31.6 GM/DL (32-36); Mean Corpuscular Volume 94.7 FL (87-102); Mean Platelet Volume 10.2 FL (9.6-12.0); Monocytes % 13.9 % (1.7-12.7); Platelet Count 326 T/CUMM (130-400); Red Blood Count 3.97 MC/CUMM (3.8-5.5); Red Cell Distribution Width 14.6 % (9.3-17.3); White Blood Count 8.8 T/CUMM (4-12)
[2019-07-13] MEDS: oxyCODONE/ACETAMINOPHEN 5-325 MG TABLET PO PRN ×2 (05:24→09:44)
[2019-07-13] MEDS: INSULIN REGULAR 100 UNIT/ML SUBCUT SCH (05:27)
[2019-07-13 08:17] VITALS: BP 147/84
[2019-07-13] MEDS ORDERED: LEVOFLOXACIN 500 MG TABLET PO SCH (08:30)
[2019-07-13] MEDS: cefTRIAXone 1,000 MG in SYRINGE 1 EACH IV SCH (08:41)
[2019-07-13] MEDS: ENOXAPARIN 40 MG/0.4 ML SYRINGE SUBCUT SCH (08:41)
[2019-07-13] MEDS: LEVOFLOXACIN 500 MG TABLET PO SCH (08:42)
[2019-07-13] MEDS: BISOPROLOL 5 MG TABLET PO SCH (08:42)
[2019-07-13] MEDS: DOCUSATE SODIUM 100 MG CAPSULE PO SCH (08:42)
[2019-07-13] MEDS: DESVENLAFAXINE 50 MG TABLET PO SCH (08:42)
[2019-07-13] MEDS: ATORVASTATIN 40 MG TABLET PO SCH (08:42)
[2019-07-13] MEDS: CLOPIDOGREL 75 MG TABLET PO SCH (08:42)
[2019-07-13] MEDS: COLCHICINE 0.6 MG CAPSULE PO SCH (08:42)
[2019-07-13] MEDS: LOSARTAN 50 MG TABLET PO SCH (08:42)
[2019-07-13] MEDS: cilostazoL 100 MG TABLET PO SCH (08:43)
[2019-07-13] MEDS: DILTIAZEM CD 120 MG CAPSULE PO SCH (08:43)
[2019-07-13] MEDS: GABAPENTIN 600 MG TABLET PO SCH (08:43)
[2019-07-13] MEDS: PANTOPRAZOLE 40 MG TABLET PO SCH (08:43)
[2019-07-13] MEDS: allopurinoL 100 MG TABLET PO SCH (08:43)
[2019-07-13] MEDS: ASCORBIC ACID 500 MG TABLET PO SCH (08:43)
[2019-07-13] MEDS: tiZANidine 4 MG TABLET PO PRN (08:43)
[2019-07-13] MEDS: AMIODARONE 200 MG TABLET PO SCH (08:44)
== END 2019-07-13 10:52 | disposition home or self-care (01) | DRG 871 ==
LOC: EDUNIT# → EDBD → N.ED 19:04 → N.EDINP 21:14 → N.ICU 21:56 → N.TELEN 07-07 13:03
PROVIDERS: ADMIT Internal Medicine; ATTEND Internal Medicine

== ENCOUNTER 2022-03-05 17:55 | Inpatient (IN) ==
[2022-03-05 19:56] LABS: Basophils % 0.3 % (0.0-0.8); Eosinophils # 0.2 10*3/uL (0.0-0.87); Eosinophils % 1.5 % (0.00-10.9); Hematocrit 37.3 VOL% (42.0-52.0); Hemoglobin 12.1 GM/DL (14.0-18.0); Immature Granulocytes % 0.6 %; Immature Granulocytes Absolute 0.07 #; Lymphocytes # 1.4 10*3/uL (1.4-4.0); Lymphocytes % 11.8 % (21.2-54.2); Mean Corpuscular HGB Conc 32.4 GM/DL (32-36); Mean Corpuscular Volume 96.4 FL (87-102); Mean Platelet Volume 11.2 FL (9.6-12.0); Monocytes % 8.8 % (1.7-12.7); Platelet Count 270 T/CUMM (130-400); Red Blood Count 3.87 MC/CUMM (3.8-5.5); Red Cell Distribution Width 13.9 % (9.3-17.3); White Blood Count 11.5 T/CUMM (4-12)
[2022-03-05] MEDS ORDERED: HYDROmorphone 1 MG/1 ML SYRINGE IV STA (20:01)
[2022-03-05] MEDS ORDERED: ONDANSETRON 4 MG/2 ML VIAL IV STA (20:01)
[2022-03-05] MEDS ORDERED: ACETAMINOPHEN 500 MG TABLET ONE (20:16)
[2022-03-05] MEDS ORDERED: ACETAMINOPHEN 500 MG TABLET PO STA (20:19)
[2022-03-05] MEDS ORDERED: SODIUM CHLORIDE 0.9% 1,000 ML IV STA (20:27)
[2022-03-05 20:29] LABS: Albumin 2.9 G/DL (3.4-5.0); Bilirubin,Total 0.4 MG/DL (0.20-1.00); Calcium 8.6 MG/DL (8.5-10.1); Osmolality,Calculated 279.8 MOS/KG (273-304); Potassium 4.1 MMOL/L (3.5-5.1); Total Protein 7.9 G/DL (6.4-8.2)
[2022-03-05] MEDS ORDERED: MEROPENEM 1,000 MG in SODIUM CHLORIDE 0.9% 100 ML IV ONE (20:38)
[2022-03-05] MEDS ORDERED: VANCOMYCIN INJ 1,500 MG in SODIUM CHLORIDE 0.9% 500 ML IV STA (20:38)
[2022-03-05] MEDS ORDERED: MEROPENEM 500 MG in SODIUM CHLORIDE 0.9% 100 ML IV ONE (21:00)
[2022-03-05] MEDS ORDERED: GLUCAGON 1 MG VIAL IM PRN (21:19)
[2022-03-05] MEDS ORDERED: ACETAMINOPHEN 325 MG TABLET PO PRN (21:19)
[2022-03-05] MEDS ORDERED: ZOLPIDEM 5 MG TABLET PO PRN (21:21)
[2022-03-05] MEDS ORDERED: DEXTROSE 10% 250 ML BAG IV PRN (21:42)
[2022-03-06] MEDS: ZALEPLON 5 MG CAPSULE PO PRN ×2 (00:43→21:01)
[2022-03-06] MEDS: SODIUM CHLORIDE 0.9% 1,000 ML IV SCH ×2 (01:12→21:22)
[2022-03-06] MEDS: MEROPENEM 500 MG in SODIUM CHLORIDE 0.9% 100 ML IV SCH ×2 (04:23→10:41)
[2022-03-06 06:25] LABS: Basophils # 0.1 10*3/uL (0.0-0.2); Basophils % 0.4 % (0.0-0.8); Eosinophils # 0.3 10*3/uL (0.0-0.87); Eosinophils % 2.2 % (0.00-10.9); Hematocrit 32.2 VOL% (42.0-52.0); Hemoglobin 10.2 GM/DL (14.0-18.0); Immature Granulocytes % 1.2 %; Immature Granulocytes Absolute 0.15 #; Lymphocytes # 1.9 10*3/uL (1.4-4.0); Lymphocytes % 15.8 % (21.2-54.2); Mean Corpuscular HGB Conc 31.7 GM/DL (32-36); Monocytes # 1.7 10*3/uL (0.11-0.8); Monocytes % 14.1 % (1.7-12.7); Neutrophils % 66.3 % (38.7-73.9); Platelet Count 227 T/CUMM (130-400); Red Blood Count 3.32 MC/CUMM (3.8-5.5)
[2022-03-06 06:40] LABS: Alanine Aminotransferase 40 U/L (16-61); Albumin 2.4 G/DL (3.4-5.0); Alkaline Phosphatase 74 U/L (45-117); Aspartate Amino Transferase 35 U/L (0-37); Bilirubin,Total < 0.39 MG/DL (0.20-1.00); Blood Urea Nitrogen 28 MG/DL (7-18); Calcium 8.3 MG/DL (8.5-10.1); Carbon Dioxide 30 MMOL/L (21-32); Chloride 104 MMOL/L (98-107); Glucose 110 MG/DL (74-106); Osmolality,Calculated 285.4 MOS/KG (273-304); Potassium 3.5 MMOL/L (3.5-5.1); Sodium 140 MMOL/L (136-145); Total Protein 6.6 G/DL (6.4-8.2)
[2022-03-06] MEDS ORDERED: ENOXAPARIN 40 MG/0.4 ML SYRINGE SUBCUT SCH (09:00)
[2022-03-06] MEDS ORDERED: PANTOPRAZOLE 40 MG TABLET PO SCH (09:00)
[2022-03-06] MEDS ORDERED: BISOPROLOL 5 MG TABLET PO SCH (09:00)
[2022-03-06] MEDS ORDERED: DILTIAZEM CD 120 MG CAPSULE PO SCH (09:00)
[2022-03-06] MEDS ORDERED: FUROSEMIDE 40 MG TABLET PO SCH (09:00)
[2022-03-06] MEDS: POTASSIUM CHLORIDE 20 MEQ TABLET PO SCH ×2 (09:40→21:00)
[2022-03-06] MEDS: FUROSEMIDE 40 MG TABLET PO SCH ×2 (09:40→16:01)
[2022-03-06] MEDS: metOLazone 2.5 MG TABLET PO SCH ×2 (09:40→16:01)
[2022-03-06] MEDS: DILTIAZEM CD 240 MG CAPSULE PO SCH (09:40)
[2022-03-06] MEDS ORDERED: BUPIVACAINE MPF 0.25% 10 ML VIAL ONE (09:46)
[2022-03-06] MEDS: FERROUS SULFATE 325 MG TABLET PO SCH ×2 (09:47→16:01)
[2022-03-06] MEDS: DOCUSATE SODIUM 100 MG CAPSULE PO SCH ×2 (09:47→21:23)
[2022-03-06] MEDS: COLCHICINE 0.6 MG CAPSULE PO SCH ×2 (09:47→21:01)
[2022-03-06] MEDS: fentaNYL 12 MCG/HR PATCH TRANSDERM SCH (09:47)
[2022-03-06] MEDS: MULTIVITAMIN (BEROCCA) TABLET PO SCH ×2 (09:47→21:01)
[2022-03-06] MEDS: AMIODARONE 200 MG TABLET PO SCH (09:47)
[2022-03-06] MEDS: ESCITALOPRAM 10 MG TABLET PO SCH (09:47)
[2022-03-06] MEDS: LIRAGLUTIDE 0.6 MG/0.1 ML SUBCUT SCH (09:48)
[2022-03-06] MEDS: ATORVASTATIN 40 MG TABLET PO SCH (09:48)
[2022-03-06] MEDS: CLOPIDOGREL 75 MG TABLET PO SCH (09:48)
[2022-03-06] MEDS: PREGABALIN 100 MG CAPSULE PO SCH ×3 (09:48→21:01)
[2022-03-06] MEDS: GABAPENTIN 600 MG TABLET PO SCH ×3 (09:48→21:23)
[2022-03-06] MEDS: cilostazoL 100 MG TABLET PO SCH ×2 (09:48→21:01)
[2022-03-06] MEDS: DESVENLAFAXINE 50 MG TABLET PO SCH (09:48)
[2022-03-06] MEDS: MAGNESIUM CHLORIDE 64 MG TABLET PO SCH ×2 (09:49→21:01)
[2022-03-06] MEDS: allopurinoL 100 MG TABLET PO SCH ×2 (09:49→21:02)
[2022-03-06] MEDS: PANTOPRAZOLE 40 MG TABLET PO SCH ×2 (09:49→21:02)
[2022-03-06] MEDS ORDERED: FAMOTIDINE 20 MG/2 ML VIAL IV ONE (10:05)
[2022-03-06] MEDS ORDERED: MIDAZOLAM 2 MG/2 ML VIAL ONE (10:14)
[2022-03-06] MEDS ORDERED: fentaNYL 100 MCG/2 ML VIAL ONE (10:14)
[2022-03-06] MEDS ORDERED: SEVOFLURANE 1 UNIT/15 MINUTE INH ONE (10:14)
[2022-03-06] MEDS ORDERED: propofoL 200 MG/20 ML VIAL IV ONE (10:14)
[2022-03-06] MEDS ORDERED: LIDOCAINE 2% 5 ML VIAL ONE (10:14)
[2022-03-06] MEDS ORDERED: ONDANSETRON 4 MG/2 ML VIAL ONE (10:15)
[2022-03-06] MEDS: VANCOMYCIN INJ 1,500 MG in SODIUM CHLORIDE 0.9% 500 ML IV SCH ×2 (10:41→21:09)
[2022-03-06] MEDS: CEFEPIME 1,000 MG in SODIUM CHLORIDE 0.9% 100 ML IV SCH ×3 (11:41→23:56)
[2022-03-06] MEDS: tiZANidine 4 MG TABLET PO PRN ×2 (14:48→21:00)
[2022-03-06] MEDS: oxyCODONE/ACETAMINOPHEN 5-325 MG TABLET PO PRN (19:30)
[2022-03-06] MEDS ORDERED: NON-FORMULARY MEDICATION (Cariprazine [Vraylar] 1.5 mg Capsule) PO SCH (21:00)
[2022-03-06] MEDS: INSULIN GLARGINE 100 UNIT/ML SUBCUT SCH (21:22)
[2022-03-07] MEDS: CEFEPIME 1,000 MG in SODIUM CHLORIDE 0.9% 100 ML IV SCH ×4 (03:49→21:54)
[2022-03-07 05:51] LABS: Basophils % 0.4 % (0.0-0.8); Eosinophils # 0.3 10*3/uL (0.0-0.87); Eosinophils % 2.5 % (0.00-10.9); Hematocrit 34.6 VOL% (42.0-52.0); Immature Granulocytes % 0.8 %; Immature Granulocytes Absolute 0.09 #; Lymphocytes % 17.4 % (21.2-54.2); Mean Corpuscular HGB Conc 31.8 GM/DL (32-36); Mean Corpuscular Volume 97.2 FL (87-102); Mean Platelet Volume 11.6 FL (9.6-12.0); Monocytes # 1.4 10*3/uL (0.11-0.8); Monocytes % 12.1 % (1.7-12.7); Neutrophils % 66.8 % (38.7-73.9); Platelet Count 226 T/CUMM (130-400); Red Blood Count 3.56 MC/CUMM (3.8-5.5); Red Cell Distribution Width 13.8 % (9.3-17.3); White Blood Count 11.3 T/CUMM (4-12)
[2022-03-07] MEDS: VANCOMYCIN INJ 1,500 MG in SODIUM CHLORIDE 0.9% 500 ML IV SCH ×2 (08:49→22:55)
[2022-03-07] MEDS: cilostazoL 100 MG TABLET PO SCH ×2 (08:51→21:44)
[2022-03-07] MEDS: POTASSIUM CHLORIDE 20 MEQ TABLET PO SCH ×2 (08:51→21:43)
[2022-03-07] MEDS: PANTOPRAZOLE 40 MG TABLET PO SCH ×2 (08:51→21:45)
[2022-03-07] MEDS: COLCHICINE 0.6 MG CAPSULE PO SCH ×2 (08:51→21:44)
[2022-03-07] MEDS: MULTIVITAMIN (BEROCCA) TABLET PO SCH ×2 (08:51→21:44)
[2022-03-07] MEDS: DESVENLAFAXINE 50 MG TABLET PO SCH (08:51)
[2022-03-07] MEDS: metOLazone 2.5 MG TABLET PO SCH ×2 (08:51→15:58)
[2022-03-07] MEDS: MAGNESIUM CHLORIDE 64 MG TABLET PO SCH ×2 (08:52→21:43)
[2022-03-07] MEDS: allopurinoL 100 MG TABLET PO SCH ×2 (08:52→21:43)
[2022-03-07] MEDS: ESCITALOPRAM 10 MG TABLET PO SCH (08:52)
[2022-03-07] MEDS: CLOPIDOGREL 75 MG TABLET PO SCH (08:52)
[2022-03-07] MEDS: oxyCODONE/ACETAMINOPHEN 5-325 MG TABLET PO PRN ×3 (08:52→21:46)
[2022-03-07] MEDS: FERROUS SULFATE 325 MG TABLET PO SCH ×2 (08:52→16:08)
[2022-03-07] MEDS: FUROSEMIDE 40 MG TABLET PO SCH ×2 (08:53→15:58)
[2022-03-07] MEDS: DILTIAZEM CD 240 MG CAPSULE PO SCH (08:53)
[2022-03-07] MEDS: PREGABALIN 100 MG CAPSULE PO SCH ×3 (08:53→21:44)
[2022-03-07] MEDS: AMIODARONE 200 MG TABLET PO SCH (08:53)
[2022-03-07] MEDS: ATORVASTATIN 40 MG TABLET PO SCH (08:53)
[2022-03-07] MEDS: DOCUSATE SODIUM 100 MG CAPSULE PO SCH ×2 (08:58→21:48)
[2022-03-07] MEDS: LIRAGLUTIDE 0.6 MG/0.1 ML SUBCUT SCH (08:58)
[2022-03-07] MEDS: SODIUM HYPOCHLORITE 0.25% IRRIG 473 ML BOTTLE TOP SCH (11:11)
[2022-03-07] MEDS: SODIUM CHLORIDE 0.9% 1,000 ML IV SCH (15:06)
[2022-03-07] MEDS: tiZANidine 4 MG TABLET PO PRN (21:44)
[2022-03-07] MEDS: ZOLPIDEM 5 MG TABLET PO SCH (21:52)
[2022-03-07] MEDS: INSULIN GLARGINE 100 UNIT/ML SUBCUT SCH (22:00)
[2022-03-08] MEDS: CEFEPIME 1,000 MG in SODIUM CHLORIDE 0.9% 100 ML IV SCH ×4 (03:55→22:54)
[2022-03-08 05:03] LABS: Basophils % 0.4 % (0.0-0.8); Eosinophils # 0.4 10*3/uL (0.0-0.87); Eosinophils % 3.4 % (0.00-10.9); Hematocrit 34.8 VOL% (42.0-52.0); Immature Granulocytes Absolute 0.11 #; Lymphocytes # 2.7 10*3/uL (1.4-4.0); Lymphocytes % 24.1 % (21.2-54.2); Mean Corpuscular HGB Conc 31.6 GM/DL (32-36); Mean Corpuscular Volume 96.4 FL (87-102); Mean Platelet Volume 11.3 FL (9.6-12.0); Monocytes # 1.4 10*3/uL (0.11-0.8); Monocytes % 12.7 % (1.7-12.7); Neutrophils % 58.4 % (38.7-73.9); Platelet Count 244 T/CUMM (130-400); Red Blood Count 3.61 MC/CUMM (3.8-5.5); Red Cell Distribution Width 13.7 % (9.3-17.3); White Blood Count 11.3 T/CUMM (4-12)
[2022-03-08] MEDS: VANCOMYCIN INJ 1,500 MG in SODIUM CHLORIDE 0.9% 500 ML IV SCH (08:46)
[2022-03-08] MEDS: DESVENLAFAXINE 50 MG TABLET PO SCH (08:47)
[2022-03-08] MEDS: PREGABALIN 100 MG CAPSULE PO SCH ×3 (08:47→20:29)
[2022-03-08] MEDS: COLCHICINE 0.6 MG CAPSULE PO SCH ×2 (08:47→20:49)
[2022-03-08] MEDS: cilostazoL 100 MG TABLET PO SCH ×2 (08:47→20:27)
[2022-03-08] MEDS: metOLazone 2.5 MG TABLET PO SCH ×2 (08:47→15:53)
[2022-03-08] MEDS: ESCITALOPRAM 10 MG TABLET PO SCH (08:47)
[2022-03-08] MEDS: FUROSEMIDE 40 MG TABLET PO SCH ×2 (08:47→15:53)
[2022-03-08] MEDS: FERROUS SULFATE 325 MG TABLET PO SCH ×2 (08:48→16:03)
[2022-03-08] MEDS: CLOPIDOGREL 75 MG TABLET PO SCH (08:48)
[2022-03-08] MEDS: POTASSIUM CHLORIDE 20 MEQ TABLET PO SCH ×2 (08:48→20:28)
[2022-03-08] MEDS: allopurinoL 100 MG TABLET PO SCH ×2 (08:48→20:29)
[2022-03-08] MEDS: DILTIAZEM CD 240 MG CAPSULE PO SCH (08:48)
[2022-03-08] MEDS: MAGNESIUM CHLORIDE 64 MG TABLET PO SCH ×2 (08:48→20:29)
[2022-03-08] MEDS: ATORVASTATIN 40 MG TABLET PO SCH (08:48)
[2022-03-08] MEDS: AMIODARONE 200 MG TABLET PO SCH (08:48)
[2022-03-08] MEDS: PANTOPRAZOLE 40 MG TABLET PO SCH ×2 (08:48→20:28)
[2022-03-08] MEDS: MULTIVITAMIN (BEROCCA) TABLET PO SCH ×2 (08:48→20:27)
[2022-03-08] MEDS: tiZANidine 4 MG TABLET PO PRN ×3 (08:54→20:29)
[2022-03-08] MEDS: oxyCODONE/ACETAMINOPHEN 5-325 MG TABLET PO PRN ×3 (08:54→20:27)
[2022-03-08] MEDS: DOCUSATE SODIUM 100 MG CAPSULE PO SCH ×2 (08:55→20:29)
[2022-03-08] MEDS: LIRAGLUTIDE 0.6 MG/0.1 ML SUBCUT SCH (08:55)
[2022-03-08] MEDS: SODIUM HYPOCHLORITE 0.25% IRRIG 473 ML BOTTLE TOP SCH (10:43)
[2022-03-08] MEDS: ZOLPIDEM 5 MG TABLET PO SCH (20:27)
[2022-03-08] MEDS: INSULIN GLARGINE 100 UNIT/ML SUBCUT SCH (20:53)
[2022-03-09] MEDS: CEFEPIME 1,000 MG in SODIUM CHLORIDE 0.9% 100 ML IV SCH ×5 (05:07→23:10)
[2022-03-09 05:44] LABS: Basophils # 0.1 10*3/uL (0.0-0.2); Basophils % 0.5 % (0.0-0.8); Eosinophils # 0.4 10*3/uL (0.0-0.87); Eosinophils % 4.4 % (0.00-10.9); Hematocrit 33.6 VOL% (42.0-52.0); Hemoglobin 10.9 GM/DL (14.0-18.0); Immature Granulocytes % 1.4 %; Immature Granulocytes Absolute 0.14 #; Lymphocytes # 2.5 10*3/uL (1.4-4.0); Lymphocytes % 24.9 % (21.2-54.2); Mean Corpuscular HGB Conc 32.4 GM/DL (32-36); Mean Corpuscular Volume 95.5 FL (87-102); Monocytes # 1.1 10*3/uL (0.11-0.8); Monocytes % 11.2 % (1.7-12.7); Neutrophils % 57.6 % (38.7-73.9); Platelet Count 255 T/CUMM (130-400); Red Blood Count 3.52 MC/CUMM (3.8-5.5); Red Cell Distribution Width 13.8 % (9.3-17.3)
[2022-03-09 06:09] LABS: Calcium 8.4 MG/DL (8.5-10.1); Osmolality,Calculated 280.8 MOS/KG (273-304); Potassium 3.5 MMOL/L (3.5-5.1)
[2022-03-09] MEDS: ESCITALOPRAM 10 MG TABLET PO SCH ×2 (07:58→08:53)
[2022-03-09] MEDS: DESVENLAFAXINE 50 MG TABLET PO SCH ×2 (07:58→08:54)
[2022-03-09] MEDS: oxyCODONE/ACETAMINOPHEN 5-325 MG TABLET PO PRN ×3 (07:58→22:32)
[2022-03-09] MEDS: COLCHICINE 0.6 MG CAPSULE PO SCH ×3 (07:58→22:30)
[2022-03-09] MEDS: PREGABALIN 100 MG CAPSULE PO SCH ×4 (07:59→22:31)
[2022-03-09] MEDS: POTASSIUM CHLORIDE 20 MEQ TABLET PO SCH ×3 (07:59→22:30)
[2022-03-09] MEDS: FUROSEMIDE 40 MG TABLET PO SCH ×3 (07:59→15:14)
[2022-03-09] MEDS: DILTIAZEM CD 240 MG CAPSULE PO SCH ×2 (07:59→08:21)
[2022-03-09] MEDS: MULTIVITAMIN (BEROCCA) TABLET PO SCH ×3 (07:59→22:31)
[2022-03-09] MEDS: FERROUS SULFATE 325 MG TABLET PO SCH ×2 (07:59→17:36)
[2022-03-09] MEDS: allopurinoL 100 MG TABLET PO SCH ×3 (07:59→22:32)
[2022-03-09] MEDS: cilostazoL 100 MG TABLET PO SCH ×2 (08:00→22:30)
[2022-03-09] MEDS: CLOPIDOGREL 75 MG TABLET PO SCH (08:00)
[2022-03-09] MEDS: DOCUSATE SODIUM 100 MG CAPSULE PO SCH ×2 (08:00→22:31)
[2022-03-09] MEDS: MAGNESIUM CHLORIDE 64 MG TABLET PO SCH ×2 (08:00→22:31)
[2022-03-09] MEDS: metOLazone 2.5 MG TABLET PO SCH ×3 (08:00→15:15)
[2022-03-09] MEDS: AMIODARONE 200 MG TABLET PO SCH (08:01)
[2022-03-09] MEDS: ATORVASTATIN 40 MG TABLET PO SCH (08:05)
[2022-03-09] MEDS: LIRAGLUTIDE 0.6 MG/0.1 ML SUBCUT SCH (08:05)
[2022-03-09] MEDS: PANTOPRAZOLE 40 MG TABLET PO SCH ×2 (08:06→22:30)
[2022-03-09 09:20] LABS: Calcium 8.7 MG/DL (8.5-10.1); Osmolality,Calculated 283.7 MOS/KG (273-304); Potassium 3.6 MMOL/L (3.5-5.1)
[2022-03-09] MEDS: fentaNYL 12 MCG/HR PATCH TRANSDERM SCH ×2 (09:38→12:34)
[2022-03-09] MEDS: SODIUM CHLORIDE 0.9% 1,000 ML IV SCH (14:42)
[2022-03-09] MEDS: tiZANidine 4 MG TABLET PO PRN ×2 (14:47→22:32)
[2022-03-09] MEDS: SODIUM HYPOCHLORITE 0.25% IRRIG 473 ML BOTTLE TOP SCH (16:02)
[2022-03-09] MEDS: MENTHOL/ZINC OXIDE OINT 71 GM JAR TOP SCH ×2 (16:02→23:11)
[2022-03-09] MEDS: INSULIN LISPRO 100 UNIT/ML SUBCUT SCH ×2 (16:03→23:12)
[2022-03-09] MEDS: ZOLPIDEM 5 MG TABLET PO SCH (22:58)
[2022-03-09] MEDS: INSULIN GLARGINE 100 UNIT/ML SUBCUT SCH (22:59)
[2022-03-10] MEDS: CEFEPIME 1,000 MG in SODIUM CHLORIDE 0.9% 100 ML IV SCH (05:20)
[2022-03-10 06:29] LABS: Basophils # 0.1 10*3/uL (0.0-0.2); Basophils % 0.6 % (0.0-0.8); Eosinophils # 0.5 10*3/uL (0.0-0.87); Eosinophils % 4.8 % (0.00-10.9); Hematocrit 33.2 VOL% (42.0-52.0); Hemoglobin 10.6 GM/DL (14.0-18.0); Immature Granulocytes % 1.6 %; Immature Granulocytes Absolute 0.16 #; Lymphocytes # 2.5 10*3/uL (1.4-4.0); Lymphocytes % 23.8 % (21.2-54.2); Mean Corpuscular HGB Conc 31.9 GM/DL (32-36); Mean Corpuscular Volume 96.5 FL (87-102); Mean Platelet Volume 11.3 FL (9.6-12.0); Monocytes # 1.3 10*3/uL (0.11-0.8); Monocytes % 12.1 % (1.7-12.7); Neutrophils % 57.1 % (38.7-73.9); Platelet Count 266 T/CUMM (130-400); Red Blood Count 3.44 MC/CUMM (3.8-5.5); Red Cell Distribution Width 13.7 % (9.3-17.3); White Blood Count 10.3 T/CUMM (4-12)
[2022-03-10 06:59] LABS: Calcium 8.7 MG/DL (8.5-10.1); Osmolality,Calculated 285.7 MOS/KG (273-304); Potassium 3.7 MMOL/L (3.5-5.1)
[2022-03-10] MEDS: INSULIN LISPRO 100 UNIT/ML SUBCUT SCH ×4 (07:41→23:50)
[2022-03-10] MEDS: ESCITALOPRAM 10 MG TABLET PO SCH (08:50)
[2022-03-10] MEDS: cilostazoL 100 MG TABLET PO SCH ×2 (08:51→23:01)
[2022-03-10] MEDS: tiZANidine 4 MG TABLET PO PRN ×2 (08:51→23:04)
[2022-03-10] MEDS: metOLazone 2.5 MG TABLET PO SCH ×2 (08:51→15:29)
[2022-03-10] MEDS: allopurinoL 100 MG TABLET PO SCH ×2 (08:51→23:02)
[2022-03-10] MEDS: DILTIAZEM CD 240 MG CAPSULE PO SCH (08:51)
[2022-03-10] MEDS: MAGNESIUM CHLORIDE 64 MG TABLET PO SCH ×2 (08:51→23:02)
[2022-03-10] MEDS: MULTIVITAMIN (BEROCCA) TABLET PO SCH ×2 (08:51→23:02)
[2022-03-10] MEDS: DESVENLAFAXINE 50 MG TABLET PO SCH (08:51)
[2022-03-10] MEDS: AMIODARONE 200 MG TABLET PO SCH (08:52)
[2022-03-10] MEDS: ATORVASTATIN 40 MG TABLET PO SCH (08:52)
[2022-03-10] MEDS: PANTOPRAZOLE 40 MG TABLET PO SCH ×2 (08:52→23:01)
[2022-03-10] MEDS: PREGABALIN 100 MG CAPSULE PO SCH ×3 (08:52→23:02)
[2022-03-10] MEDS: FERROUS SULFATE 325 MG TABLET PO SCH ×2 (08:52→16:15)
[2022-03-10] MEDS: FUROSEMIDE 40 MG TABLET PO SCH ×2 (08:52→15:29)
[2022-03-10] MEDS: DOCUSATE SODIUM 100 MG CAPSULE PO SCH ×2 (08:53→23:02)
[2022-03-10] MEDS: oxyCODONE/ACETAMINOPHEN 5-325 MG TABLET PO PRN ×3 (08:53→23:04)
[2022-03-10] MEDS: SODIUM CHLORIDE 0.9% 1,000 ML IV SCH ×2 (08:54)
[2022-03-10] MEDS ORDERED: POTASSIUM CHLORIDE RIDER 10 MEQ/100 ML PREMIX IV PRN (08:56)
[2022-03-10] MEDS ORDERED: MAGNESIUM SULF RIDER 2 GM/50 ML PREMIX IV PRN (08:56)
[2022-03-10] MEDS: SODIUM HYPOCHLORITE 0.25% IRRIG 473 ML BOTTLE TOP SCH (08:58)
[2022-03-10] MEDS: MENTHOL/ZINC OXIDE OINT 71 GM JAR TOP SCH ×2 (08:58→23:05)
[2022-03-10] MEDS: cefTRIAXone 2,000 MG in SODIUM CHLORIDE 0.9% 100 ML IV SCH (09:04)
[2022-03-10] MEDS: COLCHICINE 0.6 MG CAPSULE PO SCH ×2 (09:05→23:01)
[2022-03-10] MEDS: CLOPIDOGREL 75 MG TABLET PO SCH (09:05)
[2022-03-10] MEDS: POTASSIUM CHLORIDE 20 MEQ TABLET PO SCH ×2 (09:05→23:03)
[2022-03-10] MEDS: LIRAGLUTIDE 0.6 MG/0.1 ML SUBCUT SCH (10:01)
[2022-03-10] MEDS ORDERED: HEPARIN/NACL 0.9% 2 UNITS/ML 3,000 UNIT/1,500 ML BAG IV ONE (10:22)
[2022-03-10] MEDS ORDERED: MIDAZOLAM 2 MG/2 ML VIAL ONE ×2 (10:22→10:55)
[2022-03-10] MEDS ORDERED: fentaNYL 100 MCG/2 ML VIAL ONE (10:22)
[2022-03-10] MEDS ORDERED: GLUCAGON 1 MG VIAL IM PRN (12:34)
[2022-03-10] MEDS ORDERED: DEXTROSE 50% 25 GM/50 ML VIAL IV PRN (12:34)
[2022-03-10] MEDS: ZOLPIDEM 5 MG TABLET PO SCH (23:01)
[2022-03-10] MEDS: INSULIN GLARGINE 100 UNIT/ML SUBCUT SCH (23:27)
[2022-03-11 03:43] LABS: Basophils # 0.1 10*3/uL (0.0-0.2); Basophils % 0.7 % (0.0-0.8); Eosinophils # 0.5 10*3/uL (0.0-0.87); Eosinophils % 5.7 % (0.00-10.9); Hematocrit 36.3 VOL% (42.0-52.0); Hemoglobin 11.6 GM/DL (14.0-18.0); Immature Granulocytes % 1.8 %; Immature Granulocytes Absolute 0.15 #; Lymphocytes # 2.5 10*3/uL (1.4-4.0); Mean Platelet Volume 10.8 FL (9.6-12.0); Monocytes % 12.3 % (1.7-12.7); Neutrophils % 50.5 % (38.7-73.9); Platelet Count 293 T/CUMM (130-400); Red Blood Count 3.78 MC/CUMM (3.8-5.5); Red Cell Distribution Width 13.6 % (9.3-17.3); White Blood Count 8.5 T/CUMM (4-12)
[2022-03-11] MEDS: oxyCODONE/ACETAMINOPHEN 5-325 MG TABLET PO PRN ×4 (05:41→20:59)
[2022-03-11 08:54] LABS: Calcium 8.8 MG/DL (8.5-10.1); Osmolality,Calculated 281.8 MOS/KG (273-304); Potassium 3.8 MMOL/L (3.5-5.1)
[2022-03-11] MEDS: MAGNESIUM CHLORIDE 64 MG TABLET PO SCH ×2 (09:47→20:58)
[2022-03-11] MEDS: cilostazoL 100 MG TABLET PO SCH ×2 (09:47→20:58)
[2022-03-11] MEDS: CLOPIDOGREL 75 MG TABLET PO SCH (09:47)
[2022-03-11] MEDS: allopurinoL 100 MG TABLET PO SCH ×2 (09:47→20:59)
[2022-03-11] MEDS: FUROSEMIDE 40 MG TABLET PO SCH ×2 (09:47→15:23)
[2022-03-11] MEDS: DESVENLAFAXINE 50 MG TABLET PO SCH (09:47)
[2022-03-11] MEDS: PREGABALIN 100 MG CAPSULE PO SCH ×3 (09:47→20:59)
[2022-03-11] MEDS: metOLazone 2.5 MG TABLET PO SCH ×2 (09:47→15:23)
[2022-03-11] MEDS: COLCHICINE 0.6 MG CAPSULE PO SCH ×2 (09:47→20:58)
[2022-03-11] MEDS: ESCITALOPRAM 10 MG TABLET PO SCH (09:47)
[2022-03-11] MEDS: DOCUSATE SODIUM 100 MG CAPSULE PO SCH ×2 (09:47→21:23)
[2022-03-11] MEDS: POTASSIUM CHLORIDE 20 MEQ TABLET PO SCH ×2 (09:47→20:58)
[2022-03-11] MEDS: MULTIVITAMIN (BEROCCA) TABLET PO SCH ×2 (09:47→20:57)
[2022-03-11] MEDS: cefTRIAXone 2,000 MG in SODIUM CHLORIDE 0.9% 100 ML IV SCH (09:48)
[2022-03-11] MEDS: ATORVASTATIN 40 MG TABLET PO SCH (09:48)
[2022-03-11] MEDS: FERROUS SULFATE 325 MG TABLET PO SCH ×2 (09:48→16:56)
[2022-03-11] MEDS: PANTOPRAZOLE 40 MG TABLET PO SCH ×2 (09:48→20:58)
[2022-03-11] MEDS: AMIODARONE 200 MG TABLET PO SCH (09:48)
[2022-03-11] MEDS: DILTIAZEM CD 240 MG CAPSULE PO SCH (09:48)
[2022-03-11] MEDS: MENTHOL/ZINC OXIDE OINT 71 GM JAR TOP SCH ×2 (09:49→21:00)
[2022-03-11] MEDS: SODIUM HYPOCHLORITE 0.25% IRRIG 473 ML BOTTLE TOP SCH (09:49)
[2022-03-11] MEDS: INSULIN LISPRO 100 UNIT/ML SUBCUT SCH ×4 (09:50→21:23)
[2022-03-11] MEDS: LIRAGLUTIDE 0.6 MG/0.1 ML SUBCUT SCH (09:50)
[2022-03-11] MEDS: tiZANidine 4 MG TABLET PO PRN ×2 (09:51→20:59)
[2022-03-11] MEDS: SODIUM CHLORIDE 0.9% 1,000 ML IV SCH ×2 (10:11→21:11)
[2022-03-11] MEDS: INSULIN GLARGINE 100 UNIT/ML SUBCUT SCH (21:00)
[2022-03-11] MEDS: ZOLPIDEM 5 MG TABLET PO SCH (21:16)
[2022-03-12] MEDS: oxyCODONE/ACETAMINOPHEN 5-325 MG TABLET PO PRN ×4 (05:48→20:49)
[2022-03-12] MEDS: AMIODARONE 200 MG TABLET PO SCH (09:11)
[2022-03-12] MEDS: cilostazoL 100 MG TABLET PO SCH ×2 (09:11→20:49)
[2022-03-12] MEDS: CLOPIDOGREL 75 MG TABLET PO SCH (09:11)
[2022-03-12] MEDS: DOCUSATE SODIUM 100 MG CAPSULE PO SCH ×2 (09:11→22:24)
[2022-03-12] MEDS: cefTRIAXone 2,000 MG in SODIUM CHLORIDE 0.9% 100 ML IV SCH (09:11)
[2022-03-12] MEDS: FERROUS SULFATE 325 MG TABLET PO SCH ×2 (09:11→16:10)
[2022-03-12] MEDS: MAGNESIUM CHLORIDE 64 MG TABLET PO SCH ×2 (09:12→20:49)
[2022-03-12] MEDS: ATORVASTATIN 40 MG TABLET PO SCH (09:12)
[2022-03-12] MEDS: POTASSIUM CHLORIDE 20 MEQ TABLET PO SCH ×2 (09:12→20:48)
[2022-03-12] MEDS: DESVENLAFAXINE 50 MG TABLET PO SCH (09:12)
[2022-03-12] MEDS: PREGABALIN 100 MG CAPSULE PO SCH ×3 (09:12→20:49)
[2022-03-12] MEDS: metOLazone 2.5 MG TABLET PO SCH ×2 (09:12→15:08)
[2022-03-12] MEDS: ESCITALOPRAM 10 MG TABLET PO SCH (09:12)
[2022-03-12] MEDS: COLCHICINE 0.6 MG CAPSULE PO SCH ×2 (09:12→20:49)
[2022-03-12] MEDS: tiZANidine 4 MG TABLET PO PRN ×2 (09:12→20:49)
[2022-03-12] MEDS: MULTIVITAMIN (BEROCCA) TABLET PO SCH ×2 (09:12→20:47)
[2022-03-12] MEDS: FUROSEMIDE 40 MG TABLET PO SCH ×2 (09:12→15:08)
[2022-03-12] MEDS: allopurinoL 100 MG TABLET PO SCH ×2 (09:12→20:47)
[2022-03-12] MEDS: DILTIAZEM CD 240 MG CAPSULE PO SCH (09:13)
[2022-03-12] MEDS: PANTOPRAZOLE 40 MG TABLET PO SCH ×2 (09:13→20:48)
[2022-03-12] MEDS: SODIUM HYPOCHLORITE 0.25% IRRIG 473 ML BOTTLE TOP SCH (09:13)
[2022-03-12] MEDS: MENTHOL/ZINC OXIDE OINT 71 GM JAR TOP SCH ×2 (09:13→20:55)
[2022-03-12] MEDS: carvediloL 25 MG TABLET PO SCH ×2 (09:15→16:10)
[2022-03-12] MEDS: LIRAGLUTIDE 0.6 MG/0.1 ML SUBCUT SCH (09:16)
[2022-03-12] MEDS: INSULIN LISPRO 100 UNIT/ML SUBCUT SCH ×4 (10:05→22:24)
[2022-03-12] MEDS: fentaNYL 12 MCG/HR PATCH TRANSDERM SCH (10:44)
[2022-03-12] MEDS: ZOLPIDEM 5 MG TABLET PO SCH (20:48)
[2022-03-12] MEDS: INSULIN GLARGINE 100 UNIT/ML SUBCUT SCH (20:50)
[2022-03-12] MEDS: SODIUM CHLORIDE 0.9% 1,000 ML IV SCH (20:56)
[2022-03-13] MEDS: ONDANSETRON 4 MG/2 ML VIAL IV PRN ×2 (01:46→22:15)
[2022-03-13 04:48] LABS: Basophils % 0.5 % (0.0-0.8); Eosinophils # 0.4 10*3/uL (0.0-0.87); Eosinophils % 5.1 % (0.00-10.9); Hematocrit 35.6 VOL% (42.0-52.0); Hemoglobin 11.2 GM/DL (14.0-18.0); Immature Granulocytes % 1.1 %; Immature Granulocytes Absolute 0.08 #; Lymphocytes # 1.5 10*3/uL (1.4-4.0); Lymphocytes % 20.9 % (21.2-54.2); Mean Corpuscular HGB Conc 31.5 GM/DL (32-36); Mean Corpuscular Volume 98.3 FL (87-102); Mean Platelet Volume 10.5 FL (9.6-12.0); Monocytes # 0.6 10*3/uL (0.11-0.8); Neutrophils % 64.4 % (38.7-73.9); Platelet Count 257 T/CUMM (130-400); Red Blood Count 3.62 MC/CUMM (3.8-5.5); Red Cell Distribution Width 13.7 % (9.3-17.3); White Blood Count 7.3 T/CUMM (4-12)
[2022-03-13 05:09] LABS: Calcium 8.7 MG/DL (8.5-10.1); Osmolality,Calculated 289.5 MOS/KG (273-304); Potassium 3.9 MMOL/L (3.5-5.1)
[2022-03-13] MEDS: INSULIN LISPRO 100 UNIT/ML SUBCUT SCH ×4 (08:01→21:00)
[2022-03-13] MEDS: DESVENLAFAXINE 50 MG TABLET PO SCH (09:35)
[2022-03-13] MEDS: oxyCODONE/ACETAMINOPHEN 5-325 MG TABLET PO PRN ×3 (09:35→18:05)
[2022-03-13] MEDS: tiZANidine 4 MG TABLET PO PRN ×2 (09:36→20:55)
[2022-03-13] MEDS: FERROUS SULFATE 325 MG TABLET PO SCH ×2 (09:36→16:36)
[2022-03-13] MEDS: ESCITALOPRAM 10 MG TABLET PO SCH (09:36)
[2022-03-13] MEDS: carvediloL 25 MG TABLET PO SCH ×2 (09:36→16:37)
[2022-03-13] MEDS: DILTIAZEM CD 240 MG CAPSULE PO SCH (09:36)
[2022-03-13] MEDS: metOLazone 2.5 MG TABLET PO SCH ×2 (09:36→16:37)
[2022-03-13] MEDS: PANTOPRAZOLE 40 MG TABLET PO SCH ×2 (09:37→20:51)
[2022-03-13] MEDS: MULTIVITAMIN (BEROCCA) TABLET PO SCH ×2 (09:37→20:50)
[2022-03-13] MEDS: MAGNESIUM CHLORIDE 64 MG TABLET PO SCH ×2 (09:37→20:51)
[2022-03-13] MEDS: AMIODARONE 200 MG TABLET PO SCH (09:37)
[2022-03-13] MEDS: ATORVASTATIN 40 MG TABLET PO SCH (09:37)
[2022-03-13] MEDS: allopurinoL 100 MG TABLET PO SCH ×2 (09:37→20:51)
[2022-03-13] MEDS: CLOPIDOGREL 75 MG TABLET PO SCH (09:37)
[2022-03-13] MEDS: cilostazoL 100 MG TABLET PO SCH ×2 (09:37→20:51)
[2022-03-13] MEDS: DOCUSATE SODIUM 100 MG CAPSULE PO SCH ×2 (09:37→20:51)
[2022-03-13] MEDS: FUROSEMIDE 40 MG TABLET PO SCH ×2 (09:37→16:36)
[2022-03-13] MEDS: PREGABALIN 100 MG CAPSULE PO SCH ×3 (09:37→20:50)
[2022-03-13] MEDS: COLCHICINE 0.6 MG CAPSULE PO SCH ×2 (09:37→20:51)
[2022-03-13] MEDS: POTASSIUM CHLORIDE 20 MEQ TABLET PO SCH ×2 (09:38→20:50)
[2022-03-13] MEDS: cefTRIAXone 2,000 MG in SODIUM CHLORIDE 0.9% 100 ML IV SCH (09:41)
[2022-03-13] MEDS: MENTHOL/ZINC OXIDE OINT 71 GM JAR TOP SCH ×2 (09:42→21:00)
[2022-03-13] MEDS: SODIUM HYPOCHLORITE 0.25% IRRIG 473 ML BOTTLE TOP SCH (09:42)
[2022-03-13] MEDS: LIRAGLUTIDE 0.6 MG/0.1 ML SUBCUT SCH (10:55)
[2022-03-13] MEDS: SODIUM CHLORIDE 0.9% 1,000 ML IV SCH (18:05)
[2022-03-13] MEDS: ZOLPIDEM 5 MG TABLET PO SCH (20:50)
[2022-03-13] MEDS: INSULIN GLARGINE 100 UNIT/ML SUBCUT SCH (20:52)
[2022-03-14] MEDS: oxyCODONE/ACETAMINOPHEN 5-325 MG TABLET PO PRN ×4 (01:33→21:08)
[2022-03-14] MEDS ORDERED: oxyCODONE/ACETAMINOPHEN 5-325 MG TABLET PO SCH (09:00)
[2022-03-14] MEDS: cefTRIAXone 2,000 MG in SODIUM CHLORIDE 0.9% 100 ML IV SCH (09:33)
[2022-03-14] MEDS: MAGNESIUM CHLORIDE 64 MG TABLET PO SCH ×2 (09:34→21:07)
[2022-03-14] MEDS: DESVENLAFAXINE 50 MG TABLET PO SCH (09:34)
[2022-03-14] MEDS: CLOPIDOGREL 75 MG TABLET PO SCH (09:35)
[2022-03-14] MEDS: cilostazoL 100 MG TABLET PO SCH ×2 (09:35→21:07)
[2022-03-14] MEDS: PANTOPRAZOLE 40 MG TABLET PO SCH ×2 (09:35→21:08)
[2022-03-14] MEDS: FUROSEMIDE 40 MG TABLET PO SCH ×2 (09:35→17:09)
[2022-03-14] MEDS: POTASSIUM CHLORIDE 20 MEQ TABLET PO SCH ×2 (09:35→21:07)
[2022-03-14] MEDS: metOLazone 2.5 MG TABLET PO SCH ×2 (09:36→17:09)
[2022-03-14] MEDS: ESCITALOPRAM 10 MG TABLET PO SCH (09:36)
[2022-03-14] MEDS: tiZANidine 4 MG TABLET PO PRN ×2 (09:36→21:07)
[2022-03-14] MEDS: DILTIAZEM CD 240 MG CAPSULE PO SCH (09:36)
[2022-03-14] MEDS: MULTIVITAMIN (BEROCCA) TABLET PO SCH ×2 (09:36→21:07)
[2022-03-14] MEDS: DOCUSATE SODIUM 100 MG CAPSULE PO SCH ×2 (09:36→21:07)
[2022-03-14] MEDS: AMIODARONE 200 MG TABLET PO SCH (09:36)
[2022-03-14] MEDS: FERROUS SULFATE 325 MG TABLET PO SCH ×2 (09:36→17:09)
[2022-03-14] MEDS: allopurinoL 100 MG TABLET PO SCH ×2 (09:37→21:07)
[2022-03-14] MEDS: ATORVASTATIN 40 MG TABLET PO SCH (09:37)
[2022-03-14] MEDS: MENTHOL/ZINC OXIDE OINT 71 GM JAR TOP SCH ×2 (09:37→21:09)
[2022-03-14] MEDS: PREGABALIN 100 MG CAPSULE PO SCH ×3 (09:37→21:07)
[2022-03-14] MEDS: carvediloL 25 MG TABLET PO SCH ×2 (09:37→17:09)
[2022-03-14] MEDS: COLCHICINE 0.6 MG CAPSULE PO SCH ×2 (09:40→21:08)
[2022-03-14] MEDS: ONDANSETRON 4 MG/2 ML VIAL IV PRN ×2 (09:43→17:16)
[2022-03-14] MEDS: INSULIN LISPRO 100 UNIT/ML SUBCUT SCH ×4 (09:48→21:09)
[2022-03-14] MEDS: SODIUM HYPOCHLORITE 0.25% IRRIG 473 ML BOTTLE TOP SCH (09:49)
[2022-03-14] MEDS: LIRAGLUTIDE 0.6 MG/0.1 ML SUBCUT SCH (09:49)
[2022-03-14] MEDS: SODIUM CHLORIDE 0.9% 1,000 ML IV SCH (17:08)
[2022-03-14] MEDS: ZOLPIDEM 5 MG TABLET PO SCH (21:08)
[2022-03-14] MEDS: INSULIN GLARGINE 100 UNIT/ML SUBCUT SCH (21:12)
[2022-03-15] MEDS: ONDANSETRON 4 MG/2 ML VIAL IV PRN ×2 (00:25→22:53)
[2022-03-15] MEDS: tiZANidine 4 MG TABLET PO PRN ×2 (08:52→20:42)
[2022-03-15] MEDS: oxyCODONE/ACETAMINOPHEN 5-325 MG TABLET PO PRN ×3 (08:52→20:44)
[2022-03-15] MEDS: MAGNESIUM CHLORIDE 64 MG TABLET PO SCH ×2 (08:52→20:42)
[2022-03-15] MEDS: cilostazoL 100 MG TABLET PO SCH ×2 (08:52→20:42)
[2022-03-15] MEDS: DESVENLAFAXINE 50 MG TABLET PO SCH (08:52)
[2022-03-15] MEDS: metOLazone 2.5 MG TABLET PO SCH ×2 (08:53→17:04)
[2022-03-15] MEDS: DILTIAZEM CD 240 MG CAPSULE PO SCH (08:53)
[2022-03-15] MEDS: ESCITALOPRAM 10 MG TABLET PO SCH (08:53)
[2022-03-15] MEDS: CLOPIDOGREL 75 MG TABLET PO SCH (08:53)
[2022-03-15] MEDS: DOCUSATE SODIUM 100 MG CAPSULE PO SCH ×2 (08:53→20:43)
[2022-03-15] MEDS: ATORVASTATIN 40 MG TABLET PO SCH (08:53)
[2022-03-15] MEDS: PREGABALIN 100 MG CAPSULE PO SCH ×3 (08:53→20:41)
[2022-03-15] MEDS: MULTIVITAMIN (BEROCCA) TABLET PO SCH ×2 (08:53→20:41)
[2022-03-15] MEDS: POTASSIUM CHLORIDE 20 MEQ TABLET PO SCH ×2 (08:54→20:42)
[2022-03-15] MEDS: carvediloL 25 MG TABLET PO SCH ×2 (08:54→17:03)
[2022-03-15] MEDS: PANTOPRAZOLE 40 MG TABLET PO SCH ×2 (08:54→20:41)
[2022-03-15] MEDS: FERROUS SULFATE 325 MG TABLET PO SCH ×2 (08:54→17:03)
[2022-03-15] MEDS: AMIODARONE 200 MG TABLET PO SCH (08:54)
[2022-03-15] MEDS: FUROSEMIDE 40 MG TABLET PO SCH ×2 (08:55→17:03)
[2022-03-15] MEDS: allopurinoL 100 MG TABLET PO SCH ×2 (08:55→20:42)
[2022-03-15] MEDS: SODIUM HYPOCHLORITE 0.25% IRRIG 473 ML BOTTLE TOP SCH (08:55)
[2022-03-15] MEDS: MENTHOL/ZINC OXIDE OINT 71 GM JAR TOP SCH ×2 (08:55→20:43)
[2022-03-15] MEDS: cefTRIAXone 2,000 MG in SODIUM CHLORIDE 0.9% 100 ML IV SCH (09:00)
[2022-03-15] MEDS: LIRAGLUTIDE 0.6 MG/0.1 ML SUBCUT SCH (09:03)
[2022-03-15] MEDS: COLCHICINE 0.6 MG CAPSULE PO SCH ×2 (09:03→20:42)
[2022-03-15] MEDS: INSULIN LISPRO 100 UNIT/ML SUBCUT SCH ×4 (09:03→20:43)
[2022-03-15] MEDS: SODIUM CHLORIDE 0.9% 1,000 ML IV SCH (12:02)
[2022-03-15] MEDS: fentaNYL 12 MCG/HR PATCH TRANSDERM SCH (12:29)
[2022-03-15] MEDS: INSULIN GLARGINE 100 UNIT/ML SUBCUT SCH (20:43)
[2022-03-15] MEDS ORDERED: ZOLPIDEM 5 MG TABLET PO SCH (21:00)
[2022-03-16] MEDS: oxyCODONE/ACETAMINOPHEN 5-325 MG TABLET PO PRN ×2 (04:41→09:13)
[2022-03-16 06:06] LABS: Basophils % 0.5 % (0.0-0.8); Eosinophils # 0.4 10*3/uL (0.0-0.87); Eosinophils % 5.1 % (0.00-10.9); Hematocrit 31.4 VOL% (42.0-52.0); Hemoglobin 9.6 GM/DL (14.0-18.0); Immature Granulocytes % 1.1 %; Immature Granulocytes Absolute 0.09 #; Lymphocytes # 2.5 10*3/uL (1.4-4.0); Lymphocytes % 31.1 % (21.2-54.2); Mean Corpuscular HGB Conc 30.6 GM/DL (32-36); Mean Corpuscular Volume 99.7 FL (87-102); Mean Platelet Volume 10.7 FL (9.6-12.0); Monocytes # 1.1 10*3/uL (0.11-0.8); Monocytes % 13.4 % (1.7-12.7); Neutrophils % 48.8 % (38.7-73.9); Platelet Count 280 T/CUMM (130-400); Red Blood Count 3.15 MC/CUMM (3.8-5.5); Red Cell Distribution Width 14.2 % (9.3-17.3); White Blood Count 8.1 T/CUMM (4-12)
[2022-03-16 06:22] LABS: Calcium 8.3 MG/DL (8.5-10.1); Osmolality,Calculated 292.1 MOS/KG (273-304)
[2022-03-16] MEDS: cefTRIAXone 2,000 MG in SODIUM CHLORIDE 0.9% 100 ML IV SCH (09:03)
[2022-03-16] MEDS: INSULIN LISPRO 100 UNIT/ML SUBCUT SCH (09:04)
[2022-03-16] MEDS: allopurinoL 100 MG TABLET PO SCH (09:07)
[2022-03-16] MEDS: MAGNESIUM CHLORIDE 64 MG TABLET PO SCH (09:07)
[2022-03-16] MEDS: carvediloL 25 MG TABLET PO SCH (09:07)
[2022-03-16] MEDS: PREGABALIN 100 MG CAPSULE PO SCH (09:07)
[2022-03-16] MEDS: DILTIAZEM CD 240 MG CAPSULE PO SCH (09:07)
[2022-03-16] MEDS: PANTOPRAZOLE 40 MG TABLET PO SCH (09:07)
[2022-03-16] MEDS: AMIODARONE 200 MG TABLET PO SCH (09:07)
[2022-03-16] MEDS: metOLazone 2.5 MG TABLET PO SCH (09:07)
[2022-03-16] MEDS: FERROUS SULFATE 325 MG TABLET PO SCH (09:07)
[2022-03-16] MEDS: cilostazoL 100 MG TABLET PO SCH (09:08)
[2022-03-16] MEDS: MULTIVITAMIN (BEROCCA) TABLET PO SCH (09:08)
[2022-03-16] MEDS: FUROSEMIDE 40 MG TABLET PO SCH (09:08)
[2022-03-16] MEDS: CLOPIDOGREL 75 MG TABLET PO SCH (09:08)
[2022-03-16] MEDS: ESCITALOPRAM 10 MG TABLET PO SCH (09:08)
[2022-03-16] MEDS: DOCUSATE SODIUM 100 MG CAPSULE PO SCH (09:08)
[2022-03-16] MEDS: POTASSIUM CHLORIDE 20 MEQ TABLET PO SCH (09:08)
[2022-03-16] MEDS: DESVENLAFAXINE 50 MG TABLET PO SCH (09:08)
[2022-03-16] MEDS: COLCHICINE 0.6 MG CAPSULE PO SCH (09:09)
[2022-03-16] MEDS: ATORVASTATIN 40 MG TABLET PO SCH (09:09)
[2022-03-16] MEDS: MENTHOL/ZINC OXIDE OINT 71 GM JAR TOP SCH (09:11)
[2022-03-16] MEDS: SODIUM HYPOCHLORITE 0.25% IRRIG 473 ML BOTTLE TOP SCH (09:11)
[2022-03-16] MEDS: LIRAGLUTIDE 0.6 MG/0.1 ML SUBCUT SCH (09:18)
[2022-03-16 09:21] VITALS: BP 125/74
== END 2022-03-16 15:00 | disposition home or self-care (01) | DRG 988 ==
LOC: N.ED 17:55 → N.EDINP 21:19 → N.3E 22:52
PROVIDERS: ADMIT Internal Medicine; ATTEND Internal Medicine

== ENCOUNTER 2022-04-10 07:05 | Inpatient (IN) ==
[2022-04-08 16:10] LABS: Basophils % 0.2 % (0.0-0.8); Eosinophils # 0.2 10*3/uL (0.0-0.87); Eosinophils % 1.3 % (0.00-10.9); Hematocrit 26.3 VOL% (42.0-52.0); Hemoglobin 8.1 GM/DL (14.0-18.0); Immature Granulocytes % 1.5 %; Immature Granulocytes Absolute 0.24 #; Lymphocytes % 12.6 % (21.2-54.2); Mean Corpuscular HGB Conc 30.8 GM/DL (32-36); Mean Platelet Volume 10.9 FL (9.6-12.0); Monocytes # 1.2 10*3/uL (0.11-0.8); Monocytes % 7.7 % (1.7-12.7); Neutrophils % 76.7 % (38.7-73.9); Platelet Count 373 T/CUMM (130-400); Red Blood Count 2.71 MC/CUMM (3.8-5.5); Red Cell Distribution Width 14.7 % (9.3-17.3); White Blood Count 15.9 T/CUMM (4-12)
[2022-04-08 16:21] LABS: PT Patient Result 11.3 SECS (10.5-12.0); Partial Thromboplastin Time 32.6 SECS (23.7-32.9)
[2022-04-08 16:24] LABS: Calcium 8.4 MG/DL (8.5-10.1)
[~2022-04-10 07:05] MED LIST changes: +LACTATED RINGERS 1,000 ML IV SCH; +VANCOMYCIN INJ 1,000 MG in SODIUM CHLORIDE 0.9% 250 ML IV ONE; -ceFAZolin 1,000 MG VIAL ONE; -ceFAZolin 1,000 MG in SYRINGE 1 EACH IV ONE
[2022-04-10] MEDS ORDERED: DIAZEPAM 5 MG TABLET PO ONE (07:18)
[2022-04-10] MEDS ORDERED: FAMOTIDINE 20 MG TABLET PO ONE (07:18)
[2022-04-10] MEDS ORDERED: BUPIVACAINE MPF 0.25% 10 ML VIAL ONE (09:50)
[2022-04-10] MEDS ORDERED: PHENYLEPHRINE DRIP 20 MG/250 ML PREMIX IV ONE (10:05)
[2022-04-10] MEDS ORDERED: fentaNYL 100 MCG/2 ML VIAL ONE (10:09)
[2022-04-10] MEDS ORDERED: LIDOCAINE 2% 5 ML VIAL ONE (10:09)
[2022-04-10] MEDS ORDERED: ETOMIDATE 40 MG/20 ML VIAL IV ONE (10:09)
[2022-04-10] MEDS ORDERED: MIDAZOLAM 2 MG/2 ML VIAL ONE (10:30)
[2022-04-10] MEDS ORDERED: SEVOFLURANE 1 UNIT/15 MINUTE INH ONE (11:06)
[2022-04-10] MEDS ORDERED: ONDANSETRON 4 MG/2 ML VIAL IV PRN ×2 (11:24→12:24)
[2022-04-10] MEDS: HYDROmorphone 1 MG/1 ML SYRINGE IV PRN ×4 (11:30→22:09)
[2022-04-10] MEDS ORDERED: BISACODYL 5 MG TABLET PO PRN (12:24)
[2022-04-10] MEDS ORDERED: GLUCAGON 1 MG VIAL IM PRN (12:24)
[2022-04-10] MEDS ORDERED: ALBUTEROL/IPRATROPIUM 3 ML NEB RESP TX PRN (12:24)
[2022-04-10] MEDS ORDERED: HYDROmorphone 1 MG/1 ML SYRINGE IV PRN (12:24)
[2022-04-10] MEDS ORDERED: ACETAMINOPHEN 325 MG TABLET PO PRN (12:24)
[2022-04-10] MEDS ORDERED: FLUTICASONE 50 MCG NASAL SPRAY 16 GM BOTTLE BOTH NARES PRN (12:30)
[2022-04-10] MEDS ORDERED: VANCOMYCIN INJ 2,000 MG in SODIUM CHLORIDE 0.9% 250 ML IV SCH (12:30)
[2022-04-10] MEDS ORDERED: DEXTROSE 10% 250 ML BAG IV PRN (12:41)
[2022-04-10] MEDS: LACTATED RINGERS 1,000 ML IV SCH (13:49)
[2022-04-10] MEDS: VANCOMYCIN INJ 1,500 MG in SODIUM CHLORIDE 0.9% 500 ML IV SCH (15:19)
[2022-04-10] MEDS: PIPERACILLIN/TAZOBACTAM 3,375 MG in SODIUM CHLORIDE 0.9% 100 ML IV SCH ×2 (15:19→22:11)
[2022-04-10] MEDS: PREGABALIN 100 MG CAPSULE PO SCH ×2 (15:31→22:03)
[2022-04-10] MEDS: fentaNYL 12 MCG/HR PATCH TRANSDERM SCH (16:50)
[2022-04-10] MEDS: INSULIN LISPRO 100 UNIT/ML SUBCUT SCH (16:52)
[2022-04-10] MEDS: INSULIN GLARGINE 100 UNIT/ML SUBCUT SCH (22:00)
[2022-04-10] MEDS: MAGNESIUM CHLORIDE 64 MG TABLET PO SCH (22:02)
[2022-04-10] MEDS: COLCHICINE 0.6 MG CAPSULE PO SCH (22:03)
[2022-04-10] MEDS: MULTIVITAMIN (BEROCCA) TABLET PO SCH (22:03)
[2022-04-10] MEDS: allopurinoL 100 MG TABLET PO SCH (22:03)
[2022-04-10] MEDS: DESVENLAFAXINE 50 MG TABLET PO SCH (22:03)
[2022-04-10] MEDS: DILTIAZEM CD 240 MG CAPSULE PO SCH (22:04)
[2022-04-10] MEDS: ZOLPIDEM 5 MG TABLET PO SCH (22:05)
[2022-04-10] MEDS: carvediloL 25 MG TABLET PO SCH (22:05)
[2022-04-10] MEDS: FERROUS SULFATE 325 MG TABLET PO SCH (22:05)
[2022-04-10] MEDS: POTASSIUM CHLORIDE 20 MEQ TABLET PO SCH (22:05)
[2022-04-11] MEDS: VANCOMYCIN INJ 1,500 MG in SODIUM CHLORIDE 0.9% 500 ML IV SCH ×2 (02:12→14:37)
[2022-04-11 05:00] LABS: Basophils % 0.3 % (0.0-0.8); Eosinophils # 0.2 10*3/uL (0.0-0.87); Eosinophils % 1.6 % (0.00-10.9); Hematocrit 24.8 VOL% (42.0-52.0); Hemoglobin 7.4 GM/DL (14.0-18.0); Immature Granulocytes % 1.3 %; Immature Granulocytes Absolute 0.15 #; Lymphocytes # 1.9 10*3/uL (1.4-4.0); Lymphocytes % 16.3 % (21.2-54.2); Mean Corpuscular HGB Conc 29.8 GM/DL (32-36); Mean Platelet Volume 10.5 FL (9.6-12.0); Monocytes # 1.1 10*3/uL (0.11-0.8); Monocytes % 9.6 % (1.7-12.7); Neutrophils % 70.9 % (38.7-73.9); Platelet Count 340 T/CUMM (130-400); Red Blood Count 2.53 MC/CUMM (3.8-5.5); Red Cell Distribution Width 14.6 % (9.3-17.3); White Blood Count 11.6 T/CUMM (4-12)
[2022-04-11 05:15] LABS: Calcium 8.5 MG/DL (8.5-10.1); Osmolality,Calculated 283.7 MOS/KG (273-304); Potassium 5.2 MMOL/L (3.5-5.1)
[2022-04-11] MEDS: PANTOPRAZOLE 40 MG TABLET PO SCH (05:55)
[2022-04-11] MEDS: ENOXAPARIN 40 MG/0.4 ML SYRINGE SUBCUT SCH ×2 (05:56→08:06)
[2022-04-11] MEDS: PIPERACILLIN/TAZOBACTAM 3,375 MG in SODIUM CHLORIDE 0.9% 100 ML IV SCH ×3 (05:57→21:22)
[2022-04-11] MEDS: INSULIN LISPRO 100 UNIT/ML SUBCUT SCH ×3 (07:19→16:19)
[2022-04-11] MEDS: HYDROmorphone 1 MG/1 ML SYRINGE IV PRN ×5 (07:51→21:21)
[2022-04-11] MEDS: COLCHICINE 0.6 MG CAPSULE PO SCH ×2 (08:06→21:24)
[2022-04-11] MEDS: MAGNESIUM CHLORIDE 64 MG TABLET PO SCH ×2 (08:06→21:25)
[2022-04-11] MEDS: DESVENLAFAXINE 50 MG TABLET PO SCH ×2 (08:07→21:27)
[2022-04-11] MEDS: ATORVASTATIN 40 MG TABLET PO SCH (08:07)
[2022-04-11] MEDS: ESCITALOPRAM 10 MG TABLET PO SCH (08:07)
[2022-04-11] MEDS: AMIODARONE 200 MG TABLET PO SCH (08:08)
[2022-04-11] MEDS: FERROUS SULFATE 325 MG TABLET PO SCH ×2 (08:08→23:29)
[2022-04-11] MEDS: MULTIVITAMIN (BEROCCA) TABLET PO SCH ×2 (08:08→21:24)
[2022-04-11] MEDS: PREGABALIN 100 MG CAPSULE PO SCH ×3 (08:08→21:24)
[2022-04-11] MEDS: carvediloL 25 MG TABLET PO SCH ×2 (08:08→21:27)
[2022-04-11] MEDS: allopurinoL 100 MG TABLET PO SCH ×2 (08:08→21:25)
[2022-04-11] MEDS: POTASSIUM CHLORIDE 20 MEQ TABLET PO SCH ×2 (08:08→21:26)
[2022-04-11] MEDS: LIRAGLUTIDE 0.6 MG/0.1 ML SUBCUT SCH (08:09)
[2022-04-11] MEDS: metOLazone 2.5 MG TABLET PO SCH (08:14)
[2022-04-11] MEDS ORDERED: FUROSEMIDE 80 MG TABLET PO SCH (09:00)
[2022-04-11] MEDS: FUROSEMIDE 80 MG TABLET PO SCH (16:18)
[2022-04-11] MEDS: LACTATED RINGERS 1,000 ML IV SCH (16:19)
[2022-04-11] MEDS: INSULIN GLARGINE 100 UNIT/ML SUBCUT SCH (21:18)
[2022-04-11] MEDS: DILTIAZEM CD 240 MG CAPSULE PO SCH (21:25)
[2022-04-11] MEDS: ZOLPIDEM 5 MG TABLET PO SCH (21:28)
[2022-04-12 02:08] LABS: Basophils % 0.3 % (0.0-0.8); Eosinophils # 0.2 10*3/uL (0.0-0.87); Eosinophils % 1.7 % (0.00-10.9); Hemoglobin 7.8 GM/DL (14.0-18.0); Immature Granulocytes % 1.4 %; Immature Granulocytes Absolute 0.17 #; Lymphocytes # 2.3 10*3/uL (1.4-4.0); Lymphocytes % 18.9 % (21.2-54.2); Mean Platelet Volume 10.4 FL (9.6-12.0); Monocytes # 1.1 10*3/uL (0.11-0.8); Monocytes % 9.5 % (1.7-12.7); Neutrophils % 68.2 % (38.7-73.9); Platelet Count 370 T/CUMM (130-400); Red Blood Count 2.68 MC/CUMM (3.8-5.5); Red Cell Distribution Width 14.7 % (9.3-17.3)
[2022-04-12 02:30] LABS: Calcium 8.3 MG/DL (8.5-10.1); Osmolality,Calculated 287.5 MOS/KG (273-304); Potassium 4.1 MMOL/L (3.5-5.1)
[2022-04-12] MEDS: VANCOMYCIN INJ 1,500 MG in SODIUM CHLORIDE 0.9% 500 ML IV SCH ×2 (02:41→16:08)
[2022-04-12] MEDS: HYDROmorphone 1 MG/1 ML SYRINGE IV PRN ×6 (02:42→22:04)
[2022-04-12] MEDS: PIPERACILLIN/TAZOBACTAM 3,375 MG in SODIUM CHLORIDE 0.9% 100 ML IV SCH ×2 (06:19→13:00)
[2022-04-12] MEDS: PANTOPRAZOLE 40 MG TABLET PO SCH (06:20)
[2022-04-12] MEDS: INSULIN LISPRO 100 UNIT/ML SUBCUT SCH ×3 (08:08→16:36)
[2022-04-12] MEDS: ENOXAPARIN 40 MG/0.4 ML SYRINGE SUBCUT SCH (08:57)
[2022-04-12] MEDS: FERROUS SULFATE 325 MG TABLET PO SCH ×2 (08:59→22:00)
[2022-04-12] MEDS: MAGNESIUM CHLORIDE 64 MG TABLET PO SCH ×2 (08:59→22:07)
[2022-04-12] MEDS: ESCITALOPRAM 10 MG TABLET PO SCH (09:00)
[2022-04-12] MEDS: POTASSIUM CHLORIDE 20 MEQ TABLET PO SCH ×2 (09:00→22:00)
[2022-04-12] MEDS: allopurinoL 100 MG TABLET PO SCH ×2 (09:01→22:07)
[2022-04-12] MEDS: PREGABALIN 100 MG CAPSULE PO SCH ×3 (09:01→22:00)
[2022-04-12] MEDS: DESVENLAFAXINE 50 MG TABLET PO SCH ×2 (09:01→22:00)
[2022-04-12] MEDS: carvediloL 25 MG TABLET PO SCH ×2 (09:02→22:00)
[2022-04-12] MEDS: metOLazone 2.5 MG TABLET PO SCH (09:02)
[2022-04-12] MEDS: MULTIVITAMIN (BEROCCA) TABLET PO SCH ×2 (09:02→22:06)
[2022-04-12] MEDS: COLCHICINE 0.6 MG CAPSULE PO SCH ×2 (09:03→22:07)
[2022-04-12] MEDS: LIRAGLUTIDE 0.6 MG/0.1 ML SUBCUT SCH (09:03)
[2022-04-12] MEDS: ATORVASTATIN 40 MG TABLET PO SCH (09:03)
[2022-04-12] MEDS: AMIODARONE 200 MG TABLET PO SCH (09:03)
[2022-04-12] MEDS: FUROSEMIDE 80 MG TABLET PO SCH ×2 (09:03→16:05)
[2022-04-12] MEDS: LACTATED RINGERS 1,000 ML IV SCH (10:32)
[2022-04-12] MEDS: DILTIAZEM CD 240 MG CAPSULE PO SCH (22:00)
[2022-04-12] MEDS: ZOLPIDEM 5 MG TABLET PO SCH (22:06)
[2022-04-13] MEDS: PIPERACILLIN/TAZOBACTAM 3,375 MG in SODIUM CHLORIDE 0.9% 100 ML IV SCH ×4 (00:05→21:00)
[2022-04-13] MEDS: INSULIN GLARGINE 100 UNIT/ML SUBCUT SCH ×2 (00:07→20:56)
[2022-04-13] MEDS: HYDROmorphone 1 MG/1 ML SYRINGE IV PRN ×6 (02:13→20:57)
[2022-04-13] MEDS: PANTOPRAZOLE 40 MG TABLET PO SCH (05:04)
[2022-04-13 05:54] LABS: Basophils % 0.4 % (0.0-0.8); Eosinophils # 0.3 10*3/uL (0.0-0.87); Eosinophils % 2.3 % (0.00-10.9); Hematocrit 26.3 VOL% (42.0-52.0); Immature Granulocytes Absolute 0.21 #; Lymphocytes # 2.5 10*3/uL (1.4-4.0); Lymphocytes % 23.1 % (21.2-54.2); Mean Corpuscular HGB Conc 30.4 GM/DL (32-36); Mean Corpuscular Volume 94.6 FL (87-102); Mean Platelet Volume 10.4 FL (9.6-12.0); Monocytes # 1.2 10*3/uL (0.11-0.8); Neutrophils % 61.2 % (38.7-73.9); Platelet Count 367 T/CUMM (130-400); Red Blood Count 2.78 MC/CUMM (3.8-5.5); Red Cell Distribution Width 14.7 % (9.3-17.3); White Blood Count 10.7 T/CUMM (4-12)
[2022-04-13 06:12] LABS: Calcium 8.7 MG/DL (8.5-10.1); Osmolality,Calculated 282.7 MOS/KG (273-304); Potassium 3.9 MMOL/L (3.5-5.1)
[2022-04-13] MEDS: INSULIN LISPRO 100 UNIT/ML SUBCUT SCH ×3 (07:33→16:07)
[2022-04-13] MEDS: LACTATED RINGERS 1,000 ML IV SCH ×2 (07:33→13:06)
[2022-04-13] MEDS: ENOXAPARIN 40 MG/0.4 ML SYRINGE SUBCUT SCH (08:02)
[2022-04-13] MEDS: LIRAGLUTIDE 0.6 MG/0.1 ML SUBCUT SCH (08:03)
[2022-04-13] MEDS: carvediloL 25 MG TABLET PO SCH ×2 (08:04→17:56)
[2022-04-13] MEDS: MULTIVITAMIN (BEROCCA) TABLET PO SCH ×2 (08:04→20:50)
[2022-04-13] MEDS: PREGABALIN 100 MG CAPSULE PO SCH ×3 (08:04→20:55)
[2022-04-13] MEDS: POTASSIUM CHLORIDE 20 MEQ TABLET PO SCH ×2 (08:04→20:51)
[2022-04-13] MEDS: ESCITALOPRAM 10 MG TABLET PO SCH (08:04)
[2022-04-13] MEDS: ATORVASTATIN 40 MG TABLET PO SCH (08:05)
[2022-04-13] MEDS: FUROSEMIDE 80 MG TABLET PO SCH ×2 (08:05→15:35)
[2022-04-13] MEDS: MAGNESIUM CHLORIDE 64 MG TABLET PO SCH ×2 (08:05→20:55)
[2022-04-13] MEDS: COLCHICINE 0.6 MG CAPSULE PO SCH ×2 (08:05→20:55)
[2022-04-13] MEDS: AMIODARONE 200 MG TABLET PO SCH (08:05)
[2022-04-13] MEDS: FERROUS SULFATE 325 MG TABLET PO SCH ×2 (08:05→20:56)
[2022-04-13] MEDS: DESVENLAFAXINE 50 MG TABLET PO SCH ×2 (08:05→20:50)
[2022-04-13] MEDS: allopurinoL 100 MG TABLET PO SCH ×2 (08:05→20:56)
[2022-04-13] MEDS: metOLazone 2.5 MG TABLET PO SCH (08:05)
[2022-04-13] MEDS: NEOMYCIN/POLYMYXIN/HC OTIC SOLN 10 ML BOTTLE RIGHT EAR SCH ×3 (13:31→20:59)
[2022-04-13] MEDS: fentaNYL 12 MCG/HR PATCH TRANSDERM SCH (13:32)
[2022-04-13] MEDS: VANCOMYCIN INJ 1,500 MG in SODIUM CHLORIDE 0.9% 500 ML IV SCH (15:35)
[2022-04-13] MEDS: ZOLPIDEM 5 MG TABLET PO SCH (20:51)
[2022-04-13] MEDS: DILTIAZEM CD 240 MG CAPSULE PO SCH (20:54)
[2022-04-14] MEDS: LACTATED RINGERS 1,000 ML IV SCH ×2 (03:24→21:34)
[2022-04-14] MEDS: HYDROmorphone 1 MG/1 ML SYRINGE IV PRN ×5 (04:57→21:54)
[2022-04-14] MEDS: PIPERACILLIN/TAZOBACTAM 3,375 MG in SODIUM CHLORIDE 0.9% 100 ML IV SCH ×3 (05:33→22:02)
[2022-04-14] MEDS: PANTOPRAZOLE 40 MG TABLET PO SCH (05:34)
[2022-04-14 05:47] LABS: Basophils # 0.1 10*3/uL (0.0-0.2); Basophils % 0.5 % (0.0-0.8); Eosinophils # 0.3 10*3/uL (0.0-0.87); Eosinophils % 2.3 % (0.00-10.9); Hematocrit 27.1 VOL% (42.0-52.0); Hemoglobin 8.2 GM/DL (14.0-18.0); Immature Granulocytes % 2.3 %; Immature Granulocytes Absolute 0.27 #; Lymphocytes # 2.5 10*3/uL (1.4-4.0); Mean Corpuscular HGB Conc 30.3 GM/DL (32-36); Mean Corpuscular Volume 95.4 FL (87-102); Mean Platelet Volume 10.6 FL (9.6-12.0); Monocytes # 1.4 10*3/uL (0.11-0.8); Neutrophils % 61.9 % (38.7-73.9); Platelet Count 408 T/CUMM (130-400); Red Blood Count 2.84 MC/CUMM (3.8-5.5); Red Cell Distribution Width 14.7 % (9.3-17.3); White Blood Count 11.8 T/CUMM (4-12)
[2022-04-14 06:04] LABS: Calcium 8.9 MG/DL (8.5-10.1)
[2022-04-14] MEDS: INSULIN LISPRO 100 UNIT/ML SUBCUT SCH ×3 (07:39→16:45)
[2022-04-14] MEDS: ENOXAPARIN 40 MG/0.4 ML SYRINGE SUBCUT SCH (09:02)
[2022-04-14] MEDS: PREGABALIN 100 MG CAPSULE PO SCH ×3 (09:04→21:51)
[2022-04-14] MEDS: carvediloL 25 MG TABLET PO SCH ×2 (09:04→16:53)
[2022-04-14] MEDS: ATORVASTATIN 40 MG TABLET PO SCH (09:04)
[2022-04-14] MEDS: MAGNESIUM CHLORIDE 64 MG TABLET PO SCH ×2 (09:04→21:52)
[2022-04-14] MEDS: MULTIVITAMIN (BEROCCA) TABLET PO SCH ×2 (09:04→21:52)
[2022-04-14] MEDS: FERROUS SULFATE 325 MG TABLET PO SCH ×2 (09:04→21:52)
[2022-04-14] MEDS: ESCITALOPRAM 10 MG TABLET PO SCH (09:04)
[2022-04-14] MEDS: allopurinoL 100 MG TABLET PO SCH ×2 (09:04→21:52)
[2022-04-14] MEDS: POTASSIUM CHLORIDE 20 MEQ TABLET PO SCH ×2 (09:04→21:51)
[2022-04-14] MEDS: DESVENLAFAXINE 50 MG TABLET PO SCH ×2 (09:07→21:53)
[2022-04-14] MEDS: NEOMYCIN/POLYMYXIN/HC OTIC SOLN 10 ML BOTTLE RIGHT EAR SCH ×4 (09:07→21:54)
[2022-04-14] MEDS: AMIODARONE 200 MG TABLET PO SCH (09:07)
[2022-04-14] MEDS: COLCHICINE 0.6 MG CAPSULE PO SCH ×2 (09:07→21:52)
[2022-04-14] MEDS: LIRAGLUTIDE 0.6 MG/0.1 ML SUBCUT SCH (09:07)
[2022-04-14] MEDS: FUROSEMIDE 80 MG TABLET PO SCH ×2 (09:07→15:42)
[2022-04-14] MEDS: metOLazone 2.5 MG TABLET PO SCH (09:07)
[2022-04-14] MEDS: VANCOMYCIN INJ 1,500 MG in SODIUM CHLORIDE 0.9% 500 ML IV SCH (16:53)
[2022-04-14] MEDS: ZOLPIDEM 5 MG TABLET PO SCH (21:52)
[2022-04-14] MEDS: INSULIN GLARGINE 100 UNIT/ML SUBCUT SCH (21:53)
[2022-04-14] MEDS: DILTIAZEM CD 240 MG CAPSULE PO SCH (21:53)
[2022-04-15] MEDS: LACTATED RINGERS 1,000 ML IV SCH (02:26)
[2022-04-15] MEDS: HYDROmorphone 1 MG/1 ML SYRINGE IV PRN ×6 (03:27→22:59)
[2022-04-15] MEDS: PANTOPRAZOLE 40 MG TABLET PO SCH (05:16)
[2022-04-15] MEDS: PIPERACILLIN/TAZOBACTAM 3,375 MG in SODIUM CHLORIDE 0.9% 100 ML IV SCH ×3 (05:19→22:17)
[2022-04-15 05:46] LABS: Calcium 8.8 MG/DL (8.5-10.1); Osmolality,Calculated 278.1 MOS/KG (273-304)
[2022-04-15] MEDS: metOLazone 2.5 MG TABLET PO SCH (09:21)
[2022-04-15] MEDS: carvediloL 25 MG TABLET PO SCH ×2 (09:21→16:04)
[2022-04-15] MEDS: AMIODARONE 200 MG TABLET PO SCH (09:21)
[2022-04-15] MEDS: FUROSEMIDE 80 MG TABLET PO SCH ×2 (09:21→16:04)
[2022-04-15] MEDS: MAGNESIUM CHLORIDE 64 MG TABLET PO SCH ×2 (09:22→20:33)
[2022-04-15] MEDS: MULTIVITAMIN (BEROCCA) TABLET PO SCH ×2 (09:22→20:33)
[2022-04-15] MEDS: COLCHICINE 0.6 MG CAPSULE PO SCH ×2 (09:22→20:34)
[2022-04-15] MEDS: ESCITALOPRAM 10 MG TABLET PO SCH (09:22)
[2022-04-15] MEDS: PREGABALIN 100 MG CAPSULE PO SCH ×3 (09:22→20:34)
[2022-04-15] MEDS: DESVENLAFAXINE 50 MG TABLET PO SCH ×2 (09:22→20:33)
[2022-04-15] MEDS: POTASSIUM CHLORIDE 20 MEQ TABLET PO SCH ×2 (09:22→20:34)
[2022-04-15] MEDS: allopurinoL 100 MG TABLET PO SCH ×2 (09:22→20:34)
[2022-04-15] MEDS: ATORVASTATIN 40 MG TABLET PO SCH (09:22)
[2022-04-15] MEDS: FERROUS SULFATE 325 MG TABLET PO SCH ×2 (09:22→20:33)
[2022-04-15] MEDS: NEOMYCIN/POLYMYXIN/HC OTIC SOLN 10 ML BOTTLE RIGHT EAR SCH ×4 (09:24→20:39)
[2022-04-15] MEDS: INSULIN LISPRO 100 UNIT/ML SUBCUT SCH ×3 (09:33→16:05)
[2022-04-15] MEDS: LIRAGLUTIDE 0.6 MG/0.1 ML SUBCUT SCH (09:33)
[2022-04-15] MEDS ORDERED: ONDANSETRON 4 MG/2 ML VIAL ONE (12:08)
[2022-04-15] MEDS ORDERED: propofoL 200 MG/20 ML VIAL IV ONE (12:08)
[2022-04-15] MEDS ORDERED: LIDOCAINE 2% 5 ML VIAL ONE (12:08)
[2022-04-15] MEDS ORDERED: fentaNYL 100 MCG/2 ML VIAL ONE (12:13)
[2022-04-15] MEDS ORDERED: MIDAZOLAM 2 MG/2 ML VIAL ONE (12:13)
[2022-04-15] MEDS ORDERED: BUPIVACAINE MPF 0.25% 10 ML VIAL ONE (12:25)
[2022-04-15] MEDS ORDERED: LIDOCAINE 1% 5 ML VIAL ONE (12:25)
[2022-04-15] MEDS ORDERED: SEVOFLURANE 1 UNIT/15 MINUTE INH ONE (13:22)
[2022-04-15] MEDS ORDERED: PHENYLEPHRINE 1 MG/10 ML SYRINGE IV ONE (13:22)
[2022-04-15] MEDS: VANCOMYCIN INJ 1,500 MG in SODIUM CHLORIDE 0.9% 500 ML IV SCH (15:43)
[2022-04-15] MEDS: DILTIAZEM CD 240 MG CAPSULE PO SCH (20:34)
[2022-04-15] MEDS: ZOLPIDEM 5 MG TABLET PO SCH (20:35)
[2022-04-15] MEDS: VANCOMYCIN INJ 1,250 MG in SODIUM CHLORIDE 0.9% 250 ML IV SCH (20:37)
[2022-04-15] MEDS: INSULIN GLARGINE 100 UNIT/ML SUBCUT SCH (20:38)
[2022-04-16] MEDS: PIPERACILLIN/TAZOBACTAM 3,375 MG in SODIUM CHLORIDE 0.9% 100 ML IV SCH ×3 (06:02→22:15)
[2022-04-16] MEDS: PANTOPRAZOLE 40 MG TABLET PO SCH (06:02)
[2022-04-16] MEDS: HYDROmorphone 1 MG/1 ML SYRINGE IV PRN ×7 (06:03→23:52)
[2022-04-16] MEDS: FERROUS SULFATE 325 MG TABLET PO SCH ×2 (08:34→20:42)
[2022-04-16] MEDS: ESCITALOPRAM 10 MG TABLET PO SCH (08:34)
[2022-04-16] MEDS: COLCHICINE 0.6 MG CAPSULE PO SCH ×2 (08:34→20:42)
[2022-04-16] MEDS: POTASSIUM CHLORIDE 20 MEQ TABLET PO SCH ×2 (08:34→20:41)
[2022-04-16] MEDS: DESVENLAFAXINE 50 MG TABLET PO SCH ×2 (08:34→20:41)
[2022-04-16] MEDS: carvediloL 25 MG TABLET PO SCH ×2 (08:34→17:26)
[2022-04-16] MEDS: AMIODARONE 200 MG TABLET PO SCH (08:35)
[2022-04-16] MEDS: allopurinoL 100 MG TABLET PO SCH ×2 (08:35→20:42)
[2022-04-16] MEDS: ATORVASTATIN 40 MG TABLET PO SCH (08:35)
[2022-04-16] MEDS: FUROSEMIDE 80 MG TABLET PO SCH ×2 (08:35→16:21)
[2022-04-16] MEDS: MAGNESIUM CHLORIDE 64 MG TABLET PO SCH ×2 (08:35→20:42)
[2022-04-16] MEDS: MULTIVITAMIN (BEROCCA) TABLET PO SCH ×2 (08:35→20:42)
[2022-04-16] MEDS: metOLazone 2.5 MG TABLET PO SCH (08:35)
[2022-04-16] MEDS: PREGABALIN 100 MG CAPSULE PO SCH ×3 (08:35→20:42)
[2022-04-16] MEDS: NEOMYCIN/POLYMYXIN/HC OTIC SOLN 10 ML BOTTLE RIGHT EAR SCH ×4 (08:36→20:48)
[2022-04-16] MEDS: INSULIN LISPRO 100 UNIT/ML SUBCUT SCH ×3 (08:36→17:26)
[2022-04-16] MEDS: LIRAGLUTIDE 0.6 MG/0.1 ML SUBCUT SCH (08:36)
[2022-04-16] MEDS: fentaNYL 12 MCG/HR PATCH TRANSDERM SCH (14:53)
[2022-04-16] MEDS: ZOLPIDEM 5 MG TABLET PO SCH (20:41)
[2022-04-16] MEDS: DILTIAZEM CD 240 MG CAPSULE PO SCH (20:42)
[2022-04-16] MEDS: INSULIN GLARGINE 100 UNIT/ML SUBCUT SCH (20:43)
[2022-04-16] MEDS: VANCOMYCIN INJ 1,250 MG in SODIUM CHLORIDE 0.9% 250 ML IV SCH (20:47)
[2022-04-17] MEDS: LACTATED RINGERS 1,000 ML IV SCH (03:20)
[2022-04-17] MEDS: HYDROmorphone 1 MG/1 ML SYRINGE IV PRN (03:20)
[2022-04-17] MEDS: PANTOPRAZOLE 40 MG TABLET PO SCH (05:34)
[2022-04-17] MEDS: PIPERACILLIN/TAZOBACTAM 3,375 MG in SODIUM CHLORIDE 0.9% 100 ML IV SCH ×3 (05:40→21:58)
[2022-04-17] MEDS: INSULIN LISPRO 100 UNIT/ML SUBCUT SCH ×3 (08:18→16:25)
[2022-04-17] MEDS ORDERED: GLUCAGON 1 MG VIAL IM PRN (08:38)
[2022-04-17] MEDS ORDERED: DEXTROSE 50% 25 GM/50 ML VIAL IV PRN (08:38)
[2022-04-17] MEDS: PREGABALIN 100 MG CAPSULE PO SCH ×3 (09:03→20:45)
[2022-04-17] MEDS: MULTIVITAMIN (BEROCCA) TABLET PO SCH ×2 (09:03→20:45)
[2022-04-17] MEDS: POTASSIUM CHLORIDE 20 MEQ TABLET PO SCH ×2 (09:03→20:44)
[2022-04-17] MEDS: AMIODARONE 200 MG TABLET PO SCH (09:03)
[2022-04-17] MEDS: ATORVASTATIN 40 MG TABLET PO SCH (09:03)
[2022-04-17] MEDS: NEOMYCIN/POLYMYXIN/HC OTIC SOLN 10 ML BOTTLE RIGHT EAR SCH ×5 (09:04→23:51)
[2022-04-17] MEDS: COLCHICINE 0.6 MG CAPSULE PO SCH ×2 (09:04→20:46)
[2022-04-17] MEDS: ESCITALOPRAM 10 MG TABLET PO SCH (09:04)
[2022-04-17] MEDS: allopurinoL 100 MG TABLET PO SCH ×2 (09:04→20:46)
[2022-04-17] MEDS: DESVENLAFAXINE 50 MG TABLET PO SCH ×2 (09:04→20:45)
[2022-04-17] MEDS: carvediloL 25 MG TABLET PO SCH ×2 (09:04→16:26)
[2022-04-17] MEDS: metOLazone 2.5 MG TABLET PO SCH (09:04)
[2022-04-17] MEDS: FUROSEMIDE 80 MG TABLET PO SCH ×2 (09:04→16:26)
[2022-04-17] MEDS: MAGNESIUM CHLORIDE 64 MG TABLET PO SCH ×2 (09:04→20:46)
[2022-04-17] MEDS: FERROUS SULFATE 325 MG TABLET PO SCH ×2 (09:04→16:26)
[2022-04-17] MEDS: oxyCODONE/ACETAMINOPHEN 5-325 MG TABLET PO PRN ×4 (09:05→21:58)
[2022-04-17] MEDS: ENOXAPARIN 40 MG/0.4 ML SYRINGE SUBCUT SCH (09:09)
[2022-04-17] MEDS: LIRAGLUTIDE 0.6 MG/0.1 ML SUBCUT SCH (09:46)
[2022-04-17] MEDS: ZOLPIDEM 5 MG TABLET PO SCH (20:45)
[2022-04-17] MEDS: DILTIAZEM CD 240 MG CAPSULE PO SCH (20:47)
[2022-04-17] MEDS: INSULIN GLARGINE 100 UNIT/ML SUBCUT SCH (21:11)
[2022-04-18] MEDS: oxyCODONE/ACETAMINOPHEN 5-325 MG TABLET PO PRN ×5 (03:30→21:21)
[2022-04-18 06:06] LABS: Basophils # 0.1 10*3/uL (0.0-0.2); Basophils % 0.6 % (0.0-0.8); Eosinophils # 0.4 10*3/uL (0.0-0.87); Eosinophils % 4.4 % (0.00-10.9); Hematocrit 28.3 VOL% (42.0-52.0); Hemoglobin 8.5 GM/DL (14.0-18.0); Immature Granulocytes % 1.3 %; Lymphocytes # 2.7 10*3/uL (1.4-4.0); Lymphocytes % 33.9 % (21.2-54.2); Mean Corpuscular Volume 97.6 FL (87-102); Mean Platelet Volume 10.3 FL (9.6-12.0); Monocytes % 13.1 % (1.7-12.7); Neutrophils % 46.7 % (38.7-73.9); Platelet Count 391 T/CUMM (130-400); Red Cell Distribution Width 15.2 % (9.3-17.3); White Blood Count 7.9 T/CUMM (4-12)
[2022-04-18 06:24] LABS: Calcium 8.9 MG/DL (8.5-10.1); Potassium 4.1 MMOL/L (3.5-5.1)
[2022-04-18 06:31] LABS: Eosinophils 8 % (0-10); Hypochromia 1+; Lymphocytes 26 % (20-55); Platelet Estimate Normal; Total Cells Counted 100
[2022-04-18] MEDS: LACTATED RINGERS 1,000 ML IV SCH ×2 (06:57→07:45)
[2022-04-18] MEDS: PIPERACILLIN/TAZOBACTAM 3,375 MG in SODIUM CHLORIDE 0.9% 100 ML IV SCH ×3 (07:19→22:20)
[2022-04-18] MEDS: PANTOPRAZOLE 40 MG TABLET PO SCH (07:24)
[2022-04-18] MEDS: carvediloL 25 MG TABLET PO SCH ×2 (10:30→17:38)
[2022-04-18] MEDS: FUROSEMIDE 80 MG TABLET PO SCH ×2 (10:31→15:44)
[2022-04-18] MEDS: MULTIVITAMIN (BEROCCA) TABLET PO SCH ×2 (10:31→21:06)
[2022-04-18] MEDS: FERROUS SULFATE 325 MG TABLET PO SCH ×2 (10:31→17:38)
[2022-04-18] MEDS: COLCHICINE 0.6 MG CAPSULE PO SCH ×2 (10:32→21:06)
[2022-04-18] MEDS: AMIODARONE 200 MG TABLET PO SCH (10:32)
[2022-04-18] MEDS: POTASSIUM CHLORIDE 20 MEQ TABLET PO SCH ×2 (10:32→21:20)
[2022-04-18] MEDS: ENOXAPARIN 40 MG/0.4 ML SYRINGE SUBCUT SCH (10:33)
[2022-04-18] MEDS: ESCITALOPRAM 10 MG TABLET PO SCH (10:33)
[2022-04-18] MEDS: metOLazone 2.5 MG TABLET PO SCH (10:33)
[2022-04-18] MEDS: allopurinoL 100 MG TABLET PO SCH ×2 (10:33→21:06)
[2022-04-18] MEDS: PREGABALIN 100 MG CAPSULE PO SCH ×3 (10:34→21:06)
[2022-04-18] MEDS: MAGNESIUM CHLORIDE 64 MG TABLET PO SCH ×2 (10:34→21:06)
[2022-04-18] MEDS: ATORVASTATIN 40 MG TABLET PO SCH (10:40)
[2022-04-18] MEDS: DESVENLAFAXINE 50 MG TABLET PO SCH ×2 (10:40→21:06)
[2022-04-18] MEDS: LIRAGLUTIDE 0.6 MG/0.1 ML SUBCUT SCH (10:42)
[2022-04-18] MEDS: INSULIN LISPRO 100 UNIT/ML SUBCUT SCH ×3 (10:45→17:19)
[2022-04-18] MEDS: NEOMYCIN/POLYMYXIN/HC OTIC SOLN 10 ML BOTTLE RIGHT EAR SCH ×4 (10:47→23:30)
[2022-04-18] MEDS: DILTIAZEM CD 240 MG CAPSULE PO SCH (21:07)
[2022-04-18] MEDS: INSULIN GLARGINE 100 UNIT/ML SUBCUT SCH (21:10)
[2022-04-18] MEDS: ZOLPIDEM 5 MG TABLET PO SCH (22:19)
[2022-04-19] MEDS: oxyCODONE/ACETAMINOPHEN 5-325 MG TABLET PO PRN ×4 (02:27→21:14)
[2022-04-19 05:19] LABS: Basophils # 0.1 10*3/uL (0.0-0.2); Basophils % 0.6 % (0.0-0.8); Eosinophils # 0.4 10*3/uL (0.0-0.87); Eosinophils % 4.2 % (0.00-10.9); Hematocrit 28.7 VOL% (42.0-52.0); Hemoglobin 8.5 GM/DL (14.0-18.0); Immature Granulocytes Absolute 0.09 #; Lymphocytes # 2.6 10*3/uL (1.4-4.0); Lymphocytes % 29.9 % (21.2-54.2); Mean Corpuscular HGB Conc 29.6 GM/DL (32-36); Mean Platelet Volume 10.9 FL (9.6-12.0); Monocytes % 11.9 % (1.7-12.7); Neutrophils % 52.4 % (38.7-73.9); Platelet Count 386 T/CUMM (130-400); Red Blood Count 2.96 MC/CUMM (3.8-5.5); Red Cell Distribution Width 15.2 % (9.3-17.3); White Blood Count 8.7 T/CUMM (4-12)
[2022-04-19] MEDS: LACTATED RINGERS 1,000 ML IV SCH ×3 (05:35→23:13)
[2022-04-19] MEDS: PIPERACILLIN/TAZOBACTAM 3,375 MG in SODIUM CHLORIDE 0.9% 100 ML IV SCH (05:35)
[2022-04-19 05:57] LABS: Alanine Aminotransferase 32 U/L (16-61); Albumin 2.2 G/DL (3.4-5.0); Alkaline Phosphatase 133 U/L (45-117); Aspartate Amino Transferase 47 U/L (0-37); Bilirubin,Total < 0.39 MG/DL (0.20-1.00); Blood Urea Nitrogen 63 MG/DL (7-18); Calcium 8.8 MG/DL (8.5-10.1); Carbon Dioxide 31 MMOL/L (21-32); Chloride 99 MMOL/L (98-107); Glucose 112 MG/DL (74-106); Potassium 4.2 MMOL/L (3.5-5.1); Sodium 136 MMOL/L (136-145); Total Protein 8.3 G/DL (6.4-8.2)
[2022-04-19] MEDS: PANTOPRAZOLE 40 MG TABLET PO SCH (07:12)
[2022-04-19] MEDS: allopurinoL 100 MG TABLET PO SCH ×2 (09:52→21:14)
[2022-04-19] MEDS: FERROUS SULFATE 325 MG TABLET PO SCH ×2 (09:53→16:56)
[2022-04-19] MEDS: metOLazone 2.5 MG TABLET PO SCH (09:53)
[2022-04-19] MEDS: AMIODARONE 200 MG TABLET PO SCH (09:54)
[2022-04-19] MEDS: FUROSEMIDE 80 MG TABLET PO SCH ×2 (09:54→15:33)
[2022-04-19] MEDS: COLCHICINE 0.6 MG CAPSULE PO SCH ×2 (09:54→21:13)
[2022-04-19] MEDS: ESCITALOPRAM 10 MG TABLET PO SCH (09:54)
[2022-04-19] MEDS: POTASSIUM CHLORIDE 20 MEQ TABLET PO SCH ×2 (09:55→21:14)
[2022-04-19] MEDS: DESVENLAFAXINE 50 MG TABLET PO SCH ×2 (09:55→21:13)
[2022-04-19] MEDS: MAGNESIUM CHLORIDE 64 MG TABLET PO SCH ×2 (09:57→21:12)
[2022-04-19] MEDS: ATORVASTATIN 40 MG TABLET PO SCH (09:58)
[2022-04-19] MEDS: MULTIVITAMIN (BEROCCA) TABLET PO SCH ×2 (10:03→21:13)
[2022-04-19] MEDS: PREGABALIN 100 MG CAPSULE PO SCH ×3 (10:03→21:13)
[2022-04-19] MEDS: carvediloL 25 MG TABLET PO SCH ×2 (10:03→16:56)
[2022-04-19] MEDS: ENOXAPARIN 40 MG/0.4 ML SYRINGE SUBCUT SCH (10:05)
[2022-04-19] MEDS: NEOMYCIN/POLYMYXIN/HC OTIC SOLN 10 ML BOTTLE RIGHT EAR SCH ×4 (10:15→21:21)
[2022-04-19] MEDS: INSULIN LISPRO 100 UNIT/ML SUBCUT SCH ×3 (10:15→18:25)
[2022-04-19] MEDS: LIRAGLUTIDE 0.6 MG/0.1 ML SUBCUT SCH (10:16)
[2022-04-19] MEDS: MEROPENEM 500 MG in SODIUM CHLORIDE 0.9% 100 ML IV SCH ×2 (10:51→19:48)
[2022-04-19] MEDS: SODIUM HYPOCHLORITE 0.25% IRRIG 473 ML BOTTLE TOP SCH (10:52)
[2022-04-19] MEDS: fentaNYL 12 MCG/HR PATCH TRANSDERM SCH (14:57)
[2022-04-19] MEDS: DILTIAZEM CD 240 MG CAPSULE PO SCH (21:13)
[2022-04-19] MEDS: ZOLPIDEM 5 MG TABLET PO SCH (21:13)
[2022-04-19] MEDS: INSULIN GLARGINE 100 UNIT/ML SUBCUT SCH (21:14)
[2022-04-19] MEDS: ACETIC ACID 0.25% IRRIGATION 1,000 ML BOTTLE IRRIG SCH (21:19)
[2022-04-20] MEDS: MEROPENEM 500 MG in SODIUM CHLORIDE 0.9% 100 ML IV SCH ×3 (03:24→19:33)
[2022-04-20] MEDS: PANTOPRAZOLE 40 MG TABLET PO SCH (06:01)
[2022-04-20] MEDS: oxyCODONE/ACETAMINOPHEN 5-325 MG TABLET PO PRN ×3 (06:04→18:33)
[2022-04-20] MEDS: ENOXAPARIN 40 MG/0.4 ML SYRINGE SUBCUT SCH (09:28)
[2022-04-20] MEDS: POTASSIUM CHLORIDE 20 MEQ TABLET PO SCH ×2 (09:29→21:34)
[2022-04-20] MEDS: FUROSEMIDE 80 MG TABLET PO SCH ×2 (09:29→16:08)
[2022-04-20] MEDS: LIRAGLUTIDE 0.6 MG/0.1 ML SUBCUT SCH (09:29)
[2022-04-20] MEDS: carvediloL 25 MG TABLET PO SCH ×2 (09:29→16:08)
[2022-04-20] MEDS: COLCHICINE 0.6 MG CAPSULE PO SCH ×2 (09:30→21:36)
[2022-04-20] MEDS: FERROUS SULFATE 325 MG TABLET PO SCH ×2 (09:30→16:08)
[2022-04-20] MEDS: ESCITALOPRAM 10 MG TABLET PO SCH (09:30)
[2022-04-20] MEDS: MAGNESIUM CHLORIDE 64 MG TABLET PO SCH ×2 (09:30→21:36)
[2022-04-20] MEDS: DESVENLAFAXINE 50 MG TABLET PO SCH ×2 (09:30→21:35)
[2022-04-20] MEDS: allopurinoL 100 MG TABLET PO SCH ×2 (09:31→21:36)
[2022-04-20] MEDS: PREGABALIN 100 MG CAPSULE PO SCH ×3 (09:31→21:36)
[2022-04-20] MEDS: AMIODARONE 200 MG TABLET PO SCH (09:31)
[2022-04-20] MEDS: MULTIVITAMIN (BEROCCA) TABLET PO SCH ×2 (09:31→21:36)
[2022-04-20] MEDS: metOLazone 2.5 MG TABLET PO SCH (09:31)
[2022-04-20] MEDS: ATORVASTATIN 40 MG TABLET PO SCH (09:31)
[2022-04-20] MEDS: ACETIC ACID 0.25% IRRIGATION 1,000 ML BOTTLE IRRIG SCH ×2 (09:32→21:38)
[2022-04-20] MEDS: NEOMYCIN/POLYMYXIN/HC OTIC SOLN 10 ML BOTTLE RIGHT EAR SCH ×4 (09:32→21:38)
[2022-04-20] MEDS: SODIUM HYPOCHLORITE 0.25% IRRIG 473 ML BOTTLE TOP SCH (09:33)
[2022-04-20] MEDS: INSULIN LISPRO 100 UNIT/ML SUBCUT SCH ×3 (09:34→16:47)
[2022-04-20] MEDS: LACTATED RINGERS 1,000 ML IV SCH (12:19)
[2022-04-20] MEDS: ZOLPIDEM 5 MG TABLET PO SCH (21:35)
[2022-04-20] MEDS: DILTIAZEM CD 240 MG CAPSULE PO SCH (21:36)
[2022-04-20] MEDS: INSULIN GLARGINE 100 UNIT/ML SUBCUT SCH (21:37)
[2022-04-21] MEDS: oxyCODONE/ACETAMINOPHEN 5-325 MG TABLET PO PRN ×4 (00:38→20:54)
[2022-04-21] MEDS: MEROPENEM 500 MG in SODIUM CHLORIDE 0.9% 100 ML IV SCH ×3 (02:38→20:42)
[2022-04-21] MEDS: LACTATED RINGERS 1,000 ML IV SCH (02:41)
[2022-04-21] MEDS: PANTOPRAZOLE 40 MG TABLET PO SCH (05:57)
[2022-04-21] MEDS: POTASSIUM CHLORIDE 20 MEQ TABLET PO SCH ×2 (09:17→20:46)
[2022-04-21] MEDS: allopurinoL 100 MG TABLET PO SCH ×2 (09:17→20:53)
[2022-04-21] MEDS: FERROUS SULFATE 325 MG TABLET PO SCH ×2 (09:17→16:49)
[2022-04-21] MEDS: ESCITALOPRAM 10 MG TABLET PO SCH (09:17)
[2022-04-21] MEDS: MAGNESIUM CHLORIDE 64 MG TABLET PO SCH ×2 (09:17→20:46)
[2022-04-21] MEDS: FUROSEMIDE 80 MG TABLET PO SCH ×2 (09:17→18:02)
[2022-04-21] MEDS: MULTIVITAMIN (BEROCCA) TABLET PO SCH ×2 (09:18→20:46)
[2022-04-21] MEDS: COLCHICINE 0.6 MG CAPSULE PO SCH ×2 (09:18→20:46)
[2022-04-21] MEDS: AMIODARONE 200 MG TABLET PO SCH (09:18)
[2022-04-21] MEDS: metOLazone 2.5 MG TABLET PO SCH (09:18)
[2022-04-21] MEDS: DESVENLAFAXINE 50 MG TABLET PO SCH ×2 (09:18→20:46)
[2022-04-21] MEDS: carvediloL 25 MG TABLET PO SCH ×2 (09:19→16:49)
[2022-04-21] MEDS: ATORVASTATIN 40 MG TABLET PO SCH (09:19)
[2022-04-21] MEDS: SODIUM HYPOCHLORITE 0.25% IRRIG 473 ML BOTTLE TOP SCH (09:19)
[2022-04-21] MEDS: PREGABALIN 100 MG CAPSULE PO SCH ×3 (09:19→20:46)
[2022-04-21] MEDS: ENOXAPARIN 40 MG/0.4 ML SYRINGE SUBCUT SCH (09:21)
[2022-04-21] MEDS: ACETIC ACID 0.25% IRRIGATION 1,000 ML BOTTLE IRRIG SCH ×2 (10:38→21:02)
[2022-04-21] MEDS: INSULIN LISPRO 100 UNIT/ML SUBCUT SCH ×3 (10:38→18:02)
[2022-04-21] MEDS: NEOMYCIN/POLYMYXIN/HC OTIC SOLN 10 ML BOTTLE RIGHT EAR SCH ×4 (10:38→20:54)
[2022-04-21] MEDS: LIRAGLUTIDE 0.6 MG/0.1 ML SUBCUT SCH (10:39)
[2022-04-21] MEDS: DILTIAZEM CD 240 MG CAPSULE PO SCH (20:48)
[2022-04-21] MEDS: ZOLPIDEM 5 MG TABLET PO SCH (20:53)
[2022-04-21] MEDS: INSULIN GLARGINE 100 UNIT/ML SUBCUT SCH (20:53)
[2022-04-22] MEDS: MEROPENEM 500 MG in SODIUM CHLORIDE 0.9% 100 ML IV SCH ×2 (04:15→11:32)
[2022-04-22 05:24] LABS: Basophils # 0.1 10*3/uL (0.0-0.2); Basophils % 0.6 % (0.0-0.8); Eosinophils # 0.4 10*3/uL (0.0-0.87); Eosinophils % 5.1 % (0.00-10.9); Hematocrit 28.1 VOL% (42.0-52.0); Hemoglobin 8.5 GM/DL (14.0-18.0); Immature Granulocytes % 0.8 %; Immature Granulocytes Absolute 0.07 #; Lymphocytes # 3.1 10*3/uL (1.4-4.0); Lymphocytes % 37.1 % (21.2-54.2); Mean Corpuscular HGB Conc 30.2 GM/DL (32-36); Mean Corpuscular Volume 95.6 FL (87-102); Mean Platelet Volume 10.9 FL (9.6-12.0); Monocytes # 1.1 10*3/uL (0.11-0.8); Monocytes % 12.4 % (1.7-12.7); Platelet Count 370 T/CUMM (130-400); Red Blood Count 2.94 MC/CUMM (3.8-5.5); Red Cell Distribution Width 15.8 % (9.3-17.3); White Blood Count 8.5 T/CUMM (4-12)
[2022-04-22] MEDS: oxyCODONE/ACETAMINOPHEN 5-325 MG TABLET PO PRN ×3 (05:35→18:02)
[2022-04-22] MEDS: PANTOPRAZOLE 40 MG TABLET PO SCH (05:35)
[2022-04-22 05:41] LABS: Calcium 9.1 MG/DL (8.5-10.1); Osmolality,Calculated 289.8 MOS/KG (273-304); Potassium 3.7 MMOL/L (3.5-5.1)
[2022-04-22 05:54] LABS: Hypochromia 1+; Platelet Estimate Adequate
[2022-04-22] MEDS: INSULIN LISPRO 100 UNIT/ML SUBCUT SCH ×3 (08:06→17:34)
[2022-04-22] MEDS: MAGNESIUM CHLORIDE 64 MG TABLET PO SCH ×2 (08:51→21:53)
[2022-04-22] MEDS: POTASSIUM CHLORIDE 20 MEQ TABLET PO SCH ×2 (08:51→21:54)
[2022-04-22] MEDS: MULTIVITAMIN (BEROCCA) TABLET PO SCH ×2 (08:51→21:54)
[2022-04-22] MEDS: metOLazone 2.5 MG TABLET PO SCH (08:52)
[2022-04-22] MEDS: carvediloL 25 MG TABLET PO SCH ×2 (08:52→17:05)
[2022-04-22] MEDS: COLCHICINE 0.6 MG CAPSULE PO SCH ×2 (08:52→21:54)
[2022-04-22] MEDS: FERROUS SULFATE 325 MG TABLET PO SCH ×2 (08:52→17:05)
[2022-04-22] MEDS: DESVENLAFAXINE 50 MG TABLET PO SCH ×2 (08:52→21:53)
[2022-04-22] MEDS: ATORVASTATIN 40 MG TABLET PO SCH (08:52)
[2022-04-22] MEDS: allopurinoL 100 MG TABLET PO SCH ×2 (08:52→21:54)
[2022-04-22] MEDS: PREGABALIN 100 MG CAPSULE PO SCH ×3 (08:52→21:54)
[2022-04-22] MEDS: AMIODARONE 200 MG TABLET PO SCH (08:53)
[2022-04-22] MEDS: FUROSEMIDE 80 MG TABLET PO SCH ×2 (08:53→17:05)
[2022-04-22] MEDS: ESCITALOPRAM 10 MG TABLET PO SCH (08:53)
[2022-04-22] MEDS: SODIUM HYPOCHLORITE 0.25% IRRIG 473 ML BOTTLE TOP SCH (08:54)
[2022-04-22] MEDS: LIRAGLUTIDE 0.6 MG/0.1 ML SUBCUT SCH (08:54)
[2022-04-22] MEDS: ENOXAPARIN 40 MG/0.4 ML SYRINGE SUBCUT SCH (08:54)
[2022-04-22] MEDS: NEOMYCIN/POLYMYXIN/HC OTIC SOLN 10 ML BOTTLE RIGHT EAR SCH ×4 (08:54→21:55)
[2022-04-22] MEDS: ACETIC ACID 0.25% IRRIGATION 1,000 ML BOTTLE IRRIG SCH ×2 (08:55→21:55)
[2022-04-22] MEDS: fentaNYL 12 MCG/HR PATCH TRANSDERM SCH (14:59)
[2022-04-22] MEDS ORDERED: HYDROCORTISONE 2.5% CREAM 30 GM TUBE TOP PRN (15:50)
[2022-04-22] MEDS: CEFEPIME 2,000 MG in SODIUM CHLORIDE 0.9% 100 ML IV SCH (17:05)
[2022-04-22] MEDS: DILTIAZEM CD 240 MG CAPSULE PO SCH (21:54)
[2022-04-22] MEDS: ZOLPIDEM 5 MG TABLET PO SCH (21:54)
[2022-04-22] MEDS: INSULIN GLARGINE 100 UNIT/ML SUBCUT SCH (21:55)
[2022-04-22] MEDS: LACTATED RINGERS 1,000 ML IV SCH (21:56)
[2022-04-23] MEDS: oxyCODONE/ACETAMINOPHEN 5-325 MG TABLET PO PRN ×4 (00:06→21:19)
[2022-04-23 05:12] LABS: Basophils # 0.1 10*3/uL (0.0-0.2); Basophils % 0.6 % (0.0-0.8); Eosinophils # 0.5 10*3/uL (0.0-0.87); Eosinophils % 5.4 % (0.00-10.9); Hematocrit 28.7 VOL% (42.0-52.0); Hemoglobin 8.6 GM/DL (14.0-18.0); Immature Granulocytes % 0.8 %; Immature Granulocytes Absolute 0.07 #; Lymphocytes # 3.4 10*3/uL (1.4-4.0); Lymphocytes % 37.8 % (21.2-54.2); Monocytes % 11.4 % (1.7-12.7); Platelet Count 356 T/CUMM (130-400); Red Blood Count 2.99 MC/CUMM (3.8-5.5); Red Cell Distribution Width 15.9 % (9.3-17.3)
[2022-04-23 05:25] LABS: Calcium 9.1 MG/DL (8.5-10.1); Osmolality,Calculated 293.8 MOS/KG (273-304); Potassium 3.5 MMOL/L (3.5-5.1)
[2022-04-23] MEDS: PANTOPRAZOLE 40 MG TABLET PO SCH (05:47)
[2022-04-23] MEDS: CEFEPIME 2,000 MG in SODIUM CHLORIDE 0.9% 100 ML IV SCH ×2 (05:47→17:42)
[2022-04-23] MEDS: INSULIN LISPRO 100 UNIT/ML SUBCUT SCH ×3 (08:20→17:48)
[2022-04-23] MEDS ORDERED: SIMETHICONE CHEW 125 MG TABLET PO PRN (08:50)
[2022-04-23] MEDS: MAGNESIUM CHLORIDE 64 MG TABLET PO SCH ×2 (09:03→21:23)
[2022-04-23] MEDS: MULTIVITAMIN (BEROCCA) TABLET PO SCH ×2 (09:03→21:23)
[2022-04-23] MEDS: ATORVASTATIN 40 MG TABLET PO SCH (09:03)
[2022-04-23] MEDS: DESVENLAFAXINE 50 MG TABLET PO SCH ×2 (09:03→21:20)
[2022-04-23] MEDS: COLCHICINE 0.6 MG CAPSULE PO SCH ×2 (09:03→21:20)
[2022-04-23] MEDS: PREGABALIN 100 MG CAPSULE PO SCH ×3 (09:03→21:20)
[2022-04-23] MEDS: LIRAGLUTIDE 0.6 MG/0.1 ML SUBCUT SCH (09:04)
[2022-04-23] MEDS: metOLazone 2.5 MG TABLET PO SCH (09:05)
[2022-04-23] MEDS: AMIODARONE 200 MG TABLET PO SCH (09:05)
[2022-04-23] MEDS: POTASSIUM CHLORIDE 20 MEQ TABLET PO SCH ×2 (09:05→21:19)
[2022-04-23] MEDS: ESCITALOPRAM 10 MG TABLET PO SCH (09:06)
[2022-04-23] MEDS: FUROSEMIDE 80 MG TABLET PO SCH ×2 (09:06→16:41)
[2022-04-23] MEDS: FERROUS SULFATE 325 MG TABLET PO SCH ×2 (09:06→16:41)
[2022-04-23] MEDS: NEOMYCIN/POLYMYXIN/HC OTIC SOLN 10 ML BOTTLE RIGHT EAR SCH ×4 (09:07→21:24)
[2022-04-23] MEDS: carvediloL 25 MG TABLET PO SCH ×2 (09:07→16:41)
[2022-04-23] MEDS: ENOXAPARIN 40 MG/0.4 ML SYRINGE SUBCUT SCH (09:07)
[2022-04-23] MEDS: allopurinoL 100 MG TABLET PO SCH ×2 (11:37→21:23)
[2022-04-23] MEDS: SODIUM HYPOCHLORITE 0.25% IRRIG 473 ML BOTTLE TOP SCH (11:38)
[2022-04-23] MEDS: ACETIC ACID 0.25% IRRIGATION 1,000 ML BOTTLE IRRIG SCH ×2 (11:38→21:23)
[2022-04-23] MEDS: LACTATED RINGERS 1,000 ML IV SCH ×4 (14:55→22:58)
[2022-04-23] MEDS: ZOLPIDEM 5 MG TABLET PO SCH (21:19)
[2022-04-23] MEDS: INSULIN GLARGINE 100 UNIT/ML SUBCUT SCH (21:24)
[2022-04-23] MEDS: DILTIAZEM CD 240 MG CAPSULE PO SCH (22:59)
[2022-04-23] MEDS ORDERED: MORPHINE 2 MG/1 ML SYRINGE IV PRN (23:37)
[2022-04-24] MEDS: LACTATED RINGERS 1,000 ML IV SCH ×2 (03:42→13:25)
[2022-04-24] MEDS: PANTOPRAZOLE 40 MG TABLET PO SCH (05:51)
[2022-04-24] MEDS: CEFEPIME 2,000 MG in SODIUM CHLORIDE 0.9% 100 ML IV SCH ×2 (05:51→17:31)
[2022-04-24 06:45] LABS: Basophils # 0.1 10*3/uL (0.0-0.2); Basophils % 0.8 % (0.0-0.8); Eosinophils # 0.5 10*3/uL (0.0-0.87); Eosinophils % 6.2 % (0.00-10.9); Hematocrit 28.3 VOL% (42.0-52.0); Hemoglobin 8.3 GM/DL (14.0-18.0); Immature Granulocytes % 0.6 %; Immature Granulocytes Absolute 0.05 #; Lymphocytes # 3.3 10*3/uL (1.4-4.0); Lymphocytes % 37.7 % (21.2-54.2); Mean Corpuscular HGB Conc 29.3 GM/DL (32-36); Mean Corpuscular Volume 97.9 FL (87-102); Mean Platelet Volume 10.9 FL (9.6-12.0); Monocytes # 1.1 10*3/uL (0.11-0.8); Monocytes % 12.3 % (1.7-12.7); Neutrophils % 42.4 % (38.7-73.9); Platelet Count 313 T/CUMM (130-400); Red Blood Count 2.89 MC/CUMM (3.8-5.5); Red Cell Distribution Width 15.9 % (9.3-17.3); White Blood Count 8.6 T/CUMM (4-12)
[2022-04-24 07:04] LABS: Calcium 8.8 MG/DL (8.5-10.1); Osmolality,Calculated 294.4 MOS/KG (273-304); Potassium 3.4 MMOL/L (3.5-5.1)
[2022-04-24] MEDS: ENOXAPARIN 40 MG/0.4 ML SYRINGE SUBCUT SCH (09:58)
[2022-04-24] MEDS: DESVENLAFAXINE 50 MG TABLET PO SCH (09:59)
[2022-04-24] MEDS: COLCHICINE 0.6 MG CAPSULE PO SCH (09:59)
[2022-04-24] MEDS: PREGABALIN 100 MG CAPSULE PO SCH ×2 (09:59→15:33)
[2022-04-24] MEDS: MAGNESIUM CHLORIDE 64 MG TABLET PO SCH (09:59)
[2022-04-24] MEDS: ATORVASTATIN 40 MG TABLET PO SCH (09:59)
[2022-04-24] MEDS: allopurinoL 100 MG TABLET PO SCH (09:59)
[2022-04-24] MEDS: MULTIVITAMIN (BEROCCA) TABLET PO SCH (09:59)
[2022-04-24] MEDS: AMIODARONE 200 MG TABLET PO SCH (09:59)
[2022-04-24] MEDS: FUROSEMIDE 80 MG TABLET PO SCH ×2 (10:00→15:33)
[2022-04-24] MEDS: POTASSIUM CHLORIDE 20 MEQ TABLET PO SCH (10:00)
[2022-04-24] MEDS: ESCITALOPRAM 10 MG TABLET PO SCH (10:00)
[2022-04-24] MEDS: metOLazone 2.5 MG TABLET PO SCH (10:00)
[2022-04-24] MEDS: FERROUS SULFATE 325 MG TABLET PO SCH ×2 (10:00→17:20)
[2022-04-24] MEDS: carvediloL 25 MG TABLET PO SCH ×2 (10:00→17:20)
[2022-04-24] MEDS: INSULIN LISPRO 100 UNIT/ML SUBCUT SCH ×3 (10:01→16:19)
[2022-04-24] MEDS: LIRAGLUTIDE 0.6 MG/0.1 ML SUBCUT SCH (10:02)
[2022-04-24] MEDS: SODIUM HYPOCHLORITE 0.25% IRRIG 473 ML BOTTLE TOP SCH (10:02)
[2022-04-24] MEDS: NEOMYCIN/POLYMYXIN/HC OTIC SOLN 10 ML BOTTLE RIGHT EAR SCH ×3 (10:03→17:20)
[2022-04-24] MEDS: ACETIC ACID 0.25% IRRIGATION 1,000 ML BOTTLE IRRIG SCH (10:03)
[2022-04-24] MEDS: oxyCODONE/ACETAMINOPHEN 5-325 MG TABLET PO PRN (10:15)
[2022-04-24 12:36] VITALS: BP 123/78
== END 2022-04-24 18:35 | disposition home health service (06) | DRG 629 ==
LOC: N.OR 07:05 → N.3E 11:30
PROVIDERS: ADMIT Surgery; ATTEND Surgery

== ENCOUNTER 2022-10-06 23:05 | Inpatient (IN) ==
[2022-10-06 23:23] LABS: Basophils % 0.4 % (0.0-0.8); Eosinophils # 0.5 10*3/uL (0.0-0.87); Eosinophils % 7.6 % (0.00-10.9); Hematocrit 32.2 VOL% (42.0-52.0); Hemoglobin 10.2 GM/DL (14.0-18.0); Immature Granulocytes % 0.4 %; Immature Granulocytes Absolute 0.03 #; Lymphocytes # 1.6 10*3/uL (1.4-4.0); Lymphocytes % 22.2 % (21.2-54.2); Mean Corpuscular HGB Conc 31.7 GM/DL (32-36); Mean Platelet Volume 10.9 FL (9.6-12.0); Monocytes # 0.9 10*3/uL (0.11-0.8); Monocytes % 12.7 % (1.7-12.7); Neutrophils % 56.7 % (38.7-73.9); Platelet Count 223 T/CUMM (130-400); Red Blood Count 3.32 MC/CUMM (3.8-5.5); Red Cell Distribution Width 14.7 % (9.3-17.3); White Blood Count 7.2 T/CUMM (4-12)
[2022-10-06 23:50] LABS: Albumin 3.5 G/DL (3.4-5.0); Bilirubin,Total 0.4 MG/DL (0.20-1.00); Calcium 7.8 MG/DL (8.5-10.1); Osmolality,Calculated 299.2 MOS/KG (273-304); Potassium 4.4 MMOL/L (3.5-5.1); Total Protein 7.6 G/DL (6.4-8.2)
[2022-10-07 00:34] LABS: Bilirubin,Urine Negative (Negative); Blood, Urine Negative (Negative); Glucose,Urine (UA) Negative (Negative); Ketones,Urine Negative (Negative); Mucus,Urine Occasional /LPF (Occasional); Nitrite,Urine Negative (Negative); Protein,Urine 30 mg/dL (Negative); RBC,Urine 6 /HPF (0-4); Squamous Epithelial Cell,Urine Occasional /HPF (0-10); Urine Appearance Clear (Clear); Urine Color Yellow (Yellow); Urine Urobilinogen 0.2 eU/dL (<2.0); Urine pH 5.5 (4.5-8.0)
[2022-10-07] MEDS ORDERED: ONDANSETRON 4 MG/2 ML VIAL IV PRN ×2 (00:47→10:01)
[2022-10-07] MEDS ORDERED: NALOXONE 0.4 MG/ML VIAL IV PRN (00:47)
[2022-10-07] MEDS ORDERED: ACETAMINOPHEN 325 MG TABLET PO PRN (00:47)
[2022-10-07 00:57] LABS: Barbiturates Screen,Urine Negative (Negative); Benzodiazepines Screen,Urine Negative (Negative); Cannabinoid Screen,Urine Negative (Negative); Opiate Screen,Urine Positive (Negative); Phencyclidine Screen,Urine Negative (Negative)
[2022-10-07] MEDS: SODIUM CHLORIDE 0.9% 1,000 ML IV SCH ×3 (01:13→17:34)
[2022-10-07] MEDS: MORPHINE 2 MG/1 ML SYRINGE IV PRN ×2 (02:23→06:31)
[2022-10-07 04:21] LABS: Basophils # 0.1 10*3/uL (0.0-0.2); Basophils % 0.7 % (0.0-0.8); Eosinophils # 0.6 10*3/uL (0.0-0.87); Eosinophils % 7.5 % (0.00-10.9); Hematocrit 31.9 VOL% (42.0-52.0); Hemoglobin 10.2 GM/DL (14.0-18.0); Immature Granulocytes % 0.7 %; Immature Granulocytes Absolute 0.06 #; Lymphocytes # 1.8 10*3/uL (1.4-4.0); Lymphocytes % 21.7 % (21.2-54.2); Mean Corpuscular Volume 97.6 FL (87-102); Mean Platelet Volume 11.1 FL (9.6-12.0); Monocytes # 1.2 10*3/uL (0.11-0.8); Monocytes % 14.6 % (1.7-12.7); Neutrophils % 54.8 % (38.7-73.9); Platelet Count 238 T/CUMM (130-400); Red Blood Count 3.27 MC/CUMM (3.8-5.5); Red Cell Distribution Width 14.6 % (9.3-17.3); White Blood Count 8.2 T/CUMM (4-12)
[2022-10-07 04:39] LABS: Albumin 3.7 G/DL (3.4-5.0); Bilirubin,Total 0.4 MG/DL (0.20-1.00); Osmolality,Calculated 296.2 MOS/KG (273-304); Potassium 4.6 MMOL/L (3.5-5.1); Total Protein 8.3 G/DL (6.4-8.2)
[2022-10-07] MEDS ORDERED: PANTOPRAZOLE 40 MG TABLET PO SCH (09:00)
[2022-10-07] MEDS ORDERED: FAMOTIDINE 20 MG/2 ML VIAL IV ONE (11:15)
[2022-10-07] MEDS: PANTOPRAZOLE 40 MG VIAL IV SCH (12:16)
[2022-10-07] MEDS: DOCUSATE SODIUM 100 MG CAPSULE PO SCH ×2 (12:16→21:51)
[2022-10-07] MEDS: INSULIN LISPRO 100 UNIT/ML SUBCUT SCH ×2 (12:48→17:25)
[2022-10-07] MEDS ORDERED: FLUTICASONE 50 MCG NASAL SPRAY 16 GM BOTTLE BOTH NARES PRN (14:15)
[2022-10-07] MEDS ORDERED: tiZANidine 4 MG TABLET PO PRN (14:15)
[2022-10-07] MEDS ORDERED: ALBUTEROL 2.5 MG/3 ML NEB RESP TX PRN (14:23)
[2022-10-07] MEDS ORDERED: NEOMYCIN otic (ear) SCH (17:00)
[2022-10-07] MEDS ORDERED: HYDROCORTISONE otic (ear) SCH (17:00)
[2022-10-07] MEDS ORDERED: [UNRECOGNIZED DRUG - OTHER] otic (ear) SCH (17:00)
[2022-10-07] MEDS: HYDROmorphone 1 MG/1 ML SYRINGE IV PRN (17:41)
[2022-10-07] MEDS: PREGABALIN 100 MG CAPSULE PO SCH (18:59)
[2022-10-07] MEDS: DESVENLAFAXINE 50 MG TABLET PO SCH (19:00)
[2022-10-07] MEDS: ZOLPIDEM 5 MG TABLET PO SCH (21:51)
[2022-10-07] MEDS: AMIODARONE 200 MG TABLET PO SCH (21:51)
[2022-10-08] MEDS: INSULIN LISPRO 100 UNIT/ML SUBCUT SCH ×4 (00:29→18:35)
[2022-10-08] MEDS: SODIUM CHLORIDE 0.9% 1,000 ML IV SCH ×3 (02:28→23:32)
[2022-10-08 06:15] LABS: Basophils # 0.1 10*3/uL (0.0-0.2); Basophils % 0.6 % (0.0-0.8); Eosinophils # 0.5 10*3/uL (0.0-0.87); Eosinophils % 5.4 % (0.00-10.9); Hematocrit 33.9 VOL% (42.0-52.0); Hemoglobin 10.3 GM/DL (14.0-18.0); Immature Granulocytes % 1.1 %; Immature Granulocytes Absolute 0.09 #; Lymphocytes # 1.3 10*3/uL (1.4-4.0); Mean Corpuscular HGB Conc 30.4 GM/DL (32-36); Mean Corpuscular Volume 101.2 FL (87-102); Mean Platelet Volume 11.5 FL (9.6-12.0); Monocytes # 0.9 10*3/uL (0.11-0.8); Monocytes % 11.1 % (1.7-12.7); Neutrophils % 65.8 % (38.7-73.9); Platelet Count 215 T/CUMM (130-400); Red Blood Count 3.35 MC/CUMM (3.8-5.5); Red Cell Distribution Width 14.9 % (9.3-17.3); White Blood Count 8.4 T/CUMM (4-12)
[2022-10-08 06:39] LABS: Calcium 8.4 MG/DL (8.5-10.1); Osmolality,Calculated 302.5 MOS/KG (273-304); Potassium 3.4 MMOL/L (3.5-5.1)
[2022-10-08] MEDS: PANTOPRAZOLE 40 MG VIAL IV SCH (10:17)
[2022-10-08] MEDS: fentaNYL 12 MCG/HR PATCH TRANSDERM SCH (10:18)
[2022-10-08] MEDS: HYDROmorphone 1 MG/1 ML SYRINGE IV PRN ×3 (10:57→21:01)
[2022-10-08] MEDS: DOCUSATE SODIUM 100 MG CAPSULE PO SCH ×2 (16:54→20:12)
[2022-10-08] MEDS: PREGABALIN 100 MG CAPSULE PO SCH ×3 (16:55→20:12)
[2022-10-08] MEDS: DESVENLAFAXINE 50 MG TABLET PO SCH ×2 (16:56→17:49)
[2022-10-08] MEDS: ATORVASTATIN 40 MG TABLET PO SCH (17:48)
[2022-10-08] MEDS: ESCITALOPRAM 10 MG TABLET PO SCH (17:49)
[2022-10-08] MEDS: AMIODARONE 200 MG TABLET PO SCH (20:12)
[2022-10-08] MEDS: ZOLPIDEM 5 MG TABLET PO SCH (20:12)
[2022-10-09] MEDS: INSULIN LISPRO 100 UNIT/ML SUBCUT SCH ×4 (02:09→17:59)
[2022-10-09] MEDS: HYDROmorphone 1 MG/1 ML SYRINGE IV PRN ×5 (03:36→20:47)
[2022-10-09] MEDS: SODIUM CHLORIDE 0.9% 1,000 ML IV SCH ×3 (04:11→22:24)
[2022-10-09 05:57] LABS: Basophils % 0.4 % (0.0-0.8); Eosinophils # 0.4 10*3/uL (0.0-0.87); Eosinophils % 3.7 % (0.00-10.9); Hematocrit 33.6 VOL% (42.0-52.0); Hemoglobin 10.7 GM/DL (14.0-18.0); Immature Granulocytes % 0.4 %; Immature Granulocytes Absolute 0.04 #; Lymphocytes # 1.5 10*3/uL (1.4-4.0); Lymphocytes % 14.8 % (21.2-54.2); Mean Corpuscular HGB Conc 31.8 GM/DL (32-36); Mean Corpuscular Volume 97.4 FL (87-102); Mean Platelet Volume 11.2 FL (9.6-12.0); Monocytes # 1.5 10*3/uL (0.11-0.8); Monocytes % 15.3 % (1.7-12.7); Neutrophils % 65.4 % (38.7-73.9); Platelet Count 201 T/CUMM (130-400); Red Blood Count 3.45 MC/CUMM (3.8-5.5); Red Cell Distribution Width 14.4 % (9.3-17.3); White Blood Count 10.1 T/CUMM (4-12)
[2022-10-09 06:09] LABS: Calcium 8.5 MG/DL (8.5-10.1); Potassium 2.9 MMOL/L (3.5-5.1)
[2022-10-09] MEDS: PREGABALIN 100 MG CAPSULE PO SCH (09:47)
[2022-10-09] MEDS: ATORVASTATIN 40 MG TABLET PO SCH (09:47)
[2022-10-09] MEDS: ESCITALOPRAM 10 MG TABLET PO SCH (09:48)
[2022-10-09] MEDS: DESVENLAFAXINE 50 MG TABLET PO SCH ×2 (09:48→15:12)
[2022-10-09] MEDS: PANTOPRAZOLE 40 MG VIAL IV SCH (09:49)
[2022-10-09] MEDS: DOCUSATE SODIUM 100 MG CAPSULE PO SCH (10:07)
[2022-10-09 11:31] LABS: High Sensitive Troponin I* 23.8 ng/L (0-78)
[2022-10-09] MEDS: POTASSIUM CHLORIDE RIDER 10 MEQ/100 ML PREMIX IV PRN ×5 (11:35→16:33)
[2022-10-09] MEDS: cloNIDine 0.1 MG/24 HR PATCH TRANSDERM SCH (12:36)
[2022-10-09 13:56] LABS: High Sensitive Troponin I* 21.8 ng/L (0-78)
[2022-10-09] MEDS: NEOMYCIN/POLYMYXIN/BACITRACIN OINT 0.9 GM PACK TOP SCH (17:06)
[2022-10-09] MEDS: SODIUM HYPOCHLORITE 0.25% IRRIG 473 ML BOTTLE TOP SCH (17:06)
[2022-10-09] MEDS: ZOLPIDEM 5 MG TABLET PO SCH (20:46)
[2022-10-09] MEDS: hydrALAZINE 20 MG/1 ML VIAL IV PRN (20:46)
[2022-10-09] MEDS: ENOXAPARIN 30 MG/0.3 ML SYRINGE SUBCUT SCH (20:47)
[2022-10-09] MEDS ORDERED: DILTIAZEM CD 240 MG CAPSULE PO SCH (21:00)
[2022-10-10] MEDS ORDERED: DEXTROSE 50% 25 GM/50 ML SYRINGE IV ONE (00:17)
[2022-10-10] MEDS: DEXTROSE 50% 25 GM/50 ML SYRINGE IV PRN (00:18)
[2022-10-10] MEDS: INSULIN LISPRO 100 UNIT/ML SUBCUT SCH ×4 (00:21→17:51)
[2022-10-10] MEDS ORDERED: DEXTROSE 10% 250 ML BAG IV PRN (00:22)
[2022-10-10] MEDS: POTASSIUM CHLORIDE RIDER 10 MEQ/100 ML PREMIX IV PRN ×9 (00:29→18:44)
[2022-10-10 05:05] LABS: Basophils % 0.4 % (0.0-0.8); Eosinophils # 0.5 10*3/uL (0.0-0.87); Hemoglobin 10.7 GM/DL (14.0-18.0); Immature Granulocytes % 0.5 %; Immature Granulocytes Absolute 0.04 #; Lymphocytes # 1.9 10*3/uL (1.4-4.0); Lymphocytes % 24.7 % (21.2-54.2); Mean Corpuscular HGB Conc 31.5 GM/DL (32-36); Mean Corpuscular Volume 96.6 FL (87-102); Mean Platelet Volume 11.4 FL (9.6-12.0); Monocytes # 1.1 10*3/uL (0.11-0.8); Monocytes % 14.2 % (1.7-12.7); Neutrophils % 53.2 % (38.7-73.9); Platelet Count 201 T/CUMM (130-400); Red Blood Count 3.52 MC/CUMM (3.8-5.5); Red Cell Distribution Width 13.9 % (9.3-17.3); White Blood Count 7.7 T/CUMM (4-12)
[2022-10-10 05:22] LABS: Calcium 8.7 MG/DL (8.5-10.1); Osmolality,Calculated 300.7 MOS/KG (273-304); Potassium 2.8 MMOL/L (3.5-5.1)
[2022-10-10] MEDS: HYDROmorphone 1 MG/1 ML SYRINGE IV PRN ×5 (05:54→21:21)
[2022-10-10 06:47] LABS: Eosinophils 7 % (0-10); Lymphocytes 19 % (20-55); Total Cells Counted 100
[2022-10-10 06:48] LABS: Microcytosis Slight; Ovalocytes Slight
[2022-10-10 06:49] LABS: Platelet Estimate Normal
[2022-10-10 07:22] LABS: Phosphorous 3.9 MG/DL (2.5-4.9)
[2022-10-10] MEDS: PANTOPRAZOLE 40 MG VIAL IV SCH (09:11)
[2022-10-10] MEDS: NEOMYCIN/POLYMYXIN/BACITRACIN OINT 0.9 GM PACK TOP SCH (09:11)
[2022-10-10] MEDS: SODIUM HYPOCHLORITE 0.25% IRRIG 473 ML BOTTLE TOP SCH (09:11)
[2022-10-10] MEDS: DESVENLAFAXINE 50 MG TABLET PO SCH ×2 (09:11→14:06)
[2022-10-10] MEDS: SODIUM CHLORIDE 0.9% 1,000 ML IV SCH ×2 (11:35→22:14)
[2022-10-10] MEDS: hydrALAZINE 20 MG/1 ML VIAL IV PRN ×2 (12:36→22:12)
[2022-10-10] MEDS: ENOXAPARIN 30 MG/0.3 ML SYRINGE SUBCUT SCH (21:21)
[2022-10-10] MEDS: ZOLPIDEM 5 MG TABLET PO SCH (21:21)
[2022-10-11] MEDS: INSULIN LISPRO 100 UNIT/ML SUBCUT SCH ×2 (00:35→05:40)
[2022-10-11] MEDS: DEXTROSE 50% 25 GM/50 ML SYRINGE IV PRN (00:40)
[2022-10-11] MEDS: POTASSIUM CHLORIDE RIDER 10 MEQ/100 ML PREMIX IV PRN ×5 (02:30→05:40)
[2022-10-11] MEDS: HYDROmorphone 1 MG/1 ML SYRINGE IV PRN ×6 (03:57→21:50)
[2022-10-11] MEDS: SODIUM CHLORIDE 0.9% 1,000 ML IV SCH ×4 (04:33→18:54)
[2022-10-11 05:10] LABS: Calcium 8.5 MG/DL (8.5-10.1); Osmolality,Calculated 292.1 MOS/KG (273-304); Potassium 3.3 MMOL/L (3.5-5.1)
[2022-10-11] MEDS ORDERED: MAGNESIUM SULF RIDER 1 GM/100 ML PREMIX IV ONE (08:30)
[2022-10-11] MEDS: PANTOPRAZOLE 40 MG VIAL IV SCH (08:51)
[2022-10-11] MEDS: DESVENLAFAXINE 50 MG TABLET PO SCH ×2 (08:51→15:14)
[2022-10-11] MEDS: fentaNYL 12 MCG/HR PATCH TRANSDERM SCH (08:53)
[2022-10-11] MEDS: SODIUM HYPOCHLORITE 0.25% IRRIG 473 ML BOTTLE TOP SCH (09:03)
[2022-10-11] MEDS: NEOMYCIN/POLYMYXIN/BACITRACIN OINT 0.9 GM PACK TOP SCH (09:03)
[2022-10-11] MEDS: INSULIN GLARGINE 100 UNIT/ML SUBCUT SCH (10:05)
[2022-10-11] MEDS: ZOLPIDEM 5 MG TABLET PO SCH (21:33)
[2022-10-11] MEDS: ENOXAPARIN 30 MG/0.3 ML SYRINGE SUBCUT SCH (21:35)
[2022-10-12] MEDS: SODIUM CHLORIDE 0.9% 1,000 ML IV SCH ×5 (00:05→17:20)
[2022-10-12] MEDS: HYDROmorphone 1 MG/1 ML SYRINGE IV PRN ×8 (01:44→22:55)
[2022-10-12 06:02] LABS: Calcium 8.4 MG/DL (8.5-10.1); Osmolality,Calculated 286.3 MOS/KG (273-304); Potassium 2.9 MMOL/L (3.5-5.1)
[2022-10-12] MEDS: INSULIN GLARGINE 100 UNIT/ML SUBCUT SCH (08:21)
[2022-10-12] MEDS: DESVENLAFAXINE 50 MG TABLET PO SCH ×2 (08:29→15:34)
[2022-10-12] MEDS: NEOMYCIN/POLYMYXIN/BACITRACIN OINT 0.9 GM PACK TOP SCH (08:31)
[2022-10-12] MEDS: SODIUM HYPOCHLORITE 0.25% IRRIG 473 ML BOTTLE TOP SCH (08:31)
[2022-10-12] MEDS: PANTOPRAZOLE 40 MG VIAL IV SCH (08:37)
[2022-10-12] MEDS ORDERED: POTASSIUM BICARB EFFERVESCENT 20 MEQ TAB.EFF PER TUBE PRN (09:58)
[2022-10-12] MEDS: POTASSIUM BICARB EFFERVESCENT 20 MEQ TAB.EFF PO PRN ×4 (10:36→18:39)
[2022-10-12] MEDS: hydrALAZINE 20 MG/1 ML VIAL IV PRN (17:31)
[2022-10-12] MEDS: ZOLPIDEM 5 MG TABLET PO SCH (20:11)
[2022-10-12] MEDS: ENOXAPARIN 30 MG/0.3 ML SYRINGE SUBCUT SCH (20:11)
[2022-10-13] MEDS: SODIUM CHLORIDE 0.9% 1,000 ML IV SCH ×3 (01:00→17:12)
[2022-10-13] MEDS: HYDROmorphone 1 MG/1 ML SYRINGE IV PRN ×8 (01:32→21:06)
[2022-10-13] MEDS: POTASSIUM CHLORIDE 20 MEQ TABLET PO PRN ×4 (01:33→08:52)
[2022-10-13] MEDS: hydrALAZINE 20 MG/1 ML VIAL IV PRN (03:47)
[2022-10-13] MEDS: NEOMYCIN/POLYMYXIN/BACITRACIN OINT 0.9 GM PACK TOP SCH (08:52)
[2022-10-13] MEDS: DESVENLAFAXINE 50 MG TABLET PO SCH ×2 (08:52→15:10)
[2022-10-13] MEDS: PANTOPRAZOLE 40 MG VIAL IV SCH (08:57)
[2022-10-13] MEDS: SODIUM HYPOCHLORITE 0.25% IRRIG 473 ML BOTTLE TOP SCH (08:58)
[2022-10-13] MEDS: INSULIN GLARGINE 100 UNIT/ML SUBCUT SCH (09:00)
[2022-10-13 09:11] LABS: Calcium 8.4 MG/DL (8.5-10.1); Osmolality,Calculated 283.5 MOS/KG (273-304); Potassium 3.6 MMOL/L (3.5-5.1)
[2022-10-13] MEDS: TAMSULOSIN 0.4 MG CAPSULE PO SCH ×2 (11:07→21:04)
[2022-10-13] MEDS: ENOXAPARIN 30 MG/0.3 ML SYRINGE SUBCUT SCH (21:03)
[2022-10-13] MEDS: ZOLPIDEM 5 MG TABLET PO SCH (21:04)
[2022-10-14] MEDS: HYDROmorphone 1 MG/1 ML SYRINGE IV PRN ×3 (00:29→09:04)
[2022-10-14] MEDS: SODIUM CHLORIDE 0.9% 1,000 ML IV SCH ×3 (00:30→09:14)
[2022-10-14 04:59] LABS: Basophils % 0.3 % (0.0-0.8); Eosinophils # 0.6 10*3/uL (0.0-0.87); Eosinophils % 6.6 % (0.00-10.9); Hematocrit 33.3 VOL% (42.0-52.0); Hemoglobin 10.9 GM/DL (14.0-18.0); Immature Granulocytes % 0.5 %; Immature Granulocytes Absolute 0.04 #; Lymphocytes # 1.7 10*3/uL (1.4-4.0); Lymphocytes % 19.2 % (21.2-54.2); Mean Corpuscular HGB Conc 32.7 GM/DL (32-36); Mean Corpuscular Volume 94.9 FL (87-102); Mean Platelet Volume 11.3 FL (9.6-12.0); Monocytes # 0.9 10*3/uL (0.11-0.8); Monocytes % 10.4 % (1.7-12.7); Platelet Count 190 T/CUMM (130-400); Red Blood Count 3.51 MC/CUMM (3.8-5.5); Red Cell Distribution Width 13.6 % (9.3-17.3); White Blood Count 8.6 T/CUMM (4-12)
[2022-10-14 05:28] LABS: Calcium 8.2 MG/DL (8.5-10.1); Osmolality,Calculated 278.5 MOS/KG (273-304); Potassium 3.2 MMOL/L (3.5-5.1)
[2022-10-14] MEDS: PANTOPRAZOLE 40 MG VIAL IV SCH (09:02)
[2022-10-14] MEDS: fentaNYL 12 MCG/HR PATCH TRANSDERM SCH (09:06)
[2022-10-14] MEDS: TAMSULOSIN 0.4 MG CAPSULE PO SCH ×2 (09:06→20:10)
[2022-10-14] MEDS: POTASSIUM CHLORIDE 20 MEQ TABLET PO PRN ×4 (09:06→15:48)
[2022-10-14] MEDS: DESVENLAFAXINE 50 MG TABLET PO SCH ×2 (09:06→14:22)
[2022-10-14] MEDS: LORATADINE 10 MG TABLET PO SCH ×2 (09:14→09:37)
[2022-10-14] MEDS: cilostazoL 100 MG TABLET PO SCH ×2 (09:15→20:10)
[2022-10-14] MEDS: CLOPIDOGREL 75 MG TABLET PO SCH (09:15)
[2022-10-14] MEDS: INSULIN GLARGINE 100 UNIT/ML SUBCUT SCH ×3 (09:16→20:11)
[2022-10-14] MEDS: SODIUM HYPOCHLORITE 0.25% IRRIG 473 ML BOTTLE TOP SCH (10:07)
[2022-10-14] MEDS: FLUTICASONE 50 MCG NASAL SPRAY 16 GM BOTTLE BOTH NARES SCH ×2 (10:08→20:11)
[2022-10-14] MEDS: NEOMYCIN/POLYMYXIN/BACITRACIN OINT 0.9 GM PACK TOP SCH (10:08)
[2022-10-14] MEDS ORDERED: oxyCODONE/ACETAMINOPHEN 5-325 MG TABLET PO PRN (13:40)
[2022-10-14] MEDS: ENOXAPARIN 30 MG/0.3 ML SYRINGE SUBCUT SCH (20:10)
[2022-10-14] MEDS: ZOLPIDEM 5 MG TABLET PO SCH (20:10)
[2022-10-14] MEDS: oxyCODONE/ACETAMINOPHEN 5-325 MG TABLET PO PRN (20:11)
[2022-10-15] MEDS: SODIUM CHLORIDE 0.9% 1,000 ML IV SCH ×3 (00:04→23:49)
[2022-10-15] MEDS: oxyCODONE/ACETAMINOPHEN 5-325 MG TABLET PO PRN ×4 (03:23→20:49)
[2022-10-15 06:03] LABS: Basophils % 0.4 % (0.0-0.8); Eosinophils # 0.6 10*3/uL (0.0-0.87); Eosinophils % 6.1 % (0.00-10.9); Hematocrit 32.1 VOL% (42.0-52.0); Hemoglobin 10.7 GM/DL (14.0-18.0); Immature Granulocytes % 0.9 %; Immature Granulocytes Absolute 0.09 #; Lymphocytes # 1.5 10*3/uL (1.4-4.0); Lymphocytes % 14.7 % (21.2-54.2); Mean Corpuscular HGB Conc 33.3 GM/DL (32-36); Mean Corpuscular Volume 95.3 FL (87-102); Mean Platelet Volume 11.2 FL (9.6-12.0); Monocytes % 9.8 % (1.7-12.7); Neutrophils % 68.1 % (38.7-73.9); Platelet Count 187 T/CUMM (130-400); Red Blood Count 3.37 MC/CUMM (3.8-5.5); Red Cell Distribution Width 13.6 % (9.3-17.3)
[2022-10-15 06:18] LABS: Calcium 7.9 MG/DL (8.5-10.1); Osmolality,Calculated 284.1 MOS/KG (273-304); Potassium 3.5 MMOL/L (3.5-5.1)
[2022-10-15] MEDS: PANTOPRAZOLE 40 MG VIAL IV SCH (08:10)
[2022-10-15] MEDS: cloNIDine 0.1 MG/24 HR PATCH TRANSDERM SCH (08:11)
[2022-10-15] MEDS: DESVENLAFAXINE 50 MG TABLET PO SCH ×2 (08:11→14:29)
[2022-10-15] MEDS: CLOPIDOGREL 75 MG TABLET PO SCH (08:13)
[2022-10-15] MEDS: cilostazoL 100 MG TABLET PO SCH (08:13)
[2022-10-15] MEDS: NEOMYCIN/POLYMYXIN/BACITRACIN OINT 0.9 GM PACK TOP SCH (08:13)
[2022-10-15] MEDS: SODIUM HYPOCHLORITE 0.25% IRRIG 473 ML BOTTLE TOP SCH (08:14)
[2022-10-15] MEDS: LORATADINE 10 MG TABLET PO SCH ×2 (08:14→09:33)
[2022-10-15] MEDS: FLUTICASONE 50 MCG NASAL SPRAY 16 GM BOTTLE BOTH NARES SCH ×2 (08:14→20:49)
[2022-10-15] MEDS: TAMSULOSIN 0.4 MG CAPSULE PO SCH ×2 (08:14→20:48)
[2022-10-15] MEDS: INSULIN GLARGINE 100 UNIT/ML SUBCUT SCH ×2 (09:33→20:52)
[2022-10-15] MEDS: tiZANidine 4 MG TABLET PO PRN ×2 (13:07→20:48)
[2022-10-15] MEDS: PREGABALIN 100 MG CAPSULE PO SCH ×2 (14:29→20:48)
[2022-10-15] MEDS ORDERED: GLUCAGON 1 MG VIAL IM PRN (15:34)
[2022-10-15] MEDS ORDERED: DEXTROSE 10% 250 ML BAG IV PRN (15:40)
[2022-10-15] MEDS: FUROSEMIDE 80 MG TABLET PO SCH (16:31)
[2022-10-15] MEDS: POLYETHYLENE GLYCOL POWDER 17 GM PACK PO SCH (16:33)
[2022-10-15] MEDS: DOCUSATE SODIUM 100 MG CAPSULE PO SCH (20:48)
[2022-10-15] MEDS: ENOXAPARIN 30 MG/0.3 ML SYRINGE SUBCUT SCH (20:48)
[2022-10-15] MEDS: ZOLPIDEM 5 MG TABLET PO SCH (21:07)
[2022-10-16] MEDS: oxyCODONE/ACETAMINOPHEN 5-325 MG TABLET PO PRN ×4 (04:10→20:02)
[2022-10-16 04:21] LABS: RBC,Urine 14 /HPF (0-4); Squamous Epithelial Cell,Urine Occasional /HPF (0-10); Urine Appearance Clear (Clear); Urine Color Yellow (Yellow)
[2022-10-16 04:22] LABS: Bilirubin,Urine Negative (Negative); Blood, Urine Negative (Negative); Glucose,Urine (UA) Negative (Negative); Ketones,Urine Negative (Negative); Nitrite,Urine Negative (Negative); Protein,Urine 100 mg/dL (Negative)
[2022-10-16 06:00] LABS: Basophils % 0.5 % (0.0-0.8); Eosinophils # 0.7 10*3/uL (0.0-0.87); Eosinophils % 8.5 % (0.00-10.9); Hematocrit 31.6 VOL% (42.0-52.0); Hemoglobin 10.2 GM/DL (14.0-18.0); Immature Granulocytes % 2.5 %; Lymphocytes # 1.7 10*3/uL (1.4-4.0); Mean Corpuscular HGB Conc 32.3 GM/DL (32-36); Mean Corpuscular Volume 94.9 FL (87-102); Mean Platelet Volume 10.8 FL (9.6-12.0); Monocytes # 0.9 10*3/uL (0.11-0.8); Monocytes % 11.5 % (1.7-12.7); Platelet Count 214 T/CUMM (130-400); Red Blood Count 3.33 MC/CUMM (3.8-5.5); Red Cell Distribution Width 13.7 % (9.3-17.3); White Blood Count 7.9 T/CUMM (4-12)
[2022-10-16 06:18] LABS: Calcium 8.1 MG/DL (8.5-10.1); Osmolality,Calculated 281.4 MOS/KG (273-304); Potassium 3.4 MMOL/L (3.5-5.1)
[2022-10-16] MEDS: DESVENLAFAXINE 50 MG TABLET PO SCH ×2 (09:19→15:51)
[2022-10-16] MEDS: PANTOPRAZOLE 40 MG TABLET PO SCH (09:19)
[2022-10-16] MEDS: LORATADINE 10 MG TABLET PO SCH ×2 (09:19→10:46)
[2022-10-16] MEDS: DOCUSATE SODIUM 100 MG CAPSULE PO SCH ×2 (09:19→20:01)
[2022-10-16] MEDS: FUROSEMIDE 80 MG TABLET PO SCH ×2 (09:19→15:52)
[2022-10-16] MEDS: POLYETHYLENE GLYCOL POWDER 17 GM PACK PO SCH (09:19)
[2022-10-16] MEDS: TAMSULOSIN 0.4 MG CAPSULE PO SCH ×2 (09:19→20:01)
[2022-10-16] MEDS: PREGABALIN 100 MG CAPSULE PO SCH ×3 (09:19→20:00)
[2022-10-16] MEDS: NEOMYCIN/POLYMYXIN/BACITRACIN OINT 0.9 GM PACK TOP SCH (09:20)
[2022-10-16] MEDS: cloNIDine 0.1 MG/24 HR PATCH TRANSDERM SCH (09:20)
[2022-10-16] MEDS: tiZANidine 4 MG TABLET PO PRN ×2 (10:38→20:01)
[2022-10-16] MEDS: cilostazoL 100 MG TABLET PO SCH ×2 (10:38→20:01)
[2022-10-16] MEDS: CLOPIDOGREL 75 MG TABLET PO SCH (10:38)
[2022-10-16] MEDS: INSULIN GLARGINE 100 UNIT/ML SUBCUT SCH ×2 (10:39→20:02)
[2022-10-16] MEDS: FLUTICASONE 50 MCG NASAL SPRAY 16 GM BOTTLE BOTH NARES SCH ×2 (10:46→20:03)
[2022-10-16] MEDS: SODIUM HYPOCHLORITE 0.25% IRRIG 473 ML BOTTLE TOP SCH (10:46)
[2022-10-16] MEDS: SODIUM CHLORIDE 0.9% 1,000 ML IV SCH ×2 (15:00→17:08)
[2022-10-16] MEDS: POTASSIUM CHLORIDE 20 MEQ TABLET PO PRN (15:54)
[2022-10-16] MEDS: ZOLPIDEM 5 MG TABLET PO SCH (20:00)
[2022-10-16] MEDS: ENOXAPARIN 30 MG/0.3 ML SYRINGE SUBCUT SCH (20:01)
[2022-10-17] MEDS: oxyCODONE/ACETAMINOPHEN 5-325 MG TABLET PO PRN ×4 (02:40→21:06)
[2022-10-17] MEDS: SODIUM CHLORIDE 0.9% 1,000 ML IV SCH ×2 (04:17→17:23)
[2022-10-17 05:45] LABS: Calcium 8.4 MG/DL (8.5-10.1); Osmolality,Calculated 281.5 MOS/KG (273-304)
[2022-10-17] MEDS: PANTOPRAZOLE 40 MG TABLET PO SCH (05:55)
[2022-10-17] MEDS: PREGABALIN 100 MG CAPSULE PO SCH ×3 (08:39→21:05)
[2022-10-17] MEDS: cilostazoL 100 MG TABLET PO SCH ×2 (08:39→21:05)
[2022-10-17] MEDS: DOCUSATE SODIUM 100 MG CAPSULE PO SCH ×2 (08:39→21:04)
[2022-10-17] MEDS: TAMSULOSIN 0.4 MG CAPSULE PO SCH ×2 (08:39→21:05)
[2022-10-17] MEDS: LORATADINE 10 MG TABLET PO SCH ×2 (08:40→10:04)
[2022-10-17] MEDS: CLOPIDOGREL 75 MG TABLET PO SCH (08:40)
[2022-10-17] MEDS: tiZANidine 4 MG TABLET PO PRN ×2 (08:40→21:04)
[2022-10-17] MEDS: FUROSEMIDE 80 MG TABLET PO SCH ×2 (08:40→16:05)
[2022-10-17] MEDS: POLYETHYLENE GLYCOL POWDER 17 GM PACK PO SCH (08:40)
[2022-10-17] MEDS: DESVENLAFAXINE 50 MG TABLET PO SCH ×2 (08:40→14:08)
[2022-10-17] MEDS: POTASSIUM CHLORIDE RIDER 10 MEQ/100 ML PREMIX IV PRN ×5 (08:56→18:41)
[2022-10-17] MEDS: INSULIN GLARGINE 100 UNIT/ML SUBCUT SCH ×2 (08:58→21:07)
[2022-10-17] MEDS: NEOMYCIN/POLYMYXIN/BACITRACIN OINT 0.9 GM PACK TOP SCH (08:58)
[2022-10-17] MEDS: FLUTICASONE 50 MCG NASAL SPRAY 16 GM BOTTLE BOTH NARES SCH ×2 (09:03→21:07)
[2022-10-17] MEDS: SODIUM HYPOCHLORITE 0.25% IRRIG 473 ML BOTTLE TOP SCH (09:05)
[2022-10-17] MEDS ORDERED: cloNIDine 0.2 MG/24 HR PATCH TRANSDERM SCH (12:30)
[2022-10-17] MEDS ORDERED: CIPROFLOXACIN LEFT EAR SCH (13:00)
[2022-10-17] MEDS: CIPROFLOXACIN/DEXAMETHASONE OTIC SUSP 7.5 ML BOTTLE LEFT EAR SCH ×2 (14:07→21:09)
[2022-10-17] MEDS: ZOLPIDEM 5 MG TABLET PO SCH (21:05)
[2022-10-17] MEDS: ENOXAPARIN 30 MG/0.3 ML SYRINGE SUBCUT SCH (21:07)
[2022-10-17] MEDS: POTASSIUM CHLORIDE 20 MEQ TABLET PO PRN (22:58)
[2022-10-18] MEDS: POTASSIUM CHLORIDE 20 MEQ TABLET PO PRN ×4 (00:44→14:29)
[2022-10-18] MEDS: PANTOPRAZOLE 40 MG TABLET PO SCH (05:51)
[2022-10-18] MEDS: SODIUM CHLORIDE 0.9% 1,000 ML IV SCH ×3 (05:51→23:32)
[2022-10-18 06:45] LABS: Basophils # 0.1 10*3/uL (0.0-0.2); Basophils % 0.6 % (0.0-0.8); Eosinophils # 0.7 10*3/uL (0.0-0.87); Eosinophils % 6.4 % (0.00-10.9); Hematocrit 32.8 VOL% (42.0-52.0); Hemoglobin 10.4 GM/DL (14.0-18.0); Immature Granulocytes % 1.6 %; Immature Granulocytes Absolute 0.17 #; Lymphocytes # 2.8 10*3/uL (1.4-4.0); Lymphocytes % 25.8 % (21.2-54.2); Mean Corpuscular HGB Conc 31.7 GM/DL (32-36); Mean Corpuscular Volume 95.3 FL (87-102); Monocytes # 1.5 10*3/uL (0.11-0.8); Monocytes % 13.6 % (1.7-12.7); Platelet Count 275 T/CUMM (130-400); Red Blood Count 3.44 MC/CUMM (3.8-5.5); Red Cell Distribution Width 13.9 % (9.3-17.3); White Blood Count 10.8 T/CUMM (4-12)
[2022-10-18 07:01] LABS: Osmolality,Calculated 282.5 MOS/KG (273-304); Phosphorous 3.7 MG/DL (2.5-4.9); Potassium 3.3 MMOL/L (3.5-5.1)
[2022-10-18] MEDS: DOCUSATE SODIUM 100 MG CAPSULE PO SCH ×2 (09:09→21:18)
[2022-10-18] MEDS: FUROSEMIDE 80 MG TABLET PO SCH ×2 (09:09→15:04)
[2022-10-18] MEDS: INSULIN GLARGINE 100 UNIT/ML SUBCUT SCH ×2 (09:09→21:39)
[2022-10-18] MEDS: tiZANidine 4 MG TABLET PO PRN ×2 (09:09→21:19)
[2022-10-18] MEDS: POLYETHYLENE GLYCOL POWDER 17 GM PACK PO SCH (09:09)
[2022-10-18] MEDS: LORATADINE 10 MG TABLET PO SCH ×2 (09:09→09:11)
[2022-10-18] MEDS: TAMSULOSIN 0.4 MG CAPSULE PO SCH ×2 (09:10→21:18)
[2022-10-18] MEDS: CLOPIDOGREL 75 MG TABLET PO SCH (09:10)
[2022-10-18] MEDS: oxyCODONE/ACETAMINOPHEN 5-325 MG TABLET PO PRN ×3 (09:10→21:19)
[2022-10-18] MEDS: PREGABALIN 100 MG CAPSULE PO SCH ×3 (09:10→21:19)
[2022-10-18] MEDS: FLUTICASONE 50 MCG NASAL SPRAY 16 GM BOTTLE BOTH NARES SCH ×2 (09:10→21:20)
[2022-10-18] MEDS: DESVENLAFAXINE 50 MG TABLET PO SCH ×2 (09:10→14:30)
[2022-10-18] MEDS: cilostazoL 100 MG TABLET PO SCH ×2 (09:10→21:18)
[2022-10-18] MEDS: CIPROFLOXACIN/DEXAMETHASONE OTIC SUSP 7.5 ML BOTTLE LEFT EAR SCH ×2 (09:11→21:20)
[2022-10-18] MEDS: SODIUM HYPOCHLORITE 0.25% IRRIG 473 ML BOTTLE TOP SCH (09:11)
[2022-10-18] MEDS: NEOMYCIN/POLYMYXIN/BACITRACIN OINT 0.9 GM PACK TOP SCH (09:14)
[2022-10-18] MEDS: cefTRIAXone 1,000 MG in SODIUM CHLORIDE 0.9% 100 ML IV SCH (12:47)
[2022-10-18] MEDS: ZOLPIDEM 5 MG TABLET PO SCH (21:18)
[2022-10-18] MEDS: ENOXAPARIN 30 MG/0.3 ML SYRINGE SUBCUT SCH (21:39)
[2022-10-18] MEDS ORDERED: MAGNESIUM SULF RIDER 2 GM/50 ML PREMIX IV ONE (23:00)
[2022-10-19] MEDS: oxyCODONE/ACETAMINOPHEN 5-325 MG TABLET PO PRN ×4 (03:27→20:26)
[2022-10-19 06:21] LABS: Basophils # 0.1 10*3/uL (0.0-0.2); Basophils % 0.7 % (0.0-0.8); Eosinophils # 0.7 10*3/uL (0.0-0.87); Eosinophils % 8.4 % (0.00-10.9); Hemoglobin 10.9 GM/DL (14.0-18.0); Immature Granulocytes % 1.7 %; Immature Granulocytes Absolute 0.14 #; Lymphocytes # 2.6 10*3/uL (1.4-4.0); Lymphocytes % 31.3 % (21.2-54.2); Mean Corpuscular HGB Conc 32.1 GM/DL (32-36); Mean Corpuscular Volume 96.6 FL (87-102); Mean Platelet Volume 10.6 FL (9.6-12.0); Monocytes % 11.9 % (1.7-12.7); Platelet Count 283 T/CUMM (130-400); Red Blood Count 3.52 MC/CUMM (3.8-5.5); Red Cell Distribution Width 13.8 % (9.3-17.3); White Blood Count 8.2 T/CUMM (4-12)
[2022-10-19 06:42] LABS: Calcium 8.1 MG/DL (8.5-10.1); Osmolality,Calculated 287.4 MOS/KG (273-304); Potassium 3.3 MMOL/L (3.5-5.1)
[2022-10-19] MEDS: PANTOPRAZOLE 40 MG TABLET PO SCH ×2 (07:31→10:29)
[2022-10-19] MEDS: PREGABALIN 100 MG CAPSULE PO SCH ×3 (09:09→20:27)
[2022-10-19] MEDS: POLYETHYLENE GLYCOL POWDER 17 GM PACK PO SCH (09:09)
[2022-10-19] MEDS: CLOPIDOGREL 75 MG TABLET PO SCH (09:10)
[2022-10-19] MEDS: DESVENLAFAXINE 50 MG TABLET PO SCH ×2 (09:10→15:31)
[2022-10-19] MEDS: cilostazoL 100 MG TABLET PO SCH ×2 (09:10→20:27)
[2022-10-19] MEDS: TAMSULOSIN 0.4 MG CAPSULE PO SCH ×2 (09:10→20:27)
[2022-10-19] MEDS: LORATADINE 10 MG TABLET PO SCH ×2 (09:10→09:22)
[2022-10-19] MEDS: FUROSEMIDE 80 MG TABLET PO SCH (09:10)
[2022-10-19] MEDS: DOCUSATE SODIUM 100 MG CAPSULE PO SCH ×2 (09:10→20:28)
[2022-10-19] MEDS: CIPROFLOXACIN/DEXAMETHASONE OTIC SUSP 7.5 ML BOTTLE LEFT EAR SCH ×2 (09:11→20:29)
[2022-10-19] MEDS: FLUTICASONE 50 MCG NASAL SPRAY 16 GM BOTTLE BOTH NARES SCH ×2 (09:11→20:29)
[2022-10-19] MEDS: tiZANidine 4 MG TABLET PO PRN ×2 (09:15→20:34)
[2022-10-19] MEDS: INSULIN GLARGINE 100 UNIT/ML SUBCUT SCH ×2 (09:16→20:32)
[2022-10-19] MEDS: SODIUM HYPOCHLORITE 0.25% IRRIG 473 ML BOTTLE TOP SCH (09:20)
[2022-10-19] MEDS: NEOMYCIN/POLYMYXIN/BACITRACIN OINT 0.9 GM PACK TOP SCH (09:23)
[2022-10-19] MEDS: SODIUM CHLORIDE 0.9% 1,000 ML IV SCH (12:01)
[2022-10-19] MEDS: cefTRIAXone 1,000 MG in SODIUM CHLORIDE 0.9% 100 ML IV SCH (12:06)
[2022-10-19] MEDS ORDERED: SKIN HEALING OINT (AQUAPHOR) 50 GM TUBE TOP PRN (16:43)
[2022-10-19] MEDS: ZOLPIDEM 5 MG TABLET PO SCH (20:26)
[2022-10-19] MEDS: ENOXAPARIN 30 MG/0.3 ML SYRINGE SUBCUT SCH (20:29)
[2022-10-20] MEDS: hydrALAZINE 20 MG/1 ML VIAL IV PRN (00:15)
[2022-10-20] MEDS: oxyCODONE/ACETAMINOPHEN 5-325 MG TABLET PO PRN ×4 (01:49→20:38)
[2022-10-20] MEDS ORDERED: fentaNYL 12 MCG/HR PATCH TRANSDERM SCH (02:00)
[2022-10-20] MEDS: SODIUM CHLORIDE 0.9% 1,000 ML IV SCH ×2 (02:15→13:09)
[2022-10-20 06:15] LABS: Basophils # 0.1 10*3/uL (0.0-0.2); Basophils % 0.8 % (0.0-0.8); Eosinophils # 0.7 10*3/uL (0.0-0.87); Eosinophils % 9.7 % (0.00-10.9); Hemoglobin 10.8 GM/DL (14.0-18.0); Immature Granulocytes % 1.5 %; Immature Granulocytes Absolute 0.11 #; Lymphocytes # 1.8 10*3/uL (1.4-4.0); Lymphocytes % 24.6 % (21.2-54.2); Mean Corpuscular HGB Conc 31.8 GM/DL (32-36); Mean Corpuscular Volume 95.8 FL (87-102); Mean Platelet Volume 10.8 FL (9.6-12.0); Neutrophils % 50.4 % (38.7-73.9); Platelet Count 320 T/CUMM (130-400); Red Blood Count 3.55 MC/CUMM (3.8-5.5); Red Cell Distribution Width 13.7 % (9.3-17.3); White Blood Count 7.3 T/CUMM (4-12)
[2022-10-20 06:34] LABS: Calcium 8.1 MG/DL (8.5-10.1); Osmolality,Calculated 284.7 MOS/KG (273-304); Potassium 3.1 MMOL/L (3.5-5.1)
[2022-10-20] MEDS: PANTOPRAZOLE 40 MG TABLET PO SCH (06:54)
[2022-10-20] MEDS: tiZANidine 4 MG TABLET PO PRN ×2 (08:13→21:40)
[2022-10-20] MEDS: POLYETHYLENE GLYCOL POWDER 17 GM PACK PO SCH (08:13)
[2022-10-20] MEDS: DESVENLAFAXINE 50 MG TABLET PO SCH ×2 (08:16→15:18)
[2022-10-20] MEDS: cilostazoL 100 MG TABLET PO SCH ×2 (08:16→21:37)
[2022-10-20] MEDS: CLOPIDOGREL 75 MG TABLET PO SCH (08:16)
[2022-10-20] MEDS: POTASSIUM CHLORIDE 20 MEQ TABLET PO PRN ×2 (08:16→18:38)
[2022-10-20] MEDS: DOCUSATE SODIUM 100 MG CAPSULE PO SCH ×2 (08:16→21:36)
[2022-10-20] MEDS: FUROSEMIDE 80 MG TABLET PO SCH (08:16)
[2022-10-20] MEDS: TAMSULOSIN 0.4 MG CAPSULE PO SCH ×2 (08:16→21:36)
[2022-10-20] MEDS: PREGABALIN 100 MG CAPSULE PO SCH ×3 (08:17→21:37)
[2022-10-20] MEDS: CIPROFLOXACIN/DEXAMETHASONE OTIC SUSP 7.5 ML BOTTLE LEFT EAR SCH ×2 (08:17→21:36)
[2022-10-20] MEDS: NEOMYCIN/POLYMYXIN/BACITRACIN OINT 0.9 GM PACK TOP SCH ×2 (08:17→13:09)
[2022-10-20] MEDS: LORATADINE 10 MG TABLET PO SCH ×2 (08:17→08:23)
[2022-10-20] MEDS: INSULIN GLARGINE 100 UNIT/ML SUBCUT SCH ×2 (08:17→21:36)
[2022-10-20] MEDS: FLUTICASONE 50 MCG NASAL SPRAY 16 GM BOTTLE BOTH NARES SCH ×2 (08:17→21:36)
[2022-10-20] MEDS: SODIUM HYPOCHLORITE 0.25% IRRIG 473 ML BOTTLE TOP SCH (08:17)
[2022-10-20] MEDS: POTASSIUM CHLORIDE 20 MEQ TABLET PO SCH ×2 (08:56→21:36)
[2022-10-20] MEDS: cefTRIAXone 1,000 MG in SODIUM CHLORIDE 0.9% 100 ML IV SCH (13:09)
[2022-10-20] MEDS: DILTIAZEM CD 300 MG CAPSULE PO SCH (21:35)
[2022-10-20] MEDS: ZOLPIDEM 5 MG TABLET PO SCH (21:35)
[2022-10-20] MEDS: ENOXAPARIN 30 MG/0.3 ML SYRINGE SUBCUT SCH (21:37)
[2022-10-21] MEDS: hydrALAZINE 20 MG/1 ML VIAL IV PRN (00:30)
[2022-10-21] MEDS: POTASSIUM CHLORIDE 20 MEQ TABLET PO PRN (00:33)
[2022-10-21] MEDS: oxyCODONE/ACETAMINOPHEN 5-325 MG TABLET PO PRN ×4 (02:33→22:32)
[2022-10-21] MEDS: SODIUM CHLORIDE 0.9% 1,000 ML IV SCH ×2 (03:55→16:51)
[2022-10-21 05:16] LABS: Basophils % 0.6 % (0.0-0.8); Eosinophils # 0.6 10*3/uL (0.0-0.87); Eosinophils % 8.7 % (0.00-10.9); Hematocrit 34.3 VOL% (42.0-52.0); Hemoglobin 10.9 GM/DL (14.0-18.0); Immature Granulocytes % 1.4 %; Immature Granulocytes Absolute 0.09 #; Lymphocytes # 1.4 10*3/uL (1.4-4.0); Lymphocytes % 21.2 % (21.2-54.2); Mean Corpuscular HGB Conc 31.8 GM/DL (32-36); Mean Corpuscular Volume 96.6 FL (87-102); Mean Platelet Volume 10.6 FL (9.6-12.0); Monocytes # 0.6 10*3/uL (0.11-0.8); Monocytes % 9.5 % (1.7-12.7); Neutrophils % 58.6 % (38.7-73.9); Platelet Count 343 T/CUMM (130-400); Red Blood Count 3.55 MC/CUMM (3.8-5.5); Red Cell Distribution Width 13.6 % (9.3-17.3); White Blood Count 6.4 T/CUMM (4-12)
[2022-10-21 05:41] LABS: Calcium 8.4 MG/DL (8.5-10.1); Osmolality,Calculated 285.7 MOS/KG (273-304); Potassium 3.5 MMOL/L (3.5-5.1)
[2022-10-21] MEDS: PANTOPRAZOLE 40 MG TABLET PO SCH (06:26)
[2022-10-21] MEDS: POLYETHYLENE GLYCOL POWDER 17 GM PACK PO SCH (08:26)
[2022-10-21] MEDS: DOCUSATE SODIUM 100 MG CAPSULE PO SCH ×2 (08:28→21:27)
[2022-10-21] MEDS: tiZANidine 4 MG TABLET PO PRN (08:29)
[2022-10-21] MEDS: TAMSULOSIN 0.4 MG CAPSULE PO SCH ×2 (08:29→21:28)
[2022-10-21] MEDS: DESVENLAFAXINE 50 MG TABLET PO SCH ×2 (08:29→14:32)
[2022-10-21] MEDS: PREGABALIN 100 MG CAPSULE PO SCH ×3 (08:30→21:31)
[2022-10-21] MEDS: CIPROFLOXACIN/DEXAMETHASONE OTIC SUSP 7.5 ML BOTTLE LEFT EAR SCH ×2 (08:30→21:27)
[2022-10-21] MEDS: POTASSIUM CHLORIDE 20 MEQ TABLET PO SCH ×2 (08:30→21:28)
[2022-10-21] MEDS: LORATADINE 10 MG TABLET PO SCH ×2 (08:30→08:31)
[2022-10-21] MEDS: CLOPIDOGREL 75 MG TABLET PO SCH (08:30)
[2022-10-21] MEDS: SODIUM HYPOCHLORITE 0.25% IRRIG 473 ML BOTTLE TOP SCH (08:31)
[2022-10-21] MEDS: FUROSEMIDE 80 MG TABLET PO SCH (08:31)
[2022-10-21] MEDS: FLUTICASONE 50 MCG NASAL SPRAY 16 GM BOTTLE BOTH NARES SCH ×2 (08:31→21:28)
[2022-10-21] MEDS: NEOMYCIN/POLYMYXIN/BACITRACIN OINT 0.9 GM PACK TOP SCH (08:32)
[2022-10-21] MEDS: metOLazone 2.5 MG TABLET PO SCH (10:20)
[2022-10-21] MEDS: ESCITALOPRAM 10 MG TABLET PO SCH (10:20)
[2022-10-21] MEDS: ATORVASTATIN 40 MG TABLET PO SCH (10:20)
[2022-10-21] MEDS: cloNIDine 0.1 MG TABLET PO SCH ×2 (10:20→21:27)
[2022-10-21] MEDS: cilostazoL 100 MG TABLET PO SCH ×2 (10:20→21:31)
[2022-10-21] MEDS: INSULIN GLARGINE 100 UNIT/ML SUBCUT SCH ×2 (10:27→21:28)
[2022-10-21] MEDS: cefTRIAXone 1,000 MG in SODIUM CHLORIDE 0.9% 100 ML IV SCH (11:23)
[2022-10-21] MEDS ORDERED: SODIUM CHLORIDE 0.65% NASAL SPRAY 45 ML BOTTLE BOTH NARES PRN (11:39)
[2022-10-21] MEDS: carvediloL 25 MG TABLET PO SCH (16:57)
[2022-10-21] MEDS: ZOLPIDEM 5 MG TABLET PO SCH (21:22)
[2022-10-21] MEDS: DILTIAZEM CD 300 MG CAPSULE PO SCH (21:23)
[2022-10-21] MEDS: AMIODARONE 200 MG TABLET PO SCH (21:28)
[2022-10-21] MEDS: ENOXAPARIN 30 MG/0.3 ML SYRINGE SUBCUT SCH (21:29)
[2022-10-22] MEDS: oxyCODONE/ACETAMINOPHEN 5-325 MG TABLET PO PRN ×2 (05:26→11:31)
[2022-10-22] MEDS: PANTOPRAZOLE 40 MG TABLET PO SCH (05:31)
[2022-10-22 05:43] LABS: Basophils # 0.1 10*3/uL (0.0-0.2); Basophils % 0.6 % (0.0-0.8); Eosinophils # 0.4 10*3/uL (0.0-0.87); Eosinophils % 5.6 % (0.00-10.9); Hematocrit 32.7 VOL% (42.0-52.0); Hemoglobin 10.5 GM/DL (14.0-18.0); Immature Granulocytes % 0.6 %; Immature Granulocytes Absolute 0.05 #; Lymphocytes # 2.3 10*3/uL (1.4-4.0); Lymphocytes % 29.7 % (21.2-54.2); Mean Corpuscular HGB Conc 32.1 GM/DL (32-36); Mean Platelet Volume 10.5 FL (9.6-12.0); Monocytes % 12.1 % (1.7-12.7); Neutrophils % 51.4 % (38.7-73.9); Platelet Count 331 T/CUMM (130-400); Red Blood Count 3.37 MC/CUMM (3.8-5.5); Red Cell Distribution Width 13.6 % (9.3-17.3); White Blood Count 7.8 T/CUMM (4-12)
[2022-10-22 06:10] LABS: Calcium 8.9 MG/DL (8.5-10.1); Osmolality,Calculated 290.4 MOS/KG (273-304); Potassium 3.1 MMOL/L (3.5-5.1)
[2022-10-22] MEDS: SODIUM CHLORIDE 0.9% 1,000 ML IV SCH (06:55)
[2022-10-22] MEDS: POLYETHYLENE GLYCOL POWDER 17 GM PACK PO SCH (08:46)
[2022-10-22] MEDS: LORATADINE 10 MG TABLET PO SCH ×2 (08:50→08:52)
[2022-10-22] MEDS: ATORVASTATIN 40 MG TABLET PO SCH (08:50)
[2022-10-22] MEDS: PREGABALIN 100 MG CAPSULE PO SCH ×2 (08:50→14:41)
[2022-10-22] MEDS: ESCITALOPRAM 10 MG TABLET PO SCH (08:50)
[2022-10-22] MEDS: FUROSEMIDE 80 MG TABLET PO SCH (08:50)
[2022-10-22] MEDS: cilostazoL 100 MG TABLET PO SCH (08:51)
[2022-10-22] MEDS: carvediloL 25 MG TABLET PO SCH (08:51)
[2022-10-22] MEDS: DESVENLAFAXINE 50 MG TABLET PO SCH ×2 (08:51→14:41)
[2022-10-22] MEDS: CLOPIDOGREL 75 MG TABLET PO SCH (08:51)
[2022-10-22] MEDS: TAMSULOSIN 0.4 MG CAPSULE PO SCH (08:51)
[2022-10-22] MEDS: metOLazone 2.5 MG TABLET PO SCH (08:51)
[2022-10-22] MEDS: DOCUSATE SODIUM 100 MG CAPSULE PO SCH (08:51)
[2022-10-22] MEDS: cloNIDine 0.1 MG TABLET PO SCH (08:51)
[2022-10-22] MEDS: tiZANidine 4 MG TABLET PO PRN (08:54)
[2022-10-22] MEDS: INSULIN GLARGINE 100 UNIT/ML SUBCUT SCH (08:59)
[2022-10-22] MEDS ORDERED: POTASSIUM CHLORIDE 20 MEQ TABLET PO SCH (09:00)
[2022-10-22] MEDS: FLUTICASONE 50 MCG NASAL SPRAY 16 GM BOTTLE BOTH NARES SCH (09:00)
[2022-10-22] MEDS: CIPROFLOXACIN/DEXAMETHASONE OTIC SUSP 7.5 ML BOTTLE LEFT EAR SCH (09:01)
[2022-10-22] MEDS: SODIUM HYPOCHLORITE 0.25% IRRIG 473 ML BOTTLE TOP SCH (09:06)
[2022-10-22] MEDS: NEOMYCIN/POLYMYXIN/BACITRACIN OINT 0.9 GM PACK TOP SCH (09:06)
[2022-10-22] MEDS: cefTRIAXone 1,000 MG in SODIUM CHLORIDE 0.9% 100 ML IV SCH (11:33)
[2022-10-22 12:51] VITALS: BP 122/74
== END 2022-10-22 16:04 | disposition home health service (06) | DRG 683 ==
LOC: N.ED 23:05 → N.EDINP 10-07 00:47 → N.2E 10-07 11:15
PROVIDERS: ADMIT Internal Medicine; ATTEND Internal Medicine

== ENCOUNTER 2022-11-06 00:12 | Inpatient (IN) ==
[2022-11-06] MEDS ORDERED: MORPHINE 2 MG/1 ML SYRINGE IV STA (00:37)
[2022-11-06] MEDS ORDERED: FUROSEMIDE 100 MG/10 ML VIAL IV STA (00:37)
[2022-11-06] MEDS ORDERED: ALBUTEROL/IPRATROPIUM 3 ML NEB RESP TX STA (00:37)
[2022-11-06] MEDS ORDERED: ONDANSETRON 4 MG/2 ML VIAL IV STA (00:37)
[2022-11-06 01:24] LABS: Basophils % 0.1 % (0.0-0.8); Eosinophils # 0.1 10*3/uL (0.0-0.87); Eosinophils % 1.1 % (0.00-10.9); Hematocrit 28.7 VOL% (42.0-52.0); Hemoglobin 9.2 GM/DL (14.0-18.0); Immature Granulocytes % 0.6 %; Immature Granulocytes Absolute 0.05 #; Lymphocytes % 12.3 % (21.2-54.2); Mean Corpuscular HGB Conc 32.1 GM/DL (32-36); Mean Corpuscular Volume 96.6 FL (87-102); Mean Platelet Volume 11.1 FL (9.6-12.0); Monocytes # 0.9 10*3/uL (0.11-0.8); Monocytes % 11.4 % (1.7-12.7); Neutrophils % 74.5 % (38.7-73.9); Platelet Count 214 T/CUMM (130-400); Red Blood Count 2.97 MC/CUMM (3.8-5.5); Red Cell Distribution Width 13.6 % (9.3-17.3); White Blood Count 8.1 T/CUMM (4-12)
[2022-11-06 01:33] LABS: Bacteria,Urine Many /HPF (Few); RBC,Urine 181 /HPF (0-4)
[2022-11-06 01:36] LABS: Urine Appearance CLOUDY (Clear); Urine Color Brown (Yellow)
[2022-11-06 01:37] LABS: Bilirubin,Urine Negative (Negative); Blood, Urine Large mg/dL (Negative); Glucose,Urine (UA) Negative (Negative); Ketones,Urine Negative (Negative); Nitrite,Urine Negative (Negative); Protein,Urine 100 mg/dL (Negative); Urine Specific Gravity 1.015 (1.001-1.035); Urine Urobilinogen 0.2 eU/dL (<2.0); Urine pH 5.5 (4.5-8.0)
[2022-11-06 01:44] LABS: Albumin 3.2 G/DL (3.4-5.0); Bilirubin,Total 0.4 MG/DL (0.20-1.00); Calcium 7.6 MG/DL (8.5-10.1); Osmolality,Calculated 295.8 MOS/KG (273-304); Potassium 4.9 MMOL/L (3.5-5.1); Total Protein 7.1 G/DL (6.4-8.2)
[2022-11-06] MEDS ORDERED: cefTRIAXone 1,000 MG in SODIUM CHLORIDE 0.9% 100 ML IV STA (02:21)
[2022-11-06] MEDS ORDERED: SODIUM CHLORIDE 0.9% 500 ML IV STA (02:23)
[2022-11-06] MEDS ORDERED: GLUCAGON 1 MG VIAL IM PRN (03:14)
[2022-11-06] MEDS ORDERED: ACETAMINOPHEN 325 MG TABLET PO PRN (03:14)
[2022-11-06] MEDS ORDERED: DEXTROSE 10% 250 ML BAG IV PRN (03:26)
[2022-11-06] MEDS: SODIUM CHLORIDE 0.9% 1,000 ML IV SCH ×3 (04:32→20:27)
[2022-11-06] MEDS: MORPHINE 2 MG/1 ML SYRINGE IV PRN (04:49)
[2022-11-06] MEDS: ONDANSETRON 4 MG/2 ML VIAL IV PRN (04:51)
[2022-11-06 05:15] LABS: Basophils % 0.2 % (0.0-0.8); Eosinophils # 0.1 10*3/uL (0.0-0.87); Eosinophils % 1.6 % (0.00-10.9); Hematocrit 29.1 VOL% (42.0-52.0); Hemoglobin 9.1 GM/DL (14.0-18.0); Immature Granulocytes % 0.9 %; Immature Granulocytes Absolute 0.07 #; Mean Corpuscular HGB Conc 31.3 GM/DL (32-36); Mean Platelet Volume 11.5 FL (9.6-12.0); Monocytes # 1.1 10*3/uL (0.11-0.8); Neutrophils % 72.3 % (38.7-73.9); Platelet Count 223 T/CUMM (130-400); Red Cell Distribution Width 13.7 % (9.3-17.3); White Blood Count 8.2 T/CUMM (4-12)
[2022-11-06 05:38] LABS: Albumin 3.3 G/DL (3.4-5.0); Bilirubin,Total 0.4 MG/DL (0.20-1.00); Calcium 7.6 MG/DL (8.5-10.1); Osmolality,Calculated 295.8 MOS/KG (273-304); Potassium 4.7 MMOL/L (3.5-5.1); Total Protein 7.4 G/DL (6.4-8.2)
[2022-11-06] MEDS: INSULIN REGULAR 100 UNIT/ML SUBCUT SCH ×3 (06:08→18:20)
[2022-11-06] MEDS: DOCUSATE SODIUM 100 MG CAPSULE PO SCH ×2 (08:48→21:25)
[2022-11-06] MEDS: PANTOPRAZOLE 40 MG TABLET PO SCH (08:48)
[2022-11-06 09:37] LABS: Calcium 7.3 MG/DL (8.5-10.1); Osmolality,Calculated 293.7 MOS/KG (273-304); Potassium 4.8 MMOL/L (3.5-5.1)
[2022-11-06] MEDS: FLUCONAZOLE 100 MG TABLET PO SCH (10:23)
[2022-11-06] MEDS ORDERED: SODIUM CHLORIDE 0.65% NASAL SPRAY 45 ML BOTTLE BOTH NARES PRN (11:48)
[2022-11-06] MEDS: oxyCODONE/ACETAMINOPHEN 5-325 MG TABLET PO PRN ×2 (12:07→21:26)
[2022-11-06] MEDS: NYSTATIN 500,000 UNIT/5 ML UDCUP SWISH/SWAL SCH ×3 (12:08→21:24)
[2022-11-06] MEDS: fentaNYL 12 MCG/HR PATCH TRANSDERM SCH (12:09)
[2022-11-06] MEDS: DESVENLAFAXINE 50 MG TABLET PO SCH (15:28)
[2022-11-06] MEDS: carvediloL 25 MG TABLET PO SCH (16:27)
[2022-11-06] MEDS ORDERED: ENOXAPARIN 40 MG/0.4 ML SYRINGE SUBCUT SCH (21:00)
[2022-11-06] MEDS: INSULIN GLARGINE 100 UNIT/ML SUBCUT SCH (21:24)
[2022-11-06] MEDS: AMIODARONE 200 MG TABLET PO SCH (21:25)
[2022-11-06] MEDS: DILTIAZEM CD 300 MG CAPSULE PO SCH (21:25)
[2022-11-06] MEDS: ZOLPIDEM 5 MG TABLET PO SCH (21:25)
[2022-11-07] MEDS: INSULIN REGULAR 100 UNIT/ML SUBCUT SCH ×4 (00:58→17:37)
[2022-11-07] MEDS: SODIUM CHLORIDE 0.9% 1,000 ML IV SCH ×3 (03:25→22:05)
[2022-11-07] MEDS: cefTRIAXone 1,000 MG in SODIUM CHLORIDE 0.9% 100 ML IV SCH (03:25)
[2022-11-07] MEDS: oxyCODONE/ACETAMINOPHEN 5-325 MG TABLET PO PRN ×4 (04:30→22:10)
[2022-11-07 05:23] LABS: Basophils % 0.3 % (0.0-0.8); Eosinophils # 0.3 10*3/uL (0.0-0.87); Eosinophils % 3.5 % (0.00-10.9); Hematocrit 30.2 VOL% (42.0-52.0); Hemoglobin 9.4 GM/DL (14.0-18.0); Immature Granulocytes % 0.6 %; Immature Granulocytes Absolute 0.05 #; Lymphocytes # 1.4 10*3/uL (1.4-4.0); Lymphocytes % 18.3 % (21.2-54.2); Mean Corpuscular HGB Conc 31.1 GM/DL (32-36); Mean Corpuscular Volume 98.4 FL (87-102); Mean Platelet Volume 11.5 FL (9.6-12.0); Monocytes # 1.1 10*3/uL (0.11-0.8); Monocytes % 14.4 % (1.7-12.7); Neutrophils % 62.9 % (38.7-73.9); Platelet Count 212 T/CUMM (130-400); Red Blood Count 3.07 MC/CUMM (3.8-5.5); Red Cell Distribution Width 13.9 % (9.3-17.3); White Blood Count 7.7 T/CUMM (4-12)
[2022-11-07 05:39] LABS: Calcium 7.9 MG/DL (8.5-10.1); Potassium 3.5 MMOL/L (3.5-5.1)
[2022-11-07] MEDS: DESVENLAFAXINE 50 MG TABLET PO SCH ×2 (10:26→13:59)
[2022-11-07] MEDS: ESCITALOPRAM 10 MG TABLET PO SCH (10:27)
[2022-11-07] MEDS: CLOPIDOGREL 75 MG TABLET PO SCH (10:28)
[2022-11-07] MEDS: carvediloL 25 MG TABLET PO SCH ×2 (10:28→17:37)
[2022-11-07] MEDS: ATORVASTATIN 40 MG TABLET PO SCH (10:28)
[2022-11-07] MEDS: tiZANidine 4 MG TABLET PO PRN ×2 (10:28→22:12)
[2022-11-07] MEDS: LORATADINE 10 MG TABLET PO SCH (10:28)
[2022-11-07] MEDS: FLUCONAZOLE 100 MG TABLET PO SCH (10:28)
[2022-11-07] MEDS: DOCUSATE SODIUM 100 MG CAPSULE PO SCH ×2 (10:28→22:12)
[2022-11-07] MEDS: PANTOPRAZOLE 40 MG TABLET PO SCH (10:29)
[2022-11-07] MEDS: NYSTATIN 500,000 UNIT/5 ML UDCUP SWISH/SWAL SCH ×4 (10:31→22:12)
[2022-11-07] MEDS: cloNIDine 0.1 MG TABLET PO SCH (22:11)
[2022-11-07] MEDS: DILTIAZEM CD 300 MG CAPSULE PO SCH (22:11)
[2022-11-07] MEDS: INSULIN GLARGINE 100 UNIT/ML SUBCUT SCH (22:11)
[2022-11-07] MEDS: ENOXAPARIN 30 MG/0.3 ML SYRINGE SUBCUT SCH (22:11)
[2022-11-07] MEDS: AMIODARONE 200 MG TABLET PO SCH (22:11)
[2022-11-07] MEDS: ZOLPIDEM 5 MG TABLET PO SCH (22:11)
[2022-11-08] MEDS: INSULIN REGULAR 100 UNIT/ML SUBCUT SCH ×4 (02:07→17:13)
[2022-11-08] MEDS: cefTRIAXone 1,000 MG in SODIUM CHLORIDE 0.9% 100 ML IV SCH (02:08)
[2022-11-08] MEDS: oxyCODONE/ACETAMINOPHEN 5-325 MG TABLET PO PRN ×4 (04:10→21:50)
[2022-11-08] MEDS: SODIUM CHLORIDE 0.9% 1,000 ML IV SCH ×3 (05:51→21:35)
[2022-11-08 05:56] LABS: Basophils % 0.2 % (0.0-0.8); Eosinophils # 0.3 10*3/uL (0.0-0.87); Eosinophils % 3.4 % (0.00-10.9); Hematocrit 31.1 VOL% (42.0-52.0); Hemoglobin 9.9 GM/DL (14.0-18.0); Immature Granulocytes % 0.7 %; Immature Granulocytes Absolute 0.06 #; Lymphocytes # 1.1 10*3/uL (1.4-4.0); Lymphocytes % 12.5 % (21.2-54.2); Mean Corpuscular HGB Conc 31.8 GM/DL (32-36); Mean Corpuscular Volume 97.8 FL (87-102); Mean Platelet Volume 11.2 FL (9.6-12.0); Monocytes # 1.1 10*3/uL (0.11-0.8); Monocytes % 12.6 % (1.7-12.7); Neutrophils % 70.6 % (38.7-73.9); Platelet Count 196 T/CUMM (130-400); Red Blood Count 3.18 MC/CUMM (3.8-5.5); Red Cell Distribution Width 13.9 % (9.3-17.3)
[2022-11-08 06:08] LABS: Calcium 7.7 MG/DL (8.5-10.1); Osmolality,Calculated 308.7 MOS/KG (273-304); Potassium 3.2 MMOL/L (3.5-5.1)
[2022-11-08] MEDS: PANTOPRAZOLE 40 MG TABLET PO SCH (10:20)
[2022-11-08] MEDS: cloNIDine 0.1 MG TABLET PO SCH ×2 (10:20→21:48)
[2022-11-08] MEDS: DOCUSATE SODIUM 100 MG CAPSULE PO SCH ×2 (10:20→21:49)
[2022-11-08] MEDS: carvediloL 25 MG TABLET PO SCH ×2 (10:21→16:39)
[2022-11-08] MEDS: DESVENLAFAXINE 50 MG TABLET PO SCH ×2 (10:21→13:00)
[2022-11-08] MEDS: NYSTATIN 500,000 UNIT/5 ML UDCUP SWISH/SWAL SCH ×4 (10:21→21:58)
[2022-11-08] MEDS: FLUCONAZOLE 100 MG TABLET PO SCH (10:21)
[2022-11-08] MEDS: ATORVASTATIN 40 MG TABLET PO SCH (10:21)
[2022-11-08] MEDS: LORATADINE 10 MG TABLET PO SCH (10:22)
[2022-11-08] MEDS: ESCITALOPRAM 10 MG TABLET PO SCH (10:22)
[2022-11-08] MEDS: tiZANidine 4 MG TABLET PO PRN ×2 (10:22→21:50)
[2022-11-08] MEDS: CLOPIDOGREL 75 MG TABLET PO SCH (10:23)
[2022-11-08] MEDS: ERTAPENEM 500 MG in SODIUM CHLORIDE 0.9% 100 ML IV SCH (12:53)
[2022-11-08] MEDS: POTASSIUM CHLORIDE 20 MEQ TABLET PO PRN ×4 (12:53→19:00)
[2022-11-08] MEDS: DILTIAZEM CD 300 MG CAPSULE PO SCH (21:48)
[2022-11-08] MEDS: ZOLPIDEM 5 MG TABLET PO SCH (21:49)
[2022-11-08] MEDS: AMIODARONE 200 MG TABLET PO SCH (21:49)
[2022-11-08] MEDS: ENOXAPARIN 30 MG/0.3 ML SYRINGE SUBCUT SCH (21:50)
[2022-11-08] MEDS: INSULIN GLARGINE 100 UNIT/ML SUBCUT SCH (21:53)
[2022-11-08] MEDS: MORPHINE 2 MG/1 ML SYRINGE IV PRN (23:29)
[2022-11-09] MEDS: INSULIN REGULAR 100 UNIT/ML SUBCUT SCH ×4 (00:28→17:09)
[2022-11-09] MEDS: MORPHINE 2 MG/1 ML SYRINGE IV PRN (04:15)
[2022-11-09] MEDS: SODIUM CHLORIDE 0.9% 1,000 ML IV SCH ×3 (05:34→21:19)
[2022-11-09 05:43] LABS: Basophils % 0.2 % (0.0-0.8); Eosinophils # 0.4 10*3/uL (0.0-0.87); Eosinophils % 3.4 % (0.00-10.9); Hematocrit 32.1 VOL% (42.0-52.0); Hemoglobin 10.1 GM/DL (14.0-18.0); Immature Granulocytes % 0.6 %; Immature Granulocytes Absolute 0.07 #; Lymphocytes # 1.4 10*3/uL (1.4-4.0); Lymphocytes % 12.4 % (21.2-54.2); Mean Corpuscular HGB Conc 31.5 GM/DL (32-36); Mean Corpuscular Volume 97.9 FL (87-102); Mean Platelet Volume 11.4 FL (9.6-12.0); Monocytes # 1.3 10*3/uL (0.11-0.8); Monocytes % 11.5 % (1.7-12.7); Neutrophils % 71.9 % (38.7-73.9); Platelet Count 196 T/CUMM (130-400); Red Blood Count 3.28 MC/CUMM (3.8-5.5)
[2022-11-09 05:57] LABS: Calcium 7.7 MG/DL (8.5-10.1); Osmolality,Calculated 301.8 MOS/KG (273-304); Potassium 3.2 MMOL/L (3.5-5.1)
[2022-11-09] MEDS: ESCITALOPRAM 10 MG TABLET PO SCH (08:47)
[2022-11-09] MEDS: NYSTATIN 500,000 UNIT/5 ML UDCUP SWISH/SWAL SCH ×4 (08:47→21:18)
[2022-11-09] MEDS: cloNIDine 0.1 MG TABLET PO SCH ×2 (08:47→21:17)
[2022-11-09] MEDS: PANTOPRAZOLE 40 MG TABLET PO SCH (08:48)
[2022-11-09] MEDS: ATORVASTATIN 40 MG TABLET PO SCH (08:48)
[2022-11-09] MEDS: LORATADINE 10 MG TABLET PO SCH (08:48)
[2022-11-09] MEDS: DOCUSATE SODIUM 100 MG CAPSULE PO SCH ×2 (08:48→21:18)
[2022-11-09] MEDS: carvediloL 25 MG TABLET PO SCH ×2 (08:48→16:31)
[2022-11-09] MEDS: DESVENLAFAXINE 50 MG TABLET PO SCH ×2 (08:48→14:42)
[2022-11-09] MEDS: FLUCONAZOLE 100 MG TABLET PO SCH (08:48)
[2022-11-09] MEDS: CLOPIDOGREL 75 MG TABLET PO SCH (08:48)
[2022-11-09] MEDS: POTASSIUM CHLORIDE 20 MEQ TABLET PO PRN ×4 (08:48→16:31)
[2022-11-09] MEDS: fentaNYL 12 MCG/HR PATCH TRANSDERM SCH ×2 (08:49→11:15)
[2022-11-09] MEDS: tiZANidine 4 MG TABLET PO PRN ×2 (08:58→21:17)
[2022-11-09] MEDS: oxyCODONE/ACETAMINOPHEN 5-325 MG TABLET PO PRN ×4 (08:59→22:42)
[2022-11-09] MEDS: ERTAPENEM 500 MG in SODIUM CHLORIDE 0.9% 100 ML IV SCH (13:05)
[2022-11-09] MEDS: DILTIAZEM CD 300 MG CAPSULE PO SCH (21:17)
[2022-11-09] MEDS: ZOLPIDEM 5 MG TABLET PO SCH (21:17)
[2022-11-09] MEDS: AMIODARONE 200 MG TABLET PO SCH (21:17)
[2022-11-09] MEDS: ENOXAPARIN 30 MG/0.3 ML SYRINGE SUBCUT SCH (21:18)
[2022-11-09] MEDS: INSULIN GLARGINE 100 UNIT/ML SUBCUT SCH (21:18)
[2022-11-10] MEDS: INSULIN REGULAR 100 UNIT/ML SUBCUT SCH ×4 (00:02→17:11)
[2022-11-10] MEDS: SODIUM CHLORIDE 0.9% 1,000 ML IV SCH ×2 (02:32→10:37)
[2022-11-10] MEDS: oxyCODONE/ACETAMINOPHEN 5-325 MG TABLET PO PRN ×5 (04:35→21:50)
[2022-11-10 05:14] LABS: Basophils % 0.2 % (0.0-0.8); Eosinophils # 0.5 10*3/uL (0.0-0.87); Eosinophils % 4.7 % (0.00-10.9); Hematocrit 31.9 VOL% (42.0-52.0); Immature Granulocytes % 0.6 %; Immature Granulocytes Absolute 0.06 #; Lymphocytes # 1.9 10*3/uL (1.4-4.0); Lymphocytes % 19.7 % (21.2-54.2); Mean Corpuscular HGB Conc 31.3 GM/DL (32-36); Mean Corpuscular Volume 99.4 FL (87-102); Mean Platelet Volume 11.4 FL (9.6-12.0); Monocytes # 1.2 10*3/uL (0.11-0.8); Neutrophils % 61.8 % (38.7-73.9); Platelet Count 181 T/CUMM (130-400); Red Blood Count 3.21 MC/CUMM (3.8-5.5); Red Cell Distribution Width 14.1 % (9.3-17.3); White Blood Count 9.6 T/CUMM (4-12)
[2022-11-10 05:42] LABS: Calcium 7.7 MG/DL (8.5-10.1); Osmolality,Calculated 303.1 MOS/KG (273-304); Potassium 3.7 MMOL/L (3.5-5.1)
[2022-11-10] MEDS: CLOPIDOGREL 75 MG TABLET PO SCH (08:46)
[2022-11-10] MEDS: carvediloL 25 MG TABLET PO SCH ×2 (08:46→16:30)
[2022-11-10] MEDS: cloNIDine 0.1 MG TABLET PO SCH ×2 (08:46→21:51)
[2022-11-10] MEDS: LORATADINE 10 MG TABLET PO SCH (08:46)
[2022-11-10] MEDS: ATORVASTATIN 40 MG TABLET PO SCH (08:46)
[2022-11-10] MEDS: PANTOPRAZOLE 40 MG TABLET PO SCH (08:46)
[2022-11-10] MEDS: DESVENLAFAXINE 50 MG TABLET PO SCH ×2 (08:46→13:43)
[2022-11-10] MEDS: NYSTATIN 500,000 UNIT/5 ML UDCUP SWISH/SWAL SCH ×4 (08:47→21:50)
[2022-11-10] MEDS: ESCITALOPRAM 10 MG TABLET PO SCH (08:47)
[2022-11-10] MEDS: FLUCONAZOLE 100 MG TABLET PO SCH (08:47)
[2022-11-10] MEDS: tiZANidine 4 MG TABLET PO PRN ×2 (08:47→21:51)
[2022-11-10] MEDS: DOCUSATE SODIUM 100 MG CAPSULE PO SCH ×2 (08:47→21:54)
[2022-11-10] MEDS ORDERED: SKIN HEALING OINT (AQUAPHOR) 50 GM TUBE TOP PRN (08:52)
[2022-11-10] MEDS: POTASSIUM CHLORIDE 20 MEQ TABLET PO PRN (08:57)
[2022-11-10] MEDS: ERTAPENEM 500 MG in SODIUM CHLORIDE 0.9% 100 ML IV SCH (13:43)
[2022-11-10] MEDS: AMIODARONE 200 MG TABLET PO SCH (21:50)
[2022-11-10] MEDS: ZOLPIDEM 5 MG TABLET PO SCH (21:50)
[2022-11-10] MEDS: ENOXAPARIN 30 MG/0.3 ML SYRINGE SUBCUT SCH (21:51)
[2022-11-10] MEDS: DILTIAZEM CD 300 MG CAPSULE PO SCH (21:51)
[2022-11-10] MEDS: INSULIN GLARGINE 100 UNIT/ML SUBCUT SCH (21:51)
[2022-11-11] MEDS: INSULIN REGULAR 100 UNIT/ML SUBCUT SCH ×4 (00:08→15:42)
[2022-11-11] MEDS: oxyCODONE/ACETAMINOPHEN 5-325 MG TABLET PO PRN ×4 (03:02→20:49)
[2022-11-11] MEDS: SODIUM CHLORIDE 0.9% 1,000 ML IV SCH ×3 (03:03→13:22)
[2022-11-11] MEDS: MORPHINE 2 MG/1 ML SYRINGE IV PRN ×2 (04:25→20:37)
[2022-11-11 05:29] LABS: Basophils % 0.3 % (0.0-0.8); Eosinophils # 0.4 10*3/uL (0.0-0.87); Eosinophils % 3.8 % (0.00-10.9); Hematocrit 31.6 VOL% (42.0-52.0); Hemoglobin 10.1 GM/DL (14.0-18.0); Immature Granulocytes % 0.6 %; Immature Granulocytes Absolute 0.06 #; Lymphocytes # 1.7 10*3/uL (1.4-4.0); Mean Corpuscular Volume 97.8 FL (87-102); Mean Platelet Volume 11.2 FL (9.6-12.0); Monocytes # 1.1 10*3/uL (0.11-0.8); Monocytes % 10.3 % (1.7-12.7); Platelet Count 185 T/CUMM (130-400); Red Blood Count 3.23 MC/CUMM (3.8-5.5); Red Cell Distribution Width 13.9 % (9.3-17.3); White Blood Count 10.7 T/CUMM (4-12)
[2022-11-11 06:18] LABS: Calcium 8.1 MG/DL (8.5-10.1); Osmolality,Calculated 298.1 MOS/KG (273-304); Potassium 3.4 MMOL/L (3.5-5.1)
[2022-11-11] MEDS: DESVENLAFAXINE 50 MG TABLET PO SCH ×2 (09:49→13:09)
[2022-11-11] MEDS: NYSTATIN 500,000 UNIT/5 ML UDCUP SWISH/SWAL SCH ×4 (09:49→20:36)
[2022-11-11] MEDS: POTASSIUM CHLORIDE 20 MEQ TABLET PO PRN ×2 (09:49→13:08)
[2022-11-11] MEDS: cloNIDine 0.1 MG TABLET PO SCH ×2 (09:50→20:36)
[2022-11-11] MEDS: ATORVASTATIN 40 MG TABLET PO SCH (09:50)
[2022-11-11] MEDS: ESCITALOPRAM 10 MG TABLET PO SCH (09:50)
[2022-11-11] MEDS: carvediloL 25 MG TABLET PO SCH ×2 (09:50→16:06)
[2022-11-11] MEDS: DOCUSATE SODIUM 100 MG CAPSULE PO SCH ×2 (09:50→20:36)
[2022-11-11] MEDS: PANTOPRAZOLE 40 MG TABLET PO SCH (09:51)
[2022-11-11] MEDS: CLOPIDOGREL 75 MG TABLET PO SCH (09:51)
[2022-11-11] MEDS: LORATADINE 10 MG TABLET PO SCH (09:51)
[2022-11-11] MEDS: FLUCONAZOLE 100 MG TABLET PO SCH (09:51)
[2022-11-11] MEDS: ERTAPENEM 500 MG in SODIUM CHLORIDE 0.9% 100 ML IV SCH (13:09)
[2022-11-11] MEDS: ENOXAPARIN 30 MG/0.3 ML SYRINGE SUBCUT SCH (20:35)
[2022-11-11] MEDS: tiZANidine 4 MG TABLET PO PRN (20:35)
[2022-11-11] MEDS: AMIODARONE 200 MG TABLET PO SCH (20:36)
[2022-11-11] MEDS: ZOLPIDEM 5 MG TABLET PO SCH (20:36)
[2022-11-11] MEDS: DILTIAZEM CD 300 MG CAPSULE PO SCH (20:36)
[2022-11-11] MEDS: INSULIN GLARGINE 100 UNIT/ML SUBCUT SCH (20:40)
[2022-11-12] MEDS: SODIUM CHLORIDE 0.9% 1,000 ML IV SCH ×5 (01:25→23:00)
[2022-11-12] MEDS: oxyCODONE/ACETAMINOPHEN 5-325 MG TABLET PO PRN ×3 (03:24→18:45)
[2022-11-12 05:09] LABS: Basophils % 0.3 % (0.0-0.8); Eosinophils # 0.4 10*3/uL (0.0-0.87); Eosinophils % 3.9 % (0.00-10.9); Hematocrit 30.6 VOL% (42.0-52.0); Hemoglobin 9.7 GM/DL (14.0-18.0); Immature Granulocytes % 0.7 %; Immature Granulocytes Absolute 0.07 #; Lymphocytes # 1.7 10*3/uL (1.4-4.0); Lymphocytes % 17.5 % (21.2-54.2); Mean Corpuscular HGB Conc 31.7 GM/DL (32-36); Mean Corpuscular Volume 96.5 FL (87-102); Mean Platelet Volume 11.1 FL (9.6-12.0); Monocytes # 1.1 10*3/uL (0.11-0.8); Monocytes % 11.6 % (1.7-12.7); Platelet Count 180 T/CUMM (130-400); Red Blood Count 3.17 MC/CUMM (3.8-5.5); Red Cell Distribution Width 13.7 % (9.3-17.3); White Blood Count 9.8 T/CUMM (4-12)
[2022-11-12 05:40] LABS: Calcium 8.1 MG/DL (8.5-10.1); Osmolality,Calculated 293.3 MOS/KG (273-304); Potassium 3.3 MMOL/L (3.5-5.1)
[2022-11-12] MEDS: INSULIN REGULAR 100 UNIT/ML SUBCUT SCH ×3 (08:12→18:47)
[2022-11-12] MEDS ORDERED: MAGNESIUM SULF RIDER 2 GM/50 ML PREMIX IV PRN (09:06)
[2022-11-12] MEDS ORDERED: MAGNESIUM SULF RIDER 4 GM/100 ML PREMIX IV PRN (09:06)
[2022-11-12] MEDS: ERTAPENEM 500 MG in SODIUM CHLORIDE 0.9% 100 ML IV SCH (11:05)
[2022-11-12] MEDS: cloNIDine 0.1 MG TABLET PO SCH ×2 (11:07→21:47)
[2022-11-12] MEDS: tiZANidine 4 MG TABLET PO PRN ×2 (11:07→21:47)
[2022-11-12] MEDS: DESVENLAFAXINE 50 MG TABLET PO SCH ×2 (11:07→18:45)
[2022-11-12] MEDS: CLOPIDOGREL 75 MG TABLET PO SCH (11:07)
[2022-11-12] MEDS: PANTOPRAZOLE 40 MG TABLET PO SCH (11:07)
[2022-11-12] MEDS: LORATADINE 10 MG TABLET PO SCH (11:07)
[2022-11-12] MEDS: POTASSIUM CHLORIDE 20 MEQ TABLET PO PRN (11:07)
[2022-11-12] MEDS: DOCUSATE SODIUM 100 MG CAPSULE PO SCH ×2 (11:07→21:47)
[2022-11-12] MEDS: POTASSIUM CHLORIDE 10 MEQ TABLET PO SCH (11:08)
[2022-11-12] MEDS: FLUCONAZOLE 100 MG TABLET PO SCH (11:08)
[2022-11-12] MEDS: ATORVASTATIN 40 MG TABLET PO SCH (11:08)
[2022-11-12] MEDS: ESCITALOPRAM 10 MG TABLET PO SCH (11:08)
[2022-11-12] MEDS: carvediloL 25 MG TABLET PO SCH ×2 (11:09→18:45)
[2022-11-12] MEDS: NYSTATIN 500,000 UNIT/5 ML UDCUP SWISH/SWAL SCH ×4 (11:09→21:47)
[2022-11-12] MEDS: fentaNYL 12 MCG/HR PATCH TRANSDERM SCH (11:11)
[2022-11-12] MEDS ORDERED: ceFAZolin 2,000 MG in SODIUM CHLORIDE 0.9% 100 ML IV ONE (13:08)
[2022-11-12] MEDS ORDERED: LIDOCAINE 2% 5 ML VIAL ONE (15:44)
[2022-11-12] MEDS ORDERED: propofoL 200 MG/20 ML VIAL IV ONE (15:44)
[2022-11-12] MEDS ORDERED: SEVOFLURANE 1 UNIT/15 MINUTE INH ONE (15:44)
[2022-11-12] MEDS ORDERED: fentaNYL 100 MCG/2 ML VIAL ONE (15:45)
[2022-11-12] MEDS ORDERED: MIDAZOLAM 2 MG/2 ML VIAL ONE (15:45)
[2022-11-12] MEDS ORDERED: ceFAZolin 1,000 MG VIAL ONE (17:21)
[2022-11-12] MEDS ORDERED: GLYCOPYRROLATE 0.4 MG/2 ML VIAL ONE (17:33)
[2022-11-12] MEDS ORDERED: NEOSTIGMINE 10 MG/10 ML VIAL ONE (17:33)
[2022-11-12] MEDS ORDERED: ONDANSETRON 4 MG/2 ML VIAL IV PRN (17:55)
[2022-11-12] MEDS ORDERED: MEPERIDINE 25 MG/1 ML VIAL IV PRN (17:55)
[2022-11-12] MEDS ORDERED: PROMETHAZINE INJ 25 MG in SODIUM CHLORIDE 0.9% 50 ML IV PRN (17:55)
[2022-11-12] MEDS ORDERED: diphenhydrAMINE 50 MG/1 ML VIAL IV PRN (17:55)
[2022-11-12] MEDS: HYDROmorphone 1 MG/1 ML SYRINGE IV PRN ×4 (17:57→18:12)
[2022-11-12] MEDS: DILTIAZEM CD 300 MG CAPSULE PO SCH (21:47)
[2022-11-12] MEDS: AMIODARONE 200 MG TABLET PO SCH (21:47)
[2022-11-12] MEDS: ZOLPIDEM 5 MG TABLET PO SCH (21:47)
[2022-11-12] MEDS: INSULIN GLARGINE 100 UNIT/ML SUBCUT SCH (21:47)
[2022-11-12] MEDS: ENOXAPARIN 30 MG/0.3 ML SYRINGE SUBCUT SCH (21:47)
[2022-11-12] MEDS: MORPHINE 2 MG/1 ML SYRINGE IV PRN (21:48)
[2022-11-13] MEDS: oxyCODONE/ACETAMINOPHEN 5-325 MG TABLET PO PRN ×4 (02:56→20:48)
[2022-11-13] MEDS: SODIUM CHLORIDE 0.9% 1,000 ML IV SCH ×3 (03:47→14:23)
[2022-11-13 05:51] LABS: Basophils % 0.3 % (0.0-0.8); Eosinophils # 0.3 10*3/uL (0.0-0.87); Eosinophils % 3.3 % (0.00-10.9); Hemoglobin 9.5 GM/DL (14.0-18.0); Immature Granulocytes % 0.7 %; Immature Granulocytes Absolute 0.06 #; Lymphocytes # 1.8 10*3/uL (1.4-4.0); Lymphocytes % 19.5 % (21.2-54.2); Mean Corpuscular HGB Conc 31.7 GM/DL (32-36); Mean Corpuscular Volume 97.1 FL (87-102); Mean Platelet Volume 11.4 FL (9.6-12.0); Monocytes # 0.9 10*3/uL (0.11-0.8); Monocytes % 9.5 % (1.7-12.7); Neutrophils % 66.7 % (38.7-73.9); Platelet Count 177 T/CUMM (130-400); Red Blood Count 3.09 MC/CUMM (3.8-5.5); Red Cell Distribution Width 13.9 % (9.3-17.3); White Blood Count 9.1 T/CUMM (4-12)
[2022-11-13 06:12] LABS: Calcium 8.2 MG/DL (8.5-10.1); Osmolality,Calculated 293.1 MOS/KG (273-304); Potassium 3.4 MMOL/L (3.5-5.1)
[2022-11-13] MEDS: INSULIN REGULAR 100 UNIT/ML SUBCUT SCH ×3 (07:43→16:17)
[2022-11-13] MEDS ORDERED: ERTAPENEM 1,000 MG in SODIUM CHLORIDE 0.9% 100 ML IV SCH (09:00)
[2022-11-13] MEDS: ATORVASTATIN 40 MG TABLET PO SCH (09:03)
[2022-11-13] MEDS: LORATADINE 10 MG TABLET PO SCH (09:03)
[2022-11-13] MEDS: ESCITALOPRAM 10 MG TABLET PO SCH (09:03)
[2022-11-13] MEDS: PANTOPRAZOLE 40 MG TABLET PO SCH (09:04)
[2022-11-13] MEDS: NYSTATIN 500,000 UNIT/5 ML UDCUP SWISH/SWAL SCH ×4 (09:04→20:48)
[2022-11-13] MEDS: cloNIDine 0.1 MG TABLET PO SCH ×2 (09:04→20:48)
[2022-11-13] MEDS: CLOPIDOGREL 75 MG TABLET PO SCH (09:04)
[2022-11-13] MEDS: POTASSIUM CHLORIDE 10 MEQ TABLET PO SCH (09:04)
[2022-11-13] MEDS: DESVENLAFAXINE 50 MG TABLET PO SCH ×2 (09:04→14:31)
[2022-11-13] MEDS: DOCUSATE SODIUM 100 MG CAPSULE PO SCH ×2 (09:04→20:49)
[2022-11-13] MEDS: carvediloL 25 MG TABLET PO SCH ×2 (09:04→16:35)
[2022-11-13] MEDS: MEROPENEM 500 MG in SODIUM CHLORIDE 0.9% 100 ML IV SCH ×2 (09:13→16:34)
[2022-11-13] MEDS: MORPHINE 2 MG/1 ML SYRINGE IV PRN (10:30)
[2022-11-13] MEDS: POTASSIUM CHLORIDE 20 MEQ TABLET PO PRN (14:31)
[2022-11-13] MEDS: ZOLPIDEM 5 MG TABLET PO SCH (20:48)
[2022-11-13] MEDS: AMIODARONE 200 MG TABLET PO SCH (20:48)
[2022-11-13] MEDS: DILTIAZEM CD 300 MG CAPSULE PO SCH (20:48)
[2022-11-13] MEDS: tiZANidine 4 MG TABLET PO PRN (20:48)
[2022-11-13] MEDS: INSULIN GLARGINE 100 UNIT/ML SUBCUT SCH (20:48)
[2022-11-13] MEDS: ENOXAPARIN 30 MG/0.3 ML SYRINGE SUBCUT SCH (20:49)
[2022-11-14] MEDS: MEROPENEM 500 MG in SODIUM CHLORIDE 0.9% 100 ML IV SCH ×3 (00:26→16:58)
[2022-11-14] MEDS: MORPHINE 2 MG/1 ML SYRINGE IV PRN ×2 (02:40→13:22)
[2022-11-14] MEDS: oxyCODONE/ACETAMINOPHEN 5-325 MG TABLET PO PRN ×4 (03:28→20:40)
[2022-11-14] MEDS: SODIUM CHLORIDE 0.9% 1,000 ML IV SCH ×3 (05:30→13:14)
[2022-11-14 05:41] LABS: Basophils % 0.4 % (0.0-0.8); Eosinophils # 0.3 10*3/uL (0.0-0.87); Eosinophils % 4.4 % (0.00-10.9); Hematocrit 30.1 VOL% (42.0-52.0); Hemoglobin 9.4 GM/DL (14.0-18.0); Immature Granulocytes % 0.7 %; Immature Granulocytes Absolute 0.05 #; Lymphocytes # 1.9 10*3/uL (1.4-4.0); Lymphocytes % 27.7 % (21.2-54.2); Mean Corpuscular HGB Conc 31.2 GM/DL (32-36); Mean Platelet Volume 11.5 FL (9.6-12.0); Monocytes # 0.8 10*3/uL (0.11-0.8); Monocytes % 11.3 % (1.7-12.7); Neutrophils % 55.5 % (38.7-73.9); Platelet Count 186 T/CUMM (130-400); Red Blood Count 3.07 MC/CUMM (3.8-5.5); Red Cell Distribution Width 13.9 % (9.3-17.3); White Blood Count 6.9 T/CUMM (4-12)
[2022-11-14 06:11] LABS: Calcium 8.4 MG/DL (8.5-10.1); Osmolality,Calculated 293.8 MOS/KG (273-304); Potassium 3.5 MMOL/L (3.5-5.1)
[2022-11-14] MEDS: INSULIN REGULAR 100 UNIT/ML SUBCUT SCH ×3 (08:46→16:49)
[2022-11-14] MEDS: cloNIDine 0.1 MG TABLET PO SCH ×2 (09:11→20:39)
[2022-11-14] MEDS: ATORVASTATIN 40 MG TABLET PO SCH (09:12)
[2022-11-14] MEDS: DOCUSATE SODIUM 100 MG CAPSULE PO SCH ×2 (09:12→20:39)
[2022-11-14] MEDS: ESCITALOPRAM 10 MG TABLET PO SCH (09:12)
[2022-11-14] MEDS: CLOPIDOGREL 75 MG TABLET PO SCH (09:12)
[2022-11-14] MEDS: POTASSIUM CHLORIDE 10 MEQ TABLET PO SCH (09:12)
[2022-11-14] MEDS: DESVENLAFAXINE 50 MG TABLET PO SCH ×2 (09:12→13:14)
[2022-11-14] MEDS: carvediloL 25 MG TABLET PO SCH ×2 (09:13→16:58)
[2022-11-14] MEDS: LORATADINE 10 MG TABLET PO SCH (09:13)
[2022-11-14] MEDS: PANTOPRAZOLE 40 MG TABLET PO SCH (09:13)
[2022-11-14] MEDS: tiZANidine 4 MG TABLET PO PRN ×2 (09:13→20:41)
[2022-11-14] MEDS: ENOXAPARIN 30 MG/0.3 ML SYRINGE SUBCUT SCH (20:38)
[2022-11-14] MEDS: DILTIAZEM CD 300 MG CAPSULE PO SCH (20:39)
[2022-11-14] MEDS: ZOLPIDEM 5 MG TABLET PO SCH (20:39)
[2022-11-14] MEDS: AMIODARONE 200 MG TABLET PO SCH (20:41)
[2022-11-14] MEDS: INSULIN GLARGINE 100 UNIT/ML SUBCUT SCH (20:43)
[2022-11-15] MEDS: MEROPENEM 500 MG in SODIUM CHLORIDE 0.9% 100 ML IV SCH ×4 (00:40→23:56)
[2022-11-15] MEDS: MORPHINE 2 MG/1 ML SYRINGE IV PRN ×3 (00:41→23:57)
[2022-11-15 05:34] LABS: Basophils % 0.6 % (0.0-0.8); Eosinophils # 0.4 10*3/uL (0.0-0.87); Eosinophils % 6.3 % (0.00-10.9); Hematocrit 29.3 VOL% (42.0-52.0); Hemoglobin 9.4 GM/DL (14.0-18.0); Immature Granulocytes % 0.5 %; Immature Granulocytes Absolute 0.03 #; Lymphocytes # 2.2 10*3/uL (1.4-4.0); Lymphocytes % 33.4 % (21.2-54.2); Mean Corpuscular HGB Conc 32.1 GM/DL (32-36); Mean Corpuscular Volume 97.3 FL (87-102); Mean Platelet Volume 11.2 FL (9.6-12.0); Monocytes # 0.7 10*3/uL (0.11-0.8); Monocytes % 10.7 % (1.7-12.7); Neutrophils % 48.5 % (38.7-73.9); Platelet Count 188 T/CUMM (130-400); Red Blood Count 3.01 MC/CUMM (3.8-5.5); Red Cell Distribution Width 13.7 % (9.3-17.3); White Blood Count 6.5 T/CUMM (4-12)
[2022-11-15 05:54] LABS: Calcium 8.3 MG/DL (8.5-10.1); Osmolality,Calculated 291.1 MOS/KG (273-304); Potassium 3.6 MMOL/L (3.5-5.1)
[2022-11-15] MEDS: INSULIN REGULAR 100 UNIT/ML SUBCUT SCH ×3 (09:24→16:08)
[2022-11-15] MEDS: DESVENLAFAXINE 50 MG TABLET PO SCH ×2 (09:29→13:30)
[2022-11-15] MEDS: CLOPIDOGREL 75 MG TABLET PO SCH (09:29)
[2022-11-15] MEDS: POTASSIUM CHLORIDE 20 MEQ TABLET PO PRN ×2 (09:29→12:26)
[2022-11-15] MEDS: DOCUSATE SODIUM 100 MG CAPSULE PO SCH ×2 (09:29→20:57)
[2022-11-15] MEDS: ATORVASTATIN 40 MG TABLET PO SCH (09:29)
[2022-11-15] MEDS: carvediloL 25 MG TABLET PO SCH ×2 (09:30→16:51)
[2022-11-15] MEDS: ESCITALOPRAM 10 MG TABLET PO SCH (09:30)
[2022-11-15] MEDS: tiZANidine 4 MG TABLET PO PRN ×2 (09:30→20:57)
[2022-11-15] MEDS: cloNIDine 0.1 MG TABLET PO SCH ×2 (09:30→20:56)
[2022-11-15] MEDS: POTASSIUM CHLORIDE 10 MEQ TABLET PO SCH (09:30)
[2022-11-15] MEDS: LORATADINE 10 MG TABLET PO SCH (09:30)
[2022-11-15] MEDS: PANTOPRAZOLE 40 MG TABLET PO SCH (09:30)
[2022-11-15] MEDS: oxyCODONE/ACETAMINOPHEN 5-325 MG TABLET PO PRN ×3 (09:36→20:58)
[2022-11-15] MEDS: SODIUM CHLORIDE 0.9% 1,000 ML IV SCH ×2 (09:40→11:07)
[2022-11-15] MEDS: fentaNYL 12 MCG/HR PATCH TRANSDERM SCH (12:26)
[2022-11-15] MEDS: ZOLPIDEM 5 MG TABLET PO SCH (20:56)
[2022-11-15] MEDS: AMIODARONE 200 MG TABLET PO SCH (20:56)
[2022-11-15] MEDS: DILTIAZEM CD 300 MG CAPSULE PO SCH (20:57)
[2022-11-15] MEDS: ENOXAPARIN 30 MG/0.3 ML SYRINGE SUBCUT SCH (20:59)
[2022-11-15] MEDS: INSULIN GLARGINE 100 UNIT/ML SUBCUT SCH (21:00)
[2022-11-16] MEDS: MEROPENEM 500 MG in SODIUM CHLORIDE 0.9% 100 ML IV SCH ×3 (00:05→16:49)
[2022-11-16] MEDS: oxyCODONE/ACETAMINOPHEN 5-325 MG TABLET PO PRN ×4 (02:25→23:42)
[2022-11-16] MEDS: SODIUM CHLORIDE 0.9% 1,000 ML IV SCH (04:16)
[2022-11-16] MEDS: cloNIDine 0.1 MG TABLET PO SCH ×2 (10:35→20:24)
[2022-11-16] MEDS: PANTOPRAZOLE 40 MG TABLET PO SCH (10:36)
[2022-11-16] MEDS: ATORVASTATIN 40 MG TABLET PO SCH (10:36)
[2022-11-16] MEDS: POTASSIUM CHLORIDE 10 MEQ TABLET PO SCH (10:36)
[2022-11-16] MEDS: CLOPIDOGREL 75 MG TABLET PO SCH (10:36)
[2022-11-16] MEDS: carvediloL 25 MG TABLET PO SCH ×2 (10:36→16:49)
[2022-11-16] MEDS: POTASSIUM CHLORIDE 20 MEQ TABLET PO PRN (10:36)
[2022-11-16] MEDS: ESCITALOPRAM 10 MG TABLET PO SCH (10:36)
[2022-11-16] MEDS: LORATADINE 10 MG TABLET PO SCH (10:37)
[2022-11-16] MEDS: DOCUSATE SODIUM 100 MG CAPSULE PO SCH ×2 (10:37→20:25)
[2022-11-16] MEDS: INSULIN REGULAR 100 UNIT/ML SUBCUT SCH ×3 (10:37→16:49)
[2022-11-16] MEDS: tiZANidine 4 MG TABLET PO PRN ×2 (10:43→20:24)
[2022-11-16] MEDS: DESVENLAFAXINE 50 MG TABLET PO SCH ×2 (10:43→13:55)
[2022-11-16] MEDS: DILTIAZEM CD 300 MG CAPSULE PO SCH (20:24)
[2022-11-16] MEDS: MORPHINE 2 MG/1 ML SYRINGE IV PRN (20:25)
[2022-11-16] MEDS: ENOXAPARIN 30 MG/0.3 ML SYRINGE SUBCUT SCH (20:25)
[2022-11-16] MEDS: ZOLPIDEM 5 MG TABLET PO SCH (20:25)
[2022-11-16] MEDS: AMIODARONE 200 MG TABLET PO SCH (20:26)
[2022-11-16] MEDS: INSULIN GLARGINE 100 UNIT/ML SUBCUT SCH (20:30)
[2022-11-17] MEDS: SODIUM CHLORIDE 0.9% 1,000 ML IV SCH (00:06)
[2022-11-17] MEDS: MEROPENEM 500 MG in SODIUM CHLORIDE 0.9% 100 ML IV SCH ×3 (00:07→16:51)
[2022-11-17] MEDS: INSULIN REGULAR 100 UNIT/ML SUBCUT SCH ×3 (09:07→16:33)
[2022-11-17] MEDS: cloNIDine 0.1 MG TABLET PO SCH ×2 (09:35→21:16)
[2022-11-17] MEDS: PANTOPRAZOLE 40 MG TABLET PO SCH (09:35)
[2022-11-17] MEDS: DOCUSATE SODIUM 100 MG CAPSULE PO SCH ×2 (09:35→21:16)
[2022-11-17] MEDS: POTASSIUM CHLORIDE 10 MEQ TABLET PO SCH (09:35)
[2022-11-17] MEDS: CLOPIDOGREL 75 MG TABLET PO SCH (09:35)
[2022-11-17] MEDS: ESCITALOPRAM 10 MG TABLET PO SCH (09:36)
[2022-11-17] MEDS: LORATADINE 10 MG TABLET PO SCH (09:36)
[2022-11-17] MEDS: tiZANidine 4 MG TABLET PO PRN ×2 (09:37→21:16)
[2022-11-17] MEDS: DESVENLAFAXINE 50 MG TABLET PO SCH ×2 (09:37→13:16)
[2022-11-17] MEDS: carvediloL 25 MG TABLET PO SCH ×2 (09:37→16:50)
[2022-11-17 09:38] LABS: Calcium 8.4 MG/DL (8.5-10.1); Osmolality,Calculated 284.5 MOS/KG (273-304); Potassium 3.6 MMOL/L (3.5-5.1)
[2022-11-17] MEDS: oxyCODONE/ACETAMINOPHEN 5-325 MG TABLET PO PRN ×3 (09:38→21:17)
[2022-11-17] MEDS: ATORVASTATIN 40 MG TABLET PO SCH (09:39)
[2022-11-17] MEDS: ONDANSETRON 4 MG/2 ML VIAL IV PRN (13:17)
[2022-11-17] MEDS: MORPHINE 2 MG/1 ML SYRINGE IV PRN (13:19)
[2022-11-17] MEDS: DILTIAZEM CD 300 MG CAPSULE PO SCH (21:16)
[2022-11-17] MEDS: ENOXAPARIN 30 MG/0.3 ML SYRINGE SUBCUT SCH (21:16)
[2022-11-17] MEDS: ZOLPIDEM 5 MG TABLET PO SCH (21:16)
[2022-11-17] MEDS: AMIODARONE 200 MG TABLET PO SCH (21:16)
[2022-11-17] MEDS: INSULIN GLARGINE 100 UNIT/ML SUBCUT SCH (21:24)
[2022-11-18] MEDS: SODIUM CHLORIDE 0.9% 1,000 ML IV SCH ×2 (00:03→21:03)
[2022-11-18] MEDS: MEROPENEM 500 MG in SODIUM CHLORIDE 0.9% 100 ML IV SCH ×3 (00:15→17:42)
[2022-11-18] MEDS: oxyCODONE/ACETAMINOPHEN 5-325 MG TABLET PO PRN ×4 (03:17→20:59)
[2022-11-18 05:48] LABS: Basophils % 0.7 % (0.0-0.8); Eosinophils # 0.3 10*3/uL (0.0-0.87); Eosinophils % 4.1 % (0.00-10.9); Hemoglobin 9.4 GM/DL (14.0-18.0); Immature Granulocytes % 0.5 %; Immature Granulocytes Absolute 0.03 #; Lymphocytes # 1.5 10*3/uL (1.4-4.0); Lymphocytes % 24.8 % (21.2-54.2); Mean Corpuscular HGB Conc 32.4 GM/DL (32-36); Mean Corpuscular Volume 95.7 FL (87-102); Mean Platelet Volume 10.9 FL (9.6-12.0); Monocytes # 0.7 10*3/uL (0.11-0.8); Monocytes % 11.8 % (1.7-12.7); Neutrophils % 58.1 % (38.7-73.9); Platelet Count 234 T/CUMM (130-400); Red Blood Count 3.03 MC/CUMM (3.8-5.5); Red Cell Distribution Width 13.4 % (9.3-17.3); White Blood Count 6.1 T/CUMM (4-12)
[2022-11-18] MEDS: INSULIN REGULAR 100 UNIT/ML SUBCUT SCH ×3 (08:06→16:52)
[2022-11-18 08:39] LABS: Calcium 8.3 MG/DL (8.5-10.1); Osmolality,Calculated 285.5 MOS/KG (273-304); Potassium 3.5 MMOL/L (3.5-5.1)
[2022-11-18] MEDS: PANTOPRAZOLE 40 MG TABLET PO SCH (08:41)
[2022-11-18] MEDS: tiZANidine 4 MG TABLET PO PRN ×2 (08:41→20:59)
[2022-11-18] MEDS: cloNIDine 0.1 MG TABLET PO SCH ×2 (08:41→20:58)
[2022-11-18] MEDS: DOCUSATE SODIUM 100 MG CAPSULE PO SCH ×2 (08:41→20:59)
[2022-11-18] MEDS: DESVENLAFAXINE 50 MG TABLET PO SCH ×2 (08:42→14:51)
[2022-11-18] MEDS: LORATADINE 10 MG TABLET PO SCH (08:42)
[2022-11-18] MEDS: ATORVASTATIN 40 MG TABLET PO SCH (08:42)
[2022-11-18] MEDS: carvediloL 25 MG TABLET PO SCH ×2 (08:42→17:41)
[2022-11-18] MEDS: CLOPIDOGREL 75 MG TABLET PO SCH (08:43)
[2022-11-18] MEDS: POTASSIUM CHLORIDE 10 MEQ TABLET PO SCH (09:07)
[2022-11-18] MEDS: ESCITALOPRAM 10 MG TABLET PO SCH (09:07)
[2022-11-18] MEDS: fentaNYL 12 MCG/HR PATCH TRANSDERM SCH (10:12)
[2022-11-18] MEDS: MORPHINE 2 MG/1 ML SYRINGE IV PRN (17:41)
[2022-11-18] MEDS: ONDANSETRON 4 MG/2 ML VIAL IV PRN (17:42)
[2022-11-18] MEDS: DILTIAZEM CD 300 MG CAPSULE PO SCH (20:58)
[2022-11-18] MEDS: ZOLPIDEM 5 MG TABLET PO SCH (20:59)
[2022-11-18] MEDS: AMIODARONE 200 MG TABLET PO SCH (20:59)
[2022-11-18] MEDS: ENOXAPARIN 30 MG/0.3 ML SYRINGE SUBCUT SCH (21:01)
[2022-11-18] MEDS: INSULIN GLARGINE 100 UNIT/ML SUBCUT SCH (21:01)
[2022-11-19] MEDS: ONDANSETRON 4 MG/2 ML VIAL IV PRN (00:15)
[2022-11-19] MEDS: MORPHINE 2 MG/1 ML SYRINGE IV PRN ×2 (00:16→16:47)
[2022-11-19] MEDS: MEROPENEM 500 MG in SODIUM CHLORIDE 0.9% 100 ML IV SCH ×3 (02:09→16:24)
[2022-11-19] MEDS: INSULIN REGULAR 100 UNIT/ML SUBCUT SCH ×3 (07:42→15:41)
[2022-11-19] MEDS: LORATADINE 10 MG TABLET PO SCH (08:23)
[2022-11-19] MEDS: DESVENLAFAXINE 50 MG TABLET PO SCH ×2 (08:23→14:00)
[2022-11-19] MEDS: POTASSIUM CHLORIDE 10 MEQ TABLET PO SCH (08:23)
[2022-11-19] MEDS: PANTOPRAZOLE 40 MG TABLET PO SCH (08:23)
[2022-11-19] MEDS: oxyCODONE/ACETAMINOPHEN 5-325 MG TABLET PO PRN ×3 (08:24→21:06)
[2022-11-19] MEDS: ATORVASTATIN 40 MG TABLET PO SCH (08:24)
[2022-11-19] MEDS: carvediloL 25 MG TABLET PO SCH ×2 (08:24→16:24)
[2022-11-19] MEDS: ESCITALOPRAM 10 MG TABLET PO SCH (08:24)
[2022-11-19] MEDS: cloNIDine 0.1 MG TABLET PO SCH ×2 (08:24→21:05)
[2022-11-19] MEDS: DOCUSATE SODIUM 100 MG CAPSULE PO SCH ×2 (08:24→21:05)
[2022-11-19] MEDS: CLOPIDOGREL 75 MG TABLET PO SCH (08:27)
[2022-11-19] MEDS: tiZANidine 4 MG TABLET PO PRN ×2 (08:55→21:06)
[2022-11-19] MEDS: ZOLPIDEM 5 MG TABLET PO SCH (21:05)
[2022-11-19] MEDS: AMIODARONE 200 MG TABLET PO SCH (21:05)
[2022-11-19] MEDS: DILTIAZEM CD 300 MG CAPSULE PO SCH (21:06)
[2022-11-19] MEDS: ENOXAPARIN 30 MG/0.3 ML SYRINGE SUBCUT SCH (21:06)
[2022-11-19] MEDS: INSULIN GLARGINE 100 UNIT/ML SUBCUT SCH (21:07)
[2022-11-20] MEDS: MEROPENEM 500 MG in SODIUM CHLORIDE 0.9% 100 ML IV SCH ×2 (01:13→09:04)
[2022-11-20] MEDS: oxyCODONE/ACETAMINOPHEN 5-325 MG TABLET PO PRN ×2 (03:02→09:05)
[2022-11-20 05:27] LABS: Basophils # 0.1 10*3/uL (0.0-0.2); Basophils % 0.9 % (0.0-0.8); Eosinophils # 0.3 10*3/uL (0.0-0.87); Eosinophils % 4.9 % (0.00-10.9); Hemoglobin 9.1 GM/DL (14.0-18.0); Immature Granulocytes % 0.4 %; Immature Granulocytes Absolute 0.02 #; Lymphocytes # 1.9 10*3/uL (1.4-4.0); Lymphocytes % 35.3 % (21.2-54.2); Mean Corpuscular HGB Conc 31.4 GM/DL (32-36); Mean Corpuscular Volume 97.6 FL (87-102); Mean Platelet Volume 11.4 FL (9.6-12.0); Monocytes # 0.7 10*3/uL (0.11-0.8); Monocytes % 12.8 % (1.7-12.7); Neutrophils % 45.7 % (38.7-73.9); Platelet Count 293 T/CUMM (130-400); Red Blood Count 2.97 MC/CUMM (3.8-5.5); Red Cell Distribution Width 13.5 % (9.3-17.3); White Blood Count 5.3 T/CUMM (4-12)
[2022-11-20] MEDS: INSULIN REGULAR 100 UNIT/ML SUBCUT SCH ×2 (08:12→11:41)
[2022-11-20 08:30] LABS: Calcium 8.3 MG/DL (8.5-10.1); Osmolality,Calculated 289.3 MOS/KG (273-304); Potassium 3.5 MMOL/L (3.5-5.1)
[2022-11-20] MEDS: tiZANidine 4 MG TABLET PO PRN (09:05)
[2022-11-20] MEDS: cloNIDine 0.1 MG TABLET PO SCH (09:05)
[2022-11-20] MEDS: carvediloL 25 MG TABLET PO SCH (09:05)
[2022-11-20] MEDS: DOCUSATE SODIUM 100 MG CAPSULE PO SCH (09:06)
[2022-11-20] MEDS: ESCITALOPRAM 10 MG TABLET PO SCH (09:06)
[2022-11-20] MEDS: CLOPIDOGREL 75 MG TABLET PO SCH (09:06)
[2022-11-20] MEDS: ATORVASTATIN 40 MG TABLET PO SCH (09:06)
[2022-11-20] MEDS: LORATADINE 10 MG TABLET PO SCH (09:06)
[2022-11-20] MEDS: POTASSIUM CHLORIDE 10 MEQ TABLET PO SCH (09:06)
[2022-11-20] MEDS: PANTOPRAZOLE 40 MG TABLET PO SCH (09:06)
[2022-11-20] MEDS: DESVENLAFAXINE 50 MG TABLET PO SCH ×2 (09:06→14:23)
[2022-11-20 11:43] VITALS: BP 149/84
== END 2022-11-20 15:03 | disposition home health service (06) | DRG 674 ==
LOC: N.ED 00:12 → N.EDINP 00:12 → N.2W 03:13 → N.2E 15:10
PROVIDERS: ADMIT Internal Medicine; ATTEND Internal Medicine